=== PATIENT | female | born 1965 | race Hispanic/Latino ===

== ENCOUNTER 2017-06-04 17:05 | Inpatient (IN) | payer BC ==
[2017-06-04] MEDS ORDERED: Sodium Chloride 0.9% 500 ML IV STA ×2 (17:24→18:11)
[2017-06-04] MEDS: Sodium Chloride 0.9% 1,000 ML IV SCH (17:30)
--- NOTE | 2017-06-04 17:37 | ED PDOC ---
Arrival/HPI - General Chief Complaint: Shortness Of Breath Time Seen by Provider: 06/04/17 17:22 Historian: Patient, Spouse - History of Present Illness Narrative History of Present Illness (Text): 06/04/17 17:15 pt p/w + 4 days onset of worsening sob, now worse sob with exertion; + palpitations/? lightheadedness; + feeling very thirsty; pt states no cp; no coughing, no fever/chills, no sweats, no abd pain, + 1 episode of vomiting, + nausea, no appetite changes, no urinary/bowel changes; pt states no LOC; pt is here for further eval; pt's without other complaints pt s/p gastric sleeve 2 months ago at [facility] pt has been losing weight, inital weight was 292lb, 1 week ago, pt was measured at 221lbs PCP: DR CRAVEN Time/Duration: < week Symptom Onset: Sudden (4 days) Symptom Course: Worsening Quality: Other (NO PAIN) Severity Level: Severe Activities at Onset: Other (exertion) Context: Walking, Exertion, Home Past Medical History - Provider Review Nursing Documentation Reviewed: Yes - Travel History Have you recently traveled outside [place] w/in the past 3 mons?: No - Past History Past History: No Previous - Infectious Disease Hx of Infectious Diseases: None - Reproductive Menopause: Yes Currently : No - Psychiatric Hx Substance Use: No - Anesthesia Hx Anesthesia Reactions: No Hx Malignant Hyperthermia: No Family/Social History - Physician Review Nursing Documentation Reviewed: Yes Family/Social History: No Known Family HX Smoking Status: Never Smoked Hx Alcohol Use: No Hx Substance Use: No Hx Substance Use Treatment: No Allergies/Home Meds Allergies/Adverse Reactions: Allergies Sulfa (Sulfonamide Antibiotics) Allergy (Verified 06/04/17 17:15) ITCHING Review of Systems - Review of Systems Constitutional: Fatigue, Weight Change. absent: Night Sweats Eyes: Normal ENT: Normal Respiratory: SOB Cardiovascular: Palpitations. absent: Chest Pain Gastrointestinal: Nausea, Vomiting, Appetite Changes. absent: Abdominal Pain, Stool Changes, Constipation Genitourinary Female: Normal Musculoskeletal: Normal Skin: Normal Neurological: Normal Endocrine: Normal Hemo/Lymphatic: Normal Psychiatric: Normal Physical Exam Vital Signs Reviewed: Yes Vital Signs Temp Pulse Resp BP Pulse Ox 06/04/17 19:55 91 H 10 L 134/63 100 06/04/17 18:17 89 20 134/80 99 06/04/17 18:00 152 H 144/97 H 06/04/17 17:59 152 H 144/97 H 06/04/17 17:57 153 H 20 119/94 H 99 06/04/17 17:40 200 H 144/97 H 06/04/17 17:31 208 H 18 144/97 H 98 06/04/17 17:06 98 F 200 H 22 117/94 H 96 Temperature: Afebrile Blood Pressure: Normal Pulse: Tachycardic Respiratory Rate: Tachypneic Appearance: Positive for: Well-Appearing, Uncomfortable, Other (uncomfortable, mild distress due to resp; alert/awake, GCS = 15, oriented x 3) Pain Distress: None Mental Status: Positive for: Alert and Oriented X 3 - Systems Exam Head: Present: Atraumatic, Normocephalic Pupils: Present: PERRL, Other (no nystagmus, no photophobia, sclera anicteric) Extroacular Muscles: Present: EOMI Conjunctiva: Present: Normal Ears: Present: Normal Mouth: Present: Dry, Normal Teeth, Other (very dry oral mucosa; no drooling/ stridor, no exudate/lesions, no ulcerations/FB/masses noted, fair dentitions) Pharnyx: Present: Normal Nose (External): Present: Atraumatic Nose (Internal): Present: Normal Inspection Neck: Present: Normal Range of Motion, Trachea Midline, Other (no step off, no nuchal rigidity, no meningeal signs). No: MIDLINE TENDERNESS Respiratory/Chest: Present: Clear to Auscultation, Good Air Exchange, Other ( CTA b/l, no w/r/r, no accessory muscle use noted, mild tachypenia) Cardiovascular: Present: Normal S1, S2, Irregular Rhythm, Tachycardic. No: Murmurs Abdomen: Present: Normal Bowel Sounds, Other (well nourished/obese female, no focal tenderness, no olivas's sign, no mcburney's point tenderness, no masses/ rebound/guarding/rigidity) Back: Present: Normal Inspection. No: CVA Tenderness, Midline Tenderness Upper Extremity: Present: Normal Inspection, Normal ROM, NORMAL PULSES, Neurovascularly Intact, Other (strength 5/5 grossly intact in all limbs) Lower Extremity: Present: Normal Inspection, NORMAL PULSES, Normal ROM, Neurovascularly Intact, Capillary Refill < 2 s, Other (no pitting edema noted b/ l, no focal tenderness noted). No: Edema, CALF TENDERNESS, Neema's Sign Neurological: Present: GCS=15, CN II-XII Intact, Speech Normal, Other (slow speech, NO slurr speech noted, NIH stroke scale ~ 0, no facial asymmetries noted ) Skin: Present: Warm, Dry, Other (cap refill ~ 1-2 sec, no ulcerations, no petechiae, no gross pallor noted) Psychiatric: Present: Alert, Oriented x 3 Medical Decision Making ED Course and Treatment: 06/04/17 18:09 Impression: severe sob/weakness i have consider all the differential diagnosis regarding pt's chief medical complaints/clinical findings, including but are not limited to: rapid hr/ dehydration; no cp A/P: sob/weakness; rapid hr - labs - iv - xray - ct - acs eval - observe - supportive care 1750 cardioversion: pt received 2 bolus of adenosine at 12mg/dose, noted improvement in HR momentarily and the resumption of HR > 160BPM pt tolerated the procedure without any [place] will prescribe cardizem 06/04/17 18:00 pt responded to cardizem bolus, currently HR ~ 140s pt remained chest pain free pt is feeling some/slight improvement i spoke to Dr Engle, made aware, agrees with admission, would like Dr Tran consulted and if need be, consult intensivitist [address] Tran, cardiology communications associate, made aware, agrees with ED mgt/txt, would like to add verapamill 2.5mg IVP x 1; will evaluate patient pt is currently doing well vital signs normalized, HR < 100 pt is made aware of her medical results agrees with admission 06/04/17 1845 spoke with Intensivists, Dr Thompson, made aware of pt's ED presentation, recommend holding cardizem gtt and continue with fluid bolus (total of 2L NS) and re-eval; if pt HR > 100 requiring cardizem then pt is likely an ICU candidate, otherwise pt can be admitted to TELE 06/04/17 1905 pt is endorsed to Dr Vasquez, overnight ED attending, pt is pending CTA chest to r/o pe; pt is admitted, pt is to be treated accordingly Re-evaluation Time: 18:30 Reassessment Condition: Improved - Critical Care Critical Care Minutes: 60 minutes Critical Care Time: Excluding Proc Time Narrative Critical Care (Text): 06/04/17 18:15 critical care time: 60min, excluding procedure time, excluding time teaching residents/students/mid-level providers; including initial eval/diagnosis, diagnostic interpretation, re-eval, consultations, final disposition - Lab Interpretations Lab Results: 06/04/17 17:25 06/04/17 17:25 Lab Results 06/04/17 17:25: TSH 3rd Generation 3.00 06/04/17 17:25: Sodium 138, Potassium 5.2 H, Chloride 102, Carbon Dioxide 5 L, Anion Gap 36 H, BUN 21, Creatinine 1.5 H, Est GFR ( Amer) 44, Est GFR ( Non-Af Amer) 36, Random Glucose 296 H, Calcium 11.0 H, Phosphorus 5.4 H, Magnesium 2.5 H, Total Bilirubin 0.7, AST 21, ALT 39, Alkaline Phosphatase 109, Lactate Dehydrogenase 470, Total Creatine Kinase 33 L, Troponin I < 0.01, Total Protein 9.2 H, Albumin 5.4 H, Globulin 3.7, Albumin/Globulin Ratio 1.5 06/04/17 17:25: PT 10.9, INR 0.96, APTT 32.2 06/04/17 17:25: WBC 19.8 H, RBC 5.29, Hgb 16.3 H, Hct 46.6, MCV 88.1, MCH 30.8, MCHC 35.0, RDW 14.1, Plt Count 323, MPV 11.1 H, Gran % 77.1 H, Lymph % (Auto) 16.3 L, [place] % (Auto) 6.3 H, Eos % (Auto) 0.1 L, Baso % (Auto) 0.2, Gran # 15.29 H, Lymph # (Auto) 3.2, [place] # (Auto) 1.2 H, Eos # (Auto) 0.0, Baso # (Auto ) 0.04 I have reviewed the lab results: Yes Interpretation: Abnormal lab values (elevated WBCS/GLUC) - RAD Interpretation Narrative RAD Interpretations (Text): 03/18/18 20:22 CXR - right basiliar atelectasis CTA CHEST: PENDING Radiology Orders: 06/04/17 17:22 ANGIO CHEST PE PROTOCOL [CT] Stat CHEST ONE VIEW [RAD] Stat Door Closer Mechanic: Radiologist - EKG Interpretation EKG Interpretation (Text): 06/04/17 18:16 EKG1: Atrial fib with rapid vent response at 195 bpm, normal axis, + ectoy, non- specific st-t changes, ABNL EKG; no old ekg to compare with EKG2: SR at 90 bpm, borderline 1st degree av block, normal axis, no ectopy, qs in leads III, V1-2, no st changes, ABNL EKG 06/04/17 18:18 ekg rhythm strip: + adenosine response, no underlying atrial flutter noted, resumed rapid HR however Interpreted by ED Physician: Yes Type: 12 lead EKG Comparison: No previous EKG avail. - Medication Orders Current Medication Orders: Sodium Chloride (Sodium Chloride 0.9%) 1,000 mls @ 100 mls/hr IV .Q10H ALEJANDRINA Discontinued Medications Adenosine (Adenosine 6 Mg/2 Ml Inj) 12 mg IVP ONCE ONE Stop: 06/04/17 17:24 Last Admin: 06/04/17 17:23 Dose: 12 mg IVP Administration Document 06/04/17 17:23 SRE (Rec: 06/04/17 17:42 SRE [id number]) Charges for Administration # of IVP Administrations 1 Adenosine (Adenosine 6 Mg/2 Ml Inj) 12 mg IVP STAT STA Stop: 06/04/17 17:26 Last Admin: 06/04/17 17:25 Dose: 12 mg IVP Administration Document 06/04/17 17:25 SRE (Rec: 06/04/17 17:41 SRE [id number]) Charges for Administration # of IVP Administrations 1 Aspirin (Ecotrin) 81 mg PO STAT STA Stop: 06/04/17 17:23 Last Admin: 06/04/17 17:43 Dose: 81 mg Diltiazem HCl (Cardizem) 20 mg IVP STAT STA Stop: 06/04/17 17:33 Last Admin: 06/04/17 17:40 Dose: 20 mg IVP Administration Document 06/04/17 17:40 SRE (Rec: 06/04/17 17:45 SRE [id number]) Charges for Administration # of IVP Administrations 1 MAR Pulse and Blood Pressure Document 06/04/17 17:40 SRE (Rec: 06/04/17 17:45 SRE [id number]) Pulse Pulse Rate (60-90) 200 Blood Pressure Blood Pressure (100/60-150/90) 144/97 Diltiazem HCl (Cardizem) 10 mg IVP STAT STA Stop: 06/04/17 17:49 Last Admin: 06/04/17 18:00 Dose: 10 mg IVP Administration Document 06/04/17 18:00 SRE (Rec: 06/04/17 18:00 SRE [id number]) Charges for Administration # of IVP Administrations 1 MAR Pulse and Blood Pressure Document 06/04/17 18:00 SRE (Rec: 06/04/17 18:00 SRE [id number]) Pulse Pulse Rate (60-90) 152 Blood Pressure Blood Pressure (100/60-150/90) 144/97 Sodium Chloride (Sodium Chloride 0.9%) 500 mls @ 999 mls/hr IV .Q31M STA Stop: 06/04/17 17:54 Last Admin: 06/04/17 17:20 Dose: 999 mls/hr eMAR Start Stop Document 06/04/17 17:20 SRE (Rec: 06/04/17 17:44 SRE [id number]) Intravenous Solution Start Date 06/04/17 Start Time 17:20 End Date 06/04/17 End time 17:50 Total Infusion Time 30 diltiaZEM IVPB 100mg in NS (Cardizem 100mg In Ns) 100 mls @ 5 mls/hr IV .Q20H PRN; Protocol; 5 MG/HR PRN Reason: TITRATE PER MD ORDER Last Admin: 06/04/17 17:48 Dose: 5 mls/hr eMAR Start Stop Document 06/04/17 17:48 SRE (Rec: 06/04/17 17:48 SRE [id number]) Intravenous Solution Start Date 06/04/17 Start Time 17:48 Sodium Chloride (Sodium Chloride 0.9%) 500 mls @ 999 mls/hr IV .Q31M STA Stop: 06/04/17 18:41 Last Admin: 06/04/17 18:38 Dose: 999 mls/hr eMAR Start Stop Document 06/04/17 18:38 SRE (Rec: 06/04/17 18:39 SRE [id number]) Intravenous Solution Start Date 06/04/17 Start Time 18:15 End Date 06/04/17 End time 18:45 Total Infusion Time 30 Sodium Chloride (Sodium Chloride 0.9%) 1,000 mls @ 999 mls/hr IV .Q1H1M STA Stop: 06/04/17 19:28 Last Admin: 06/04/17 18:32 Dose: 999 mls/hr eMAR Start Stop Document 06/04/17 18:32 SRE (Rec: 06/04/17 18:32 SRE [id number]) Intravenous Solution Start Date 06/04/17 Start Time 18:32 End Date 06/04/17 End time 19:35 Total Infusion Time 63 Lorazepam (Ativan) 1 mg IVP ONCE ONE PRN Reason: Protocol Stop: 06/04/17 17:25 Last Admin: 06/04/17 17:58 Dose: 1 mg IVP Administration Document 06/04/17 17:58 SRE (Rec: 06/04/17 17:58 SRE [id number]) Charges for Administration # of IVP Administrations 1 Verapamil HCl (Verapamil Inj) 2.5 mg IVP STAT STA Stop: 06/04/17 18:05 Last Admin: 06/04/17 18:05 Dose: - Transfer of Care Patient signed out to :: kori Pending Radiology Studies:: CTA chest Disposition/Present on Arrival - Present on Arrival Any Indicators Present on Arrival: No History of DVT/PE: No History of Uncontrolled Diabetes: No Urinary Catheter: No History of Decub. Ulcer: No History Surgical Site Infection Following: Bariatric Surgery - Disposition Have Diagnosis and Disposition been Completed?: Yes Diagnosis: Atrial fibrillation with rapid ventricular response, Dehydration, Hyperglycemia , Leukocytosis Disposition: HOSPITALIZED Disposition Time: 18:06 Patient Plan: Admission, Telemetry Patient Problems: Current Active Problems Problem Status Onset Atrial fibrillation with rapid ventricular response Acute Condition: FAIR
[2017-06-04] MEDS ORDERED: diltiaZEM IVPB 100mg in NS 100 ML IV PRN (17:40)
[2017-06-04 17:42] VITALS: BMI 35.6
[2017-06-04 18:00] LABS: BASO # 0.04 K/mm3 (0.0-2.0); BASO % 0.2 % (0.0-3.0); EOS % 0.1 % (1.5-5.0); GRAN # 15.29 (1.4-6.5); GRAN % 77.1 % (50.0-68.0); HEMOGLOBIN 16.3 g/dL (12.0-16.0); LYMPH # 3.2 (1.2-3.4); LYMPH % 16.3 % (22.0-35.0); MEAN CELL VOLUME 88.1 fl (80.0-105.0); MEAN CORPUSCULAR HEMOGLOBIN 30.8 pg (25.0-35.0); MEAN PLATELET VOLUME 11.1 fl (7.0-11.0); MONO # 1.2 (0.1-0.6); MONO % 6.3 % (1.0-6.0); RBC 5.29 10^6/uL (3.5-6.1); RED CELL DISTRIBUTION WIDTH 14.1 % (11.5-14.5); WHITE BLOOD COUNT 19.8 10^3/ul (4.5-11.0)
[2017-06-04 18:15] LABS: INR 0.96 (0.93-1.08); PARTIAL THROMBOPLASTIN TIME 32.2 Seconds (25.1-36.5); PROTHROMBIN TIME 10.9 SECONDS (9.4-12.5)
[2017-06-04 18:28] LABS: ALB/GLOB RATIO 1.5 (1.1-1.8); ALBUMIN 5.4 g/dL (3.0-4.8); ALT/SGPT 39 U/L (7-56); AST/SGOT 21 U/L (14-36); BLOOD UREA NITROGEN 21 mg/dL (7-21); GFR AFRICAN-AMERICAN 44; GFR NON-AFRICAN AMERICAN 36
[2017-06-04] MEDS ORDERED: Sodium Chloride 0.9% 1,000 ML IV STA (18:28)
[2017-06-04 18:36] LABS: VENOUS BLOOD GAS BASE EXCESS -26.5 mmol/L (0.0-2.0); VENOUS BLOOD GAS PO2 32 mm/Hg (30-55)
[2017-06-04 18:37] LABS: TROPONIN I < 0.01 ng/mL
[2017-06-04 18:38] LABS: VENOUS BLOOD PH 6.92 (7.32-7.43)
[2017-06-04] MEDS ORDERED: Iohexol 350 MG/100 ML VIAL ONE (18:38)
--- NOTE | 2017-06-04 20:45 | CT ---
EXAM: CT Angiography Chest With Intravenous Contrast CLINICAL HISTORY: 51 years old, female; Signs and symptoms; Dyspnea; Prior surgery; Surgery type: Recent bariatric sleeve; Patient HX: R/O pe; Additional info: R/O pe, recent bariatric sleeve TECHNIQUE: Axial computed tomographic angiography images of the chest with intravenous contrast using pulmonary embolism protocol. All CT scans at this facility use one or more dose reduction techniques, viz.: automated exposure control; ma/kV adjustment per patient size (including targeted exams where dose is matched to indication; i.e. head); or iterative reconstruction technique. MIP reconstructed images were created and reviewed. Coronal and sagittal reformatted images were created and reviewed. CONTRAST: 96 mL of OMNIPAQUE 350 administered intravenously. COMPARISON: No relevant prior studies available. FINDINGS: Limitations: Motion artifact - mild. Suboptimal timing of bolus. Pulmonary arteries: No definite pulmonary embolism. Aorta: Mild atherosclerotic disease. No aneurysm. Lungs: Minimal atelectasis/scarring. No consolidation. Pleural space: No significant effusion. No pneumothorax. Heart: No cardiomegaly. No significant pericardial effusion. Mild coronary artery calcifications. Mediastinum: Probable small hiatal hernia. Bones/joints: Mild degenerative changes of spine. No acute fracture. Soft tissues: Unremarkable. Lymph nodes: No pathologically enlarged lymph nodes. Liver: Fatty infiltration. Stomach and bowel: Postsurgical changes of stomach. IMPRESSION: 1. No definite CT evidence of pulmonary embolism. 2. Incidental/non-acute findings are described above.
[2017-06-04 22:35] LABS: VENOUS BLOOD GAS BASE EXCESS -26.5 mmol/L (0.0-2.0); VENOUS BLOOD GAS PO2 46 mm/Hg (30-55)
--- NOTE | 2017-06-05 09:27 | RAD ---
PROCEDURE: CHEST RADIOGRAPH, 1 VIEW HISTORY: sob/palpitations COMPARISON: None available. FINDINGS: LUNGS: Clear. PLEURA: No pneumothorax or pleural fluid seen. CARDIOVASCULAR: Normal. OSSEOUS STRUCTURES: No significant abnormalities. VISUALIZED UPPER ABDOMEN: Normal. OTHER FINDINGS: None. IMPRESSION: No active disease.
[2017-06-05] MEDS ORDERED: Vancomycin 1gm in NS 250ml 1 GM/250 ML BAG IVPB STA (09:58)
[2017-06-05] MEDS ORDERED: Enoxaparin 100 mg Syringe SC SCH (10:00)
--- NOTE | 2017-06-05 11:02 | CARD ---
APPROVED REPORT EKG Measurement Heart [id number] <Conclusion> Atrial fibrillation with rapid ventricular response Possible Anterior infarct, age undetermined STTW changes c/w ischemia
--- NOTE | 2017-06-05 11:04 | CARD ---
APPROVED REPORT EKG Measurement Heart [id number] <Conclusion> Normal sinus rhythm, new Septal infarct, age unknown LAD NSSTW changes Q in 3
[2017-06-05 11:31] LABS: URINE BILIRUBIN SMALL (NEGATIVE); URINE BLOOD MODERATE (NEGATIVE); URINE GLUCOSE (UA) 500 mg/dL (NEGATIVE); URINE LEUKOCYTE ESTERASE NEGATIVE Leu/uL (NEGATIVE); URINE PROTEIN 100 mg/dL (<30 mg/dL); URINE UROBILINOGEN 0.2 E.U./dL (<1 E.U./dL)
[2017-06-05] MEDS ORDERED: diltiaZEM IVPB 100mg in NS 100 ML IV PRN (11:39)
--- NOTE | 2017-06-05 11:40 | CARD ---
APPROVED REPORT EKG Measurement Heart [id number] <Conclusion> Normal sinus rhythm Clockwise Rotation. Non Specific ST_T Changes.
[2017-06-05 11:42] LABS: URINE APPEARANCE CLEAR (CLEAR); URINE COLOR YELLOW (YELLOW)
--- NOTE | 2017-06-05 11:43 | HP ---
CHIEF COMPLAINT AND HISTORY OF PRESENT ILLNESS: This is a 51-year-old female, who is coming in to the hospital because of shortness of breath. She says over the past 4 days, she has been having more shortness of breath. She was also having palpitations and lightheadedness. She denies any chest pain. No headache. No changes in her bowel and bladder habits. She did complain of nausea and 1 episode of vomiting. The patient denies any weakness in the arms or the legs. She did have a gastric sleeve done about 2 months ago at [facility]. The patient continues to lose weight and says that she is about 221 pounds. The patient follows with Dr. Rodriguez, who is her primary care doctor. REVIEW OF SYMPTOMS: All other review of symptoms are within normal limits except that was mentioned. ALLERGIES: TO SULFA. HOME MEDICATIONS: Has been reviewed on the [facility]. PAST MEDICAL HISTORY: Diabetes type 2, dyslipidemia, hypertension. FAMILY HISTORY: Noncontributory. SOCIAL HISTORY: She does not smoke or drink. PHYSICAL EXAMINATION: VITAL SIGNS: Temperature is 97.4, pulse of 88, blood pressure is 165/65, respirations 18, O2 saturation is 100%. Height is 5 feet 6. Weight is 221 pounds. GENERAL: The patient lying in bed, uncomfortable, and in no acute distress. HEENT: Atraumatic and normocephalic. Anicteric sclerae. Moist mucosa. [place] conjunctivae. No oral lesions. NECK: No JVD, anterior and posterior adenopathy, thyromegaly, or bruits. CARDIOVASCULAR: S1 and S2 regular. No murmur, rubs, or gallop. LUNGS: Clear to auscultation bilaterally. No wheezes, rales, or rhonchi. ABDOMEN: Bowel sounds are positive. Soft, nontender and nondistended. No hepatosplenomegaly. No rebound and no guarding EXTREMITIES: No cyanosis, clubbing, or edema. NEUROLOGIC: No facial asymmetry. Tongue is midline. No uvula deviation. Power is 5/5 upper extremity and lower extremity. Sensation intact in upper extremity and lower extremity. PSYCHIATRIC: She is awake, alert and oriented x3. No anxiety or depression. She has normal affect. GENITOURINARY: No CVA tenderness. VASCULAR: 2+ pulses in the carotid pulses and pedal pulses. SKIN: No erythema or nodules SPINE: Shows normal curvature. LABORATORY DATA: White count of 19.8, hemoglobin 16.3. INR is 0.96. The patient's chemistry shows potassium is 5.2, creatinine is 1.5, TSH is 3. The patient's chest x-ray shows no infiltrates. CT angio of the chest rules out PE. EKG done shows atrial fibrillation with rapid rate of 195. ASSESSMENT: 1. Rapid atrial fibrillation, new onset. 2. Hypertension. 3. Diabetes type 2. 4. Dyslipidemia. 5. Obesity with a body mass index of 35, status post gastric sleeve. PLAN: The patient is currently comfortable. I will continue the patient on diabetes medications. The patient is back in sinus rhythm. The patient will receive multiple doses of IV fluids. The patient's initial troponins were negative. I did speak to Dr. Tran regarding the case yesterday. We will await further input from Dr. Tran. The patient clinically feels better. We will place her on insulin sliding scale. Elio Madrid MD
[2017-06-05 11:45] LABS: URINE RBC 15 - 20 /hpf (0-2); URINE WBC 0 - 2 /hpf (0-6)
[2017-06-05 11:46] LABS: URINE AMORPHOUS SEDIMENT FEW; URINE BACTERIA MOD (NEG)
[2017-06-05 11:51] LABS: URINE COARSE GRANULAR CAST TRACE /hpf (0-2)
[2017-06-05] MEDS: Cefepime 1gm in NS 100ml 1 GM/100 ML BAG IVPB SCH ×2 (12:48→22:02)
[2017-06-05] MEDS: Insulin Reg-LOW-Coverage SC SCH ×3 (12:48→21:37)
--- NOTE | 2017-06-05 14:15 | CP.PCM.CON ---
History of Present Illness - History of Present Illness History of Present Illness: 51 year old female with PMH of DM, dyslipidemia, HTN, obesity with BMI 36, S/P gastric sleeve surgery came in to [facility] complaining of shortness of breath and dry cough which have been increasing over the past 4 days. There is no sore throat, no rhinorrhea, no muscle or body aches, no fever or chills, no chest pain, no headache or dizziness, no abdominal pain, no diarrhea, no dysuria. During this admission, the patient is found to have new onset atrial fibrillation. CT chest does not show pneumonia. Patient is also found to have leukocytosis and Infectious Diseases consult is requested to further evaluate and manage. Review of Systems - Review of Systems All systems: reviewed and no additional remarkable complaints except (as per HPI ) Past Patient History - Infectious Disease Hx of Infectious Diseases: None - Past Social History Smoking Status: Former Smoker - MUSCULOSKELETAL/RHEUMATOLOGICAL Hx Falls: No - PSYCHIATRIC Hx Substance Use: No - ANESTHESIA Hx Anesthesia Reactions: No Hx Malignant Hyperthermia: No Meds Allergies/Adverse Reactions: Allergies Allergy/AdvReac Type Severity Reaction Status Date / Time Sulfa (Sulfonamide Allergy ITCHING Verified 06/04/17 17:15 Antibiotics) - Medications Medications: Current Medications Aspirin (Ecotrin) 81 mg PO DAILY ALEJANDRINA Enoxaparin Sodium (Lovenox) 100 mg SC Q12H ALEJANDRINA PRN Reason: Protocol Sodium Chloride (Sodium Chloride 0.9%) 1,000 mls @ 100 mls/hr IV .Q10H [facility] Last Admin: 06/04/17 17:30 Dose: 100 mls/hr Insulin Human Regular (Humulin R Low) 0 units SC ACHS ALEJANDRINA PRN Reason: Protocol Physical Exam - Constitutional Appears: Non-toxic, Chronically Ill - Head Exam Head Exam: NORMAL INSPECTION - ENT Exam ENT Exam: Mucous Membranes Moist - Neck Exam Neck exam: Negative for: Meningismus - Respiratory Exam Respiratory Exam: Decreased Breath Sounds - Cardiovascular Exam Cardiovascular Exam: +S1, +S2 - GI/Abdominal Exam GI & Abdominal Exam: Soft. absent: Tenderness Results - Vital Signs Recent Vital Signs: Last Vital Signs Temp 97.4 F L 06/05/17 00:47 Pulse 88 06/05/17 00:47 Resp 18 06/05/17 00:47 BP 165/65 H 06/05/17 00:47 Pulse Ox 100 06/04/17 19:55 - Labs Result Diagrams: 06/04/17 17:25 06/04/17 17:25 Labs: Laboratory Results - last 24 hr 06/04/17 06/04/17 18:30 22:15 pO2 32 46 VBG pH 6.92 L* 6.90 L* VBG pCO2 25.0 L 29.0 L VBG HCO3 5.1 L 5.7 L VBG Total CO2 5.9 L 6.6 L VBG O2 Sat (Calc) 67.0 H 84.1 H VBG Base Excess -26.5 L -26.5 L VBG Potassium 5.2 4.8 Sodium 133.0 134.0 Chloride 98.0 101.0 Glucose 299 H 233 H Lactate 2.0 1.5 FiO2 21.0 21.0 Venous Blood Potassium 5.2 4.8 Assessment & Plan - Assessment and Plan (Free Text) Plan: Assessment Systemic Inflammatory Response syndrome, consider acute stress reaction to new onset Atrial fibrillation, R/O sepsis DM dyslipidemia HTN obesity with BMI 36 S/P gastric sleeve surgery Plan gave a dose of IV Vancomycin and started cefepime pending blood, urine cx, PCT; reviewed CT chest will monitor clinically
[2017-06-05] MEDS: diltiaZEM IVPB 100mg in NS 100 ML IV SCH (16:21)
[2017-06-05 19:23] LABS: HEMOGLOBIN 14.9 g/dL (12.0-16.0); MEAN CELL VOLUME 88.5 fl (80.0-105.0); MEAN CORPUSCULAR HEMOGLOBIN 30.6 pg (25.0-35.0); MEAN CORPUSCULAR HGB CONC 34.6 g/dl (31.0-37.0); MEAN PLATELET VOLUME 11.5 fl (7.0-11.0); RBC 4.87 10^6/uL (3.5-6.1); RED CELL DISTRIBUTION WIDTH 14.2 % (11.5-14.5); WHITE BLOOD COUNT 23.1 10^3/ul (4.5-11.0)
[2017-06-05 19:41] LABS: ALB/GLOB RATIO 1.5 (1.1-1.8); ALBUMIN 5.1 g/dL (3.0-4.8); CALCIUM 10.2 mg/dL (8.4-10.5)
--- NOTE | 2017-06-05 20:11 | CP.PCM.PN ---
Subjective - Date & Time of Evaluation Date of Evaluation: 06/05/17 Time of Evaluation: 20:10 - Subjective Subjective: S: It was requested to insert a heparin lock. Patient is going to have Midline inserted tomorrow. Has no acute symptoms. Medical record was reviewed. O: Last Vital Signs 3 Temp 98.2 F 06/05/17 12:00 Pulse 94 H 06/05/17 17:54 Resp 20 06/05/17 12:00 BP 150/64 06/05/17 17:54 Pulse Ox 100 06/04/17 19:55 Lethargic. Not in acute distress. LUNGS: Normal breathing pattern. A:Poor venous access. Lethargy. P:# 24 angiocath was inserted in left volar distal forearm. Observation. Objective - Vital Signs/Intake and Output Vital Signs (last 24 hours): Temp Pulse Resp BP Pulse Ox 98.2 F 94 H 20 150/64 100 06/05/17 12:00 06/05/17 17:54 06/05/17 12:00 06/05/17 17:54 06/04/17 19:55 Intake and Output: 06/05/17 06/06/17 18:59 06:59 Intake Total 240 Balance 240 - Medications Medications: Current Medications Aspirin (Ecotrin) 81 mg PO DAILY REPLACED BY [facility] Last Admin: 06/05/17 10:10 Dose: 81 mg Enoxaparin Sodium (Lovenox) 100 mg SC Q24H ALEJANDRINA PRN Reason: Protocol Sodium Chloride (Sodium Chloride 0.9%) 1,000 mls @ 100 mls/hr IV .Q10H REPLACED BY [facility] Last Admin: 06/04/17 17:30 Dose: 100 mls/hr Cefepime HCl (Maxipime 1gm) 1 gm in 100 mls @ 100 mls/hr IVPB Q12 ALEJANDRINA PRN Reason: Protocol Last Admin: 06/05/17 12:48 Dose: 100 mls/hr diltiaZEM IVPB 100mg in NS (Cardizem 100mg In Ns) 100 mls @ 10 mls/hr IV .Q10H ALEJANDRINA PRN Reason: 10 MG/HR Last Admin: 06/05/17 16:21 Dose: 10 mls/hr Insulin Human Regular (Humulin R Low) 0 units SC ACHS ALEJANDRINA PRN Reason: Protocol Last Admin: 06/05/17 17:55 Dose: 2 units Metoprolol Tartrate (Lopressor) 12.5 mg PO BID ALEJANDRINA Last Admin: 06/05/17 17:54 Dose: 12.5 mg - Labs Labs: 06/05/17 19:10 06/05/17 19:10 PT 10.9 SECONDS (9.4-12.5) 06/04/17 17:25 INR 0.96 (0.93-1.08) 06/04/17 17:25 APTT 32.2 Seconds (25.1-36.5) 06/04/17 17:25
--- NOTE | 2017-06-05 20:33 | CT ---
EXAM: CT Head Without Intravenous Contrast EXAM DATE/TIME: 06/05/2017 6:32 PM CLINICAL HISTORY: 51 years old, female; Signs and symptoms; Alteration of consciousness; Somnolence (drowsiness); Additional info: Lethargy TECHNIQUE: Axial computed tomography images of the head/brain without intravenous contrast. All CT scans at this facility use one or more dose reduction techniques, viz.: automated exposure control; ma/kV adjustment per patient size (including targeted exams where dose is matched to indication; i.e. head); or iterative reconstruction technique. Coronal and sagittal reformatted images were created and reviewed. COMPARISON: There are no prior studies for comparison. FINDINGS: Brain: Ventricles are normal in size and configuration. There is no midline shift. There are no intra-axial or extra-axial mass lesions or areas of hemorrhage. There are no abnormal fluid collections. Palma-white differentiation is maintained. Ventricles: See above. Bones: Cranial vault is intact. Soft tissues: unremarkable Sinuses: There is no acute sinusitis. Ears and mastoids: Middle ears and mastoids are unremarkable Orbits: Orbital contents are unremarkable. IMPRESSION: No acute intracranial abnormality
--- NOTE | 2017-06-05 21:01 | CON ---
DATE: 06/05/2017 CARDIOLOGY CONSULTATION REASON FOR CONSULTATION: Atrial fibrillation with rapid ventricular rate, new onset. BRIEF CLINICAL HISTORY: This is a 51-year-old female with a past medical history significant for morbid obesity, status post gastric bypass sleeve operation done 2 months ago at [facility] and continues to losing weight. She came in yesterday with shortness of breath, was seen in Dr. Rodriguez's office and found to be in atrial fibrillation with rapid ventricular rate. The patient came to the ER, found to have a heart rate of 180. The patient was started on Cardizem, converted to normal sinus this morning, again the patient went back, reversed to AFib. Denies any chest pain, lying flat on the bed, is at the bedside. PAST MEDICAL HISTORY: Significant for morbid obesity, status post gastric sleeve operation. Also significant for diabetes, hypertension, hyperlipidemia. ALLERGIES: SULFA. PAST SURGICAL HISTORY: Significant for gastric sleeve operation. CURRENT MEDICATIONS: Patient at home was taking aspirin, paroxetine, Invokana, B12, Pravachol, metformin. REVIEW OF SYSTEMS: As per HPI. PHYSICAL EXAMINATION: GENERAL: Height of the patient is 5 feet 6 inches. Weight of the patient is 223 pounds. Body mass index 36 kg/m2. VITAL SIGNS: Temperature 97, heart rate 101, blood pressure 111/54. HEENT: PERRLA, extraocular muscles intact. NECK: Supple. No carotid bruit or thyromegaly. CHEST: Clear to auscultation. HEART: S1, S2 regular. ABDOMEN: Soft. EXTREMITIES: Clubbing and cyanosis negative. LABORATORY DATA: Blood workup as follows. WBC 19.8, hemoglobin 16.3, hematocrit 46.6, platelet count 323. Chemistry shows sodium 138, potassium 5.2, chloride 102, carbon dioxide , anion gap of 36, BUN 21, and creatinine 1.5. Troponin 0.01, negative. EKG showed AFib with rapid ventricular rate. Repeat EKG showed normal sinus. IMPRESSION: 1. New onset atrial fibrillation with rapid ventricular rate. 2. Diabetes type 2. 3. Hyperlipidemia. 4. Morbid obesity, status post gastric sleeve operation. 5. Rule out sepsis. RECOMMENDATIONS: Mcneill culture. We will start Cardizem. We will get echo to assess left ventricular function. We will give one dose of Lovenox. Because the patient is simply lying on the bed, I will get echo to assess left ventricular function. We will also get Lovenox now and then we will determine whether the patient depending on ERNESTINA score, patient needs fdc anticoagulation or not. We will follow with you. Thank you Dr. Madrid for providing us the opportunity in taking care of the patient, Nata Loco. Maynor Tran MD
[2017-06-05 21:17] LABS: URINE BILIRUBIN NEGATIVE (NEGATIVE); URINE BLOOD LARGE (NEGATIVE); URINE GLUCOSE (UA) >=1000 mg/dL (NEGATIVE); URINE LEUKOCYTE ESTERASE NEGATIVE Leu/uL (NEGATIVE); URINE PROTEIN 100 mg/dL (<30 mg/dL); URINE UROBILINOGEN 0.2 E.U./dL (<1 E.U./dL)
[2017-06-05 21:22] LABS: URINE APPEARANCE CLEAR (CLEAR); URINE COLOR YELLOW (YELLOW)
[2017-06-05 21:53] LABS: URINE BACTERIA SMALL (NEG); URINE FINE GRANULAR CAST 0 - 2 /hpf (0-2)
[2017-06-05] MEDS: Sodium Chloride 0.9% 1,000 ML IV SCH ×2 (22:03→22:35)
[2017-06-06 00:35] LABS: BARBITURATES, UR NEGATIVE (NEGATIVE); BENZODIAZEPINES, UR NEGATIVE (NEGATIVE); OPIATES, UR NEGATIVE (NEGATIVE); PHENCYCLIDINE, UR NEGATIVE (NEGATIVE)
[2017-06-06] MEDS: diltiaZEM IVPB 100mg in NS 100 ML IV SCH ×3 (00:55→10:54)
[2017-06-06] MEDS: Sodium Chloride 0.9% 1,000 ML IV SCH ×2 (06:07→15:55)
[2017-06-06 07:17] LABS: MEAN CELL VOLUME 89.2 fl (80.0-105.0); MEAN CORPUSCULAR HEMOGLOBIN 30.2 pg (25.0-35.0); MEAN CORPUSCULAR HGB CONC 33.8 g/dl (31.0-37.0); RBC 3.98 10^6/uL (3.5-6.1); RED CELL DISTRIBUTION WIDTH 14.4 % (11.5-14.5); WHITE BLOOD COUNT 17.4 10^3/ul (4.5-11.0)
[2017-06-06] MEDS: Insulin Reg-LOW-Coverage SC SCH ×2 (08:56→17:29)
[2017-06-06 09:24] LABS: ARTERIAL BLOOD GAS HEMOGLOBIN 13.9 g/dL (11.7-17.4); ARTERIAL BLOOD GAS O2 CAPACITY 19.3 mL/dl (16-24); ARTERIAL BLOOD GAS O2 CONTENT 19.2 ML/dl (15-23); ARTERIAL BLOOD GAS O2 SAT 99.6 % (95-98); ARTERIAL BLOOD GAS TCO2 3.2 mmol.L (22-28)
[2017-06-06 09:26] LABS: ARTERIAL BLOOD GAS HCO3 2.7 mmol/L (21-28); ARTERIAL BLOOD GAS PH 6.87 (7.35-7.45)
[2017-06-06 09:27] LABS: ARTERIAL BLOOD GAS PCO2 15 mm/Hg (35-45)
--- NOTE | 2017-06-06 09:49 | CARD ---
APPROVED REPORT EKG Measurement Heart [id number] <Conclusion> Atrial fibrillation with rapid ventricular response Clockwise Rotation. ST_T Changes.
[2017-06-06 10:01] LABS: ALB/GLOB RATIO 1.5 (1.1-1.8); ALBUMIN 4.7 g/dL (3.0-4.8); ALT/SGPT 41 U/L (7-56); AST/SGOT 24 U/L (14-36); BLOOD UREA NITROGEN 29 mg/dL (7-21); CALCIUM 9.8 mg/dL (8.4-10.5); GFR AFRICAN-AMERICAN 41; GFR NON-AFRICAN AMERICAN 34
[2017-06-06] MEDS ORDERED: Enoxaparin 100 mg Syringe SC SCH (10:15)
[2017-06-06] MEDS ORDERED: Sodium Chloride 0.9% 2,000 ML IV STA (10:35)
[2017-06-06] MEDS ORDERED: Sodium Bicarbonate (8.4%) 50 Meq Syringe IVP ONE ×2 (10:39→11:29)
[2017-06-06] MEDS: Insulin Regular 100 UNITS in Sodium Chloride 0.9% 99 ML IV PRN (10:40)
--- NOTE | 2017-06-06 10:47 | CP.CCUPN ---
CCU Subjective - Physician Review Events Since Last Encounter (Free Text): 06/06/17 10:44 51yo female pt presented with weakness and lethargy. Pt had a bariatric surgery in march and had lost 60lb since then. Last week she started to feel weak and lethargic. She had increase in thirst but could not tolerate PO intake as she was nauseous. She vomited once on Monday . Over the weekend she continued to feel worse , more weak and short of breath and family took her to the hospital. IN ED pt was noted to have new onset Afib with RVR. Pt was admitted to the [facility] and treated. Today, nursing staff noted the patient to be more lethargic. Upon labwork completion, pt was noted to be acidotic from DKA and ICU eval was called. Pt seen and examined at bedside. Pt is lethargic and unable to provide any HPI or ROS. Pt's is at bedside. PMH: DM, HTN, HLD Surgical Hx: , Bariatric gastric sleeve surgery Social: lives with family, does not drink ETOH, does not smoke, does not use illicit drugs CCU Objective - Vital Signs / Intake & Output Vital Signs (Last 4 hours): Vital Signs Pulse BP 06/06/17 10:00 152 H 06/06/17 08:14 152 H 150/62 06/06/17 07:32 170 H 150/62 Intake and Output (Last 8hrs): Intake & Output 06/05/17 06/06/17 06/06/17 22:59 06:59 14:59 Intake Total 240 1118 Output Total 1150 Balance 240 -32 Intake: IV 758 Left Wrist 758 Oral 240 360 Output: Urine 1150 Urine, Voided 1150 Other: # Voids Urine, Voided 2 3 # Bowel Movements 0 - Physical Exam Head: Positive for: Atraumatic, Normocephalic Conjunctiva: Positive for: Normal Mouth: Positive for: Dry, Normal Teeth Respiratory/Chest: Positive for: Clear to Auscultation, Good Air Exchange, Other (CTA b/l, no w/r/r, no accessory muscle use noted, mild tachypenia). Negative for: Respiratory Distress Cardiovascular: Positive for: Normal S1, S2, Irregular Rhythm, Tachycardic. Negative for: Murmurs Abdomen: Positive for: Normal Bowel Sounds. Negative for: Tenderness, Distention Back: Positive for: Normal Inspection. Negative for: CVA Tenderness, Midline Tenderness Upper Extremity: Positive for: Normal Inspection. Negative for: Edema Lower Extremity: Positive for: Normal Inspection. Negative for: Edema, Erythema Neurological: Positive for: Other (lethargic, does not follow command) Skin: Positive for: Warm, Dry Psychiatric: Positive for: Lethargic. Negative for: Oriented x 3 - Medications Active Medications: Active Medications Generic Name Dose Route Start Last Admin Trade Name Freq PRN Reason Stop Dose Admin Aspirin 81 mg 06/05/17 10:00 06/06/17 10:40 Ecotrin PO Not Given DAILY ALEJANDRINA Enoxaparin Sodium 100 mg 06/06/17 10:15 Lovenox SC Q24H ALEJANDRINA Protocol Sodium Chloride 1,000 mls @ 100 mls/hr 06/04/17 18:15 06/06/17 06:07 Sodium Chloride 0.9% IV 100 mls/hr .Q10H ALEJANDRINA Administration Cefepime HCl 1 gm in 100 mls @ 100 mls/hr 06/05/17 10:00 06/05/17 22:02 Maxipime 1gm IVPB 100 mls/hr Q12 ALEJANDRINA Administration Protocol diltiaZEM IVPB 100mg in NS 100 mls @ 15 mls/hr 06/06/17 07:30 06/06/17 07:35 Cardizem 100mg In Ns IV 06/06/17 11:00 15 mls/hr .Q6H40M ALEJANDRINA Administration 15 MG/HR Insulin Human Regular 100 100 mls @ 1 mls/hr 06/06/17 09:45 06/06/17 10:40 units/ Sodium Chloride IV 1 units/hr .Q24H PRN 1 mls/hr TITRATE PER MD ORDER Administration Protocol 1 UNITS/HR Sodium Bicarbonate 75 meq/ 1,000 mls @ 250 mls/hr 06/06/17 10:45 Sodium Chloride IV .Q4H ALEJANDRNIA Sodium Chloride 2,000 mls @ 999 mls/hr 06/06/17 10:35 Sodium Chloride 0.9% IV 06/06/17 12:35 .Q2H1M STA Potassium Chloride 100 mls @ 100 mls/hr 06/06/17 10:45 Potassium Chloride 10 Meq/100 Ml IVPB 06/06/17 13:44 Q2H ALEJANDRINA Insulin Human Regular 0 units 03/19/18 11:30 06/06/17 08:56 Humulin R Low SC 2 units ACHS [facility] Administration Protocol Metoprolol Tartrate 12.5 mg 06/05/17 18:00 06/06/17 10:41 Lopressor PO Not Given BID [facility] Verapamil HCl 2.5 mg 06/06/17 09:22 Verapamil Inj IVP Q6H PRN for heart rate >130 Verapamil HCl 80 mg 06/06/17 10:00 06/06/17 10:41 Calan Tab PO Not Given TID [facility] - Patient Studies Lab Studies: Lab Studies 06/06/17 06/06/17 06/06/17 Range/Units 09:30 09:20 07:21 WBC (4.5-11.0) 10^3/ul RBC (3.5-6.1) 10^6/uL Hgb (12.0-16.0) g/dL Hct (36.0-48.0) % MCV (80.0-105.0) fl MCH (25.0-35.0) pg MCHC (31.0-37.0) g/dl RDW (11.5-14.5) % Plt Count (120.0-450.0) 10^3/uL MPV (7.0-11.0) fl pCO2 15 L* (35-45) mm/Hg pO2 121.0 H (30-55) mm/Hg HCO3 2.7 L* (21-28) mmol/L ABG pH 6.87 L* (7.35-7.45) ABG Total CO2 3.2 L (22-28) mmol.L ABG O2 Saturation 99.6 H (95-98) % ABG O2 Content 19.2 (15-23) ML/dl ABG Base Excess -29.6 L (-2.0-3.0) mmol/L ABG Hemoglobin 13.9 (11.7-17.4) g/dL ABG Carboxyhemoglobin 1.4 (0.5-1.5) % POC ABG HHb (Measured) 0.4 (0-5) % ABG Methemoglobin 0.8 (0.0-3.0) % ABG O2 Capacity 19.3 (16-24) mL/dl VBG pH (7.32-7.43) VBG pCO2 (40-60) VBG HCO3 (21-28) mmol/l VBG Total CO2 (22-28) mmol.L VBG O2 Sat (Calc) (40-65) % VBG Base Excess (0.0-2.0) mmol/L VBG Potassium (3.6-5.2) mmol/L Hgb O2 Saturation 97.4 (95.0-98.0) % Sodium (132-148) mmol/L Chloride (98-107) mmol/L Glucose (65-105) mg/dl Lactate (0.7-2.1) mmol/L FiO2 28.0 % Potassium (3.6-5.0) mmol/L Carbon Dioxide (21-33) mmol/L Anion Gap (10-20) BUN (7-21) mg/dL Creatinine (0.7-1.2) mg/dl Est GFR ( Amer) Est GFR (Non-Af Amer) POC Glucose (mg/dL) 247 H (65-110) mg/dL Random Glucose (70-110) mg/dL Calcium (8.4-10.5) mg/dL Total Bilirubin (0.2-1.3) mg/dL AST (14-36) U/L ALT (7-56) U/L Alkaline Phosphatase (38-126) U/L Ammonia 43 H (9-33) umol/L Total Protein (5.8-8.3) g/dL Albumin (3.0-4.8) g/dL Globulin gm/dL Albumin/Globulin Ratio (1.1-1.8) LDL Cholesterol Direct (0-129) mg/dL Procalcitonin (0.19-0.49) NG/ML Venous Blood Potassium (3.6-5.2) mmol/L Urine Color (YELLOW) Urine Appearance (CLEAR) Urine pH (4.7-8.0) Ur Specific [place] (1.005-1.035) Urine Protein (<30 mg/dL) mg/dL Urine Glucose (UA) (NEGATIVE) mg/dL Urine Ketones (NEGATIVE) mg/dL Urine Blood (NEGATIVE) Urine Nitrate (NEGATIVE) Urine Bilirubin (NEGATIVE) Urine Urobilinogen (<1 E.U./dL) E.U./dL Ur Leukocyte Esterase (NEGATIVE) Yolanda/uL Urine RBC (0-2) /hpf Urine WBC (0-6) /hpf Ur Epithelial Cells (0-5) /hpf Amorphous Sediment Urine Bacteria (NEG) Fine Granular Casts (0-2) /hpf Coarse Granular Casts (0-2) /hpf Urine Opiates Screen (NEGATIVE) Urine Methadone Screen (NEGATIVE) Ur Barbiturates Screen (NEGATIVE) Ur Phencyclidine Scrn (NEGATIVE) Ur Amphetamines Screen (NEGATIVE) U Benzodiazepines Scrn (NEGATIVE) U Oth Cocaine Metabols (NEGATIVE) U Cannabinoids Screen (NEGATIVE) 06/06/17 06/06/17 06/06/17 Range/Units 06:45 06:45 06:02 WBC 17.4 H D (4.5-11.0) 10^3/ul RBC 3.98 (3.5-6.1) 10^6/uL Hgb 12.0 D (12.0-16.0) g/dL Hct 35.5 L (36.0-48.0) % MCV 89.2 (80.0-105.0) fl MCH 30.2 (25.0-35.0) pg MCHC 33.8 (31.0-37.0) g/dl RDW 14.4 (11.5-14.5) % Plt Count 156 (120.0-450.0) 10^3/uL MPV 11.0 (7.0-11.0) fl pCO2 (35-45) mm/Hg pO2 (30-55) mm/Hg HCO3 (21-28) mmol/L ABG pH (7.35-7.45) ABG Total CO2 (22-28) mmol.L ABG O2 Saturation (95-98) % ABG O2 Content (15-23) ML/dl ABG Base Excess (-2.0-3.0) mmol/L ABG Hemoglobin (11.7-17.4) g/dL ABG Carboxyhemoglobin (0.5-1.5) % POC ABG HHb (Measured) (0-5) % ABG Methemoglobin (0.0-3.0) % ABG O2 Capacity (16-24) mL/dl VBG pH (7.32-7.43) VBG pCO2 (40-60) VBG HCO3 (21-28) mmol/l VBG Total CO2 (22-28) mmol.L VBG O2 Sat (Calc) (40-65) % VBG Base Excess (0.0-2.0) mmol/L VBG Potassium (3.6-5.2) mmol/L Hgb O2 Saturation (95.0-98.0) % Sodium 148 (132-148) mmol/L Chloride 117 H (98-107) mmol/L Glucose (65-105) mg/dl Lactate (0.7-2.1) mmol/L FiO2 % Potassium 3.4 L (3.6-5.0) mmol/L Carbon Dioxide < 5 L (21-33) mmol/L Anion Gap 29 H (10-20) BUN 29 H (7-21) mg/dL Creatinine 1.6 H (0.7-1.2) mg/dl Est GFR ( Amer) 41 Est GFR (Non-Af Amer) 34 POC Glucose (mg/dL) 242 H (65-110) mg/dL Random Glucose 337 H* D (70-110) mg/dL Calcium 9.8 (8.4-10.5) mg/dL Total Bilirubin 0.5 (0.2-1.3) mg/dL AST 24 (14-36) U/L ALT 41 (7-56) U/L Alkaline Phosphatase 106 (38-126) U/L Ammonia (9-33) umol/L Total Protein 7.9 (5.8-8.3) g/dL Albumin 4.7 (3.0-4.8) g/dL Globulin 3.2 gm/dL Albumin/Globulin Ratio 1.5 (1.1-1.8) LDL Cholesterol Direct 66 (0-129) mg/dL Procalcitonin (0.19-0.49) NG/ML Venous Blood Potassium (3.6-5.2) mmol/L Urine Color (YELLOW) Urine Appearance (CLEAR) Urine pH (4.7-8.0) Ur Specific [place] (1.005-1.035) Urine Protein (<30 mg/dL) mg/dL Urine Glucose (UA) (NEGATIVE) mg/dL Urine Ketones (NEGATIVE) mg/dL Urine Blood (NEGATIVE) Urine Nitrate (NEGATIVE) Urine Bilirubin (NEGATIVE) Urine Urobilinogen (<1 E.U./dL) E.U./dL Ur Leukocyte Esterase (NEGATIVE) Yolanda/uL Urine RBC (0-2) /hpf Urine WBC (0-6) /hpf Ur Epithelial Cells (0-5) /hpf Amorphous Sediment Urine Bacteria (NEG) Fine Granular Casts (0-2) /hpf Coarse Granular Casts (0-2) /hpf Urine Opiates Screen (NEGATIVE) Urine Methadone Screen (NEGATIVE) Ur Barbiturates Screen (NEGATIVE) Ur Phencyclidine Scrn (NEGATIVE) Ur Amphetamines Screen (NEGATIVE) U Benzodiazepines Scrn (NEGATIVE) U Oth Cocaine Metabols (NEGATIVE) U Cannabinoids Screen (NEGATIVE) 06/05/17 06/05/17 06/05/17 Range/Units 20:55 20:55 20:43 WBC (4.5-11.0) 10^3/ul RBC (3.5-6.1) 10^6/uL Hgb (12.0-16.0) g/dL Hct (36.0-48.0) % MCV (80.0-105.0) fl MCH (25.0-35.0) pg MCHC (31.0-37.0) g/dl RDW (11.5-14.5) % Plt Count (120.0-450.0) 10^3/uL MPV (7.0-11.0) fl pCO2 (35-45) mm/Hg pO2 (30-55) mm/Hg HCO3 (21-28) mmol/L ABG pH (7.35-7.45) ABG Total CO2 (22-28) mmol.L ABG O2 Saturation (95-98) % ABG O2 Content (15-23) ML/dl ABG Base Excess (-2.0-3.0) mmol/L ABG Hemoglobin (11.7-17.4) g/dL ABG Carboxyhemoglobin (0.5-1.5) % POC ABG HHb (Measured) (0-5) % ABG Methemoglobin (0.0-3.0) % ABG O2 Capacity (16-24) mL/dl VBG pH (7.32-7.43) VBG pCO2 (40-60) VBG HCO3 (21-28) mmol/l VBG Total CO2 (22-28) mmol.L VBG O2 Sat (Calc) (40-65) % VBG Base Excess (0.0-2.0) mmol/L VBG Potassium (3.6-5.2) mmol/L Hgb O2 Saturation (95.0-98.0) % Sodium (132-148) mmol/L Chloride (98-107) mmol/L Glucose (65-105) mg/dl Lactate (0.7-2.1) mmol/L FiO2 % Potassium (3.6-5.0) mmol/L Carbon Dioxide (21-33) mmol/L Anion Gap (10-20) BUN (7-21) mg/dL Creatinine (0.7-1.2) mg/dl Est GFR ( Amer) Est GFR (Non-Af Amer) POC Glucose (mg/dL) 221 H (65-110) mg/dL Random Glucose (70-110) mg/dL Calcium (8.4-10.5) mg/dL Total Bilirubin (0.2-1.3) mg/dL AST (14-36) U/L ALT (7-56) U/L Alkaline Phosphatase (38-126) U/L Ammonia (9-33) umol/L Total Protein (5.8-8.3) g/dL Albumin (3.0-4.8) g/dL Globulin gm/dL Albumin/Globulin Ratio (1.1-1.8) LDL Cholesterol Direct (0-129) mg/dL Procalcitonin (0.19-0.49) NG/ML Venous Blood Potassium (3.6-5.2) mmol/L Urine Color Yellow (YELLOW) Urine Appearance Clear (CLEAR) Urine pH 6.0 (4.7-8.0) Ur Specific [place] 1.025 (1.005-1.035) Urine Protein 100 H (<30 mg/dL) mg/dL Urine Glucose (UA) >=1000 (NEGATIVE) mg/dL Urine Ketones >=80 (NEGATIVE) mg/dL Urine Blood Large H (NEGATIVE) Urine Nitrate Negative (NEGATIVE) Urine Bilirubin Negative (NEGATIVE) Urine Urobilinogen 0.2 (<1 E.U./dL) E.U./dL Ur Leukocyte Esterase Negative (NEGATIVE) Yolanda/uL Urine RBC 10 - 15 (0-2) /hpf Urine WBC 2 - 5 (0-6) /hpf Ur Epithelial Cells 1 - 3 (0-5) /hpf Amorphous Sediment Urine Bacteria Small (NEG) Fine Granular Casts 0 - 2 (0-2) /hpf Coarse Granular Casts (0-2) /hpf Urine Opiates Screen Negative (NEGATIVE) Urine Methadone Screen Negative (NEGATIVE) Ur Barbiturates Screen Negative (NEGATIVE) Ur Phencyclidine Scrn Negative (NEGATIVE) Ur Amphetamines Screen Negative (NEGATIVE) U Benzodiazepines Scrn Negative (NEGATIVE) U Oth Cocaine Metabols Negative (NEGATIVE) U Cannabinoids Screen Negative (NEGATIVE) 06/05/17 06/05/17 06/05/17 Range/Units 19:10 19:10 17:12 WBC 23.1 H (4.5-11.0) 10^3/ul RBC 4.87 (3.5-6.1) 10^6/uL Hgb 14.9 (12.0-16.0) g/dL Hct 43.1 (36.0-48.0) % MCV 88.5 (80.0-105.0) fl MCH 30.6 (25.0-35.0) pg MCHC 34.6 (31.0-37.0) g/dl RDW 14.2 (11.5-14.5) % Plt Count 216 (120.0-450.0) 10^3/uL MPV 11.5 H (7.0-11.0) fl pCO2 (35-45) mm/Hg pO2 (30-55) mm/Hg HCO3 (21-28) mmol/L ABG pH (7.35-7.45) ABG Total CO2 (22-28) mmol.L ABG O2 Saturation (95-98) % ABG O2 Content (15-23) ML/dl ABG Base Excess (-2.0-3.0) mmol/L ABG Hemoglobin (11.7-17.4) g/dL ABG Carboxyhemoglobin (0.5-1.5) % POC ABG HHb (Measured) (0-5) % ABG Methemoglobin (0.0-3.0) % ABG O2 Capacity (16-24) mL/dl VBG pH (7.32-7.43) VBG pCO2 (40-60) VBG HCO3 (21-28) mmol/l VBG Total CO2 (22-28) mmol.L VBG O2 Sat (Calc) (40-65) % VBG Base Excess (0.0-2.0) mmol/L VBG Potassium (3.6-5.2) mmol/L Hgb O2 Saturation (95.0-98.0) % Sodium 139 (132-148) mmol/L Chloride 109 H (98-107) mmol/L Glucose (65-105) mg/dl Lactate (0.7-2.1) mmol/L FiO2 % Potassium 4.6 (3.6-5.0) mmol/L Carbon Dioxide 5 L (21-33) mmol/L Anion Gap 30 H (10-20) BUN 22 H (7-21) mg/dL Creatinine 1.2 (0.7-1.2) mg/dl Est GFR ( Amer) 57 Est GFR (Non-Af Amer) 47 POC Glucose (mg/dL) 216 H (65-110) mg/dL Random Glucose 231 H (70-110) mg/dL Calcium 10.2 (8.4-10.5) mg/dL Total Bilirubin 0.7 (0.2-1.3) mg/dL AST 20 (14-36) U/L ALT 25 (7-56) U/L Alkaline Phosphatase 119 (38-126) U/L Ammonia (9-33) umol/L Total Protein 8.6 H (5.8-8.3) g/dL Albumin 5.1 H (3.0-4.8) g/dL Globulin 3.5 gm/dL Albumin/Globulin Ratio 1.5 (1.1-1.8) LDL Cholesterol Direct (0-129) mg/dL Procalcitonin (0.19-0.49) NG/ML Venous Blood Potassium (3.6-5.2) mmol/L Urine Color (YELLOW) Urine Appearance (CLEAR) Urine pH (4.7-8.0) Ur Specific [place] (1.005-1.035) Urine Protein (<30 mg/dL) mg/dL Urine Glucose (UA) (NEGATIVE) mg/dL Urine Ketones (NEGATIVE) mg/dL Urine Blood (NEGATIVE) Urine Nitrate (NEGATIVE) Urine Bilirubin (NEGATIVE) Urine Urobilinogen (<1 E.U./dL) E.U./dL Ur Leukocyte Esterase (NEGATIVE) Yolanda/uL Urine RBC (0-2) /hpf Urine WBC (0-6) /hpf Ur Epithelial Cells (0-5) /hpf Amorphous Sediment Urine Bacteria (NEG) Fine Granular Casts (0-2) /hpf Coarse Granular Casts (0-2) /hpf Urine Opiates Screen (NEGATIVE) Urine Methadone Screen (NEGATIVE) Ur Barbiturates Screen (NEGATIVE) Ur Phencyclidine Scrn (NEGATIVE) Ur Amphetamines Screen (NEGATIVE) U Benzodiazepines Scrn (NEGATIVE) U Oth Cocaine Metabols (NEGATIVE) U Cannabinoids Screen (NEGATIVE) 06/05/17 06/05/17 06/05/17 Range/Units 11:20 11:00 10:30 WBC (4.5-11.0) 10^3/ul RBC (3.5-6.1) 10^6/uL Hgb (12.0-16.0) g/dL Hct (36.0-48.0) % MCV (80.0-105.0) fl MCH (25.0-35.0) pg MCHC (31.0-37.0) g/dl RDW (11.5-14.5) % Plt Count (120.0-450.0) 10^3/uL MPV (7.0-11.0) fl pCO2 (35-45) mm/Hg pO2 (30-55) mm/Hg HCO3 (21-28) mmol/L ABG pH (7.35-7.45) ABG Total CO2 (22-28) mmol.L ABG O2 Saturation (95-98) % ABG O2 Content (15-23) ML/dl ABG Base Excess (-2.0-3.0) mmol/L ABG Hemoglobin (11.7-17.4) g/dL ABG Carboxyhemoglobin (0.5-1.5) % POC ABG HHb (Measured) (0-5) % ABG Methemoglobin (0.0-3.0) % ABG O2 Capacity (16-24) mL/dl VBG pH (7.32-7.43) VBG pCO2 (40-60) VBG HCO3 (21-28) mmol/l VBG Total CO2 (22-28) mmol.L VBG O2 Sat (Calc) (40-65) % VBG Base Excess (0.0-2.0) mmol/L VBG Potassium (3.6-5.2) mmol/L Hgb O2 Saturation (95.0-98.0) % Sodium (132-148) mmol/L Chloride (98-107) mmol/L Glucose (65-105) mg/dl Lactate (0.7-2.1) mmol/L FiO2 % Potassium (3.6-5.0) mmol/L Carbon Dioxide (21-33) mmol/L Anion Gap (10-20) BUN (7-21) mg/dL Creatinine (0.7-1.2) mg/dl Est GFR ( Amer) Est GFR (Non-Af Amer) POC Glucose (mg/dL) 226 H (65-110) mg/dL Random Glucose (70-110) mg/dL Calcium (8.4-10.5) mg/dL Total Bilirubin (0.2-1.3) mg/dL AST (14-36) U/L ALT (7-56) U/L Alkaline Phosphatase (38-126) U/L Ammonia (9-33) umol/L Total Protein (5.8-8.3) g/dL Albumin (3.0-4.8) g/dL Globulin gm/dL Albumin/Globulin Ratio (1.1-1.8) LDL Cholesterol Direct (0-129) mg/dL Procalcitonin 0.08 L (0.19-0.49) NG/ML Venous Blood Potassium (3.6-5.2) mmol/L Urine Color Yellow (YELLOW) Urine Appearance Clear (CLEAR) Urine pH 6.0 (4.7-8.0) Ur Specific [place] 1.025 (1.005-1.035) Urine Protein 100 H (<30 mg/dL) mg/dL Urine Glucose (UA) 500 H (NEGATIVE) mg/dL Urine Ketones >=80 (NEGATIVE) mg/dL Urine Blood Moderate H (NEGATIVE) Urine Nitrate Negative (NEGATIVE) Urine Bilirubin Small H (NEGATIVE) Urine Urobilinogen 0.2 (<1 E.U./dL) E.U./dL Ur Leukocyte Esterase Negative (NEGATIVE) Yolanda/uL Urine RBC 15 - 20 (0-2) /hpf Urine WBC 0 - 2 (0-6) /hpf Ur Epithelial Cells 4 - 5 (0-5) /hpf Amorphous Sediment Few Urine Bacteria Mod (NEG) Fine Granular Casts (0-2) /hpf Coarse Granular Casts Trace H (0-2) /hpf Urine Opiates Screen (NEGATIVE) Urine Methadone Screen (NEGATIVE) Ur Barbiturates Screen (NEGATIVE) Ur Phencyclidine Scrn (NEGATIVE) Ur Amphetamines Screen (NEGATIVE) U Benzodiazepines Scrn (NEGATIVE) U Oth Cocaine Metabols (NEGATIVE) U Cannabinoids Screen (NEGATIVE) 06/04/17 Range/Units 18:30 WBC (4.5-11.0) 10^3/ul RBC (3.5-6.1) 10^6/uL Hgb (12.0-16.0) g/dL Hct (36.0-48.0) % MCV (80.0-105.0) fl MCH (25.0-35.0) pg MCHC (31.0-37.0) g/dl RDW (11.5-14.5) % Plt Count (120.0-450.0) 10^3/uL MPV (7.0-11.0) fl pCO2 (35-45) mm/Hg pO2 32 (30-55) mm/Hg HCO3 (21-28) mmol/L ABG pH (7.35-7.45) ABG Total CO2 (22-28) mmol.L ABG O2 Saturation (95-98) % ABG O2 Content (15-23) ML/dl ABG Base Excess (-2.0-3.0) mmol/L ABG Hemoglobin (11.7-17.4) g/dL ABG Carboxyhemoglobin (0.5-1.5) % POC ABG HHb (Measured) (0-5) % ABG Methemoglobin (0.0-3.0) % ABG O2 Capacity (16-24) mL/dl VBG pH 6.92 L* (7.32-7.43) VBG pCO2 25.0 L (40-60) VBG HCO3 5.1 L (21-28) mmol/l VBG Total CO2 5.9 L (22-28) mmol.L VBG O2 Sat (Calc) 67.0 H (40-65) % VBG Base Excess -26.5 L (0.0-2.0) mmol/L VBG Potassium 5.2 (3.6-5.2) mmol/L Hgb O2 Saturation (95.0-98.0) % Sodium 133.0 (132-148) mmol/L Chloride 98.0 (98-107) mmol/L Glucose 299 H (65-105) mg/dl Lactate 2.0 (0.7-2.1) mmol/L FiO2 21.0 % Potassium (3.6-5.0) mmol/L Carbon Dioxide (21-33) mmol/L Anion Gap (10-20) BUN (7-21) mg/dL Creatinine (0.7-1.2) mg/dl Est GFR ( Amer) Est GFR (Non-Af Amer) POC Glucose (mg/dL) (65-110) mg/dL Random Glucose (70-110) mg/dL Calcium (8.4-10.5) mg/dL Total Bilirubin (0.2-1.3) mg/dL AST (14-36) U/L ALT (7-56) U/L Alkaline Phosphatase (38-126) U/L Ammonia (9-33) umol/L Total Protein (5.8-8.3) g/dL Albumin (3.0-4.8) g/dL Globulin gm/dL Albumin/Globulin Ratio (1.1-1.8) LDL Cholesterol Direct (0-129) mg/dL Procalcitonin (0.19-0.49) NG/ML Venous Blood Potassium 5.2 (3.6-5.2) mmol/L Urine Color (YELLOW) Urine Appearance (CLEAR) Urine pH (4.7-8.0) Ur Specific [place] (1.005-1.035) Urine Protein (<30 mg/dL) mg/dL Urine Glucose (UA) (NEGATIVE) mg/dL Urine Ketones (NEGATIVE) mg/dL Urine Blood (NEGATIVE) Urine Nitrate (NEGATIVE) Urine Bilirubin (NEGATIVE) Urine Urobilinogen (<1 E.U./dL) E.U./dL Ur Leukocyte Esterase (NEGATIVE) Yolanda/uL Urine RBC (0-2) /hpf Urine WBC (0-6) /hpf Ur Epithelial Cells (0-5) /hpf Amorphous Sediment Urine Bacteria (NEG) Fine Granular Casts (0-2) /hpf Coarse Granular Casts (0-2) /hpf Urine Opiates Screen (NEGATIVE) Urine Methadone Screen (NEGATIVE) Ur Barbiturates Screen (NEGATIVE) Ur Phencyclidine Scrn (NEGATIVE) Ur Amphetamines Screen (NEGATIVE) U Benzodiazepines Scrn (NEGATIVE) U Oth Cocaine Metabols (NEGATIVE) U Cannabinoids Screen (NEGATIVE) Laboratory Results - last 24 hr 06/04/17 06/05/17 06/05/17 18:30 10:30 11:00 WBC RBC Hgb Hct MCV MCH MCHC RDW Plt Count MPV pCO2 pO2 32 HCO3 ABG pH ABG Total CO2 ABG O2 Saturation ABG O2 Content ABG Base Excess ABG Hemoglobin ABG Carboxyhemoglobin POC ABG HHb (Measured) ABG Methemoglobin ABG O2 Capacity VBG pH 6.92 L* VBG pCO2 25.0 L VBG HCO3 5.1 L VBG Total CO2 5.9 L VBG O2 Sat (Calc) 67.0 H VBG Base Excess -26.5 L VBG Potassium 5.2 Hgb O2 Saturation Sodium 133.0 Chloride 98.0 Glucose 299 H Lactate 2.0 FiO2 21.0 Potassium Carbon Dioxide Anion Gap BUN Creatinine Est GFR ( Amer) Est GFR (Non-Af Amer) POC Glucose (mg/dL) Random Glucose Calcium Total Bilirubin AST ALT Alkaline Phosphatase Ammonia Total Protein Albumin Globulin Albumin/Globulin Ratio LDL Cholesterol Direct Procalcitonin 0.08 L Venous Blood Potassium 5.2 Urine Color Yellow Urine Appearance Clear Urine pH 6.0 Ur Specific [place] 1.025 Urine Protein 100 H Urine Glucose (UA) 500 H Urine Ketones >=80 Urine Blood Moderate H Urine Nitrate Negative Urine Bilirubin Small H Urine Urobilinogen 0.2 Ur Leukocyte Esterase Negative Urine RBC 15 - 20 Urine WBC 0 - 2 Ur Epithelial Cells 4 - 5 Amorphous Sediment Few Urine Bacteria Mod Fine Granular Casts Coarse Granular Casts Trace H Urine Opiates Screen Urine Methadone Screen Ur Barbiturates Screen Ur Phencyclidine Scrn Ur Amphetamines Screen U Benzodiazepines Scrn U Oth Cocaine Metabols U Cannabinoids Screen 06/05/17 06/05/17 06/05/17 11:20 17:12 19:10 WBC 23.1 H RBC 4.87 Hgb 14.9 Hct 43.1 MCV 88.5 MCH 30.6 MCHC 34.6 RDW 14.2 Plt Count 216 MPV 11.5 H pCO2 pO2 HCO3 ABG pH ABG Total CO2 ABG O2 Saturation ABG O2 Content ABG Base Excess ABG Hemoglobin ABG Carboxyhemoglobin POC ABG HHb (Measured) ABG Methemoglobin ABG O2 Capacity VBG pH VBG pCO2 VBG HCO3 VBG Total CO2 VBG O2 Sat (Calc) VBG Base Excess VBG Potassium Hgb O2 Saturation Sodium Chloride Glucose Lactate FiO2 Potassium Carbon Dioxide Anion Gap BUN Creatinine Est GFR ( Amer) Est GFR (Non-Af Amer) POC Glucose (mg/dL) 226 H 216 H Random Glucose Calcium Total Bilirubin AST ALT Alkaline Phosphatase Ammonia Total Protein Albumin Globulin Albumin/Globulin Ratio LDL Cholesterol Direct Procalcitonin Venous Blood Potassium Urine Color Urine Appearance Urine pH Ur Specific [place] Urine Protein Urine Glucose (UA) Urine Ketones Urine Blood Urine Nitrate Urine Bilirubin Urine Urobilinogen Ur Leukocyte Esterase Urine RBC Urine WBC Ur Epithelial Cells Amorphous Sediment Urine Bacteria Fine Granular Casts Coarse Granular Casts Urine Opiates Screen Urine Methadone Screen Ur Barbiturates Screen Ur Phencyclidine Scrn Ur Amphetamines Screen U Benzodiazepines Scrn U Oth Cocaine Metabols U Cannabinoids Screen 06/05/17 06/05/17 06/05/17 19:10 20:43 20:55 WBC RBC Hgb Hct MCV MCH MCHC RDW Plt Count MPV pCO2 pO2 HCO3 ABG pH ABG Total CO2 ABG O2 Saturation ABG O2 Content ABG Base Excess ABG Hemoglobin ABG Carboxyhemoglobin POC ABG HHb (Measured) ABG Methemoglobin ABG O2 Capacity VBG pH VBG pCO2 VBG HCO3 VBG Total CO2 VBG O2 Sat (Calc) VBG Base Excess VBG Potassium Hgb O2 Saturation Sodium 139 Chloride 109 H Glucose Lactate FiO2 Potassium 4.6 Carbon Dioxide 5 L Anion Gap 30 H BUN 22 H Creatinine 1.2 Est GFR ( Amer) 57 Est GFR (Non-Af Amer) 47 POC Glucose (mg/dL) 221 H Random Glucose 231 H Calcium 10.2 Total Bilirubin 0.7 AST 20 ALT 25 Alkaline Phosphatase 119 Ammonia Total Protein 8.6 H Albumin 5.1 H Globulin 3.5 Albumin/Globulin Ratio 1.5 LDL Cholesterol Direct Procalcitonin Venous Blood Potassium Urine Color Yellow Urine Appearance Clear Urine pH 6.0 Ur Specific [place] 1.025 Urine Protein 100 H Urine Glucose (UA) >=1000 Urine Ketones >=80 Urine Blood Large H Urine Nitrate Negative Urine Bilirubin Negative Urine Urobilinogen 0.2 Ur Leukocyte Esterase Negative Urine RBC 10 - 15 Urine WBC 2 - 5 Ur Epithelial Cells 1 - 3 Amorphous Sediment Urine Bacteria Small Fine Granular Casts 0 - 2 Coarse Granular Casts Urine Opiates Screen Urine Methadone Screen Ur Barbiturates Screen Ur Phencyclidine Scrn Ur Amphetamines Screen U Benzodiazepines Scrn U Oth Cocaine Metabols U Cannabinoids Screen 06/05/17 06/06/17 06/06/17 20:55 06:02 06:45 WBC RBC Hgb Hct MCV MCH MCHC RDW Plt Count MPV pCO2 pO2 HCO3 ABG pH ABG Total CO2 ABG O2 Saturation ABG O2 Content ABG Base Excess ABG Hemoglobin ABG Carboxyhemoglobin POC ABG HHb (Measured) ABG Methemoglobin ABG O2 Capacity VBG pH VBG pCO2 VBG HCO3 VBG Total CO2 VBG O2 Sat (Calc) VBG Base Excess VBG Potassium Hgb O2 Saturation Sodium 148 Chloride 117 H Glucose Lactate FiO2 Potassium 3.4 L Carbon Dioxide < 5 L Anion Gap 29 H BUN 29 H Creatinine 1.6 H Est GFR ( Amer) 41 Est GFR (Non-Af Amer) 34 POC Glucose (mg/dL) 242 H Random Glucose 337 H* D Calcium 9.8 Total Bilirubin 0.5 AST 24 ALT 41 Alkaline Phosphatase 106 Ammonia Total Protein 7.9 Albumin 4.7 Globulin 3.2 Albumin/Globulin Ratio 1.5 LDL Cholesterol Direct 66 Procalcitonin Venous Blood Potassium Urine Color Urine Appearance Urine pH Ur Specific [place] Urine Protein Urine Glucose (UA) Urine Ketones Urine Blood Urine Nitrate Urine Bilirubin Urine Urobilinogen Ur Leukocyte Esterase Urine RBC Urine WBC Ur Epithelial Cells Amorphous Sediment Urine Bacteria Fine Granular Casts Coarse Granular Casts Urine Opiates Screen Negative Urine Methadone Screen Negative Ur Barbiturates Screen Negative Ur Phencyclidine Scrn Negative Ur Amphetamines Screen Negative U Benzodiazepines Scrn Negative U Oth Cocaine Metabols Negative U Cannabinoids Screen Negative 06/06/17 06/06/17 06/06/17 06:45 07:21 09:20 WBC 17.4 H D RBC 3.98 Hgb 12.0 D Hct 35.5 L MCV 89.2 MCH 30.2 MCHC 33.8 RDW 14.4 Plt Count 156 MPV 11.0 pCO2 15 L* pO2 121.0 H HCO3 2.7 L* ABG pH 6.87 L* ABG Total CO2 3.2 L ABG O2 Saturation 99.6 H ABG O2 Content 19.2 ABG Base Excess -29.6 L ABG Hemoglobin 13.9 ABG Carboxyhemoglobin 1.4 POC ABG HHb (Measured) 0.4 ABG Methemoglobin 0.8 ABG O2 Capacity 19.3 VBG pH VBG pCO2 VBG HCO3 VBG Total CO2 VBG O2 Sat (Calc) VBG Base Excess VBG Potassium Hgb O2 Saturation 97.4 Sodium Chloride Glucose Lactate FiO2 28.0 Potassium Carbon Dioxide Anion Gap BUN Creatinine Est GFR ( Amer) Est GFR (Non-Af Amer) POC Glucose (mg/dL) 247 H Random Glucose Calcium Total Bilirubin AST ALT Alkaline Phosphatase Ammonia Total Protein Albumin Globulin Albumin/Globulin Ratio LDL Cholesterol Direct Procalcitonin Venous Blood Potassium Urine Color Urine Appearance Urine pH Ur Specific [place] Urine Protein Urine Glucose (UA) Urine Ketones Urine Blood Urine Nitrate Urine Bilirubin Urine Urobilinogen Ur Leukocyte Esterase Urine RBC Urine WBC Ur Epithelial Cells Amorphous Sediment Urine Bacteria Fine Granular Casts Coarse Granular Casts Urine Opiates Screen Urine Methadone Screen Ur Barbiturates Screen Ur Phencyclidine Scrn Ur Amphetamines Screen U Benzodiazepines Scrn U Oth Cocaine Metabols U Cannabinoids Screen 06/06/17 09:30 WBC RBC Hgb Hct MCV MCH MCHC RDW Plt Count MPV pCO2 pO2 HCO3 ABG pH ABG Total CO2 ABG O2 Saturation ABG O2 Content ABG Base Excess ABG Hemoglobin ABG Carboxyhemoglobin POC ABG HHb (Measured) ABG Methemoglobin ABG O2 Capacity VBG pH VBG pCO2 VBG HCO3 VBG Total CO2 VBG O2 Sat (Calc) VBG Base Excess VBG Potassium Hgb O2 Saturation Sodium Chloride Glucose Lactate FiO2 Potassium Carbon Dioxide Anion Gap BUN Creatinine Est GFR ( Amer) Est GFR (Non-Af Amer) POC Glucose (mg/dL) Random Glucose Calcium Total Bilirubin AST ALT Alkaline Phosphatase Ammonia 43 H Total Protein Albumin Globulin Albumin/Globulin Ratio LDL Cholesterol Direct Procalcitonin Venous Blood Potassium Urine Color Urine Appearance Urine pH Ur Specific [place] Urine Protein Urine Glucose (UA) Urine Ketones Urine Blood Urine Nitrate Urine Bilirubin Urine Urobilinogen Ur Leukocyte Esterase Urine RBC Urine WBC Ur Epithelial Cells Amorphous Sediment Urine Bacteria Fine Granular Casts Coarse Granular Casts Urine Opiates Screen Urine Methadone Screen Ur Barbiturates Screen Ur Phencyclidine Scrn Ur Amphetamines Screen U Benzodiazepines Scrn U Oth Cocaine Metabols U Cannabinoids Screen EKG/Cardiology Studies: Cardiology / EKG Studies 06/05/17 09:45 EKG [ELECTROCARDIOGRAM] Stat Comment: Reason For Exam: AFIB 06/06/17 07:00 ELECTROCARDIOGRAM Routine Comment: Reason For Exam: CAD PRE OP:: N Does Patient Have a Pacemaker?: No PERFORMING PHYSICIAN/PROVIDER:: Maynor Tran Fingerstick Blood Sugar Results: 337 Review of Systems - Review of Systems Systems not reviewed;Unavailable: Acuity of Condition Critical Care Progress Note - Ventilator Checklist Head of Bed 30 Degrees: Yes DVT Prophylaxis: Yes - Nutrition Nutrition: Nutrition Category Date Time Status Heart Healthy Diet [DIET] Diets 06/04/17 Dinner Ordered Assessment/Plan - Assessment and Plan (Free Text) Plan: DKA \ AURE \ Afib with RVR \ HTN -hemodynamic monitoring to maintain MAP>65 -f\u ECho to assess baseline LV function -continue cardizem , metoprolol as per cardiology team who are following -o2 supplementation to maintain Spo2>90 Pao2>60; currently comfortable on room air -monitor airway closely for intubation; at this time pt can protect her airway -CXR reviewed , and shows no visible opacification -f\u Bun\Cr and U\o; IVF with 1/2NS and 75meq Bicarb -continue Insulin drip as per protocol and BGM q1h -monitor CH7 for Anion gap q4hrs -monitor and replace e-lites -NPO diet (while lethargic) and aspiration precautions -f\u HbA1c -endocrine eval -consider neuro eval if mental status does not improve -monitor fever curve and pancultures; ID eval appreciated -DVT prophylaxis DW nursing staff CCM eval time 42min
[2017-06-06 10:55] LABS: LDL CHOLESTEROL 90 mg/dL (0-129)
[2017-06-06] MEDS: Cefepime 1gm in NS 100ml 1 GM/100 ML BAG IVPB SCH (10:56)
[2017-06-06 11:12] LABS: HDL CHOLESTEROL 44 mg/dL (29-60)
[2017-06-06 14:34] LABS: BLOOD UREA NITROGEN 31 mg/dL (7-21); CALCIUM 9.4 mg/dL (8.4-10.5); GFR AFRICAN-AMERICAN 41; GFR NON-AFRICAN AMERICAN 34
[2017-06-06] MEDS ORDERED: Magnesium Sulfate 2 GM in Sodium Chloride 0.9% 100 ML IVPB ONE (14:43)
--- NOTE | 2017-06-06 17:38 | US ---
HISTORY: Leg pain and swelling. Evaluate for DVT PHYSICIAN(S): Abhay Ochoa MD. TECHNIQUE: Duplex sonography and color-flow Doppler with graded compression were used to evaluate the deep venous systems of both lower extremities. FINDINGS: The visualized deep venous systems of both lower extremities are sonographically normal and compressible. Normal wave forms and augmentation are seen. There is no sonographic evidence for deep venous thrombosis in the visualized segments of both lower extremities. IMPRESSION: No sonographic evidence for deep venous thrombosis in the visualized segments of both lower extremities.
[2017-06-06 18:47] LABS: CALCIUM 9.4 mg/dL (8.4-10.5)
[2017-06-06 23:09] LABS: CALCIUM 9.8 mg/dL (8.4-10.5)
[2017-06-07] MEDS: Potassium Chloride 20 MEQ in Dextrose 5%/0.45% NS 1,000 ML IV SCH ×2 (00:04→07:42)
[2017-06-07] MEDS: Insulin Reg-LOW-Coverage SC SCH ×2 (00:25→08:36)
[2017-06-07] MEDS: Cefepime 1gm in NS 100ml 1 GM/100 ML BAG IVPB SCH (00:47)
--- NOTE | 2017-06-07 01:33 | CON ---
DATE: ENDOCRINOLOGY CONSULTATION LOCATION: ICU 128, room 7. HISTORY OF PRESENT ILLNESS: This is a 51-year-old female with known history of type 2 diabetes and hypertension, presenting here with progressive shortness of breath and new onset of rapid atrial fibrillation and has also been evaluated to be in severe diabetic ketoacidosis and dehydration and is being referred now for diabetic evaluation and management. PAST MEDICAL HISTORY: As mentioned above, history of type 2 diabetes, on a combination of Invokana given as 300 mg daily with metformin at 1000 mg b.i.d. Of significance is the fact that Invokana has been reported to be a big factor for diabetic ketoacidosis as noted. History of hypertension and dyslipidemia, history of morbid obesity and had a recent gastric sleeve resection about 2 months or so ago with a dramatic weight loss and apparently within a week or so lost about 70 pounds with a previous weight of 292 and a week later her weight dropped to 221 pounds. FAMILY HISTORY: Positive for diabetes and hypertension. SOCIAL HISTORY: The patient has supportive family. No known substance use. REVIEW OF SYSTEMS: As mentioned above, admits to generalized body weakness with dizziness and lightheadedness, worse in the last day or so prior to admission. Also admits to easy fatigability and tiredness with supervening progressive shortness of breath, initially on exertion and then at rest with precordial chest pains as noted. Her oral intake has been variable with nausea, dyspepsia and vague upper abdominal pains. Also admits to episodic vomiting episodes with marked polyuria, nocturia, polydipsia as noted. PHYSICAL EXAMINATION: GENERAL: Overweight female, in no apparent distress, but agitated when awake, but otherwise hypersomnolent and lethargic as noted. VITAL SIGNS: Blood pressure of 150/90; pulse of 100 beats per minute, irregular; temperature 98; respirations 20; height is 5 feet 6 inches, weight is 223 pounds. HEENT: Head normocephalic. Eyes anicteric with pink conjunctivae. Funduscopy not possible at this time. Ears, nose and throat otherwise normal. NECK: Supple. Thyroid gland is normal size. No carotid bruits or cervical adenopathy. CARDIOPULMONARY: Some adynamic precordium. S1, S2 are rapid and regular. LUNGS: Clear to auscultation. ABDOMEN: Obese, soft with positive bowel sounds. EXTREMITIES: No peripheral edema. Pulses are +2 bilaterally. LABORATORY DATA: Her chemistries showed a BUN of 29, sodium 148, potassium 3.4, chloride 117, CO2 is less than 5, glucose is 337 and creatinine is 1.6. Her hemoglobin A1c is 8.4%, which is elevated and indicative of suboptimal metabolic control of her diabetic condition. The glucose levels have ranged from 273-305 mg/dL. Her TSH is 3.0 as noted with a cholesterol level of 198 and LDL of 90 and triglycerides of 572. ASSESSMENT: This is a 51-year-old female with known history of type 2 diabetes, on oral hypoglycemic therapy using a combination of Invokana and metformin and presenting here with sudden onset of precordial chest pain with palpitations and supervening shortness of breath and evaluated to have new onset of rapid atrial fibrillation and actually is clinically and biochemically euthyroid at this time. Moreover, she also has acute metabolic compensation in terms of her diabetic condition with marked diabetic ketoacidosis and dehydration with prerenal azotemia and spurious hyponatremia. PLAN OF MANAGEMENT: As discussed with the patient and staff, we will continue with the intensive insulin therapy using the algorithm one for DKA protocol at the low dose hourly coverage scale as ordered. We will also continue the vigorous IV hydration with normal saline running at 250 mL/hour with incorporated sodium bicarb drip as noted. We will obtain serial chemistries and supplement accordingly as needed. We will try to advance her diet when more awake and responsive to a heart healthy consistent carb diet with moderate consistency as noted. We will obtain serial chemistries and supplement accordingly as needed. We will also continue the vigorous IV hydration as given and once the CO2 goes at least above 18, then can safely and prudently switch her over to a more physiologic basal and bolus insulin drug combination as ordered and indicated. We will obtain serial chemistries and supplement accordingly as needed. We will follow. Kaleigh Jack MD cc:
[2017-06-07 02:00] LABS: BLOOD UREA NITROGEN 30 mg/dL (7-21); CALCIUM 8.3 mg/dL (8.4-10.5); GFR AFRICAN-AMERICAN 41; GFR NON-AFRICAN AMERICAN 34
--- NOTE | 2017-06-07 03:33 | PN ---
DATE: SUBJECTIVE: The patient is a 51-year-old, seen and examined. Earlier, she was found to be lethargic by nurse practitioner, blood work was ordered and was found to be in metabolic acidosis secondary to DKA; so, the patient was transferred to ICU. I saw the patient in ICU, seems to be confused, disoriented, mumbling, but is not comprehensible. PHYSICAL EXAMINATION VITAL SIGNS: She is afebrile, pulse 93, respirations 21, blood pressure 139/47. LUNGS: Bilateral fair airflow. No rhonchi or crackle. HEART: S1 and S2 audible. ABDOMEN: Soft, nontender. No rebound. No guarding. NEUROLOGICAL: She is confused and disoriented. LABORATORY DATA: WBC is 17.4, hemoglobin 12, hematocrit 35, platelet 156. Chemistry: Sodium 152, potassium 2.6, chloride 122, CO2 5, BUN 33, creatinine 1.8, blood sugar of 216. She has bilateral leg Doppler done that shows no sonographic evidence of deep vein thrombosis. Echocardiogram is pending. CT scan of the head is unremarkable. ASSESSMENT AND PLAN: 1. Diabetic ketoacidosis. 2. Recent gastric bypass in 04/03/2017. 3. Sepsis, etiology unclear. 4. History of hypertension. 5. New onset of atrial fibrillation. 6. Hyperlipidemia. PLAN: The patient is currently in ICU. We will continue IV insulin drip. Magnesium and potassium has been supplemented. The patient is currently on Cardizem drip. Follow up this patient's electrolytes, CBC and mental status. Alphonse Nicholson MD
[2017-06-07 06:55] LABS: BASO # 0.06 K/mm3 (0.0-2.0); BASO % 0.4 % (0.0-3.0); EOS % 0.1 % (1.5-5.0); GRAN # 10.9 (1.4-6.5); GRAN % 79.2 % (50.0-68.0); LYMPH # 1.2 (1.2-3.4); LYMPH % 8.4 % (22.0-35.0); MEAN CORPUSCULAR HEMOGLOBIN 29.6 pg (25.0-35.0); MEAN CORPUSCULAR HGB CONC 34.9 g/dl (31.0-37.0); MONO # 1.6 (0.1-0.6); MONO % 11.9 % (1.0-6.0); RBC 4.05 10^6/uL (3.5-6.1); RED CELL DISTRIBUTION WIDTH 14.8 % (11.5-14.5); WHITE BLOOD COUNT 13.8 10^3/ul (4.5-11.0)
[2017-06-07 07:16] LABS: MEAN CELL VOLUME 84.9 fl (80.0-105.0)
[2017-06-07 07:33] LABS: ALB/GLOB RATIO 1.4 (1.1-1.8); ALBUMIN 3.7 g/dL (3.0-4.8)
[2017-06-07] MEDS ORDERED: Potassium Phosphate 30 MMOLE in Dextrose 5% In Water 500 ML IVPB ONE (07:52)
[2017-06-07] MEDS ORDERED: Potassium Phosphate 30 MMOLE in Dextrose 5% In Water 250 ML IVPB ONE ×2 (08:00→17:55)
--- NOTE | 2017-06-07 08:36 | PN ---
DATE: 06/06/2017 REASON FOR THE CONSULTATION: Atrial fibrillation with rapid ventricular rate, new onset; weak and lethargic, lying on the bed. SUBJECTIVE: Patient is very weak and lethargic, lying on the bed. and the family is at the bedside. OBJECTIVE: GENERAL: Not in apparent distress . Denies any chest pain, shortness of breath, or any palpitation. VITAL SIGNS: Heart rate 100, blood pressure 144/72. HEENT: PERRLA. Extraocular muscles intact. NECK: Supple. No carotid bruit or thyromegaly. CHEST: Clear to auscultation. HEART: S1, S2 regular. ABDOMEN: Soft. EXTREMITIES: Clubbing and cyanosis, negative. LABORATORY DATA: Blood workup as follows: WBC 17.4, hemoglobin 12, hematocrit 35.5, platelet count 156,000. Chemistry showed sodium today is pending. Blood culture pending. IMPRESSION: Very weak, lethargic; atrial fibrillation, new onset, rule out sepsis; status post gastric bypass sleeve operation; rule out metabolic encephalopathy; rule out pulmonary embolism, though on admission, patient had CT angio that was negative. Diabetes; hypertension; hyperlipidemia; morbid obesity, status post gastric sleeve operation. RECOMMENDATIONS: Follow up blood culture. Continue broad-spectrum antibiotic. Echo to assess LV function. We will get duplex scan of lower extremities and we will do the V/Q scan to rule out PE; though patient on admission had negative CT chest, we will not repeat CT chest because patient had borderline creatinine, though creatinine . Also, we started Lovenox DVT, PE with 1 mg/kg q. 24h.; also, continue beta-luke. We will change Cardizem to p.o. verapamil and discontinue Cardizem. Discussed with the in length. wanted to take the patient to the [facility] [place] and encouraged to contact with the primary care who did the operation and if possible, patient can be transferred to [facility] [place] if okay from Cardiology point of view. In the interim, we will treat both rule out PE, DVT as well as we will continue anticoagulation for atrial fibrillation. We will change to verapamil and we will send a stat ammonia level to rule out hepatic encephalopathy. Overall, the patient's condition is critical. Long-term prognosis is guarded. We will get ABG as well. Today's lab is not back. We will wait for the SMA-7. We will also get a lower extremity duplex. history of paroxysmal atrial fibrillation. Thank you Dr. Nicholson for providing us the opportunity in taking care of Nata . Maynor Tran MD cc: Alphonse Nicholson MD
[2017-06-07 09:18] LABS: ARTERIAL BLOOD GAS O2 SAT 99.4 % (95-98); ARTERIAL BLOOD GAS PCO2 18 mm/Hg (35-45)
[2017-06-07 09:19] LABS: ARTERIAL BLOOD GAS HCO3 6.4 mmol/L (21-28); ARTERIAL BLOOD GAS PH 7.16 (7.35-7.45)
--- NOTE | 2017-06-07 09:24 | CON ---
DATE: 06/06/[address] for Dr. Nicholson. FAMILY PHYSICIAN: Jeanna Rodriguez DO. REFERRING MD: Alphonse Nicholson MD. REASON FOR CONSULTATION: Evaluation of a patient unknown to me, who presents with a severe anion gap metabolic acidosis in the setting of DKA in the setting of a 60-70 pounds weight loss, status post gastric sleeve procedure. HISTORY OF PRESENT ILLNESS: The patient is a 51-year-old white female, currently noncommunicative, seen in ICU bed 7. The patient was transferred from the floor because of increased lethargy, shortness of breath. The patient was initially admitted to the hospital for shortness of breath and rapid atrial fibrillation. The patient on admission to the hospital was noted to have a severe anion gap metabolic acidosis. Her glucose at that time was 296. Calcium was 11.0 with a phosphorus of 5.4. Sodium was normal. The patient was transferred down to the ICU. She was in rapid atrial fibrillation, currently controlled with IV diltiazem. She remains severely acidotic. Her glucose levels have risen. The patient was felt to be in DKA. She is currently receiving IV insulin at low dose along with IV sodium bicarbonate, IV fluid hydration. The patient has a history of hypertension. History of NIDDM, history of hyperlipidemia. Again, she is status post gastric sleeve procedure done in 03/2017 with a 60-70 pounds weight loss. We are asked to evaluate the patient for her mild prerenal azotemia. Her BUN is 21 with a creatinine of 1.5-1.6. She has a severe metabolic acidosis. Her potassium level has dropped from 5.2-2.9 and she is receiving potassium supplements. A magnesium level was 2.5. PAST MEDICAL HISTORY: Significant for NIDDM; hypertension; hyperlipidemia; obesity, status post gastric sleeve procedure. No past cardiac history as best I could tell. No history of chronic kidney disease. MEDICATIONS AT HOME: Include that of aspirin, paroxetine, Invokana, vitamin B12 and thiamine, Micardis, Pravachol, Glucophage and Xanax p.r.n. ALLERGIES: THE PATIENT IS ALLERGIC TO SULFA. CURRENT MEDICATIONS IN HOSPITAL: Include that of oral Calan, Ecotrin, IV insulin, Lopressor, Lovenox, magnesium sulfate, cefepime, IV fluids with potassium chloride, IV fluid with sodium bicarbonate and p.r.n. IV verapamil. The patient had received IV diltiazem. SOCIAL HISTORY: Presently, no history of alcohol use or cigarette smoking. Past history of cigarettes according to records. FAMILY HISTORY: Unobtainable. REVIEW OF SYSTEMS: Unobtainable as the patient is noncommunicative. PHYSICAL EXAMINATION: VITAL SIGNS: Blood pressure presently is 155/84 with a pulse of 92 and a regular heart rate. Temperature 97.8. Respiratory rate is 20. HEENT: Shows her eyes to be closed. NECK: Supple. No neck vein distention. CHEST: Clear to auscultation and percussion. No rales, rhonchi or wheezing. CARDIOVASCULAR: Shows a regular rate and rhythm with a soft systolic ejection murmur, left lower sternal border. No S3. No S4. No rub. ABDOMEN: Moderately obese. Bowel sounds are normal. No rebound, guarding or masses noted. BACK: No CVAT. No spinal tenderness. EXTREMITIES: Show no lower extremity cyanosis, clubbing or edema with distal lower extremity pulses are 1 to 2+ bilaterally. NEURO: Shows her to be unresponsive to verbal communication. LABORATORY DATA AND IMAGING: Chest CT done to rule out a pulmonary embolism was negative. No other acute findings noted. Chest x-ray done on admission showed no acute pulmonary disease. Head CT scan done on 06/05/2017 showed no acute intracranial abnormality. Last EKG done today showed atrial fibrillation with rapid ventricular response. Heart rate is 153. Currently, the patient's rate is regular in sinus rhythm on monitor. Labs, CBC: White blood cell count on admission 19.8, went as high as 23.1, now 17.4. Hemoglobin down from 16.3 to 12.0 with hydration. Platelet count is normal. Coags are normal. Blood gas today showed a pH of 6.87 with a pCO2 of 15 and a pO2 of 121 and a calculated bicarbonate of 2.7. Chemistries showed a sodium of 138, presently 151 with IV saline administration. Potassium level was 5.2, it is currently 2.9. She is being supplemented. CO2 level is 5 or less. Anion gap is extremely high at 36. Lactate levels were normal. Serum ketones were not sent, but her urine ketones were positive. BUN was 21, it is currently 31. Creatinine was 1.5, it is currently 1.6. Baseline appears to be 1-1.2. Glucose highest was 337, currently 301. Calcium was 11, it is currently 9.4. Phosphorus level 5.4. Magnesium level was 2.5 and now 3.0. Liver enzymes are normal. Troponins are negative. Albumin of note is 5.4. TSH level was normal. Urines showed 10-15 red blood cells per high-power field, 2-5 white blood cells per high-power field. Positive ketones. Positive glucose. Toxicology screen was negative. ASSESSMENT: 1. Mild prerenal azotemia, likely in the setting of her present hemodynamic state. No apparent history of chronic kidney disease. Her urinalysis shows 2+ protein. 2. Severe anion gap metabolic acidosis. This is felt to be secondary to possible diabetic ketoacidosis. No evidence for high lactate levels. The patient has a BUN and creatinine close to normal range, so this is not acidosis secondary to renal failure. Agree with administration of sodium bicarbonate in order to correct her acidosis as her pH is low and this is life-threatening. 3. Hypokalemia, cautious supplementation of potassium. This should correct with aggressive IV KCl supplementation. 4. History of [id number] diabetes mellitus, currently on insulin, likely diabetic ketoacidosis, though serum ketones were not sent. 5. Hypertension. The patient should remain off of blood pressure medication at this time and has any adverse effect on renal function. I would hold her angiotensin receptor luke therapy. She may continue calcium channel luke therapy with the attempt to slow her heart rate down. 6. Atrial fibrillation. The patient has been seen by Cardiology. Workup is in progress. Agree with diltiazem as needed. The patient is currently on Calan. She appears to have converted to sinus rhythm and now has a sinus tachycardia. 7. History of hyperlipidemia. The patient had been on statin therapy in the outpatient setting. 8. Possible sepsis. Elevated white blood cell count, but no fevers. The patient is on empiric antibiotic therapy. All cultures are negative to date. 9. History of morbid obesity, status post gastric sleeve procedure in 03/2017 with a 60-70-pound weight loss. Perhaps this is aggressive weight loss in a very short period of time, perhaps predisposing her to metabolic issues. PLAN: 1. Continue to monitor the patient very carefully in the ICU. 2. Continue cardiology, ID followup. 3. Perhaps Neuro followup for altered mental status. 4. Follow all cultures and continue empiric antibiotic therapy. 5. Correct potassium, but avoid giving her any further magnesium supplements as her magnesium level was elevated. 6. Perhaps Endocrine evaluation for her diabetes and likely DKA. 7. I would have obtained a serum ketone level. 8. Avoid any nephrotoxic agents including angiotensin receptor luke therapy. Should the patient require a blood pressure medication, I would use a non-dihydropyridine calcium channel luke. 9. Follow accurate I's and O's. 10. Case discussed with ICU staff and house staff. 11. Greater than 35 minutes spent in the care of this patient. Chay Palafox MD
[2017-06-07] MEDS ORDERED: Sodium Chloride 0.9% 1,000 ML IV STA (09:33)
[2017-06-07] MEDS ORDERED: Propofol 10 mg/ml 1,000 MG/100 ML VIAL ONE (09:42)
[2017-06-07] MEDS ORDERED: Potassium Phosphate 15 MMOLE in Dextrose 5% In Water 250 ML IVPB ONE ×2 (09:42→17:53)
[2017-06-07] MEDS: Propofol 10 mg/ml 1,000 MG/100 ML VIAL IV PRN ×4 (09:45→21:11)
[2017-06-07] MEDS ORDERED: Vancomycin 1.5 GM in Sodium Chloride 0.9% 500 ML IVPB ONE (10:20)
[2017-06-07] MEDS: Morphine 2 mg/ml ISec IVP PRN ×2 (10:27→17:29)
[2017-06-07] MEDS: Enoxaparin 40 mg Syringe SC SCH (10:27)
--- NOTE | 2017-06-07 10:27 | CP.CCUPN ---
CCU Subjective - Physician Review Subjective (Free Text): 06/07/17 10:24 Procedure Note: Intubation 51yo female pt with DKA and encephalopathy. Pts mental status and ability to protect the airway have worsened overnight. Pt needs emergent intubation for airway protection. Pt was sedated with propofol. Using Mac 4 and DL I visulized the airway. Copious amount of what appears to be dry blood and secretions was noted in posterior upper airway and was suctioned. Using Glidescope I revisualized the airway. A size 8 ETT was then inserted through the pts vocal cords. ETT placement was confirmed with color capnography and auscultation. ETT was secured at 23cm lipline and pt was connected to the vent. 06/07/17 12:58 CCU Objective - Vital Signs / Intake & Output Vital Signs (Last 4 hours): Vital Signs Temp Pulse Resp BP Pulse Ox 06/07/17 10:09 112 H 06/07/17 10:04 112 H 23 169/68 H 97 06/07/17 10:00 107 H 30 H 149/54 L 98 06/07/17 09:57 112 H 32 H 154/106 H 96 06/07/17 09:54 110 H 35 H 150/65 97 06/07/17 09:51 115 H 31 H 163/59 H 98 06/07/17 09:48 116 H 33 H 162/62 H 97 06/07/17 09:40 116 H 25 H 98 06/07/17 09:20 119 H 33 H 98 06/07/17 09:00 119 H 24 165/90 H 97 06/07/17 08:40 118 H 23 98 06/07/17 08:24 99 F 06/07/17 08:20 114 H 28 H 98 06/07/17 08:01 116 H 31 H 148/57 L 98 06/07/17 08:00 117 H 27 H 96 06/07/17 07:48 117 H 06/07/17 07:40 116 H 30 H 98 06/07/17 07:30 99.6 F 06/07/17 07:20 115 H 28 H 97 06/07/17 07:00 118 H 28 H 155/64 H 95 06/07/17 06:40 117 H 31 H 98 06/07/17 06:34 35 H 96 Intake and Output (Last 8hrs): Intake & Output 06/06/17 06/07/17 06/07/17 22:59 06:59 14:59 Intake Total 4310 6 17 Output Total 1650 Balance 2660 6 17 Intake: IV 4310 6 17 Left Wrist 4000 Right Wrist 300 Oral 0 Output: Urine 1650 Urine, Voided 1650 Stool 0 - Physical Exam Head: Positive for: Atraumatic, Normocephalic Pupils: Positive for: PERRL, Other (no nystagmus, no photophobia, sclera anicteric) Extroacular Muscles: Positive for: EOMI Conjunctiva: Positive for: Normal Ears: Positive for: Normal Mouth: Positive for: Dry, Normal Teeth Pharnyx: Positive for: Normal Nose (External): Positive for: Atraumatic Nose (Internal): Positive for: Normal Inspection Neck: Positive for: Normal Range of Motion, Trachea Midline, Other (no step off , no nuchal rigidity, no meningeal signs). Negative for: MIDLINE TENDERNESS Respiratory/Chest: Positive for: Clear to Auscultation, Good Air Exchange, Other (CTA b/l, no w/r/r, no accessory muscle use noted, mild tachypenia). Negative for: Respiratory Distress Cardiovascular: Positive for: Normal S1, S2, Irregular Rhythm, Tachycardic. Negative for: Murmurs Abdomen: Positive for: Normal Bowel Sounds. Negative for: Tenderness, Distention Back: Positive for: Normal Inspection. Negative for: CVA Tenderness, Midline Tenderness Upper Extremity: Positive for: Normal Inspection. Negative for: Edema Lower Extremity: Positive for: Normal Inspection. Negative for: Edema, Erythema Neurological: Positive for: Other (lethargic, does not follow command) Skin: Positive for: Warm, Dry Psychiatric: Positive for: Lethargic. Negative for: Oriented x 3 - Medications Active Medications: Active Medications Generic Name Dose Route Start Last Admin Trade Name Freq PRN Reason Stop Dose Admin Aspirin 81 mg 06/05/17 10:00 06/07/17 10:07 Ecotrin PO Not Given DAILY [facility] Enoxaparin Sodium 40 mg 06/07/17 10:00 Lovenox SC DAILY [facility] Protocol Insulin Human Regular 100 100 mls @ 1 mls/hr 06/06/17 09:45 06/07/17 09:00 units/ Sodium Chloride IV 3 units/hr .Q24H PRN 3 mls/hr TITRATE PER MD ORDER Titration Protocol 1 UNITS/HR Potassium Chloride 20 meq/ 1,010 mls @ 150 mls/hr 06/06/17 23:30 06/07/17 07: 42 Dextrose/Sodium Chloride IV 150 mls/hr .[id number] ALEJANDRINA Administration Potassium Chloride 20 meq in 100 mls @ 50 mls/hr 06/07/17 08:00 06/07/17 08: 39 Potassium Chloride 20 Meq/100 Ml IVPB 06/07/17 11:59 50 mls/hr Q2H ALEJANDRINA Administration Potassium Phosphate 30 mmole/ 260 mls @ 42.5 mls/hr 06/07/17 08:00 06/07/17 09:35 Dextrose IVPB 06/07/17 14:07 42.5 mls/hr ONCE ONE Administration Sodium Chloride 1,000 mls @ 999 mls/hr 06/07/17 09:33 Sodium Chloride 0.9% IV 06/07/17 10:33 .Q1H1M STA Potassium Phosphate 15 mmole/ 255 mls @ 42.5 mls/hr 06/07/17 09:42 Dextrose IVPB 06/07/17 15:41 ONCE ONE Propofol 1,000 mg in 100 mls @ 3.043 mls/hr 06/07/17 10:11 Diprivan IV .Q24H PRN TITRATE PER MD ORDER Protocol 5 MCG/KG/MIN Meropenem 50 mls @ 100 mls/hr 06/07/17 10:30 Merrem Iv 1 Gm Premix IVPB 06/14/17 10:31 Q12 ALEJANDRINA Protocol Vancomycin HCl 1.5 gm/ Sodium 500 mls @ 167 mls/hr 06/07/17 10:20 Chloride IVPB 06/07/17 13:19 ONCE ONE Protocol Insulin Human Regular 0 units 06/05/17 11:30 06/07/17 08:36 Humulin R Low SC Not Given ACHS ALEJANDRINA Protocol Metoprolol Tartrate 12.5 mg 06/05/17 18:00 06/07/17 10:07 Lopressor PO Not Given BID [facility] Morphine Sulfate 2 mg 06/07/17 10:11 Morphine IVP Q3H PRN Pain, severe (8-10) Verapamil HCl 2.5 mg 06/06/17 09:22 06/06/17 11:46 Verapamil Inj IVP 2.5 mg Q6H PRN Administration for heart rate >130 Verapamil HCl 80 mg 06/06/17 10:00 06/07/17 10:07 Calan Tab PO Not Given TID AELJANDRINA - Patient Studies Lab Studies: Microbiology Studies 06/05/17 20:53 Urine Culture - Final Urine,Clean Catch No Growth (<1,000 CFU/ML) 06/05/17 15:53 Blood Culture - Preliminary Blood-Venous NO GROWTH AFTER 24 HOURS 06/05/17 15:53 Blood Culture - Preliminary Blood-Venous NO GROWTH AFTER 24 HOURS 06/05/17 10:35 Blood Culture - Preliminary Blood-Venous NO GROWTH AFTER 24 HOURS 06/05/17 10:10 Blood Culture - Preliminary Blood-Venous NO GROWTH AFTER 24 HOURS Lab Studies 06/07/17 06/07/17 06/07/17 Range/Units 09:26 09:10 08:24 WBC (4.5-11.0) 10^3/ul RBC (3.5-6.1) 10^6/uL Hgb (12.0-16.0) g/dL Hct (36.0-48.0) % MCV (80.0-105.0) fl MCH (25.0-35.0) pg MCHC (31.0-37.0) g/dl RDW (11.5-14.5) % Plt Count (120.0-450.0) 10^3/uL MPV (7.0-11.0) fl Gran % (50.0-68.0) % Lymph % (Auto) (22.0-35.0) % Oliver % (Auto) (1.0-6.0) % Eos % (Auto) (1.5-5.0) % Baso % (Auto) (0.0-3.0) % Gran # (1.4-6.5) Lymph # (Auto) (1.2-3.4) Oliver # (Auto) (0.1-0.6) Eos # (Auto) (0.0-0.7) Baso # (Auto) (0.0-2.0) K/mm3 pCO2 18 L* (35-45) mm/Hg pO2 115.0 H (80-100) mm/Hg HCO3 6.4 L* (21-28) mmol/L ABG pH 7.16 L* (7.35-7.45) ABG Total CO2 7.0 L (22-28) mmol.L ABG O2 Saturation 99.4 H (95-98) % ABG Base Excess -20.2 L (-2.0-3.0) mmol/L ABG Potassium 2.7 L (3.6-5.2) mmol/L Glucose 314 H (65-105) mg/dl Lactate 0.6 L (0.7-2.1) mmol/L FiO2 28.0 % Sodium 152.0 H (132-148) mmol/L Potassium (3.6-5.0) mmol/L Chloride 124.0 H (98-107) mmol/L Carbon Dioxide (21-33) mmol/L Anion Gap (10-20) BUN (7-21) mg/dL Creatinine (0.7-1.2) mg/dl Est GFR ( Amer) Est GFR (Non-Af Amer) POC Glucose (mg/dL) 282 H 275 H (65-110) mg/dL Random Glucose (70-110) mg/dL Hemoglobin A1c (4.2-6.5) % Lactic Acid (0.7-2.1) mmol/L Calcium (8.4-10.5) mg/dL Phosphorus (2.5-4.5) mg/dL Magnesium (1.7-2.2) mg/dL Total Bilirubin (0.2-1.3) mg/dL AST (14-36) U/L ALT (7-56) U/L Alkaline Phosphatase (38-126) U/L Total Protein (5.8-8.3) g/dL Albumin (3.0-4.8) g/dL Globulin gm/dL Albumin/Globulin Ratio (1.1-1.8) Triglycerides (35-160) mg/dL Cholesterol (130-200) mg/dL LDL Cholesterol Direct (0-129) mg/dL HDL Cholesterol (29-60) mg/dL Arterial Blood Potassium 2.7 L (3.6-5.2) mmol/L Salicylates (2.0-20.0) mg/dL 06/07/17 06/07/17 06/07/17 Range/Units 07:33 06:11 05:55 WBC (4.5-11.0) 10^3/ul RBC (3.5-6.1) 10^6/uL Hgb (12.0-16.0) g/dL Hct (36.0-48.0) % MCV (80.0-105.0) fl MCH (25.0-35.0) pg MCHC (31.0-37.0) g/dl RDW (11.5-14.5) % Plt Count (120.0-450.0) 10^3/uL MPV (7.0-11.0) fl Gran % (50.0-68.0) % Lymph % (Auto) (22.0-35.0) % Oliver % (Auto) (1.0-6.0) % Eos % (Auto) (1.5-5.0) % Baso % (Auto) (0.0-3.0) % Gran # (1.4-6.5) Lymph # (Auto) (1.2-3.4) Oliver # (Auto) (0.1-0.6) Eos # (Auto) (0.0-0.7) Baso # (Auto) (0.0-2.0) K/mm3 pCO2 (35-45) mm/Hg pO2 (80-100) mm/Hg HCO3 (21-28) mmol/L ABG pH (7.35-7.45) ABG Total CO2 (22-28) mmol.L ABG O2 Saturation (95-98) % ABG Base Excess (-2.0-3.0) mmol/L ABG Potassium (3.6-5.2) mmol/L Glucose (65-105) mg/dl Lactate (0.7-2.1) mmol/L FiO2 % Sodium 155 H (132-148) mmol/L Potassium 3.3 L (3.6-5.0) mmol/L Chloride 123 H (98-107) mmol/L Carbon Dioxide 8 L D (21-33) mmol/L Anion Gap 27 H (10-20) BUN 35 H (7-21) mg/dL Creatinine 1.9 H (0.7-1.2) mg/dl Est GFR ( Amer) 34 Est GFR (Non-Af Amer) 28 POC Glucose (mg/dL) 279 H 240 H (65-110) mg/dL Random Glucose 303 H* D (70-110) mg/dL Hemoglobin A1c (4.2-6.5) % Lactic Acid (0.7-2.1) mmol/L Calcium 10.0 (8.4-10.5) mg/dL Phosphorus 0.7 L* (2.5-4.5) mg/dL Magnesium 3.0 H (1.7-2.2) mg/dL Total Bilirubin 0.6 (0.2-1.3) mg/dL AST 26 (14-36) U/L ALT 31 (7-56) U/L Alkaline Phosphatase 105 (38-126) U/L Total Protein 6.4 (5.8-8.3) g/dL Albumin 3.7 (3.0-4.8) g/dL Globulin 2.6 gm/dL Albumin/Globulin Ratio 1.4 (1.1-1.8) Triglycerides (35-160) mg/dL Cholesterol (130-200) mg/dL LDL Cholesterol Direct (0-129) mg/dL HDL Cholesterol (29-60) mg/dL Arterial Blood Potassium (3.6-5.2) mmol/L Salicylates (2.0-20.0) mg/dL 06/07/17 06/07/17 06/07/17 Range/Units 05:55 05:55 05:03 WBC 13.8 H D (4.5-11.0) 10^3/ul RBC 4.05 (3.5-6.1) 10^6/uL Hgb 12.0 (12.0-16.0) g/dL Hct 34.4 L (36.0-48.0) % MCV 84.9 D (80.0-105.0) fl MCH 29.6 (25.0-35.0) pg MCHC 34.9 (31.0-37.0) g/dl RDW 14.8 H (11.5-14.5) % Plt Count 128 (120.0-450.0) 10^3/uL MPV 11.0 (7.0-11.0) fl Gran % 79.2 H (50.0-68.0) % Lymph % (Auto) 8.4 L (22.0-35.0) % Oliver % (Auto) 11.9 H (1.0-6.0) % Eos % (Auto) 0.1 L (1.5-5.0) % Baso % (Auto) 0.4 (0.0-3.0) % Gran # 10.90 H (1.4-6.5) Lymph # (Auto) 1.2 (1.2-3.4) Oliver # (Auto) 1.6 H (0.1-0.6) Eos # (Auto) 0.0 (0.0-0.7) Baso # (Auto) 0.06 (0.0-2.0) K/mm3 pCO2 (35-45) mm/Hg pO2 (80-100) mm/Hg HCO3 (21-28) mmol/L ABG pH (7.35-7.45) ABG Total CO2 (22-28) mmol.L ABG O2 Saturation (95-98) % ABG Base Excess (-2.0-3.0) mmol/L ABG Potassium (3.6-5.2) mmol/L Glucose (65-105) mg/dl Lactate (0.7-2.1) mmol/L FiO2 % Sodium (132-148) mmol/L Potassium (3.6-5.0) mmol/L Chloride (98-107) mmol/L Carbon Dioxide (21-33) mmol/L Anion Gap (10-20) BUN (7-21) mg/dL Creatinine (0.7-1.2) mg/dl Est GFR ( Amer) Est GFR (Non-Af Amer) POC Glucose (mg/dL) 258 H (65-110) mg/dL Random Glucose (70-110) mg/dL Hemoglobin A1c (4.2-6.5) % Lactic Acid (0.7-2.1) mmol/L Calcium (8.4-10.5) mg/dL Phosphorus (2.5-4.5) mg/dL Magnesium (1.7-2.2) mg/dL Total Bilirubin (0.2-1.3) mg/dL AST (14-36) U/L ALT (7-56) U/L Alkaline Phosphatase (38-126) U/L Total Protein (5.8-8.3) g/dL Albumin (3.0-4.8) g/dL Globulin gm/dL Albumin/Globulin Ratio (1.1-1.8) Triglycerides (35-160) mg/dL Cholesterol (130-200) mg/dL LDL Cholesterol Direct (0-129) mg/dL HDL Cholesterol (29-60) mg/dL Arterial Blood Potassium (3.6-5.2) mmol/L Salicylates < 1 L (2.0-20.0) mg/dL 06/07/17 06/07/17 06/07/17 Range/Units 04:08 03:01 02:17 WBC (4.5-11.0) 10^3/ul RBC (3.5-6.1) 10^6/uL Hgb (12.0-16.0) g/dL Hct (36.0-48.0) % MCV (80.0-105.0) fl MCH (25.0-35.0) pg MCHC (31.0-37.0) g/dl RDW (11.5-14.5) % Plt Count (120.0-450.0) 10^3/uL MPV (7.0-11.0) fl Gran % (50.0-68.0) % Lymph % (Auto) (22.0-35.0) % Oliver % (Auto) (1.0-6.0) % Eos % (Auto) (1.5-5.0) % Baso % (Auto) (0.0-3.0) % Gran # (1.4-6.5) Lymph # (Auto) (1.2-3.4) Oliver # (Auto) (0.1-0.6) Eos # (Auto) (0.0-0.7) Baso # (Auto) (0.0-2.0) K/mm3 pCO2 (35-45) mm/Hg pO2 (80-100) mm/Hg HCO3 (21-28) mmol/L ABG pH (7.35-7.45) ABG Total CO2 (22-28) mmol.L ABG O2 Saturation (95-98) % ABG Base Excess (-2.0-3.0) mmol/L ABG Potassium (3.6-5.2) mmol/L Glucose (65-105) mg/dl Lactate (0.7-2.1) mmol/L FiO2 % Sodium (132-148) mmol/L Potassium (3.6-5.0) mmol/L Chloride (98-107) mmol/L Carbon Dioxide (21-33) mmol/L Anion Gap (10-20) BUN (7-21) mg/dL Creatinine (0.7-1.2) mg/dl Est GFR ( Amer) Est GFR (Non-Af Amer) POC Glucose (mg/dL) 229 H 242 H 242 H (65-110) mg/dL Random Glucose (70-110) mg/dL Hemoglobin A1c (4.2-6.5) % Lactic Acid (0.7-2.1) mmol/L Calcium (8.4-10.5) mg/dL Phosphorus (2.5-4.5) mg/dL Magnesium (1.7-2.2) mg/dL Total Bilirubin (0.2-1.3) mg/dL AST (14-36) U/L ALT (7-56) U/L Alkaline Phosphatase (38-126) U/L Total Protein (5.8-8.3) g/dL Albumin (3.0-4.8) g/dL Globulin gm/dL Albumin/Globulin Ratio (1.1-1.8) Triglycerides (35-160) mg/dL Cholesterol (130-200) mg/dL LDL Cholesterol Direct (0-129) mg/dL HDL Cholesterol (29-60) mg/dL Arterial Blood Potassium (3.6-5.2) mmol/L Salicylates (2.0-20.0) mg/dL 06/07/17 06/07/17 06/07/17 Range/Units 01:05 01:00 00:01 WBC (4.5-11.0) 10^3/ul RBC (3.5-6.1) 10^6/uL Hgb (12.0-16.0) g/dL Hct (36.0-48.0) % MCV (80.0-105.0) fl MCH (25.0-35.0) pg MCHC (31.0-37.0) g/dl RDW (11.5-14.5) % Plt Count (120.0-450.0) 10^3/uL MPV (7.0-11.0) fl Gran % (50.0-68.0) % Lymph % (Auto) (22.0-35.0) % Oliver % (Auto) (1.0-6.0) % Eos % (Auto) (1.5-5.0) % Baso % (Auto) (0.0-3.0) % Gran # (1.4-6.5) Lymph # (Auto) (1.2-3.4) Oliver # (Auto) (0.1-0.6) Eos # (Auto) (0.0-0.7) Baso # (Auto) (0.0-2.0) K/mm3 pCO2 (35-45) mm/Hg pO2 (80-100) mm/Hg HCO3 (21-28) mmol/L ABG pH (7.35-7.45) ABG Total CO2 (22-28) mmol.L ABG O2 Saturation (95-98) % ABG Base Excess (-2.0-3.0) mmol/L ABG Potassium (3.6-5.2) mmol/L Glucose (65-105) mg/dl Lactate (0.7-2.1) mmol/L FiO2 % Sodium 152 H (132-148) mmol/L Potassium 2.7 L* (3.6-5.0) mmol/L Chloride 130 H (98-107) mmol/L Carbon Dioxide < 5 L (21-33) mmol/L Anion Gap 20 (10-20) BUN 30 H (7-21) mg/dL Creatinine 1.6 H (0.7-1.2) mg/dl Est GFR ( Amer) 41 Est GFR (Non-Af Amer) 34 POC Glucose (mg/dL) 240 H 231 H (65-110) mg/dL Random Glucose 232 H (70-110) mg/dL Hemoglobin A1c (4.2-6.5) % Lactic Acid (0.7-2.1) mmol/L Calcium 8.3 L (8.4-10.5) mg/dL Phosphorus (2.5-4.5) mg/dL Magnesium (1.7-2.2) mg/dL Total Bilirubin (0.2-1.3) mg/dL AST (14-36) U/L ALT (7-56) U/L Alkaline Phosphatase (38-126) U/L Total Protein (5.8-8.3) g/dL Albumin (3.0-4.8) g/dL Globulin gm/dL Albumin/Globulin Ratio (1.1-1.8) Triglycerides (35-160) mg/dL Cholesterol (130-200) mg/dL LDL Cholesterol Direct (0-129) mg/dL HDL Cholesterol (29-60) mg/dL Arterial Blood Potassium (3.6-5.2) mmol/L Salicylates (2.0-20.0) mg/dL 06/06/17 06/06/17 06/06/17 Range/Units 23:14 22:52 22:11 WBC (4.5-11.0) 10^3/ul RBC (3.5-6.1) 10^6/uL Hgb (12.0-16.0) g/dL Hct (36.0-48.0) % MCV (80.0-105.0) fl MCH (25.0-35.0) pg MCHC (31.0-37.0) g/dl RDW (11.5-14.5) % Plt Count (120.0-450.0) 10^3/uL MPV (7.0-11.0) fl Gran % (50.0-68.0) % Lymph % (Auto) (22.0-35.0) % Oliver % (Auto) (1.0-6.0) % Eos % (Auto) (1.5-5.0) % Baso % (Auto) (0.0-3.0) % Gran # (1.4-6.5) Lymph # (Auto) (1.2-3.4) Oliver # (Auto) (0.1-0.6) Eos # (Auto) (0.0-0.7) Baso # (Auto) (0.0-2.0) K/mm3 pCO2 (35-45) mm/Hg pO2 (80-100) mm/Hg HCO3 (21-28) mmol/L ABG pH (7.35-7.45) ABG Total CO2 (22-28) mmol.L ABG O2 Saturation (95-98) % ABG Base Excess (-2.0-3.0) mmol/L ABG Potassium (3.6-5.2) mmol/L Glucose (65-105) mg/dl Lactate (0.7-2.1) mmol/L FiO2 % Sodium 152 H (132-148) mmol/L Potassium 2.9 L* (3.6-5.0) mmol/L Chloride 123 H (98-107) mmol/L Carbon Dioxide 5 L (21-33) mmol/L Anion Gap 27 H (10-20) BUN 34 H (7-21) mg/dL Creatinine 1.9 H (0.7-1.2) mg/dl Est GFR ( Amer) 34 Est GFR (Non-Af Amer) 28 POC Glucose (mg/dL) 194 H 216 H (65-110) mg/dL Random Glucose 225 H (70-110) mg/dL Hemoglobin A1c (4.2-6.5) % Lactic Acid (0.7-2.1) mmol/L Calcium 9.8 (8.4-10.5) mg/dL Phosphorus (2.5-4.5) mg/dL Magnesium (1.7-2.2) mg/dL Total Bilirubin (0.2-1.3) mg/dL AST (14-36) U/L ALT (7-56) U/L Alkaline Phosphatase (38-126) U/L Total Protein (5.8-8.3) g/dL Albumin (3.0-4.8) g/dL Globulin gm/dL Albumin/Globulin Ratio (1.1-1.8) Triglycerides (35-160) mg/dL Cholesterol (130-200) mg/dL LDL Cholesterol Direct (0-129) mg/dL HDL Cholesterol (29-60) mg/dL Arterial Blood Potassium (3.6-5.2) mmol/L Salicylates (2.0-20.0) mg/dL 06/06/17 06/06/17 06/06/17 Range/Units 21:03 20:06 18:56 WBC (4.5-11.0) 10^3/ul RBC (3.5-6.1) 10^6/uL Hgb (12.0-16.0) g/dL Hct (36.0-48.0) % MCV (80.0-105.0) fl MCH (25.0-35.0) pg MCHC (31.0-37.0) g/dl RDW (11.5-14.5) % Plt Count (120.0-450.0) 10^3/uL MPV (7.0-11.0) fl Gran % (50.0-68.0) % Lymph % (Auto) (22.0-35.0) % Oliver % (Auto) (1.0-6.0) % Eos % (Auto) (1.5-5.0) % Baso % (Auto) (0.0-3.0) % Gran # (1.4-6.5) Lymph # (Auto) (1.2-3.4) Oliver # (Auto) (0.1-0.6) Eos # (Auto) (0.0-0.7) Baso # (Auto) (0.0-2.0) K/mm3 pCO2 (35-45) mm/Hg pO2 (80-100) mm/Hg HCO3 (21-28) mmol/L ABG pH (7.35-7.45) ABG Total CO2 (22-28) mmol.L ABG O2 Saturation (95-98) % ABG Base Excess (-2.0-3.0) mmol/L ABG Potassium (3.6-5.2) mmol/L Glucose (65-105) mg/dl Lactate (0.7-2.1) mmol/L FiO2 % Sodium (132-148) mmol/L Potassium (3.6-5.0) mmol/L Chloride (98-107) mmol/L Carbon Dioxide (21-33) mmol/L Anion Gap (10-20) BUN (7-21) mg/dL Creatinine (0.7-1.2) mg/dl Est GFR ( Amer) Est GFR (Non-Af Amer) POC Glucose (mg/dL) 236 H 272 H 208 H (65-110) mg/dL Random Glucose (70-110) mg/dL Hemoglobin A1c (4.2-6.5) % Lactic Acid (0.7-2.1) mmol/L Calcium (8.4-10.5) mg/dL Phosphorus (2.5-4.5) mg/dL Magnesium (1.7-2.2) mg/dL Total Bilirubin (0.2-1.3) mg/dL AST (14-36) U/L ALT (7-56) U/L Alkaline Phosphatase (38-126) U/L Total Protein (5.8-8.3) g/dL Albumin (3.0-4.8) g/dL Globulin gm/dL Albumin/Globulin Ratio (1.1-1.8) Triglycerides (35-160) mg/dL Cholesterol (130-200) mg/dL LDL Cholesterol Direct (0-129) mg/dL HDL Cholesterol (29-60) mg/dL Arterial Blood Potassium (3.6-5.2) mmol/L Salicylates (2.0-20.0) mg/dL 06/06/17 06/06/17 06/06/17 Range/Units 18:16 18:02 17:09 WBC (4.5-11.0) 10^3/ul RBC (3.5-6.1) 10^6/uL Hgb (12.0-16.0) g/dL Hct (36.0-48.0) % MCV (80.0-105.0) fl MCH (25.0-35.0) pg MCHC (31.0-37.0) g/dl RDW (11.5-14.5) % Plt Count (120.0-450.0) 10^3/uL MPV (7.0-11.0) fl Gran % (50.0-68.0) % Lymph % (Auto) (22.0-35.0) % Oliver % (Auto) (1.0-6.0) % Eos % (Auto) (1.5-5.0) % Baso % (Auto) (0.0-3.0) % Gran # (1.4-6.5) Lymph # (Auto) (1.2-3.4) Oliver # (Auto) (0.1-0.6) Eos # (Auto) (0.0-0.7) Baso # (Auto) (0.0-2.0) K/mm3 pCO2 (35-45) mm/Hg pO2 (80-100) mm/Hg HCO3 (21-28) mmol/L ABG pH (7.35-7.45) ABG Total CO2 (22-28) mmol.L ABG O2 Saturation (95-98) % ABG Base Excess (-2.0-3.0) mmol/L ABG Potassium (3.6-5.2) mmol/L Glucose (65-105) mg/dl Lactate (0.7-2.1) mmol/L FiO2 % Sodium 152 H (132-148) mmol/L Potassium 2.6 L* (3.6-5.0) mmol/L Chloride 122 H (98-107) mmol/L Carbon Dioxide 5 L (21-33) mmol/L Anion Gap 28 H (10-20) BUN 33 H (7-21) mg/dL Creatinine 1.8 H (0.7-1.2) mg/dl Est GFR ( Amer) 36 Est GFR (Non-Af Amer) 30 POC Glucose (mg/dL) 219 H 246 H (65-110) mg/dL Random Glucose 250 H (70-110) mg/dL Hemoglobin A1c (4.2-6.5) % Lactic Acid (0.7-2.1) mmol/L Calcium 9.4 (8.4-10.5) mg/dL Phosphorus (2.5-4.5) mg/dL Magnesium (1.7-2.2) mg/dL Total Bilirubin (0.2-1.3) mg/dL AST (14-36) U/L ALT (7-56) U/L Alkaline Phosphatase (38-126) U/L Total Protein (5.8-8.3) g/dL Albumin (3.0-4.8) g/dL Globulin gm/dL Albumin/Globulin Ratio (1.1-1.8) Triglycerides (35-160) mg/dL Cholesterol (130-200) mg/dL LDL Cholesterol Direct (0-129) mg/dL HDL Cholesterol (29-60) mg/dL Arterial Blood Potassium (3.6-5.2) mmol/L Salicylates (2.0-20.0) mg/dL 06/06/17 06/06/17 06/06/17 Range/Units 15:55 15:14 14:05 WBC (4.5-11.0) 10^3/ul RBC (3.5-6.1) 10^6/uL Hgb (12.0-16.0) g/dL Hct (36.0-48.0) % MCV (80.0-105.0) fl MCH (25.0-35.0) pg MCHC (31.0-37.0) g/dl RDW (11.5-14.5) % Plt Count (120.0-450.0) 10^3/uL MPV (7.0-11.0) fl Gran % (50.0-68.0) % Lymph % (Auto) (22.0-35.0) % Oliver % (Auto) (1.0-6.0) % Eos % (Auto) (1.5-5.0) % Baso % (Auto) (0.0-3.0) % Gran # (1.4-6.5) Lymph # (Auto) (1.2-3.4) Oliver # (Auto) (0.1-0.6) Eos # (Auto) (0.0-0.7) Baso # (Auto) (0.0-2.0) K/mm3 pCO2 (35-45) mm/Hg pO2 (80-100) mm/Hg HCO3 (21-28) mmol/L ABG pH (7.35-7.45) ABG Total CO2 (22-28) mmol.L ABG O2 Saturation (95-98) % ABG Base Excess (-2.0-3.0) mmol/L ABG Potassium (3.6-5.2) mmol/L Glucose (65-105) mg/dl Lactate (0.7-2.1) mmol/L FiO2 % Sodium 151 H (132-148) mmol/L Potassium 2.9 L* (3.6-5.0) mmol/L Chloride 120 H (98-107) mmol/L Carbon Dioxide < 5 L (21-33) mmol/L Anion Gap 29 H (10-20) BUN 31 H (7-21) mg/dL Creatinine 1.6 H (0.7-1.2) mg/dl Est GFR ( Amer) 41 Est GFR (Non-Af Amer) 34 POC Glucose (mg/dL) 277 H 306 H (65-110) mg/dL Random Glucose 301 H* (70-110) mg/dL Hemoglobin A1c (4.2-6.5) % Lactic Acid (0.7-2.1) mmol/L Calcium 9.4 (8.4-10.5) mg/dL Phosphorus (2.5-4.5) mg/dL Magnesium (1.7-2.2) mg/dL Total Bilirubin (0.2-1.3) mg/dL AST (14-36) U/L ALT (7-56) U/L Alkaline Phosphatase (38-126) U/L Total Protein (5.8-8.3) g/dL Albumin (3.0-4.8) g/dL Globulin gm/dL Albumin/Globulin Ratio (1.1-1.8) Triglycerides (35-160) mg/dL Cholesterol (130-200) mg/dL LDL Cholesterol Direct (0-129) mg/dL HDL Cholesterol (29-60) mg/dL Arterial Blood Potassium (3.6-5.2) mmol/L Salicylates (2.0-20.0) mg/dL 06/06/17 06/06/17 06/06/17 Range/Units 14:00 12:51 12:45 WBC (4.5-11.0) 10^3/ul RBC (3.5-6.1) 10^6/uL Hgb (12.0-16.0) g/dL Hct (36.0-48.0) % MCV (80.0-105.0) fl MCH (25.0-35.0) pg MCHC (31.0-37.0) g/dl RDW (11.5-14.5) % Plt Count (120.0-450.0) 10^3/uL MPV (7.0-11.0) fl Gran % (50.0-68.0) % Lymph % (Auto) (22.0-35.0) % Oliver % (Auto) (1.0-6.0) % Eos % (Auto) (1.5-5.0) % Baso % (Auto) (0.0-3.0) % Gran # (1.4-6.5) Lymph # (Auto) (1.2-3.4) Oliver # (Auto) (0.1-0.6) Eos # (Auto) (0.0-0.7) Baso # (Auto) (0.0-2.0) K/mm3 pCO2 (35-45) mm/Hg pO2 (80-100) mm/Hg HCO3 (21-28) mmol/L ABG pH (7.35-7.45) ABG Total CO2 (22-28) mmol.L ABG O2 Saturation (95-98) % ABG Base Excess (-2.0-3.0) mmol/L ABG Potassium (3.6-5.2) mmol/L Glucose (65-105) mg/dl Lactate (0.7-2.1) mmol/L FiO2 % Sodium (132-148) mmol/L Potassium (3.6-5.0) mmol/L Chloride (98-107) mmol/L Carbon Dioxide (21-33) mmol/L Anion Gap (10-20) BUN (7-21) mg/dL Creatinine (0.7-1.2) mg/dl Est GFR ( Amer) Est GFR (Non-Af Amer) POC Glucose (mg/dL) 267 H 267 H (65-110) mg/dL Random Glucose (70-110) mg/dL Hemoglobin A1c (4.2-6.5) % Lactic Acid 1.0 (0.7-2.1) mmol/L Calcium (8.4-10.5) mg/dL Phosphorus (2.5-4.5) mg/dL Magnesium (1.7-2.2) mg/dL Total Bilirubin (0.2-1.3) mg/dL AST (14-36) U/L ALT (7-56) U/L Alkaline Phosphatase (38-126) U/L Total Protein (5.8-8.3) g/dL Albumin (3.0-4.8) g/dL Globulin gm/dL Albumin/Globulin Ratio (1.1-1.8) Triglycerides (35-160) mg/dL Cholesterol (130-200) mg/dL LDL Cholesterol Direct (0-129) mg/dL HDL Cholesterol (29-60) mg/dL Arterial Blood Potassium (3.6-5.2) mmol/L Salicylates (2.0-20.0) mg/dL 0306/06/17 06/06/17 Range/Units 12:01 10:57 09:45 WBC (4.5-11.0) 10^3/ul RBC (3.5-6.1) 10^6/uL Hgb (12.0-16.0) g/dL Hct (36.0-48.0) % MCV (80.0-105.0) fl MCH (25.0-35.0) pg MCHC (31.0-37.0) g/dl RDW (11.5-14.5) % Plt Count (120.0-450.0) 10^3/uL MPV (7.0-11.0) fl Gran % (50.0-68.0) % Lymph % (Auto) (22.0-35.0) % Oliver % (Auto) (1.0-6.0) % Eos % (Auto) (1.5-5.0) % Baso % (Auto) (0.0-3.0) % Gran # (1.4-6.5) Lymph # (Auto) (1.2-3.4) Oliver # (Auto) (0.1-0.6) Eos # (Auto) (0.0-0.7) Baso # (Auto) (0.0-2.0) K/mm3 pCO2 (35-45) mm/Hg pO2 (80-100) mm/Hg HCO3 (21-28) mmol/L ABG pH (7.35-7.45) ABG Total CO2 (22-28) mmol.L ABG O2 Saturation (95-98) % ABG Base Excess (-2.0-3.0) mmol/L ABG Potassium (3.6-5.2) mmol/L Glucose (65-105) mg/dl Lactate (0.7-2.1) mmol/L FiO2 % Sodium (132-148) mmol/L Potassium (3.6-5.0) mmol/L Chloride (98-107) mmol/L Carbon Dioxide (21-33) mmol/L Anion Gap (10-20) BUN (7-21) mg/dL Creatinine (0.7-1.2) mg/dl Est GFR ( Amer) Est GFR (Non-Af Amer) POC Glucose (mg/dL) 282 H 305 H 273 H (65-110) mg/dL Random Glucose (70-110) mg/dL Hemoglobin A1c (4.2-6.5) % Lactic Acid (0.7-2.1) mmol/L Calcium (8.4-10.5) mg/dL Phosphorus (2.5-4.5) mg/dL Magnesium (1.7-2.2) mg/dL Total Bilirubin (0.2-1.3) mg/dL AST (14-36) U/L ALT (7-56) U/L Alkaline Phosphatase (38-126) U/L Total Protein (5.8-8.3) g/dL Albumin (3.0-4.8) g/dL Globulin gm/dL Albumin/Globulin Ratio (1.1-1.8) Triglycerides (35-160) mg/dL Cholesterol (130-200) mg/dL LDL Cholesterol Direct (0-129) mg/dL HDL Cholesterol (29-60) mg/dL Arterial Blood Potassium (3.6-5.2) mmol/L Salicylates (2.0-20.0) mg/dL 06/06/17 06/06/17 Range/Units 06:45 06:45 WBC (4.5-11.0) 10^3/ul RBC (3.5-6.1) 10^6/uL Hgb (12.0-16.0) g/dL Hct (36.0-48.0) % MCV (80.0-105.0) fl MCH (25.0-35.0) pg MCHC (31.0-37.0) g/dl RDW (11.5-14.5) % Plt Count (120.0-450.0) 10^3/uL MPV (7.0-11.0) fl Gran % (50.0-68.0) % Lymph % (Auto) (22.0-35.0) % Oliver % (Auto) (1.0-6.0) % Eos % (Auto) (1.5-5.0) % Baso % (Auto) (0.0-3.0) % Gran # (1.4-6.5) Lymph # (Auto) (1.2-3.4) Oliver # (Auto) (0.1-0.6) Eos # (Auto) (0.0-0.7) Baso # (Auto) (0.0-2.0) K/mm3 pCO2 (35-45) mm/Hg pO2 (80-100) mm/Hg HCO3 (21-28) mmol/L ABG pH (7.35-7.45) ABG Total CO2 (22-28) mmol.L ABG O2 Saturation (95-98) % ABG Base Excess (-2.0-3.0) mmol/L ABG Potassium (3.6-5.2) mmol/L Glucose (65-105) mg/dl Lactate (0.7-2.1) mmol/L FiO2 % Sodium (132-148) mmol/L Potassium 3.4 L (3.6-5.0) mmol/L Chloride (98-107) mmol/L Carbon Dioxide (21-33) mmol/L Anion Gap 29 H (10-20) BUN (7-21) mg/dL Creatinine (0.7-1.2) mg/dl Est GFR ( Amer) Est GFR (Non-Af Amer) POC Glucose (mg/dL) (65-110) mg/dL Random Glucose (70-110) mg/dL Hemoglobin A1c 8.4 H (4.2-6.5) % Lactic Acid (0.7-2.1) mmol/L Calcium (8.4-10.5) mg/dL Phosphorus (2.5-4.5) mg/dL Magnesium 3.0 H (1.7-2.2) mg/dL Total Bilirubin (0.2-1.3) mg/dL AST (14-36) U/L ALT (7-56) U/L Alkaline Phosphatase (38-126) U/L Total Protein (5.8-8.3) g/dL Albumin (3.0-4.8) g/dL Globulin gm/dL Albumin/Globulin Ratio (1.1-1.8) Triglycerides 572 H (35-160) mg/dL Cholesterol 198 (130-200) mg/dL LDL Cholesterol Direct 90 (0-129) mg/dL HDL Cholesterol 44 (29-60) mg/dL Arterial Blood Potassium (3.6-5.2) mmol/L Salicylates (2.0-20.0) mg/dL Laboratory Results - last 24 hr 06/06/17 06/06/17 06/06/17 06:45 06:45 09:45 WBC RBC Hgb Hct MCV MCH MCHC RDW Plt Count MPV Gran % Lymph % (Auto) Oliver % (Auto) Eos % (Auto) Baso % (Auto) Gran # Lymph # (Auto) Oliver # (Auto) Eos # (Auto) Baso # (Auto) pCO2 pO2 HCO3 ABG pH ABG Total CO2 ABG O2 Saturation ABG Base Excess ABG Potassium Glucose Lactate FiO2 Sodium Potassium 3.4 L Chloride Carbon Dioxide Anion Gap 29 H BUN Creatinine Est GFR ( Amer) Est GFR (Non-Af Amer) POC Glucose (mg/dL) 273 H Random Glucose Hemoglobin A1c 8.4 H Lactic Acid Calcium Phosphorus Magnesium 3.0 H Total Bilirubin AST ALT Alkaline Phosphatase Total Protein Albumin Globulin Albumin/Globulin Ratio Triglycerides 572 H Cholesterol 198 LDL Cholesterol Direct 90 HDL Cholesterol 44 Arterial Blood Potassium Salicylates 06/06/17 06/06/17 06/06/17 10:57 12:01 12:45 WBC RBC Hgb Hct MCV MCH MCHC RDW Plt Count MPV Gran % Lymph % (Auto) Oliver % (Auto) Eos % (Auto) Baso % (Auto) Gran # Lymph # (Auto) Oliver # (Auto) Eos # (Auto) Baso # (Auto) pCO2 pO2 HCO3 ABG pH ABG Total CO2 ABG O2 Saturation ABG Base Excess ABG Potassium Glucose Lactate FiO2 Sodium Potassium Chloride Carbon Dioxide Anion Gap BUN Creatinine Est GFR ( Amer) Est GFR (Non-Af Amer) POC Glucose (mg/dL) 305 H 282 H Random Glucose Hemoglobin A1c Lactic Acid 1.0 Calcium Phosphorus Magnesium Total Bilirubin AST ALT Alkaline Phosphatase Total Protein Albumin Globulin Albumin/Globulin Ratio Triglycerides Cholesterol LDL Cholesterol Direct HDL Cholesterol Arterial Blood Potassium Salicylates 06/06/17 06/06/17 06/06/17 12:51 14:00 14:05 WBC RBC Hgb Hct MCV MCH MCHC RDW Plt Count MPV Gran % Lymph % (Auto) Oliver % (Auto) Eos % (Auto) Baso % (Auto) Gran # Lymph # (Auto) Oliver # (Auto) Eos # (Auto) Baso # (Auto) pCO2 pO2 HCO3 ABG pH ABG Total CO2 ABG O2 Saturation ABG Base Excess ABG Potassium Glucose Lactate FiO2 Sodium 151 H Potassium 2.9 L* Chloride 120 H Carbon Dioxide < 5 L Anion Gap 29 H BUN 31 H Creatinine 1.6 H Est GFR ( Amer) 41 Est GFR (Non-Af Amer) 34 POC Glucose (mg/dL) 267 H 267 H Random Glucose 301 H* Hemoglobin A1c Lactic Acid Calcium 9.4 Phosphorus Magnesium Total Bilirubin AST ALT Alkaline Phosphatase Total Protein Albumin Globulin Albumin/Globulin Ratio Triglycerides Cholesterol LDL Cholesterol Direct HDL Cholesterol Arterial Blood Potassium Salicylates 06/06/17 06/06/17 06/06/17 15:14 15:55 17:09 WBC RBC Hgb Hct MCV MCH MCHC RDW Plt Count MPV Gran % Lymph % (Auto) Oliver % (Auto) Eos % (Auto) Baso % (Auto) Gran # Lymph # (Auto) Oliver # (Auto) Eos # (Auto) Baso # (Auto) pCO2 pO2 HCO3 ABG pH ABG Total CO2 ABG O2 Saturation ABG Base Excess ABG Potassium Glucose Lactate FiO2 Sodium Potassium Chloride Carbon Dioxide Anion Gap BUN Creatinine Est GFR ( Amer) Est GFR (Non-Af Amer) POC Glucose (mg/dL) 306 H 277 H 246 H Random Glucose Hemoglobin A1c Lactic Acid Calcium Phosphorus Magnesium Total Bilirubin AST ALT Alkaline Phosphatase Total Protein Albumin Globulin Albumin/Globulin Ratio Triglycerides Cholesterol LDL Cholesterol Direct HDL Cholesterol Arterial Blood Potassium Salicylates 06/06/17 06/06/17 06/06/17 18:02 18:16 18:56 WBC RBC Hgb Hct MCV MCH MCHC RDW Plt Count MPV Gran % Lymph % (Auto) Oliver % (Auto) Eos % (Auto) Baso % (Auto) Gran # Lymph # (Auto) Oliver # (Auto) Eos # (Auto) Baso # (Auto) pCO2 pO2 HCO3 ABG pH ABG Total CO2 ABG O2 Saturation ABG Base Excess ABG Potassium Glucose Lactate FiO2 Sodium 152 H Potassium 2.6 L* Chloride 122 H Carbon Dioxide 5 L Anion Gap 28 H BUN 33 H Creatinine 1.8 H Est GFR ( Amer) 36 Est GFR (Non-Af Amer) 30 POC Glucose (mg/dL) 219 H 208 H Random Glucose 250 H Hemoglobin A1c Lactic Acid Calcium 9.4 Phosphorus Magnesium Total Bilirubin AST ALT Alkaline Phosphatase Total Protein Albumin Globulin Albumin/Globulin Ratio Triglycerides Cholesterol LDL Cholesterol Direct HDL Cholesterol Arterial Blood Potassium Salicylates 06/06/17 06/06/17 06/06/17 20:06 21:03 22:11 WBC RBC Hgb Hct MCV MCH MCHC RDW Plt Count MPV Gran % Lymph % (Auto) Oliver % (Auto) Eos % (Auto) Baso % (Auto) Gran # Lymph # (Auto) Oliver # (Auto) Eos # (Auto) Baso # (Auto) pCO2 pO2 HCO3 ABG pH ABG Total CO2 ABG O2 Saturation ABG Base Excess ABG Potassium Glucose Lactate FiO2 Sodium Potassium Chloride Carbon Dioxide Anion Gap BUN Creatinine Est GFR ( Amer) Est GFR (Non-Af Amer) POC Glucose (mg/dL) 272 H 236 H 216 H Random Glucose Hemoglobin A1c Lactic Acid Calcium Phosphorus Magnesium Total Bilirubin AST ALT Alkaline Phosphatase Total Protein Albumin Globulin Albumin/Globulin Ratio Triglycerides Cholesterol LDL Cholesterol Direct HDL Cholesterol Arterial Blood Potassium Salicylates 06/06/17 06/06/17 06/07/17 22:52 23:14 00:01 WBC RBC Hgb Hct MCV MCH MCHC RDW Plt Count MPV Gran % Lymph % (Auto) Oliver % (Auto) Eos % (Auto) Baso % (Auto) Gran # Lymph # (Auto) Oliver # (Auto) Eos # (Auto) Baso # (Auto) pCO2 pO2 HCO3 ABG pH ABG Total CO2 ABG O2 Saturation ABG Base Excess ABG Potassium Glucose Lactate FiO2 Sodium 152 H Potassium 2.9 L* Chloride 123 H Carbon Dioxide 5 L Anion Gap 27 H BUN 34 H Creatinine 1.9 H Est GFR ( Amer) 34 Est GFR (Non-Af Amer) 28 POC Glucose (mg/dL) 194 H 231 H Random Glucose 225 H Hemoglobin A1c Lactic Acid Calcium 9.8 Phosphorus Magnesium Total Bilirubin AST ALT Alkaline Phosphatase Total Protein Albumin Globulin Albumin/Globulin Ratio Triglycerides Cholesterol LDL Cholesterol Direct HDL Cholesterol Arterial Blood Potassium Salicylates 06/07/17 06/07/17 06/07/17 01:00 01:05 02:17 WBC RBC Hgb Hct MCV MCH MCHC RDW Plt Count MPV Gran % Lymph % (Auto) Oliver % (Auto) Eos % (Auto) Baso % (Auto) Gran # Lymph # (Auto) Oliver # (Auto) Eos # (Auto) Baso # (Auto) pCO2 pO2 HCO3 ABG pH ABG Total CO2 ABG O2 Saturation ABG Base Excess ABG Potassium Glucose Lactate FiO2 Sodium 152 H Potassium 2.7 L* Chloride 130 H Carbon Dioxide < 5 L Anion Gap 20 BUN 30 H Creatinine 1.6 H Est GFR ( Amer) 41 Est GFR (Non-Af Amer) 34 POC Glucose (mg/dL) 240 H 242 H Random Glucose 232 H Hemoglobin A1c Lactic Acid Calcium 8.3 L Phosphorus Magnesium Total Bilirubin AST ALT Alkaline Phosphatase Total Protein Albumin Globulin Albumin/Globulin Ratio Triglycerides Cholesterol LDL Cholesterol Direct HDL Cholesterol Arterial Blood Potassium Salicylates 06/07/17 06/07/17 06/07/17 03:01 04:08 05:03 WBC RBC Hgb Hct MCV MCH MCHC RDW Plt Count MPV Gran % Lymph % (Auto) Oliver % (Auto) Eos % (Auto) Baso % (Auto) Gran # Lymph # (Auto) Oliver # (Auto) Eos # (Auto) Baso # (Auto) pCO2 pO2 HCO3 ABG pH ABG Total CO2 ABG O2 Saturation ABG Base Excess ABG Potassium Glucose Lactate FiO2 Sodium Potassium Chloride Carbon Dioxide Anion Gap BUN Creatinine Est GFR ( Amer) Est GFR (Non-Af Amer) POC Glucose (mg/dL) 242 H 229 H 258 H Random Glucose Hemoglobin A1c Lactic Acid Calcium Phosphorus Magnesium Total Bilirubin AST ALT Alkaline Phosphatase Total Protein Albumin Globulin Albumin/Globulin Ratio Triglycerides Cholesterol LDL Cholesterol Direct HDL Cholesterol Arterial Blood Potassium Salicylates 06/07/17 06/07/17 06/07/17 05:55 05:55 05:55 WBC 13.8 H D RBC 4.05 Hgb 12.0 Hct 34.4 L MCV 84.9 D MCH 29.6 MCHC 34.9 RDW 14.8 H Plt Count 128 MPV 11.0 Gran % 79.2 H Lymph % (Auto) 8.4 L Oliver % (Auto) 11.9 H Eos % (Auto) 0.1 L Baso % (Auto) 0.4 Gran # 10.90 H Lymph # (Auto) 1.2 Oliver # (Auto) 1.6 H Eos # (Auto) 0.0 Baso # (Auto) 0.06 pCO2 pO2 HCO3 ABG pH ABG Total CO2 ABG O2 Saturation ABG Base Excess ABG Potassium Glucose Lactate FiO2 Sodium 155 H Potassium 3.3 L Chloride 123 H Carbon Dioxide 8 L D Anion Gap 27 H BUN 35 H Creatinine 1.9 H Est GFR ( Amer) 34 Est GFR (Non-Af Amer) 28 POC Glucose (mg/dL) Random Glucose 303 H* D Hemoglobin A1c Lactic Acid Calcium 10.0 Phosphorus 0.7 L* Magnesium 3.0 H Total Bilirubin 0.6 AST 26 ALT 31 Alkaline Phosphatase 105 Total Protein 6.4 Albumin 3.7 Globulin 2.6 Albumin/Globulin Ratio 1.4 Triglycerides Cholesterol LDL Cholesterol Direct HDL Cholesterol Arterial Blood Potassium Salicylates < 1 L 06/07/17 06/07/17 06/07/17 06:11 07:33 08:24 WBC RBC Hgb Hct MCV MCH MCHC RDW Plt Count MPV Gran % Lymph % (Auto) Oliver % (Auto) Eos % (Auto) Baso % (Auto) Gran # Lymph # (Auto) Oliver # (Auto) Eos # (Auto) Baso # (Auto) pCO2 pO2 HCO3 ABG pH ABG Total CO2 ABG O2 Saturation ABG Base Excess ABG Potassium Glucose Lactate FiO2 Sodium Potassium Chloride Carbon Dioxide Anion Gap BUN Creatinine Est GFR ( Amer) Est GFR (Non-Af Amer) POC Glucose (mg/dL) 240 H 279 H 275 H Random Glucose Hemoglobin A1c Lactic Acid Calcium Phosphorus Magnesium Total Bilirubin AST ALT Alkaline Phosphatase Total Protein Albumin Globulin Albumin/Globulin Ratio Triglycerides Cholesterol LDL Cholesterol Direct HDL Cholesterol Arterial Blood Potassium Salicylates 06/07/17 06/07/17 09:10 09:26 WBC RBC Hgb Hct MCV MCH MCHC RDW Plt Count MPV Gran % Lymph % (Auto) Oliver % (Auto) Eos % (Auto) Baso % (Auto) Gran # Lymph # (Auto) Oliver # (Auto) Eos # (Auto) Baso # (Auto) pCO2 18 L* pO2 115.0 H HCO3 6.4 L* ABG pH 7.16 L* ABG Total CO2 7.0 L ABG O2 Saturation 99.4 H ABG Base Excess -20.2 L ABG Potassium 2.7 L Glucose 314 H Lactate 0.6 L FiO2 28.0 Sodium 152.0 H Potassium Chloride 124.0 H Carbon Dioxide Anion Gap BUN Creatinine Est GFR ( Amer) Est GFR (Non-Af Amer) POC Glucose (mg/dL) 282 H Random Glucose Hemoglobin A1c Lactic Acid Calcium Phosphorus Magnesium Total Bilirubin AST ALT Alkaline Phosphatase Total Protein Albumin Globulin Albumin/Globulin Ratio Triglycerides Cholesterol LDL Cholesterol Direct HDL Cholesterol Arterial Blood Potassium 2.7 L Salicylates Fingerstick Blood Sugar Results: 258 Critical Care Progress Note - Nutrition Nutrition: Nutrition Category Date Time Status Heart Healthy Diet [DIET] Diets 06/04/17 Dinner Ordered
--- NOTE | 2017-06-07 11:10 | CP.CCUPN ---
<Phillip Guillaume - Last Filed: 06/07/17 11:20> CCU Subjective - Physician Review Subjective (Free Text): Patient seen and examined at bedside. Patient with family at bedside. Patient is somnolent with minimal response to painful stimuli. No ROS at this time due to mental status. CCU Objective - Vital Signs / Intake & Output Vital Signs (Last 4 hours): Vital Signs Temp Pulse Resp BP Pulse Ox 06/07/17 10:09 112 H 06/07/17 10:04 112 H 23 169/68 H 97 06/07/17 10:00 107 H 30 H 149/54 L 98 06/07/17 09:57 112 H 32 H 154/106 H 96 06/07/17 09:54 110 H 35 H 150/65 97 06/07/17 09:51 115 H 31 H 163/59 H 98 06/07/17 09:48 116 H 33 H 162/62 H 97 06/07/17 09:40 116 H 25 H 98 06/07/17 09:20 119 H 33 H 98 06/07/17 09:00 119 H 24 165/90 H 97 06/07/17 08:40 118 H 23 98 06/07/17 08:24 99 F 06/07/17 08:20 114 H 28 H 98 06/07/17 08:01 116 H 31 H 148/57 L 98 06/07/17 08:00 117 H 27 H 96 06/07/17 07:48 117 H 06/07/17 07:40 116 H 30 H 98 06/07/17 07:30 99.6 F 06/07/17 07:20 115 H 28 H 97 Intake and Output (Last 8hrs): Intake & Output 06/06/17 06/07/17 06/07/17 22:59 06:59 14:59 Intake Total 4310 6 17 Output Total 1650 Balance 2660 6 17 Intake: IV 4310 6 17 Left Wrist 4000 Right Wrist 300 Oral 0 Output: Urine 1650 Urine, Voided 1650 Stool 0 - Physical Exam Head: Positive for: Atraumatic, Normocephalic Mouth: Positive for: Dry Nose (External): Positive for: Atraumatic Neck: Negative for: MIDLINE TENDERNESS Respiratory/Chest: Positive for: Clear to Auscultation, Good Air Exchange. Negative for: Respiratory Distress Cardiovascular: Positive for: Normal S1, S2, Tachycardic. Negative for: Murmurs Abdomen: Positive for: Normal Bowel Sounds. Negative for: Tenderness, Distention, Rebound Back: Positive for: Normal Inspection. Negative for: CVA Tenderness, Midline Tenderness Upper Extremity: Positive for: Normal Inspection. Negative for: Edema Lower Extremity: Positive for: Normal Inspection. Negative for: Edema, Erythema Neurological: Positive for: Other (lethargic) Skin: Positive for: Warm, Dry Psychiatric: Positive for: Lethargic. Negative for: Alert, Oriented x 3 - Medications Active Medications: Active Medications Generic Name Dose Route Start Last Admin Trade Name Freq PRN Reason Stop Dose Admin Aspirin 81 mg 06/05/17 10:00 06/07/17 10:07 Ecotrin PO Not Given DAILY ALEJANDRINA Enoxaparin Sodium 40 mg 06/07/17 10:00 06/07/17 10:27 Lovenox SC 40 mg DAILY ALEJANDRINA Administration Protocol Insulin Human Regular 100 100 mls @ 1 mls/hr 06/06/17 09:45 06/07/17 09:00 units/ Sodium Chloride IV 3 units/hr .Q24H PRN 3 mls/hr TITRATE PER MD ORDER Titration Protocol 1 UNITS/HR Potassium Chloride 20 meq/ 1,010 mls @ 150 mls/hr 06/06/17 23:30 06/07/17 07: 42 Dextrose/Sodium Chloride IV 150 mls/hr .[id number] ALEJANDRINA Administration Potassium Chloride 20 meq in 100 mls @ 50 mls/hr 06/07/17 08:00 06/07/17 10: 26 Potassium Chloride 20 Meq/100 Ml IVPB 06/07/17 11:59 50 mls/hr Q2H ALEJANDRINA Administration Potassium Phosphate 30 mmole/ 260 mls @ 42.5 mls/hr 06/07/17 08:00 06/07/17 09:35 Dextrose IVPB 06/07/17 14:07 42.5 mls/hr ONCE ONE Administration Potassium Phosphate 15 mmole/ 255 mls @ 42.5 mls/hr 06/07/17 09:42 Dextrose IVPB 06/07/17 15:41 ONCE ONE Propofol 1,000 mg in 100 mls @ 3.043 mls/hr 06/07/17 10:11 Diprivan IV .Q24H PRN TITRATE PER MD ORDER Protocol 5 MCG/KG/MIN Meropenem 50 mls @ 100 mls/hr 06/07/17 10:30 Merrem Iv 1 Gm Premix IVPB 06/14/17 10:31 Q12 [facility] Protocol Vancomycin HCl 1.5 gm/ Sodium 500 mls @ 167 mls/hr 06/07/17 10:20 Chloride IVPB 06/07/17 13:19 ONCE ONE Protocol Insulin Human Regular 0 units 06/05/17 11:30 06/07/17 08:36 Humulin R Low SC Not Given ACHS [facility] Protocol Metoprolol Tartrate 12.5 mg 06/05/17 18:00 06/07/17 10:07 Lopressor PO Not Given BID [facility] Morphine Sulfate 2 mg 06/07/17 10:11 06/07/17 10:27 Morphine IVP 2 mg Q3H PRN Administration Pain, severe (8-10) Verapamil HCl 2.5 mg 06/06/17 09:22 06/06/17 11:46 Verapamil Inj IVP 2.5 mg Q6H PRN Administration for heart rate >130 Verapamil HCl 80 mg 06/06/17 10:00 06/07/17 10:07 Calan Tab PO Not Given TID [facility] - Patient Studies Lab Studies: Microbiology Studies 06/05/17 10:35 Blood Culture - Preliminary Blood-Venous NO GROWTH AFTER 48 HOURS 06/05/17 10:10 Blood Culture - Preliminary Blood-Venous NO GROWTH AFTER 48 HOURS 06/05/17 20:53 Urine Culture - Final Urine,Clean Catch No Growth (<1,000 CFU/ML) 06/05/17 15:53 Blood Culture - Preliminary Blood-Venous NO GROWTH AFTER 24 HOURS 06/05/17 15:53 Blood Culture - Preliminary Blood-Venous NO GROWTH AFTER 24 HOURS Lab Studies 06/07/17 06/07/17 06/07/17 Range/Units 10:54 09:26 09:10 WBC (4.5-11.0) 10^3/ul RBC (3.5-6.1) 10^6/uL Hgb (12.0-16.0) g/dL Hct (36.0-48.0) % MCV (80.0-105.0) fl MCH (25.0-35.0) pg MCHC (31.0-37.0) g/dl RDW (11.5-14.5) % Plt Count (120.0-450.0) 10^3/uL MPV (7.0-11.0) fl Gran % (50.0-68.0) % Lymph % (Auto) (22.0-35.0) % [place] % (Auto) (1.0-6.0) % Eos % (Auto) (1.5-5.0) % Baso % (Auto) (0.0-3.0) % Gran # (1.4-6.5) Lymph # (Auto) (1.2-3.4) [place] # (Auto) (0.1-0.6) Eos # (Auto) (0.0-0.7) Baso # (Auto) (0.0-2.0) K/mm3 pCO2 18 L* (35-45) mm/Hg pO2 115.0 H (80-100) mm/Hg HCO3 6.4 L* (21-28) mmol/L ABG pH 7.16 L* (7.35-7.45) ABG Total CO2 7.0 L (22-28) mmol.L ABG O2 Saturation 99.4 H (95-98) % ABG Base Excess -20.2 L (-2.0-3.0) mmol/L ABG Potassium 2.7 L (3.6-5.2) mmol/L Glucose 314 H (65-105) mg/dl Lactate 0.6 L (0.7-2.1) mmol/L FiO2 28.0 % Sodium 152.0 H (132-148) mmol/L Potassium (3.6-5.0) mmol/L Chloride 124.0 H (98-107) mmol/L Carbon Dioxide (21-33) mmol/L Anion Gap (10-20) BUN (7-21) mg/dL Creatinine (0.7-1.2) mg/dl Est GFR ( Amer) Est GFR (Non-Af Amer) POC Glucose (mg/dL) 299 H 282 H (65-110) mg/dL Random Glucose (70-110) mg/dL Hemoglobin A1c (4.2-6.5) % Lactic Acid (0.7-2.1) mmol/L Calcium (8.4-10.5) mg/dL Phosphorus (2.5-4.5) mg/dL Magnesium (1.7-2.2) mg/dL Total Bilirubin (0.2-1.3) mg/dL AST (14-36) U/L ALT (7-56) U/L Alkaline Phosphatase (38-126) U/L Total Protein (5.8-8.3) g/dL Albumin (3.0-4.8) g/dL Globulin gm/dL Albumin/Globulin Ratio (1.1-1.8) Triglycerides (35-160) mg/dL Cholesterol (130-200) mg/dL HDL Cholesterol (29-60) mg/dL Arterial Blood Potassium 2.7 L (3.6-5.2) mmol/L Salicylates (2.0-20.0) mg/dL 06/07/17 06/07/17 06/07/17 Range/Units 08:24 07:33 06:11 WBC (4.5-11.0) 10^3/ul RBC (3.5-6.1) 10^6/uL Hgb (12.0-16.0) g/dL Hct (36.0-48.0) % MCV (80.0-105.0) fl MCH (25.0-35.0) pg MCHC (31.0-37.0) g/dl RDW (11.5-14.5) % Plt Count (120.0-450.0) 10^3/uL MPV (7.0-11.0) fl Gran % (50.0-68.0) % Lymph % (Auto) (22.0-35.0) % [place] % (Auto) (1.0-6.0) % Eos % (Auto) (1.5-5.0) % Baso % (Auto) (0.0-3.0) % Gran # (1.4-6.5) Lymph # (Auto) (1.2-3.4) [place] # (Auto) (0.1-0.6) Eos # (Auto) (0.0-0.7) Baso # (Auto) (0.0-2.0) K/mm3 pCO2 (35-45) mm/Hg pO2 (80-100) mm/Hg HCO3 (21-28) mmol/L ABG pH (7.35-7.45) ABG Total CO2 (22-28) mmol.L ABG O2 Saturation (95-98) % ABG Base Excess (-2.0-3.0) mmol/L ABG Potassium (3.6-5.2) mmol/L Glucose (65-105) mg/dl Lactate (0.7-2.1) mmol/L FiO2 % Sodium (132-148) mmol/L Potassium (3.6-5.0) mmol/L Chloride (98-107) mmol/L Carbon Dioxide (21-33) mmol/L Anion Gap (10-20) BUN (7-21) mg/dL Creatinine (0.7-1.2) mg/dl Est GFR ( Amer) Est GFR (Non-Af Amer) POC Glucose (mg/dL) 275 H 279 H 240 H (65-110) mg/dL Random Glucose (70-110) mg/dL Hemoglobin A1c (4.2-6.5) % Lactic Acid (0.7-2.1) mmol/L Calcium (8.4-10.5) mg/dL Phosphorus (2.5-4.5) mg/dL Magnesium (1.7-2.2) mg/dL Total Bilirubin (0.2-1.3) mg/dL AST (14-36) U/L ALT (7-56) U/L Alkaline Phosphatase (38-126) U/L Total Protein (5.8-8.3) g/dL Albumin (3.0-4.8) g/dL Globulin gm/dL Albumin/Globulin Ratio (1.1-1.8) Triglycerides (35-160) mg/dL Cholesterol (130-200) mg/dL HDL Cholesterol (29-60) mg/dL Arterial Blood Potassium (3.6-5.2) mmol/L Salicylates (2.0-20.0) mg/dL 06/07/17 06/07/17 06/07/17 Range/Units 05:55 05:55 05:55 WBC 13.8 H D (4.5-11.0) 10^3/ul RBC 4.05 (3.5-6.1) 10^6/uL Hgb 12.0 (12.0-16.0) g/dL Hct 34.4 L (36.0-48.0) % MCV 84.9 D (80.0-105.0) fl MCH 29.6 (25.0-35.0) pg MCHC 34.9 (31.0-37.0) g/dl RDW 14.8 H (11.5-14.5) % Plt Count 128 (120.0-450.0) 10^3/uL MPV 11.0 (7.0-11.0) fl Gran % 79.2 H (50.0-68.0) % Lymph % (Auto) 8.4 L (22.0-35.0) % [place] % (Auto) 11.9 H (1.0-6.0) % Eos % (Auto) 0.1 L (1.5-5.0) % Baso % (Auto) 0.4 (0.0-3.0) % Gran # 10.90 H (1.4-6.5) Lymph # (Auto) 1.2 (1.2-3.4) [place] # (Auto) 1.6 H (0.1-0.6) Eos # (Auto) 0.0 (0.0-0.7) Baso # (Auto) 0.06 (0.0-2.0) K/mm3 pCO2 (35-45) mm/Hg pO2 (80-100) mm/Hg HCO3 (21-28) mmol/L ABG pH (7.35-7.45) ABG Total CO2 (22-28) mmol.L ABG O2 Saturation (95-98) % ABG Base Excess (-2.0-3.0) mmol/L ABG Potassium (3.6-5.2) mmol/L Glucose (65-105) mg/dl Lactate (0.7-2.1) mmol/L FiO2 % Sodium 155 H (132-148) mmol/L Potassium 3.3 L (3.6-5.0) mmol/L Chloride 123 H (98-107) mmol/L Carbon Dioxide 8 L D (21-33) mmol/L Anion Gap 27 H (10-20) BUN 35 H (7-21) mg/dL Creatinine 1.9 H (0.7-1.2) mg/dl Est GFR ( Amer) 34 Est GFR (Non-Af Amer) 28 POC Glucose (mg/dL) (65-110) mg/dL Random Glucose 303 H* D (70-110) mg/dL Hemoglobin A1c (4.2-6.5) % Lactic Acid (0.7-2.1) mmol/L Calcium 10.0 (8.4-10.5) mg/dL Phosphorus 0.7 L* (2.5-4.5) mg/dL Magnesium 3.0 H (1.7-2.2) mg/dL Total Bilirubin 0.6 (0.2-1.3) mg/dL AST 26 (14-36) U/L ALT 31 (7-56) U/L Alkaline Phosphatase 105 (38-126) U/L Total Protein 6.4 (5.8-8.3) g/dL Albumin 3.7 (3.0-4.8) g/dL Globulin 2.6 gm/dL Albumin/Globulin Ratio 1.4 (1.1-1.8) Triglycerides (35-160) mg/dL Cholesterol (130-200) mg/dL HDL Cholesterol (29-60) mg/dL Arterial Blood Potassium (3.6-5.2) mmol/L Salicylates < 1 L (2.0-20.0) mg/dL 06/07/17 06/07/17 06/07/17 Range/Units 05:03 04:08 03:01 WBC (4.5-11.0) 10^3/ul RBC (3.5-6.1) 10^6/uL Hgb (12.0-16.0) g/dL Hct (36.0-48.0) % MCV (80.0-105.0) fl MCH (25.0-35.0) pg MCHC (31.0-37.0) g/dl RDW (11.5-14.5) % Plt Count (120.0-450.0) 10^3/uL MPV (7.0-11.0) fl Gran % (50.0-68.0) % Lymph % (Auto) (22.0-35.0) % [place] % (Auto) (1.0-6.0) % Eos % (Auto) (1.5-5.0) % Baso % (Auto) (0.0-3.0) % Gran # (1.4-6.5) Lymph # (Auto) (1.2-3.4) [place] # (Auto) (0.1-0.6) Eos # (Auto) (0.0-0.7) Baso # (Auto) (0.0-2.0) K/mm3 pCO2 (35-45) mm/Hg pO2 (80-100) mm/Hg HCO3 (21-28) mmol/L ABG pH (7.35-7.45) ABG Total CO2 (22-28) mmol.L ABG O2 Saturation (95-98) % ABG Base Excess (-2.0-3.0) mmol/L ABG Potassium (3.6-5.2) mmol/L Glucose (65-105) mg/dl Lactate (0.7-2.1) mmol/L FiO2 % Sodium (132-148) mmol/L Potassium (3.6-5.0) mmol/L Chloride (98-107) mmol/L Carbon Dioxide (21-33) mmol/L Anion Gap (10-20) BUN (7-21) mg/dL Creatinine (0.7-1.2) mg/dl Est GFR ( Amer) Est GFR (Non-Af Amer) POC Glucose (mg/dL) 258 H 229 H 242 H (65-110) mg/dL Random Glucose (70-110) mg/dL Hemoglobin A1c (4.2-6.5) % Lactic Acid (0.7-2.1) mmol/L Calcium (8.4-10.5) mg/dL Phosphorus (2.5-4.5) mg/dL Magnesium (1.7-2.2) mg/dL Total Bilirubin (0.2-1.3) mg/dL AST (14-36) U/L ALT (7-56) U/L Alkaline Phosphatase (38-126) U/L Total Protein (5.8-8.3) g/dL Albumin (3.0-4.8) g/dL Globulin gm/dL Albumin/Globulin Ratio (1.1-1.8) Triglycerides (35-160) mg/dL Cholesterol (130-200) mg/dL HDL Cholesterol (29-60) mg/dL Arterial Blood Potassium (3.6-5.2) mmol/L Salicylates (2.0-20.0) mg/dL 06/07/17 06/07/17 06/07/17 Range/Units 02:17 01:05 01:00 WBC (4.5-11.0) 10^3/ul RBC (3.5-6.1) 10^6/uL Hgb (12.0-16.0) g/dL Hct (36.0-48.0) % MCV (80.0-105.0) fl MCH (25.0-35.0) pg MCHC (31.0-37.0) g/dl RDW (11.5-14.5) % Plt Count (120.0-450.0) 10^3/uL MPV (7.0-11.0) fl Gran % (50.0-68.0) % Lymph % (Auto) (22.0-35.0) % [place] % (Auto) (1.0-6.0) % Eos % (Auto) (1.5-5.0) % Baso % (Auto) (0.0-3.0) % Gran # (1.4-6.5) Lymph # (Auto) (1.2-3.4) [place] # (Auto) (0.1-0.6) Eos # (Auto) (0.0-0.7) Baso # (Auto) (0.0-2.0) K/mm3 pCO2 (35-45) mm/Hg pO2 (80-100) mm/Hg HCO3 (21-28) mmol/L ABG pH (7.35-7.45) ABG Total CO2 (22-28) mmol.L ABG O2 Saturation (95-98) % ABG Base Excess (-2.0-3.0) mmol/L ABG Potassium (3.6-5.2) mmol/L Glucose (65-105) mg/dl Lactate (0.7-2.1) mmol/L FiO2 % Sodium 152 H (132-148) mmol/L Potassium 2.7 L* (3.6-5.0) mmol/L Chloride 130 H (98-107) mmol/L Carbon Dioxide < 5 L (21-33) mmol/L Anion Gap 20 (10-20) BUN 30 H (7-21) mg/dL Creatinine 1.6 H (0.7-1.2) mg/dl Est GFR ( Amer) 41 Est GFR (Non-Af Amer) 34 POC Glucose (mg/dL) 242 H 240 H (65-110) mg/dL Random Glucose 232 H (70-110) mg/dL Hemoglobin A1c (4.2-6.5) % Lactic Acid (0.7-2.1) mmol/L Calcium 8.3 L (8.4-10.5) mg/dL Phosphorus (2.5-4.5) mg/dL Magnesium (1.7-2.2) mg/dL Total Bilirubin (0.2-1.3) mg/dL AST (14-36) U/L ALT (7-56) U/L Alkaline Phosphatase (38-126) U/L Total Protein (5.8-8.3) g/dL Albumin (3.0-4.8) g/dL Globulin gm/dL Albumin/Globulin Ratio (1.1-1.8) Triglycerides (35-160) mg/dL Cholesterol (130-200) mg/dL HDL Cholesterol (29-60) mg/dL Arterial Blood Potassium (3.6-5.2) mmol/L Salicylates (2.0-20.0) mg/dL 06/07/17 06/06/17 06/06/17 Range/Units 00:01 23:14 22:52 WBC (4.5-11.0) 10^3/ul RBC (3.5-6.1) 10^6/uL Hgb (12.0-16.0) g/dL Hct (36.0-48.0) % MCV (80.0-105.0) fl MCH (25.0-35.0) pg MCHC (31.0-37.0) g/dl RDW (11.5-14.5) % Plt Count (120.0-450.0) 10^3/uL MPV (7.0-11.0) fl Gran % (50.0-68.0) % Lymph % (Auto) (22.0-35.0) % [place] % (Auto) (1.0-6.0) % Eos % (Auto) (1.5-5.0) % Baso % (Auto) (0.0-3.0) % Gran # (1.4-6.5) Lymph # (Auto) (1.2-3.4) [place] # (Auto) (0.1-0.6) Eos # (Auto) (0.0-0.7) Baso # (Auto) (0.0-2.0) K/mm3 pCO2 (35-45) mm/Hg pO2 (80-100) mm/Hg HCO3 (21-28) mmol/L ABG pH (7.35-7.45) ABG Total CO2 (22-28) mmol.L ABG O2 Saturation (95-98) % ABG Base Excess (-2.0-3.0) mmol/L ABG Potassium (3.6-5.2) mmol/L Glucose (65-105) mg/dl Lactate (0.7-2.1) mmol/L FiO2 % Sodium 152 H (132-148) mmol/L Potassium 2.9 L* (3.6-5.0) mmol/L Chloride 123 H (98-107) mmol/L Carbon Dioxide 5 L (21-33) mmol/L Anion Gap 27 H (10-20) BUN 34 H (7-21) mg/dL Creatinine 1.9 H (0.7-1.2) mg/dl Est GFR ( Amer) 34 Est GFR (Non-Af Amer) 28 POC Glucose (mg/dL) 231 H 194 H (65-110) mg/dL Random Glucose 225 H (70-110) mg/dL Hemoglobin A1c (4.2-6.5) % Lactic Acid (0.7-2.1) mmol/L Calcium 9.8 (8.4-10.5) mg/dL Phosphorus (2.5-4.5) mg/dL Magnesium (1.7-2.2) mg/dL Total Bilirubin (0.2-1.3) mg/dL AST (14-36) U/L ALT (7-56) U/L Alkaline Phosphatase (38-126) U/L Total Protein (5.8-8.3) g/dL Albumin (3.0-4.8) g/dL Globulin gm/dL Albumin/Globulin Ratio (1.1-1.8) Triglycerides (35-160) mg/dL Cholesterol (130-200) mg/dL HDL Cholesterol (29-60) mg/dL Arterial Blood Potassium (3.6-5.2) mmol/L Salicylates (2.0-20.0) mg/dL 06/06/17 06/06/17 06/06/17 Range/Units 22:11 21:03 20:06 WBC (4.5-11.0) 10^3/ul RBC (3.5-6.1) 10^6/uL Hgb (12.0-16.0) g/dL Hct (36.0-48.0) % MCV (80.0-105.0) fl MCH (25.0-35.0) pg MCHC (31.0-37.0) g/dl RDW (11.5-14.5) % Plt Count (120.0-450.0) 10^3/uL MPV (7.0-11.0) fl Gran % (50.0-68.0) % Lymph % (Auto) (22.0-35.0) % [place] % (Auto) (1.0-6.0) % Eos % (Auto) (1.5-5.0) % Baso % (Auto) (0.0-3.0) % Gran # (1.4-6.5) Lymph # (Auto) (1.2-3.4) [place] # (Auto) (0.1-0.6) Eos # (Auto) (0.0-0.7) Baso # (Auto) (0.0-2.0) K/mm3 pCO2 (35-45) mm/Hg pO2 (80-100) mm/Hg HCO3 (21-28) mmol/L ABG pH (7.35-7.45) ABG Total CO2 (22-28) mmol.L ABG O2 Saturation (95-98) % ABG Base Excess (-2.0-3.0) mmol/L ABG Potassium (3.6-5.2) mmol/L Glucose (65-105) mg/dl Lactate (0.7-2.1) mmol/L FiO2 % Sodium (132-148) mmol/L Potassium (3.6-5.0) mmol/L Chloride (98-107) mmol/L Carbon Dioxide (21-33) mmol/L Anion Gap (10-20) BUN (7-21) mg/dL Creatinine (0.7-1.2) mg/dl Est GFR ( Amer) Est GFR (Non-Af Amer) POC Glucose (mg/dL) 216 H 236 H 272 H (65-110) mg/dL Random Glucose (70-110) mg/dL Hemoglobin A1c (4.2-6.5) % Lactic Acid (0.7-2.1) mmol/L Calcium (8.4-10.5) mg/dL Phosphorus (2.5-4.5) mg/dL Magnesium (1.7-2.2) mg/dL Total Bilirubin (0.2-1.3) mg/dL AST (14-36) U/L ALT (7-56) U/L Alkaline Phosphatase (38-126) U/L Total Protein (5.8-8.3) g/dL Albumin (3.0-4.8) g/dL Globulin gm/dL Albumin/Globulin Ratio (1.1-1.8) Triglycerides (35-160) mg/dL Cholesterol (130-200) mg/dL HDL Cholesterol (29-60) mg/dL Arterial Blood Potassium (3.6-5.2) mmol/L Salicylates (2.0-20.0) mg/dL 06/06/17 06/06/17 06/06/17 Range/Units 18:56 18:16 18:02 WBC (4.5-11.0) 10^3/ul RBC (3.5-6.1) 10^6/uL Hgb (12.0-16.0) g/dL Hct (36.0-48.0) % MCV (80.0-105.0) fl MCH (25.0-35.0) pg MCHC (31.0-37.0) g/dl RDW (11.5-14.5) % Plt Count (120.0-450.0) 10^3/uL MPV (7.0-11.0) fl Gran % (50.0-68.0) % Lymph % (Auto) (22.0-35.0) % [place] % (Auto) (1.0-6.0) % Eos % (Auto) (1.5-5.0) % Baso % (Auto) (0.0-3.0) % Gran # (1.4-6.5) Lymph # (Auto) (1.2-3.4) [place] # (Auto) (0.1-0.6) Eos # (Auto) (0.0-0.7) Baso # (Auto) (0.0-2.0) K/mm3 pCO2 (35-45) mm/Hg pO2 (80-100) mm/Hg HCO3 (21-28) mmol/L ABG pH (7.35-7.45) ABG Total CO2 (22-28) mmol.L ABG O2 Saturation (95-98) % ABG Base Excess (-2.0-3.0) mmol/L ABG Potassium (3.6-5.2) mmol/L Glucose (65-105) mg/dl Lactate (0.7-2.1) mmol/L FiO2 % Sodium 152 H (132-148) mmol/L Potassium 2.6 L* (3.6-5.0) mmol/L Chloride 122 H (98-107) mmol/L Carbon Dioxide 5 L (21-33) mmol/L Anion Gap 28 H (10-20) BUN 33 H (7-21) mg/dL Creatinine 1.8 H (0.7-1.2) mg/dl Est GFR ( Amer) 36 Est GFR (Non-Af Amer) 30 POC Glucose (mg/dL) 208 H 219 H (65-110) mg/dL Random Glucose 250 H (70-110) mg/dL Hemoglobin A1c (4.2-6.5) % Lactic Acid (0.7-2.1) mmol/L Calcium 9.4 (8.4-10.5) mg/dL Phosphorus (2.5-4.5) mg/dL Magnesium (1.7-2.2) mg/dL Total Bilirubin (0.2-1.3) mg/dL AST (14-36) U/L ALT (7-56) U/L Alkaline Phosphatase (38-126) U/L Total Protein (5.8-8.3) g/dL Albumin (3.0-4.8) g/dL Globulin gm/dL Albumin/Globulin Ratio (1.1-1.8) Triglycerides (35-160) mg/dL Cholesterol (130-200) mg/dL HDL Cholesterol (29-60) mg/dL Arterial Blood Potassium (3.6-5.2) mmol/L Salicylates (2.0-20.0) mg/dL 06/06/17 06/06/17 06/06/17 Range/Units 17:09 15:55 15:14 WBC (4.5-11.0) 10^3/ul RBC (3.5-6.1) 10^6/uL Hgb (12.0-16.0) g/dL Hct (36.0-48.0) % MCV (80.0-105.0) fl MCH (25.0-35.0) pg MCHC (31.0-37.0) g/dl RDW (11.5-14.5) % Plt Count (120.0-450.0) 10^3/uL MPV (7.0-11.0) fl Gran % (50.0-68.0) % Lymph % (Auto) (22.0-35.0) % [place] % (Auto) (1.0-6.0) % Eos % (Auto) (1.5-5.0) % Baso % (Auto) (0.0-3.0) % Gran # (1.4-6.5) Lymph # (Auto) (1.2-3.4) [place] # (Auto) (0.1-0.6) Eos # (Auto) (0.0-0.7) Baso # (Auto) (0.0-2.0) K/mm3 pCO2 (35-45) mm/Hg pO2 (80-100) mm/Hg HCO3 (21-28) mmol/L ABG pH (7.35-7.45) ABG Total CO2 (22-28) mmol.L ABG O2 Saturation (95-98) % ABG Base Excess (-2.0-3.0) mmol/L ABG Potassium (3.6-5.2) mmol/L Glucose (65-105) mg/dl Lactate (0.7-2.1) mmol/L FiO2 % Sodium (132-148) mmol/L Potassium (3.6-5.0) mmol/L Chloride (98-107) mmol/L Carbon Dioxide (21-33) mmol/L Anion Gap (10-20) BUN (7-21) mg/dL Creatinine (0.7-1.2) mg/dl Est GFR ( Amer) Est GFR (Non-Af Amer) POC Glucose (mg/dL) 246 H 277 H 306 H (65-110) mg/dL Random Glucose (70-110) mg/dL Hemoglobin A1c (4.2-6.5) % Lactic Acid (0.7-2.1) mmol/L Calcium (8.4-10.5) mg/dL Phosphorus (2.5-4.5) mg/dL Magnesium (1.7-2.2) mg/dL Total Bilirubin (0.2-1.3) mg/dL AST (14-36) U/L ALT (7-56) U/L Alkaline Phosphatase (38-126) U/L Total Protein (5.8-8.3) g/dL Albumin (3.0-4.8) g/dL Globulin gm/dL Albumin/Globulin Ratio (1.1-1.8) Triglycerides (35-160) mg/dL Cholesterol (130-200) mg/dL HDL Cholesterol (29-60) mg/dL Arterial Blood Potassium (3.6-5.2) mmol/L Salicylates (2.0-20.0) mg/dL 06/06/17 06/06/17 06/06/17 Range/Units 14:05 14:00 12:51 WBC (4.5-11.0) 10^3/ul RBC (3.5-6.1) 10^6/uL Hgb (12.0-16.0) g/dL Hct (36.0-48.0) % MCV (80.0-105.0) fl MCH (25.0-35.0) pg MCHC (31.0-37.0) g/dl RDW (11.5-14.5) % Plt Count (120.0-450.0) 10^3/uL MPV (7.0-11.0) fl Gran % (50.0-68.0) % Lymph % (Auto) (22.0-35.0) % [place] % (Auto) (1.0-6.0) % Eos % (Auto) (1.5-5.0) % Baso % (Auto) (0.0-3.0) % Gran # (1.4-6.5) Lymph # (Auto) (1.2-3.4) [place] # (Auto) (0.1-0.6) Eos # (Auto) (0.0-0.7) Baso # (Auto) (0.0-2.0) K/mm3 pCO2 (35-45) mm/Hg pO2 (80-100) mm/Hg HCO3 (21-28) mmol/L ABG pH (7.35-7.45) ABG Total CO2 (22-28) mmol.L ABG O2 Saturation (95-98) % ABG Base Excess (-2.0-3.0) mmol/L ABG Potassium (3.6-5.2) mmol/L Glucose (65-105) mg/dl Lactate (0.7-2.1) mmol/L FiO2 % Sodium 151 H (132-148) mmol/L Potassium 2.9 L* (3.6-5.0) mmol/L Chloride 120 H (98-107) mmol/L Carbon Dioxide < 5 L (21-33) mmol/L Anion Gap 29 H (10-20) BUN 31 H (7-21) mg/dL Creatinine 1.6 H (0.7-1.2) mg/dl Est GFR ( Amer) 41 Est GFR (Non-Af Amer) 34 POC Glucose (mg/dL) 267 H 267 H (65-110) mg/dL Random Glucose 301 H* (70-110) mg/dL Hemoglobin A1c (4.2-6.5) % Lactic Acid (0.7-2.1) mmol/L Calcium 9.4 (8.4-10.5) mg/dL Phosphorus (2.5-4.5) mg/dL Magnesium (1.7-2.2) mg/dL Total Bilirubin (0.2-1.3) mg/dL AST (14-36) U/L ALT (7-56) U/L Alkaline Phosphatase (38-126) U/L Total Protein (5.8-8.3) g/dL Albumin (3.0-4.8) g/dL Globulin gm/dL Albumin/Globulin Ratio (1.1-1.8) Triglycerides (35-160) mg/dL Cholesterol (130-200) mg/dL HDL Cholesterol (29-60) mg/dL Arterial Blood Potassium (3.6-5.2) mmol/L Salicylates (2.0-20.0) mg/dL 06/06/17 06/06/17 06/06/17 Range/Units 12:45 12:01 06:45 WBC (4.5-11.0) 10^3/ul RBC (3.5-6.1) 10^6/uL Hgb (12.0-16.0) g/dL Hct (36.0-48.0) % MCV (80.0-105.0) fl MCH (25.0-35.0) pg MCHC (31.0-37.0) g/dl RDW (11.5-14.5) % Plt Count (120.0-450.0) 10^3/uL MPV (7.0-11.0) fl Gran % (50.0-68.0) % Lymph % (Auto) (22.0-35.0) % [place] % (Auto) (1.0-6.0) % Eos % (Auto) (1.5-5.0) % Baso % (Auto) (0.0-3.0) % Gran # (1.4-6.5) Lymph # (Auto) (1.2-3.4) [place] # (Auto) (0.1-0.6) Eos # (Auto) (0.0-0.7) Baso # (Auto) (0.0-2.0) K/mm3 pCO2 (35-45) mm/Hg pO2 (80-100) mm/Hg HCO3 (21-28) mmol/L ABG pH (7.35-7.45) ABG Total CO2 (22-28) mmol.L ABG O2 Saturation (95-98) % ABG Base Excess (-2.0-3.0) mmol/L ABG Potassium (3.6-5.2) mmol/L Glucose (65-105) mg/dl Lactate (0.7-2.1) mmol/L FiO2 % Sodium (132-148) mmol/L Potassium (3.6-5.0) mmol/L Chloride (98-107) mmol/L Carbon Dioxide (21-33) mmol/L Anion Gap (10-20) BUN (7-21) mg/dL Creatinine (0.7-1.2) mg/dl Est GFR ( Amer) Est GFR (Non-Af Amer) POC Glucose (mg/dL) 282 H (65-110) mg/dL Random Glucose (70-110) mg/dL Hemoglobin A1c 8.4 H (4.2-6.5) % Lactic Acid 1.0 (0.7-2.1) mmol/L Calcium (8.4-10.5) mg/dL Phosphorus (2.5-4.5) mg/dL Magnesium (1.7-2.2) mg/dL Total Bilirubin (0.2-1.3) mg/dL AST (14-36) U/L ALT (7-56) U/L Alkaline Phosphatase (38-126) U/L Total Protein (5.8-8.3) g/dL Albumin (3.0-4.8) g/dL Globulin gm/dL Albumin/Globulin Ratio (1.1-1.8) Triglycerides (35-160) mg/dL Cholesterol (130-200) mg/dL HDL Cholesterol (29-60) mg/dL Arterial Blood Potassium (3.6-5.2) mmol/L Salicylates (2.0-20.0) mg/dL 06/06/17 Range/Units 06:45 WBC (4.5-11.0) 10^3/ul RBC (3.5-6.1) 10^6/uL Hgb (12.0-16.0) g/dL Hct (36.0-48.0) % MCV (80.0-105.0) fl MCH (25.0-35.0) pg MCHC (31.0-37.0) g/dl RDW (11.5-14.5) % Plt Count (120.0-450.0) 10^3/uL MPV (7.0-11.0) fl Gran % (50.0-68.0) % Lymph % (Auto) (22.0-35.0) % [place] % (Auto) (1.0-6.0) % Eos % (Auto) (1.5-5.0) % Baso % (Auto) (0.0-3.0) % Gran # (1.4-6.5) Lymph # (Auto) (1.2-3.4) [place] # (Auto) (0.1-0.6) Eos # (Auto) (0.0-0.7) Baso # (Auto) (0.0-2.0) K/mm3 pCO2 (35-45) mm/Hg pO2 (80-100) mm/Hg HCO3 (21-28) mmol/L ABG pH (7.35-7.45) ABG Total CO2 (22-28) mmol.L ABG O2 Saturation (95-98) % ABG Base Excess (-2.0-3.0) mmol/L ABG Potassium (3.6-5.2) mmol/L Glucose (65-105) mg/dl Lactate (0.7-2.1) mmol/L FiO2 % Sodium (132-148) mmol/L Potassium (3.6-5.0) mmol/L Chloride (98-107) mmol/L Carbon Dioxide (21-33) mmol/L Anion Gap (10-20) BUN (7-21) mg/dL Creatinine (0.7-1.2) mg/dl Est GFR ( Amer) Est GFR (Non-Af Amer) POC Glucose (mg/dL) (65-110) mg/dL Random Glucose (70-110) mg/dL Hemoglobin A1c (4.2-6.5) % Lactic Acid (0.7-2.1) mmol/L Calcium (8.4-10.5) mg/dL Phosphorus (2.5-4.5) mg/dL Magnesium 3.0 H (1.7-2.2) mg/dL Total Bilirubin (0.2-1.3) mg/dL AST (14-36) U/L ALT (7-56) U/L Alkaline Phosphatase (38-126) U/L Total Protein (5.8-8.3) g/dL Albumin (3.0-4.8) g/dL Globulin gm/dL Albumin/Globulin Ratio (1.1-1.8) Triglycerides 572 H (35-160) mg/dL Cholesterol 198 (130-200) mg/dL HDL Cholesterol 44 (29-60) mg/dL Arterial Blood Potassium (3.6-5.2) mmol/L Salicylates (2.0-20.0) mg/dL Laboratory Results - last 24 hr 06/06/17 06/06/17 06/06/17 06:45 06:45 12:01 WBC RBC Hgb Hct MCV MCH MCHC RDW Plt Count MPV Gran % Lymph % (Auto) [place] % (Auto) Eos % (Auto) Baso % (Auto) Gran # Lymph # (Auto) [place] # (Auto) Eos # (Auto) Baso # (Auto) pCO2 pO2 HCO3 ABG pH ABG Total CO2 ABG O2 Saturation ABG Base Excess ABG Potassium Glucose Lactate FiO2 Sodium Potassium Chloride Carbon Dioxide Anion Gap BUN Creatinine Est GFR ( Amer) Est GFR (Non-Af Amer) POC Glucose (mg/dL) 282 H Random Glucose Hemoglobin A1c 8.4 H Lactic Acid Calcium Phosphorus Magnesium 3.0 H Total Bilirubin AST ALT Alkaline Phosphatase Total Protein Albumin Globulin Albumin/Globulin Ratio Triglycerides 572 H Cholesterol 198 HDL Cholesterol 44 Arterial Blood Potassium Salicylates 06/06/17 06/06/17 06/06/17 12:45 12:51 14:00 WBC RBC Hgb Hct MCV MCH MCHC RDW Plt Count MPV Gran % Lymph % (Auto) [place] % (Auto) Eos % (Auto) Baso % (Auto) Gran # Lymph # (Auto) [place] # (Auto) Eos # (Auto) Baso # (Auto) pCO2 pO2 HCO3 ABG pH ABG Total CO2 ABG O2 Saturation ABG Base Excess ABG Potassium Glucose Lactate FiO2 Sodium Potassium Chloride Carbon Dioxide Anion Gap BUN Creatinine Est GFR ( Amer) Est GFR (Non-Af Amer) POC Glucose (mg/dL) 267 H 267 H Random Glucose Hemoglobin A1c Lactic Acid 1.0 Calcium Phosphorus Magnesium Total Bilirubin AST ALT Alkaline Phosphatase Total Protein Albumin Globulin Albumin/Globulin Ratio Triglycerides Cholesterol HDL Cholesterol Arterial Blood Potassium Salicylates 06/06/17 06/06/17 06/06/17 14:05 15:14 15:55 WBC RBC Hgb Hct MCV MCH MCHC RDW Plt Count MPV Gran % Lymph % (Auto) [place] % (Auto) Eos % (Auto) Baso % (Auto) Gran # Lymph # (Auto) [place] # (Auto) Eos # (Auto) Baso # (Auto) pCO2 pO2 HCO3 ABG pH ABG Total CO2 ABG O2 Saturation ABG Base Excess ABG Potassium Glucose Lactate FiO2 Sodium 151 H Potassium 2.9 L* Chloride 120 H Carbon Dioxide < 5 L Anion Gap 29 H BUN 31 H Creatinine 1.6 H Est GFR ( Amer) 41 Est GFR (Non-Af Amer) 34 POC Glucose (mg/dL) 306 H 277 H Random Glucose 301 H* Hemoglobin A1c Lactic Acid Calcium 9.4 Phosphorus Magnesium Total Bilirubin AST ALT Alkaline Phosphatase Total Protein Albumin Globulin Albumin/Globulin Ratio Triglycerides Cholesterol HDL Cholesterol Arterial Blood Potassium Salicylates 06/06/17 06/06/17 06/06/17 17:09 18:02 18:16 WBC RBC Hgb Hct MCV MCH MCHC RDW Plt Count MPV Gran % Lymph % (Auto) [place] % (Auto) Eos % (Auto) Baso % (Auto) Gran # Lymph # (Auto) [place] # (Auto) Eos # (Auto) Baso # (Auto) pCO2 pO2 HCO3 ABG pH ABG Total CO2 ABG O2 Saturation ABG Base Excess ABG Potassium Glucose Lactate FiO2 Sodium 152 H Potassium 2.6 L* Chloride 122 H Carbon Dioxide 5 L Anion Gap 28 H BUN 33 H Creatinine 1.8 H Est GFR ( Amer) 36 Est GFR (Non-Af Amer) 30 POC Glucose (mg/dL) 246 H 219 H Random Glucose 250 H Hemoglobin A1c Lactic Acid Calcium 9.4 Phosphorus Magnesium Total Bilirubin AST ALT Alkaline Phosphatase Total Protein Albumin Globulin Albumin/Globulin Ratio Triglycerides Cholesterol HDL Cholesterol Arterial Blood Potassium Salicylates 06/06/17 06/06/17 06/06/17 18:56 20:06 21:03 WBC RBC Hgb Hct MCV MCH MCHC RDW Plt Count MPV Gran % Lymph % (Auto) [place] % (Auto) Eos % (Auto) Baso % (Auto) Gran # Lymph # (Auto) [place] # (Auto) Eos # (Auto) Baso # (Auto) pCO2 pO2 HCO3 ABG pH ABG Total CO2 ABG O2 Saturation ABG Base Excess ABG Potassium Glucose Lactate FiO2 Sodium Potassium Chloride Carbon Dioxide Anion Gap BUN Creatinine Est GFR ( Amer) Est GFR (Non-Af Amer) POC Glucose (mg/dL) 208 H 272 H 236 H Random Glucose Hemoglobin A1c Lactic Acid Calcium Phosphorus Magnesium Total Bilirubin AST ALT Alkaline Phosphatase Total Protein Albumin Globulin Albumin/Globulin Ratio Triglycerides Cholesterol HDL Cholesterol Arterial Blood Potassium Salicylates 06/06/17 06/06/17 06/06/17 22:11 22:52 23:14 WBC RBC Hgb Hct MCV MCH MCHC RDW Plt Count MPV Gran % Lymph % (Auto) [place] % (Auto) Eos % (Auto) Baso % (Auto) Gran # Lymph # (Auto) [place] # (Auto) Eos # (Auto) Baso # (Auto) pCO2 pO2 HCO3 ABG pH ABG Total CO2 ABG O2 Saturation ABG Base Excess ABG Potassium Glucose Lactate FiO2 Sodium 152 H Potassium 2.9 L* Chloride 123 H Carbon Dioxide 5 L Anion Gap 27 H BUN 34 H Creatinine 1.9 H Est GFR ( Amer) 34 Est GFR (Non-Af Amer) 28 POC Glucose (mg/dL) 216 H 194 H Random Glucose 225 H Hemoglobin A1c Lactic Acid Calcium 9.8 Phosphorus Magnesium Total Bilirubin AST ALT Alkaline Phosphatase Total Protein Albumin Globulin Albumin/Globulin Ratio Triglycerides Cholesterol HDL Cholesterol Arterial Blood Potassium Salicylates 06/07/17 06/07/17 06/07/17 00:01 01:00 01:05 WBC RBC Hgb Hct MCV MCH MCHC RDW Plt Count MPV Gran % Lymph % (Auto) [place] % (Auto) Eos % (Auto) Baso % (Auto) Gran # Lymph # (Auto) [place] # (Auto) Eos # (Auto) Baso # (Auto) pCO2 pO2 HCO3 ABG pH ABG Total CO2 ABG O2 Saturation ABG Base Excess ABG Potassium Glucose Lactate FiO2 Sodium 152 H Potassium 2.7 L* Chloride 130 H Carbon Dioxide < 5 L Anion Gap 20 BUN 30 H Creatinine 1.6 H Est GFR ( Amer) 41 Est GFR (Non-Af Amer) 34 POC Glucose (mg/dL) 231 H 240 H Random Glucose 232 H Hemoglobin A1c Lactic Acid Calcium 8.3 L Phosphorus Magnesium Total Bilirubin AST ALT Alkaline Phosphatase Total Protein Albumin Globulin Albumin/Globulin Ratio Triglycerides Cholesterol HDL Cholesterol Arterial Blood Potassium Salicylates 06/07/17 06/07/17 06/07/17 02:17 03:01 04:08 WBC RBC Hgb Hct MCV MCH MCHC RDW Plt Count MPV Gran % Lymph % (Auto) [place] % (Auto) Eos % (Auto) Baso % (Auto) Gran # Lymph # (Auto) [place] # (Auto) Eos # (Auto) Baso # (Auto) pCO2 pO2 HCO3 ABG pH ABG Total CO2 ABG O2 Saturation ABG Base Excess ABG Potassium Glucose Lactate FiO2 Sodium Potassium Chloride Carbon Dioxide Anion Gap BUN Creatinine Est GFR ( Amer) Est GFR (Non-Af Amer) POC Glucose (mg/dL) 242 H 242 H 229 H Random Glucose Hemoglobin A1c Lactic Acid Calcium Phosphorus Magnesium Total Bilirubin AST ALT Alkaline Phosphatase Total Protein Albumin Globulin Albumin/Globulin Ratio Triglycerides Cholesterol HDL Cholesterol Arterial Blood Potassium Salicylates 06/07/17 06/07/17 06/07/17 05:03 05:55 05:55 WBC 13.8 H D RBC 4.05 Hgb 12.0 Hct 34.4 L MCV 84.9 D MCH 29.6 MCHC 34.9 RDW 14.8 H Plt Count 128 MPV 11.0 Gran % 79.2 H Lymph % (Auto) 8.4 L [place] % (Auto) 11.9 H Eos % (Auto) 0.1 L Baso % (Auto) 0.4 Gran # 10.90 H Lymph # (Auto) 1.2 [place] # (Auto) 1.6 H Eos # (Auto) 0.0 Baso # (Auto) 0.06 pCO2 pO2 HCO3 ABG pH ABG Total CO2 ABG O2 Saturation ABG Base Excess ABG Potassium Glucose Lactate FiO2 Sodium Potassium Chloride Carbon Dioxide Anion Gap BUN Creatinine Est GFR ( Amer) Est GFR (Non-Af Amer) POC Glucose (mg/dL) 258 H Random Glucose Hemoglobin A1c Lactic Acid Calcium Phosphorus Magnesium Total Bilirubin AST ALT Alkaline Phosphatase Total Protein Albumin Globulin Albumin/Globulin Ratio Triglycerides Cholesterol HDL Cholesterol Arterial Blood Potassium Salicylates < 1 L 06/07/17 06/07/17 06/07/17 05:55 06:11 07:33 WBC RBC Hgb Hct MCV MCH MCHC RDW Plt Count MPV Gran % Lymph % (Auto) [place] % (Auto) Eos % (Auto) Baso % (Auto) Gran # Lymph # (Auto) [place] # (Auto) Eos # (Auto) Baso # (Auto) pCO2 pO2 HCO3 ABG pH ABG Total CO2 ABG O2 Saturation ABG Base Excess ABG Potassium Glucose Lactate FiO2 Sodium 155 H Potassium 3.3 L Chloride 123 H Carbon Dioxide 8 L D Anion Gap 27 H BUN 35 H Creatinine 1.9 H Est GFR ( Amer) 34 Est GFR (Non-Af Amer) 28 POC Glucose (mg/dL) 240 H 279 H Random Glucose 303 H* D Hemoglobin A1c Lactic Acid Calcium 10.0 Phosphorus 0.7 L* Magnesium 3.0 H Total Bilirubin 0.6 AST 26 ALT 31 Alkaline Phosphatase 105 Total Protein 6.4 Albumin 3.7 Globulin 2.6 Albumin/Globulin Ratio 1.4 Triglycerides Cholesterol HDL Cholesterol Arterial Blood Potassium Salicylates 06/07/17 06/07/17 06/07/17 08:24 09:10 09:26 WBC RBC Hgb Hct MCV MCH MCHC RDW Plt Count MPV Gran % Lymph % (Auto) [place] % (Auto) Eos % (Auto) Baso % (Auto) Gran # Lymph # (Auto) [place] # (Auto) Eos # (Auto) Baso # (Auto) pCO2 18 L* pO2 115.0 H HCO3 6.4 L* ABG pH 7.16 L* ABG Total CO2 7.0 L ABG O2 Saturation 99.4 H ABG Base Excess -20.2 L ABG Potassium 2.7 L Glucose 314 H Lactate 0.6 L FiO2 28.0 Sodium 152.0 H Potassium Chloride 124.0 H Carbon Dioxide Anion Gap BUN Creatinine Est GFR ( Amer) Est GFR (Non-Af Amer) POC Glucose (mg/dL) 275 H 282 H Random Glucose Hemoglobin A1c Lactic Acid Calcium Phosphorus Magnesium Total Bilirubin AST ALT Alkaline Phosphatase Total Protein Albumin Globulin Albumin/Globulin Ratio Triglycerides Cholesterol HDL Cholesterol Arterial Blood Potassium 2.7 L Salicylates 06/07/17 10:54 WBC RBC Hgb Hct MCV MCH MCHC RDW Plt Count MPV Gran % Lymph % (Auto) [place] % (Auto) Eos % (Auto) Baso % (Auto) Gran # Lymph # (Auto) [place] # (Auto) Eos # (Auto) Baso # (Auto) pCO2 pO2 HCO3 ABG pH ABG Total CO2 ABG O2 Saturation ABG Base Excess ABG Potassium Glucose Lactate FiO2 Sodium Potassium Chloride Carbon Dioxide Anion Gap BUN Creatinine Est GFR ( Amer) Est GFR (Non-Af Amer) POC Glucose (mg/dL) 299 H Random Glucose Hemoglobin A1c Lactic Acid Calcium Phosphorus Magnesium Total Bilirubin AST ALT Alkaline Phosphatase Total Protein Albumin Globulin Albumin/Globulin Ratio Triglycerides Cholesterol HDL Cholesterol Arterial Blood Potassium Salicylates Fingerstick Blood Sugar Results: 258 Critical Care Progress Note - Nutrition Nutrition: Nutrition Category Date Time Status Heart Healthy Diet [DIET] Diets 06/04/17 Dinner Ordered Assessment/Plan - Assessment and Plan (Free Text) Plan: 51 year old female with past medical history of DM, HTN, HLD presents with DKA and a-fib with rvr. Patient is now sinus rhythm, however still on insulin drip for DKA. Patient intubated to protect her airway. Patient will be started on propofol drip and monitored carefully with serial labs. Will continue patient on antibiotics and monitor carefully. Neuro: Intubated and sedated on Propofol CT head negative Cardio: Hemodynamically stable Maintain MAP >65 Continue Verapamil Pulm: Intubated Maintain O2 sat >90% CXR daily ABG daily GI: NPO NG tube Protonix Nephro: Maintain euvolemia D5 1/2NS @ 150 Replenish electrolytes as needed Metabolic acidosis with respiratory compensation Akhtar catheter Endo: Insulin drip IVF Accuchecks q1h Heme/ID: Afebrile, leukocytosis Merrem and Vanco Follow cultures Trevor Guillaume, PGY-2 <Riki Murry - Last Filed: 06/07/17 12:24> CCU Objective - Vital Signs / Intake & Output Vital Signs (Last 4 hours): Vital Signs Temp Pulse Resp BP Pulse Ox 06/07/17 12:04 100.6 F H 110 H 16 98 06/07/17 12:03 110 H 06/07/17 12:00 110 H 140/48 L 96 06/07/17 11:40 110 H 99 06/07/17 11:20 107 H 99 06/07/17 11:13 108 H 22 99 06/07/17 11:00 107 H 148/54 L 97 06/07/17 10:57 108 H 141/57 L 97 06/07/17 10:53 158/76 H 06/07/17 10:52 111 H 94 L 06/07/17 10:48 110 H 142/58 L 97 06/07/17 10:45 109 H 132/52 L 97 06/07/17 10:42 106 H 137/57 L 96 06/07/17 10:40 108 H 99 06/07/17 10:39 110 H 143/51 L 96 06/07/17 10:36 112 H 148/62 96 06/07/17 10:33 107 H 152/52 H 97 06/07/17 10:30 110 H 136/53 L 98 06/07/17 10:27 111 H 133/52 L 96 06/07/17 10:24 140/50 L 06/07/17 10:23 113 H 91 L 06/07/17 10:22 112 H 06/07/17 10:21 146/61 06/07/17 10:20 113 H 99 06/07/17 10:18 113 H 150/51 L 97 06/07/17 10:15 114 H 134/66 98 06/07/17 10:12 114 H 99/77 L 99 06/07/17 10:09 111 H 138/70 97 06/07/17 10:08 114 H 23 99 06/07/17 10:07 114 H 20 99 06/07/17 10:06 112 H 24 131/99 H 96 06/07/17 10:04 112 H 23 169/68 H 97 06/07/17 10:00 107 H 30 H 149/54 L 98 06/07/17 09:57 112 H 32 H 154/106 H 96 06/07/17 09:54 110 H 35 H 150/65 97 06/07/17 09:51 115 H 31 H 163/59 H 98 06/07/17 09:48 116 H 33 H 162/62 H 97 06/07/17 09:40 116 H 25 H 98 06/07/17 09:20 119 H 33 H 98 06/07/17 09:00 119 H 24 165/90 H 97 06/07/17 08:40 118 H 23 98 06/07/17 08:24 99 F 06/07/17 08:20 114 H 28 H 98 Intake and Output (Last 8hrs): Intake & Output 06/06/17 06/07/17 06/07/17 22:59 06:59 14:59 Intake Total 4310 6 63 Output Total 1650 Balance 2660 6 63 Intake: IV 4310 6 63 Left Wrist 4000 Right Wrist 300 Oral 0 Output: Urine 1650 Urine, Voided 1650 Stool 0 - Medications Active Medications: Active Medications Generic Name Dose Route Start Last Admin Trade Name Cricket PRN Reason Stop Dose Admin Aspirin 81 mg 06/05/17 10:00 06/07/17 10:07 Ecotrin PO Not Given DAILY ALEJANDRINA Enoxaparin Sodium 40 mg 06/07/17 10:00 06/07/17 10:27 Lovenox SC 40 mg DAILY ALEJANDRINA Administration Protocol Insulin Human Regular 100 100 mls @ 1 mls/hr 06/06/17 09:45 06/07/17 11:00 units/ Sodium Chloride IV 3 units/hr .Q24H PRN 3 mls/hr TITRATE PER MD ORDER Titration Protocol 1 UNITS/HR Potassium Chloride 20 meq/ 1,010 mls @ 150 mls/hr 06/06/17 23:30 06/07/17 07: 42 Dextrose/Sodium Chloride IV 150 mls/hr .[id number] ALEJANDRINA Administration Potassium Phosphate 30 mmole/ 260 mls @ 42.5 mls/hr 06/07/17 08:00 06/07/17 09:35 Dextrose IVPB 06/07/17 14:07 42.5 mls/hr ONCE ONE Administration Propofol 1,000 mg in 100 mls @ 3.043 mls/hr 06/07/17 10:11 06/07/17 11:11 Diprivan IV 30 mcg/kg/min .Q24H PRN 18.256 mls/hr TITRATE PER MD ORDER Titration Protocol 5 MCG/KG/MIN Meropenem 50 mls @ 100 mls/hr 06/07/17 10:30 06/07/17 11:24 Merrem Iv 1 Gm Premix IVPB 06/14/17 10:31 100 mls/hr Q12 ALEJANDRINA Administration Protocol Vancomycin HCl 1.5 gm/ Sodium 500 mls @ 167 mls/hr 06/07/17 10:20 06/07/17 11 :24 Chloride IVPB 06/07/17 13:19 167 mls/hr ONCE ONE Administration Protocol Metoprolol Tartrate 12.5 mg 06/05/17 18:00 06/07/17 10:07 Lopressor PO Not Given BID ALEJANDRINA Morphine Sulfate 2 mg 06/07/17 10:11 06/07/17 10:27 Morphine IVP 2 mg Q3H PRN Administration Pain, severe (8-10) Pantoprazole Sodium 40 mg 06/08/17 06:00 Protonix Ec Tab PO 0600 [facility] Verapamil HCl 2.5 mg 06/06/17 09:22 06/06/17 11:46 Verapamil Inj IVP 2.5 mg Q6H PRN Administration for heart rate >130 Verapamil HCl 80 mg 06/06/17 10:00 06/07/17 10:07 Calan Tab PO Not Given TID ALEJANDRINA - Patient Studies Lab Studies: Microbiology Studies 06/05/17 10:35 Blood Culture - Preliminary Blood-Venous NO GROWTH AFTER 48 HOURS 06/05/17 10:10 Blood Culture - Preliminary Blood-Venous NO GROWTH AFTER 48 HOURS 06/05/17 20:53 Urine Culture - Final Urine,Clean Catch No Growth (<1,000 CFU/ML) 06/05/17 15:53 Blood Culture - Preliminary Blood-Venous NO GROWTH AFTER 24 HOURS 06/05/17 15:53 Blood Culture - Preliminary Blood-Venous NO GROWTH AFTER 24 HOURS Lab Studies 06/07/17 06/07/17 06/07/17 Range/Units 12:00 11:53 11:15 WBC (4.5-11.0) 10^3/ul RBC (3.5-6.1) 10^6/uL Hgb (12.0-16.0) g/dL Hct (36.0-48.0) % MCV (80.0-105.0) fl MCH (25.0-35.0) pg MCHC (31.0-37.0) g/dl RDW (11.5-14.5) % Plt Count (120.0-450.0) 10^3/uL MPV (7.0-11.0) fl Gran % (50.0-68.0) % Lymph % (Auto) (22.0-35.0) % [place] % (Auto) (1.0-6.0) % Eos % (Auto) (1.5-5.0) % Baso % (Auto) (0.0-3.0) % Gran # (1.4-6.5) Lymph # (Auto) (1.2-3.4) [place] # (Auto) (0.1-0.6) Eos # (Auto) (0.0-0.7) Baso # (Auto) (0.0-2.0) K/mm3 pCO2 26 L (35-45) mm/Hg pO2 249.0 H (80-100) mm/Hg HCO3 9.5 L* (21-28) mmol/L ABG pH 7.17 L* (7.35-7.45) ABG Total CO2 10.3 L (22-28) mmol.L ABG O2 Saturation 99.9 H (95-98) % ABG O2 Content 15.6 (15-23) ML/dl ABG Base Excess -17.5 L (-2.0-3.0) mmol/L ABG Hemoglobin 11.0 L (11.7-17.4) g/dL ABG Carboxyhemoglobin 1.6 H (0.5-1.5) % POC ABG HHb (Measured) 0.1 (0-5) % ABG Methemoglobin 1.3 (0.0-3.0) % ABG O2 Capacity 15.6 L (16-24) mL/dl ABG Potassium (3.6-5.2) mmol/L Hgb O2 Saturation 97.0 (95.0-98.0) % Glucose (65-105) mg/dl Lactate (0.7-2.1) mmol/L FiO2 60.0 % Sodium (132-148) mmol/L Potassium (3.6-5.0) mmol/L Chloride (98-107) mmol/L Carbon Dioxide (21-33) mmol/L Anion Gap (10-20) BUN (7-21) mg/dL Creatinine (0.7-1.2) mg/dl Est GFR ( Amer) Est GFR (Non-Af Amer) POC Glucose (mg/dL) 256 H (65-110) mg/dL Random Glucose (70-110) mg/dL Hemoglobin A1c (4.2-6.5) % Lactic Acid (0.7-2.1) mmol/L Calcium (8.4-10.5) mg/dL Phosphorus (2.5-4.5) mg/dL Magnesium (1.7-2.2) mg/dL Total Bilirubin (0.2-1.3) mg/dL AST (14-36) U/L ALT (7-56) U/L Alkaline Phosphatase (38-126) U/L Total Protein (5.8-8.3) g/dL Albumin (3.0-4.8) g/dL Globulin gm/dL Albumin/Globulin Ratio (1.1-1.8) Arterial Blood Potassium (3.6-5.2) mmol/L Urine Color Yellow (YELLOW) Urine Appearance Clear (CLEAR) Urine pH 5.5 (4.7-8.0) Ur Specific [place] 1.015 (1.005-1.035) Urine Protein 100 H (<30 mg/dL) mg/dL Urine Glucose (UA) >=1000 (NEGATIVE) mg/dL Urine Ketones 40 H (NEGATIVE) mg/dL Urine Blood Large H (NEGATIVE) Urine Nitrate Negative (NEGATIVE) Urine Bilirubin Small H (NEGATIVE) Urine Urobilinogen 0.2 (<1 E.U./dL) E.U./dL Ur Leukocyte Esterase Negative (NEGATIVE) Yolanda/uL Urine RBC 25 - 30 (0-2) /hpf Urine WBC 1 - 3 (0-6) /hpf Ur Epithelial Cells 6 - 8 (0-5) /hpf Amorphous Sediment Small Urine Bacteria Many (NEG) Coarse Granular Casts Trace H (0-2) /hpf Urine Other Uyeast Salicylates (2.0-20.0) mg/dL 06/07/17 06/07/17 06/07/17 Range/Units 10:54 10:45 09:26 WBC (4.5-11.0) 10^3/ul RBC (3.5-6.1) 10^6/uL Hgb (12.0-16.0) g/dL Hct (36.0-48.0) % MCV (80.0-105.0) fl MCH (25.0-35.0) pg MCHC (31.0-37.0) g/dl RDW (11.5-14.5) % Plt Count (120.0-450.0) 10^3/uL MPV (7.0-11.0) fl Gran % (50.0-68.0) % Lymph % (Auto) (22.0-35.0) % [place] % (Auto) (1.0-6.0) % Eos % (Auto) (1.5-5.0) % Baso % (Auto) (0.0-3.0) % Gran # (1.4-6.5) Lymph # (Auto) (1.2-3.4) [place] # (Auto) (0.1-0.6) Eos # (Auto) (0.0-0.7) Baso # (Auto) (0.0-2.0) K/mm3 pCO2 (35-45) mm/Hg pO2 (80-100) mm/Hg HCO3 (21-28) mmol/L ABG pH (7.35-7.45) ABG Total CO2 (22-28) mmol.L ABG O2 Saturation (95-98) % ABG O2 Content (15-23) ML/dl ABG Base Excess (-2.0-3.0) mmol/L ABG Hemoglobin (11.7-17.4) g/dL ABG Carboxyhemoglobin (0.5-1.5) % POC ABG HHb (Measured) (0-5) % ABG Methemoglobin (0.0-3.0) % ABG O2 Capacity (16-24) mL/dl ABG Potassium (3.6-5.2) mmol/L Hgb O2 Saturation (95.0-98.0) % Glucose (65-105) mg/dl Lactate (0.7-2.1) mmol/L FiO2 % Sodium 156 H* (132-148) mmol/L Potassium 3.2 L (3.6-5.0) mmol/L Chloride 127 H (98-107) mmol/L Carbon Dioxide 10 L D (21-33) mmol/L Anion Gap 22 H (10-20) BUN 35 H (7-21) mg/dL Creatinine 1.9 H (0.7-1.2) mg/dl Est GFR ( Amer) 34 Est GFR (Non-Af Amer) 28 POC Glucose (mg/dL) 299 H 282 H (65-110) mg/dL Random Glucose 303 H* (70-110) mg/dL Hemoglobin A1c (4.2-6.5) % Lactic Acid (0.7-2.1) mmol/L Calcium 9.3 (8.4-10.5) mg/dL Phosphorus 0.8 L* (2.5-4.5) mg/dL Magnesium 2.9 H (1.7-2.2) mg/dL Total Bilirubin (0.2-1.3) mg/dL AST (14-36) U/L ALT (7-56) U/L Alkaline Phosphatase (38-126) U/L Total Protein (5.8-8.3) g/dL Albumin (3.0-4.8) g/dL Globulin gm/dL Albumin/Globulin Ratio (1.1-1.8) Arterial Blood Potassium (3.6-5.2) mmol/L Urine Color (YELLOW) Urine Appearance (CLEAR) Urine pH (4.7-8.0) Ur Specific [place] (1.005-1.035) Urine Protein (<30 mg/dL) mg/dL Urine Glucose (UA) (NEGATIVE) mg/dL Urine Ketones (NEGATIVE) mg/dL Urine Blood (NEGATIVE) Urine Nitrate (NEGATIVE) Urine Bilirubin (NEGATIVE) Urine Urobilinogen (<1 E.U./dL) E.U./dL Ur Leukocyte Esterase (NEGATIVE) Yolanda/uL Urine RBC (0-2) /hpf Urine WBC (0-6) /hpf Ur Epithelial Cells (0-5) /hpf Amorphous Sediment Urine Bacteria (NEG) Coarse Granular Casts (0-2) /hpf Urine Other Salicylates (2.0-20.0) mg/dL 06/07/17 06/07/17 06/07/17 Range/Units 09:10 08:24 07:33 WBC (4.5-11.0) 10^3/ul RBC (3.5-6.1) 10^6/uL Hgb (12.0-16.0) g/dL Hct (36.0-48.0) % MCV (80.0-105.0) fl MCH (25.0-35.0) pg MCHC (31.0-37.0) g/dl RDW (11.5-14.5) % Plt Count (120.0-450.0) 10^3/uL MPV (7.0-11.0) fl Gran % (50.0-68.0) % Lymph % (Auto) (22.0-35.0) % [place] % (Auto) (1.0-6.0) % Eos % (Auto) (1.5-5.0) % Baso % (Auto) (0.0-3.0) % Gran # (1.4-6.5) Lymph # (Auto) (1.2-3.4) [place] # (Auto) (0.1-0.6) Eos # (Auto) (0.0-0.7) Baso # (Auto) (0.0-2.0) K/mm3 pCO2 18 L* (35-45) mm/Hg pO2 115.0 H (80-100) mm/Hg HCO3 6.4 L* (21-28) mmol/L ABG pH 7.16 L* (7.35-7.45) ABG Total CO2 7.0 L (22-28) mmol.L ABG O2 Saturation 99.4 H (95-98) % ABG O2 Content (15-23) ML/dl ABG Base Excess -20.2 L (-2.0-3.0) mmol/L ABG Hemoglobin (11.7-17.4) g/dL ABG Carboxyhemoglobin (0.5-1.5) % POC ABG HHb (Measured) (0-5) % ABG Methemoglobin (0.0-3.0) % ABG O2 Capacity (16-24) mL/dl ABG Potassium 2.7 L (3.6-5.2) mmol/L Hgb O2 Saturation (95.0-98.0) % Glucose 314 H (65-105) mg/dl Lactate 0.6 L (0.7-2.1) mmol/L FiO2 28.0 % Sodium 152.0 H (132-148) mmol/L Potassium (3.6-5.0) mmol/L Chloride 124.0 H (98-107) mmol/L Carbon Dioxide (21-33) mmol/L Anion Gap (10-20) BUN (7-21) mg/dL Creatinine (0.7-1.2) mg/dl Est GFR ( Amer) Est GFR (Non-Af Amer) POC Glucose (mg/dL) 275 H 279 H (65-110) mg/dL Random Glucose (70-110) mg/dL Hemoglobin A1c (4.2-6.5) % Lactic Acid (0.7-2.1) mmol/L Calcium (8.4-10.5) mg/dL Phosphorus (2.5-4.5) mg/dL Magnesium (1.7-2.2) mg/dL Total Bilirubin (0.2-1.3) mg/dL AST (14-36) U/L ALT (7-56) U/L Alkaline Phosphatase (38-126) U/L Total Protein (5.8-8.3) g/dL Albumin (3.0-4.8) g/dL Globulin gm/dL Albumin/Globulin Ratio (1.1-1.8) Arterial Blood Potassium 2.7 L (3.6-5.2) mmol/L Urine Color (YELLOW) Urine Appearance (CLEAR) Urine pH (4.7-8.0) Ur Specific [place] (1.005-1.035) Urine Protein (<30 mg/dL) mg/dL Urine Glucose (UA) (NEGATIVE) mg/dL Urine Ketones (NEGATIVE) mg/dL Urine Blood (NEGATIVE) Urine Nitrate (NEGATIVE) Urine Bilirubin (NEGATIVE) Urine Urobilinogen (<1 E.U./dL) E.U./dL Ur Leukocyte Esterase (NEGATIVE) Yolanda/uL Urine RBC (0-2) /hpf Urine WBC (0-6) /hpf Ur Epithelial Cells (0-5) /hpf Amorphous Sediment Urine Bacteria (NEG) Coarse Granular Casts (0-2) /hpf Urine Other Salicylates (2.0-20.0) mg/dL 06/07/17 06/07/17 06/07/17 Range/Units 06:11 05:55 05:55 WBC (4.5-11.0) 10^3/ul RBC (3.5-6.1) 10^6/uL Hgb (12.0-16.0) g/dL Hct (36.0-48.0) % MCV (80.0-105.0) fl MCH (25.0-35.0) pg MCHC (31.0-37.0) g/dl RDW (11.5-14.5) % Plt Count (120.0-450.0) 10^3/uL MPV (7.0-11.0) fl Gran % (50.0-68.0) % Lymph % (Auto) (22.0-35.0) % [place] % (Auto) (1.0-6.0) % Eos % (Auto) (1.5-5.0) % Baso % (Auto) (0.0-3.0) % Gran # (1.4-6.5) Lymph # (Auto) (1.2-3.4) [place] # (Auto) (0.1-0.6) Eos # (Auto) (0.0-0.7) Baso # (Auto) (0.0-2.0) K/mm3 pCO2 (35-45) mm/Hg pO2 (80-100) mm/Hg HCO3 (21-28) mmol/L ABG pH (7.35-7.45) ABG Total CO2 (22-28) mmol.L ABG O2 Saturation (95-98) % ABG O2 Content (15-23) ML/dl ABG Base Excess (-2.0-3.0) mmol/L ABG Hemoglobin (11.7-17.4) g/dL ABG Carboxyhemoglobin (0.5-1.5) % POC ABG HHb (Measured) (0-5) % ABG Methemoglobin (0.0-3.0) % ABG O2 Capacity (16-24) mL/dl ABG Potassium (3.6-5.2) mmol/L Hgb O2 Saturation (95.0-98.0) % Glucose (65-105) mg/dl Lactate (0.7-2.1) mmol/L FiO2 % Sodium 155 H (132-148) mmol/L Potassium 3.3 L (3.6-5.0) mmol/L Chloride 123 H (98-107) mmol/L Carbon Dioxide 8 L D (21-33) mmol/L Anion Gap 27 H (10-20) BUN 35 H (7-21) mg/dL Creatinine 1.9 H (0.7-1.2) mg/dl Est GFR ( Amer) 34 Est GFR (Non-Af Amer) 28 POC Glucose (mg/dL) 240 H (65-110) mg/dL Random Glucose 303 H* D (70-110) mg/dL Hemoglobin A1c 8.3 H (4.2-6.5) % Lactic Acid (0.7-2.1) mmol/L Calcium 10.0 (8.4-10.5) mg/dL Phosphorus 0.7 L* (2.5-4.5) mg/dL Magnesium 3.0 H (1.7-2.2) mg/dL Total Bilirubin 0.6 (0.2-1.3) mg/dL AST 26 (14-36) U/L ALT 31 (7-56) U/L Alkaline Phosphatase 105 (38-126) U/L Total Protein 6.4 (5.8-8.3) g/dL Albumin 3.7 (3.0-4.8) g/dL Globulin 2.6 gm/dL Albumin/Globulin Ratio 1.4 (1.1-1.8) Arterial Blood Potassium (3.6-5.2) mmol/L Urine Color (YELLOW) Urine Appearance (CLEAR) Urine pH (4.7-8.0) Ur Specific [place] (1.005-1.035) Urine Protein (<30 mg/dL) mg/dL Urine Glucose (UA) (NEGATIVE) mg/dL Urine Ketones (NEGATIVE) mg/dL Urine Blood (NEGATIVE) Urine Nitrate (NEGATIVE) Urine Bilirubin (NEGATIVE) Urine Urobilinogen (<1 E.U./dL) E.U./dL Ur Leukocyte Esterase (NEGATIVE) Yolanda/uL Urine RBC (0-2) /hpf Urine WBC (0-6) /hpf Ur Epithelial Cells (0-5) /hpf Amorphous Sediment Urine Bacteria (NEG) Coarse Granular Casts (0-2) /hpf Urine Other Salicylates (2.0-20.0) mg/dL 06/07/17 06/07/17 06/07/17 Range/Units 05:55 05:55 05:03 WBC 13.8 H D (4.5-11.0) 10^3/ul RBC 4.05 (3.5-6.1) 10^6/uL Hgb 12.0 (12.0-16.0) g/dL Hct 34.4 L (36.0-48.0) % MCV 84.9 D (80.0-105.0) fl MCH 29.6 (25.0-35.0) pg MCHC 34.9 (31.0-37.0) g/dl RDW 14.8 H (11.5-14.5) % Plt Count 128 (120.0-450.0) 10^3/uL MPV 11.0 (7.0-11.0) fl Gran % 79.2 H (50.0-68.0) % Lymph % (Auto) 8.4 L (22.0-35.0) % [place] % (Auto) 11.9 H (1.0-6.0) % Eos % (Auto) 0.1 L (1.5-5.0) % Baso % (Auto) 0.4 (0.0-3.0) % Gran # 10.90 H (1.4-6.5) Lymph # (Auto) 1.2 (1.2-3.4) [place] # (Auto) 1.6 H (0.1-0.6) Eos # (Auto) 0.0 (0.0-0.7) Baso # (Auto) 0.06 (0.0-2.0) K/mm3 pCO2 (35-45) mm/Hg pO2 (80-100) mm/Hg HCO3 (21-28) mmol/L ABG pH (7.35-7.45) ABG Total CO2 (22-28) mmol.L ABG O2 Saturation (95-98) % ABG O2 Content (15-23) ML/dl ABG Base Excess (-2.0-3.0) mmol/L ABG Hemoglobin (11.7-17.4) g/dL ABG Carboxyhemoglobin (0.5-1.5) % POC ABG HHb (Measured) (0-5) % ABG Methemoglobin (0.0-3.0) % ABG O2 Capacity (16-24) mL/dl ABG Potassium (3.6-5.2) mmol/L Hgb O2 Saturation (95.0-98.0) % Glucose (65-105) mg/dl Lactate (0.7-2.1) mmol/L FiO2 % Sodium (132-148) mmol/L Potassium (3.6-5.0) mmol/L Chloride (98-107) mmol/L Carbon Dioxide (21-33) mmol/L Anion Gap (10-20) BUN (7-21) mg/dL Creatinine (0.7-1.2) mg/dl Est GFR ( Amer) Est GFR (Non-Af Amer) POC Glucose (mg/dL) 258 H (65-110) mg/dL Random Glucose (70-110) mg/dL Hemoglobin A1c (4.2-6.5) % Lactic Acid (0.7-2.1) mmol/L Calcium (8.4-10.5) mg/dL Phosphorus (2.5-4.5) mg/dL Magnesium (1.7-2.2) mg/dL Total Bilirubin (0.2-1.3) mg/dL AST (14-36) U/L ALT (7-56) U/L Alkaline Phosphatase (38-126) U/L Total Protein (5.8-8.3) g/dL Albumin (3.0-4.8) g/dL Globulin gm/dL Albumin/Globulin Ratio (1.1-1.8) Arterial Blood Potassium (3.6-5.2) mmol/L Urine Color (YELLOW) Urine Appearance (CLEAR) Urine pH (4.7-8.0) Ur Specific [place] (1.005-1.035) Urine Protein (<30 mg/dL) mg/dL Urine Glucose (UA) (NEGATIVE) mg/dL Urine Ketones (NEGATIVE) mg/dL Urine Blood (NEGATIVE) Urine Nitrate (NEGATIVE) Urine Bilirubin (NEGATIVE) Urine Urobilinogen (<1 E.U./dL) E.U./dL Ur Leukocyte Esterase (NEGATIVE) Yolanda/uL Urine RBC (0-2) /hpf Urine WBC (0-6) /hpf Ur Epithelial Cells (0-5) /hpf Amorphous Sediment Urine Bacteria (NEG) Coarse Granular Casts (0-2) /hpf Urine Other Salicylates < 1 L (2.0-20.0) mg/dL 06/07/17 06/07/17 06/07/17 Range/Units 04:08 03:01 02:17 WBC (4.5-11.0) 10^3/ul RBC (3.5-6.1) 10^6/uL Hgb (12.0-16.0) g/dL Hct (36.0-48.0) % MCV (80.0-105.0) fl MCH (25.0-35.0) pg MCHC (31.0-37.0) g/dl RDW (11.5-14.5) % Plt Count (120.0-450.0) 10^3/uL MPV (7.0-11.0) fl Gran % (50.0-68.0) % Lymph % (Auto) (22.0-35.0) % [place] % (Auto) (1.0-6.0) % Eos % (Auto) (1.5-5.0) % Baso % (Auto) (0.0-3.0) % Gran # (1.4-6.5) Lymph # (Auto) (1.2-3.4) [place] # (Auto) (0.1-0.6) Eos # (Auto) (0.0-0.7) Baso # (Auto) (0.0-2.0) K/mm3 pCO2 (35-45) mm/Hg pO2 (80-100) mm/Hg HCO3 (21-28) mmol/L ABG pH (7.35-7.45) ABG Total CO2 (22-28) mmol.L ABG O2 Saturation (95-98) % ABG O2 Content (15-23) ML/dl ABG Base Excess (-2.0-3.0) mmol/L ABG Hemoglobin (11.7-17.4) g/dL ABG Carboxyhemoglobin (0.5-1.5) % POC ABG HHb (Measured) (0-5) % ABG Methemoglobin (0.0-3.0) % ABG O2 Capacity (16-24) mL/dl ABG Potassium (3.6-5.2) mmol/L Hgb O2 Saturation (95.0-98.0) % Glucose (65-105) mg/dl Lactate (0.7-2.1) mmol/L FiO2 % Sodium (132-148) mmol/L Potassium (3.6-5.0) mmol/L Chloride (98-107) mmol/L Carbon Dioxide (21-33) mmol/L Anion Gap (10-20) BUN (7-21) mg/dL Creatinine (0.7-1.2) mg/dl Est GFR ( Amer) Est GFR (Non-Af Amer) POC Glucose (mg/dL) 229 H 242 H 242 H (65-110) mg/dL Random Glucose (70-110) mg/dL Hemoglobin A1c (4.2-6.5) % Lactic Acid (0.7-2.1) mmol/L Calcium (8.4-10.5) mg/dL Phosphorus (2.5-4.5) mg/dL Magnesium (1.7-2.2) mg/dL Total Bilirubin (0.2-1.3) mg/dL AST (14-36) U/L ALT (7-56) U/L Alkaline Phosphatase (38-126) U/L Total Protein (5.8-8.3) g/dL Albumin (3.0-4.8) g/dL Globulin gm/dL Albumin/Globulin Ratio (1.1-1.8) Arterial Blood Potassium (3.6-5.2) mmol/L Urine Color (YELLOW) Urine Appearance (CLEAR) Urine pH (4.7-8.0) Ur Specific [place] (1.005-1.035) Urine Protein (<30 mg/dL) mg/dL Urine Glucose (UA) (NEGATIVE) mg/dL Urine Ketones (NEGATIVE) mg/dL Urine Blood (NEGATIVE) Urine Nitrate (NEGATIVE) Urine Bilirubin (NEGATIVE) Urine Urobilinogen (<1 E.U./dL) E.U./dL Ur Leukocyte Esterase (NEGATIVE) Yolanda/uL Urine RBC (0-2) /hpf Urine WBC (0-6) /hpf Ur Epithelial Cells (0-5) /hpf Amorphous Sediment Urine Bacteria (NEG) Coarse Granular Casts (0-2) /hpf Urine Other Salicylates (2.0-20.0) mg/dL 06/07/17 06/07/17 06/07/17 Range/Units 01:05 01:00 00:01 WBC (4.5-11.0) 10^3/ul RBC (3.5-6.1) 10^6/uL Hgb (12.0-16.0) g/dL Hct (36.0-48.0) % MCV (80.0-105.0) fl MCH (25.0-35.0) pg MCHC (31.0-37.0) g/dl RDW (11.5-14.5) % Plt Count (120.0-450.0) 10^3/uL MPV (7.0-11.0) fl Gran % (50.0-68.0) % Lymph % (Auto) (22.0-35.0) % [place] % (Auto) (1.0-6.0) % Eos % (Auto) (1.5-5.0) % Baso % (Auto) (0.0-3.0) % Gran # (1.4-6.5) Lymph # (Auto) (1.2-3.4) [place] # (Auto) (0.1-0.6) Eos # (Auto) (0.0-0.7) Baso # (Auto) (0.0-2.0) K/mm3 pCO2 (35-45) mm/Hg pO2 (80-100) mm/Hg HCO3 (21-28) mmol/L ABG pH (7.35-7.45) ABG Total CO2 (22-28) mmol.L ABG O2 Saturation (95-98) % ABG O2 Content (15-23) ML/dl ABG Base Excess (-2.0-3.0) mmol/L ABG Hemoglobin (11.7-17.4) g/dL ABG Carboxyhemoglobin (0.5-1.5) % POC ABG HHb (Measured) (0-5) % ABG Methemoglobin (0.0-3.0) % ABG O2 Capacity (16-24) mL/dl ABG Potassium (3.6-5.2) mmol/L Hgb O2 Saturation (95.0-98.0) % Glucose (65-105) mg/dl Lactate (0.7-2.1) mmol/L FiO2 % Sodium 152 H (132-148) mmol/L Potassium 2.7 L* (3.6-5.0) mmol/L Chloride 130 H (98-107) mmol/L Carbon Dioxide < 5 L (21-33) mmol/L Anion Gap 20 (10-20) BUN 30 H (7-21) mg/dL Creatinine 1.6 H (0.7-1.2) mg/dl Est GFR ( Amer) 41 Est GFR (Non-Af Amer) 34 POC Glucose (mg/dL) 240 H 231 H (65-110) mg/dL Random Glucose 232 H (70-110) mg/dL Hemoglobin A1c (4.2-6.5) % Lactic Acid (0.7-2.1) mmol/L Calcium 8.3 L (8.4-10.5) mg/dL Phosphorus (2.5-4.5) mg/dL Magnesium (1.7-2.2) mg/dL Total Bilirubin (0.2-1.3) mg/dL AST (14-36) U/L ALT (7-56) U/L Alkaline Phosphatase (38-126) U/L Total Protein (5.8-8.3) g/dL Albumin (3.0-4.8) g/dL Globulin gm/dL Albumin/Globulin Ratio (1.1-1.8) Arterial Blood Potassium (3.6-5.2) mmol/L Urine Color (YELLOW) Urine Appearance (CLEAR) Urine pH (4.7-8.0) Ur Specific [place] (1.005-1.035) Urine Protein (<30 mg/dL) mg/dL Urine Glucose (UA) (NEGATIVE) mg/dL Urine Ketones (NEGATIVE) mg/dL Urine Blood (NEGATIVE) Urine Nitrate (NEGATIVE) Urine Bilirubin (NEGATIVE) Urine Urobilinogen (<1 E.U./dL) E.U./dL Ur Leukocyte Esterase (NEGATIVE) Yolanda/uL Urine RBC (0-2) /hpf Urine WBC (0-6) /hpf Ur Epithelial Cells (0-5) /hpf Amorphous Sediment Urine Bacteria (NEG) Coarse Granular Casts (0-2) /hpf Urine Other Salicylates (2.0-20.0) mg/dL 06/06/17 06/06/17 06/06/17 Range/Units 23:14 22:52 22:11 WBC (4.5-11.0) 10^3/ul RBC (3.5-6.1) 10^6/uL Hgb (12.0-16.0) g/dL Hct (36.0-48.0) % MCV (80.0-105.0) fl MCH (25.0-35.0) pg MCHC (31.0-37.0) g/dl RDW (11.5-14.5) % Plt Count (120.0-450.0) 10^3/uL MPV (7.0-11.0) fl Gran % (50.0-68.0) % Lymph % (Auto) (22.0-35.0) % [place] % (Auto) (1.0-6.0) % Eos % (Auto) (1.5-5.0) % Baso % (Auto) (0.0-3.0) % Gran # (1.4-6.5) Lymph # (Auto) (1.2-3.4) [place] # (Auto) (0.1-0.6) Eos # (Auto) (0.0-0.7) Baso # (Auto) (0.0-2.0) K/mm3 pCO2 (35-45) mm/Hg pO2 (80-100) mm/Hg HCO3 (21-28) mmol/L ABG pH (7.35-7.45) ABG Total CO2 (22-28) mmol.L ABG O2 Saturation (95-98) % ABG O2 Content (15-23) ML/dl ABG Base Excess (-2.0-3.0) mmol/L ABG Hemoglobin (11.7-17.4) g/dL ABG Carboxyhemoglobin (0.5-1.5) % POC ABG HHb (Measured) (0-5) % ABG Methemoglobin (0.0-3.0) % ABG O2 Capacity (16-24) mL/dl ABG Potassium (3.6-5.2) mmol/L Hgb O2 Saturation (95.0-98.0) % Glucose (65-105) mg/dl Lactate (0.7-2.1) mmol/L FiO2 % Sodium 152 H (132-148) mmol/L Potassium 2.9 L* (3.6-5.0) mmol/L Chloride 123 H (98-107) mmol/L Carbon Dioxide 5 L (21-33) mmol/L Anion Gap 27 H (10-20) BUN 34 H (7-21) mg/dL Creatinine 1.9 H (0.7-1.2) mg/dl Est GFR ( Amer) 34 Est GFR (Non-Af Amer) 28 POC Glucose (mg/dL) 194 H 216 H (65-110) mg/dL Random Glucose 225 H (70-110) mg/dL Hemoglobin A1c (4.2-6.5) % Lactic Acid (0.7-2.1) mmol/L Calcium 9.8 (8.4-10.5) mg/dL Phosphorus (2.5-4.5) mg/dL Magnesium (1.7-2.2) mg/dL Total Bilirubin (0.2-1.3) mg/dL AST (14-36) U/L ALT (7-56) U/L Alkaline Phosphatase (38-126) U/L Total Protein (5.8-8.3) g/dL Albumin (3.0-4.8) g/dL Globulin gm/dL Albumin/Globulin Ratio (1.1-1.8) Arterial Blood Potassium (3.6-5.2) mmol/L Urine Color (YELLOW) Urine Appearance (CLEAR) Urine pH (4.7-8.0) Ur Specific [place] (1.005-1.035) Urine Protein (<30 mg/dL) mg/dL Urine Glucose (UA) (NEGATIVE) mg/dL Urine Ketones (NEGATIVE) mg/dL Urine Blood (NEGATIVE) Urine Nitrate (NEGATIVE) Urine Bilirubin (NEGATIVE) Urine Urobilinogen (<1 E.U./dL) E.U./dL Ur Leukocyte Esterase (NEGATIVE) Yolanda/uL Urine RBC (0-2) /hpf Urine WBC (0-6) /hpf Ur Epithelial Cells (0-5) /hpf Amorphous Sediment Urine Bacteria (NEG) Coarse Granular Casts (0-2) /hpf Urine Other Salicylates (2.0-20.0) mg/dL 06/06/17 06/06/17 06/06/17 Range/Units 21:03 20:06 18:56 WBC (4.5-11.0) 10^3/ul RBC (3.5-6.1) 10^6/uL Hgb (12.0-16.0) g/dL Hct (36.0-48.0) % MCV (80.0-105.0) fl MCH (25.0-35.0) pg MCHC (31.0-37.0) g/dl RDW (11.5-14.5) % Plt Count (120.0-450.0) 10^3/uL MPV (7.0-11.0) fl Gran % (50.0-68.0) % Lymph % (Auto) (22.0-35.0) % [place] % (Auto) (1.0-6.0) % Eos % (Auto) (1.5-5.0) % Baso % (Auto) (0.0-3.0) % Gran # (1.4-6.5) Lymph # (Auto) (1.2-3.4) [place] # (Auto) (0.1-0.6) Eos # (Auto) (0.0-0.7) Baso # (Auto) (0.0-2.0) K/mm3 pCO2 (35-45) mm/Hg pO2 (80-100) mm/Hg HCO3 (21-28) mmol/L ABG pH (7.35-7.45) ABG Total CO2 (22-28) mmol.L ABG O2 Saturation (95-98) % ABG O2 Content (15-23) ML/dl ABG Base Excess (-2.0-3.0) mmol/L ABG Hemoglobin (11.7-17.4) g/dL ABG Carboxyhemoglobin (0.5-1.5) % POC ABG HHb (Measured) (0-5) % ABG Methemoglobin (0.0-3.0) % ABG O2 Capacity (16-24) mL/dl ABG Potassium (3.6-5.2) mmol/L Hgb O2 Saturation (95.0-98.0) % Glucose (65-105) mg/dl Lactate (0.7-2.1) mmol/L FiO2 % Sodium (132-148) mmol/L Potassium (3.6-5.0) mmol/L Chloride (98-107) mmol/L Carbon Dioxide (21-33) mmol/L Anion Gap (10-20) BUN (7-21) mg/dL Creatinine (0.7-1.2) mg/dl Est GFR ( Amer) Est GFR (Non-Af Amer) POC Glucose (mg/dL) 236 H 272 H 208 H (65-110) mg/dL Random Glucose (70-110) mg/dL Hemoglobin A1c (4.2-6.5) % Lactic Acid (0.7-2.1) mmol/L Calcium (8.4-10.5) mg/dL Phosphorus (2.5-4.5) mg/dL Magnesium (1.7-2.2) mg/dL Total Bilirubin (0.2-1.3) mg/dL AST (14-36) U/L ALT (7-56) U/L Alkaline Phosphatase (38-126) U/L Total Protein (5.8-8.3) g/dL Albumin (3.0-4.8) g/dL Globulin gm/dL Albumin/Globulin Ratio (1.1-1.8) Arterial Blood Potassium (3.6-5.2) mmol/L Urine Color (YELLOW) Urine Appearance (CLEAR) Urine pH (4.7-8.0) Ur Specific [place] (1.005-1.035) Urine Protein (<30 mg/dL) mg/dL Urine Glucose (UA) (NEGATIVE) mg/dL Urine Ketones (NEGATIVE) mg/dL Urine Blood (NEGATIVE) Urine Nitrate (NEGATIVE) Urine Bilirubin (NEGATIVE) Urine Urobilinogen (<1 E.U./dL) E.U./dL Ur Leukocyte Esterase (NEGATIVE) Yolanda/uL Urine RBC (0-2) /hpf Urine WBC (0-6) /hpf Ur Epithelial Cells (0-5) /hpf Amorphous Sediment Urine Bacteria (NEG) Coarse Granular Casts (0-2) /hpf Urine Other Salicylates (2.0-20.0) mg/dL 06/06/17 06/06/17 06/06/17 Range/Units 18:16 18:02 17:09 WBC (4.5-11.0) 10^3/ul RBC (3.5-6.1) 10^6/uL Hgb (12.0-16.0) g/dL Hct (36.0-48.0) % MCV (80.0-105.0) fl MCH (25.0-35.0) pg MCHC (31.0-37.0) g/dl RDW (11.5-14.5) % Plt Count (120.0-450.0) 10^3/uL MPV (7.0-11.0) fl Gran % (50.0-68.0) % Lymph % (Auto) (22.0-35.0) % [place] % (Auto) (1.0-6.0) % Eos % (Auto) (1.5-5.0) % Baso % (Auto) (0.0-3.0) % Gran # (1.4-6.5) Lymph # (Auto) (1.2-3.4) [place] # (Auto) (0.1-0.6) Eos # (Auto) (0.0-0.7) Baso # (Auto) (0.0-2.0) K/mm3 pCO2 (35-45) mm/Hg pO2 (80-100) mm/Hg HCO3 (21-28) mmol/L ABG pH (7.35-7.45) ABG Total CO2 (22-28) mmol.L ABG O2 Saturation (95-98) % ABG O2 Content (15-23) ML/dl ABG Base Excess (-2.0-3.0) mmol/L ABG Hemoglobin (11.7-17.4) g/dL ABG Carboxyhemoglobin (0.5-1.5) % POC ABG HHb (Measured) (0-5) % ABG Methemoglobin (0.0-3.0) % ABG O2 Capacity (16-24) mL/dl ABG Potassium (3.6-5.2) mmol/L Hgb O2 Saturation (95.0-98.0) % Glucose (65-105) mg/dl Lactate (0.7-2.1) mmol/L FiO2 % Sodium 152 H (132-148) mmol/L Potassium 2.6 L* (3.6-5.0) mmol/L Chloride 122 H (98-107) mmol/L Carbon Dioxide 5 L (21-33) mmol/L Anion Gap 28 H (10-20) BUN 33 H (7-21) mg/dL Creatinine 1.8 H (0.7-1.2) mg/dl Est GFR ( Amer) 36 Est GFR (Non-Af Amer) 30 POC Glucose (mg/dL) 219 H 246 H (65-110) mg/dL Random Glucose 250 H (70-110) mg/dL Hemoglobin A1c (4.2-6.5) % Lactic Acid (0.7-2.1) mmol/L Calcium 9.4 (8.4-10.5) mg/dL Phosphorus (2.5-4.5) mg/dL Magnesium (1.7-2.2) mg/dL Total Bilirubin (0.2-1.3) mg/dL AST (14-36) U/L ALT (7-56) U/L Alkaline Phosphatase (38-126) U/L Total Protein (5.8-8.3) g/dL Albumin (3.0-4.8) g/dL Globulin gm/dL Albumin/Globulin Ratio (1.1-1.8) Arterial Blood Potassium (3.6-5.2) mmol/L Urine Color (YELLOW) Urine Appearance (CLEAR) Urine pH (4.7-8.0) Ur Specific [place] (1.005-1.035) Urine Protein (<30 mg/dL) mg/dL Urine Glucose (UA) (NEGATIVE) mg/dL Urine Ketones (NEGATIVE) mg/dL Urine Blood (NEGATIVE) Urine Nitrate (NEGATIVE) Urine Bilirubin (NEGATIVE) Urine Urobilinogen (<1 E.U./dL) E.U./dL Ur Leukocyte Esterase (NEGATIVE) Yolanda/uL Urine RBC (0-2) /hpf Urine WBC (0-6) /hpf Ur Epithelial Cells (0-5) /hpf Amorphous Sediment Urine Bacteria (NEG) Coarse Granular Casts (0-2) /hpf Urine Other Salicylates (2.0-20.0) mg/dL 06/06/17 06/06/17 06/06/17 Range/Units 15:55 15:14 14:05 WBC (4.5-11.0) 10^3/ul RBC (3.5-6.1) 10^6/uL Hgb (12.0-16.0) g/dL Hct (36.0-48.0) % MCV (80.0-105.0) fl MCH (25.0-35.0) pg MCHC (31.0-37.0) g/dl RDW (11.5-14.5) % Plt Count (120.0-450.0) 10^3/uL MPV (7.0-11.0) fl Gran % (50.0-68.0) % Lymph % (Auto) (22.0-35.0) % [place] % (Auto) (1.0-6.0) % Eos % (Auto) (1.5-5.0) % Baso % (Auto) (0.0-3.0) % Gran # (1.4-6.5) Lymph # (Auto) (1.2-3.4) [place] # (Auto) (0.1-0.6) Eos # (Auto) (0.0-0.7) Baso # (Auto) (0.0-2.0) K/mm3 pCO2 (35-45) mm/Hg pO2 (80-100) mm/Hg HCO3 (21-28) mmol/L ABG pH (7.35-7.45) ABG Total CO2 (22-28) mmol.L ABG O2 Saturation (95-98) % ABG O2 Content (15-23) ML/dl ABG Base Excess (-2.0-3.0) mmol/L ABG Hemoglobin (11.7-17.4) g/dL ABG Carboxyhemoglobin (0.5-1.5) % POC ABG HHb (Measured) (0-5) % ABG Methemoglobin (0.0-3.0) % ABG O2 Capacity (16-24) mL/dl ABG Potassium (3.6-5.2) mmol/L Hgb O2 Saturation (95.0-98.0) % Glucose (65-105) mg/dl Lactate (0.7-2.1) mmol/L FiO2 % Sodium 151 H (132-148) mmol/L Potassium 2.9 L* (3.6-5.0) mmol/L Chloride 120 H (98-107) mmol/L Carbon Dioxide < 5 L (21-33) mmol/L Anion Gap 29 H (10-20) BUN 31 H (7-21) mg/dL Creatinine 1.6 H (0.7-1.2) mg/dl Est GFR ( Amer) 41 Est GFR (Non-Af Amer) 34 POC Glucose (mg/dL) 277 H 306 H (65-110) mg/dL Random Glucose 301 H* (70-110) mg/dL Hemoglobin A1c (4.2-6.5) % Lactic Acid (0.7-2.1) mmol/L Calcium 9.4 (8.4-10.5) mg/dL Phosphorus (2.5-4.5) mg/dL Magnesium (1.7-2.2) mg/dL Total Bilirubin (0.2-1.3) mg/dL AST (14-36) U/L ALT (7-56) U/L Alkaline Phosphatase (38-126) U/L Total Protein (5.8-8.3) g/dL Albumin (3.0-4.8) g/dL Globulin gm/dL Albumin/Globulin Ratio (1.1-1.8) Arterial Blood Potassium (3.6-5.2) mmol/L Urine Color (YELLOW) Urine Appearance (CLEAR) Urine pH (4.7-8.0) Ur Specific [place] (1.005-1.035) Urine Protein (<30 mg/dL) mg/dL Urine Glucose (UA) (NEGATIVE) mg/dL Urine Ketones (NEGATIVE) mg/dL Urine Blood (NEGATIVE) Urine Nitrate (NEGATIVE) Urine Bilirubin (NEGATIVE) Urine Urobilinogen (<1 E.U./dL) E.U./dL Ur Leukocyte Esterase (NEGATIVE) Yolanda/uL Urine RBC (0-2) /hpf Urine WBC (0-6) /hpf Ur Epithelial Cells (0-5) /hpf Amorphous Sediment Urine Bacteria (NEG) Coarse Granular Casts (0-2) /hpf Urine Other Salicylates (2.0-20.0) mg/dL 06/06/17 06/06/17 06/06/17 Range/Units 14:00 12:51 12:45 WBC (4.5-11.0) 10^3/ul RBC (3.5-6.1) 10^6/uL Hgb (12.0-16.0) g/dL Hct (36.0-48.0) % MCV (80.0-105.0) fl MCH (25.0-35.0) pg MCHC (31.0-37.0) g/dl RDW (11.5-14.5) % Plt Count (120.0-450.0) 10^3/uL MPV (7.0-11.0) fl Gran % (50.0-68.0) % Lymph % (Auto) (22.0-35.0) % [place] % (Auto) (1.0-6.0) % Eos % (Auto) (1.5-5.0) % Baso % (Auto) (0.0-3.0) % Gran # (1.4-6.5) Lymph # (Auto) (1.2-3.4) [place] # (Auto) (0.1-0.6) Eos # (Auto) (0.0-0.7) Baso # (Auto) (0.0-2.0) K/mm3 pCO2 (35-45) mm/Hg pO2 (80-100) mm/Hg HCO3 (21-28) mmol/L ABG pH (7.35-7.45) ABG Total CO2 (22-28) mmol.L ABG O2 Saturation (95-98) % ABG O2 Content (15-23) ML/dl ABG Base Excess (-2.0-3.0) mmol/L ABG Hemoglobin (11.7-17.4) g/dL ABG Carboxyhemoglobin (0.5-1.5) % POC ABG HHb (Measured) (0-5) % ABG Methemoglobin (0.0-3.0) % ABG O2 Capacity (16-24) mL/dl ABG Potassium (3.6-5.2) mmol/L Hgb O2 Saturation (95.0-98.0) % Glucose (65-105) mg/dl Lactate (0.7-2.1) mmol/L FiO2 % Sodium (132-148) mmol/L Potassium (3.6-5.0) mmol/L Chloride (98-107) mmol/L Carbon Dioxide (21-33) mmol/L Anion Gap (10-20) BUN (7-21) mg/dL Creatinine (0.7-1.2) mg/dl Est GFR ( Amer) Est GFR (Non-Af Amer) POC Glucose (mg/dL) 267 H 267 H (65-110) mg/dL Random Glucose (70-110) mg/dL Hemoglobin A1c (4.2-6.5) % Lactic Acid 1.0 (0.7-2.1) mmol/L Calcium (8.4-10.5) mg/dL Phosphorus (2.5-4.5) mg/dL Magnesium (1.7-2.2) mg/dL Total Bilirubin (0.2-1.3) mg/dL AST (14-36) U/L ALT (7-56) U/L Alkaline Phosphatase (38-126) U/L Total Protein (5.8-8.3) g/dL Albumin (3.0-4.8) g/dL Globulin gm/dL Albumin/Globulin Ratio (1.1-1.8) Arterial Blood Potassium (3.6-5.2) mmol/L Urine Color (YELLOW) Urine Appearance (CLEAR) Urine pH (4.7-8.0) Ur Specific [place] (1.005-1.035) Urine Protein (<30 mg/dL) mg/dL Urine Glucose (UA) (NEGATIVE) mg/dL Urine Ketones (NEGATIVE) mg/dL Urine Blood (NEGATIVE) Urine Nitrate (NEGATIVE) Urine Bilirubin (NEGATIVE) Urine Urobilinogen (<1 E.U./dL) E.U./dL Ur Leukocyte Esterase (NEGATIVE) Yolanda/uL Urine RBC (0-2) /hpf Urine WBC (0-6) /hpf Ur Epithelial Cells (0-5) /hpf Amorphous Sediment Urine Bacteria (NEG) Coarse Granular Casts (0-2) /hpf Urine Other Salicylates (2.0-20.0) mg/dL 06/06/17 Range/Units 12:01 WBC (4.5-11.0) 10^3/ul RBC (3.5-6.1) 10^6/uL Hgb (12.0-16.0) g/dL Hct (36.0-48.0) % MCV (80.0-105.0) fl MCH (25.0-35.0) pg MCHC (31.0-37.0) g/dl RDW (11.5-14.5) % Plt Count (120.0-450.0) 10^3/uL MPV (7.0-11.0) fl Gran % (50.0-68.0) % Lymph % (Auto) (22.0-35.0) % [place] % (Auto) (1.0-6.0) % Eos % (Auto) (1.5-5.0) % Baso % (Auto) (0.0-3.0) % Gran # (1.4-6.5) Lymph # (Auto) (1.2-3.4) [place] # (Auto) (0.1-0.6) Eos # (Auto) (0.0-0.7) Baso # (Auto) (0.0-2.0) K/mm3 pCO2 (35-45) mm/Hg pO2 (80-100) mm/Hg HCO3 (21-28) mmol/L ABG pH (7.35-7.45) ABG Total CO2 (22-28) mmol.L ABG O2 Saturation (95-98) % ABG O2 Content (15-23) ML/dl ABG Base Excess (-2.0-3.0) mmol/L ABG Hemoglobin (11.7-17.4) g/dL ABG Carboxyhemoglobin (0.5-1.5) % POC ABG HHb (Measured) (0-5) % ABG Methemoglobin (0.0-3.0) % ABG O2 Capacity (16-24) mL/dl ABG Potassium (3.6-5.2) mmol/L Hgb O2 Saturation (95.0-98.0) % Glucose (65-105) mg/dl Lactate (0.7-2.1) mmol/L FiO2 % Sodium (132-148) mmol/L Potassium (3.6-5.0) mmol/L Chloride (98-107) mmol/L Carbon Dioxide (21-33) mmol/L Anion Gap (10-20) BUN (7-21) mg/dL Creatinine (0.7-1.2) mg/dl Est GFR ( Amer) Est GFR (Non-Af Amer) POC Glucose (mg/dL) 282 H (65-110) mg/dL Random Glucose (70-110) mg/dL Hemoglobin A1c (4.2-6.5) % Lactic Acid (0.7-2.1) mmol/L Calcium (8.4-10.5) mg/dL Phosphorus (2.5-4.5) mg/dL Magnesium (1.7-2.2) mg/dL Total Bilirubin (0.2-1.3) mg/dL AST (14-36) U/L ALT (7-56) U/L Alkaline Phosphatase (38-126) U/L Total Protein (5.8-8.3) g/dL Albumin (3.0-4.8) g/dL Globulin gm/dL Albumin/Globulin Ratio (1.1-1.8) Arterial Blood Potassium (3.6-5.2) mmol/L Urine Color (YELLOW) Urine Appearance (CLEAR) Urine pH (4.7-8.0) Ur Specific [place] (1.005-1.035) Urine Protein (<30 mg/dL) mg/dL Urine Glucose (UA) (NEGATIVE) mg/dL Urine Ketones (NEGATIVE) mg/dL Urine Blood (NEGATIVE) Urine Nitrate (NEGATIVE) Urine Bilirubin (NEGATIVE) Urine Urobilinogen (<1 E.U./dL) E.U./dL Ur Leukocyte Esterase (NEGATIVE) Yolanda/uL Urine RBC (0-2) /hpf Urine WBC (0-6) /hpf Ur Epithelial Cells (0-5) /hpf Amorphous Sediment Urine Bacteria (NEG) Coarse Granular Casts (0-2) /hpf Urine Other Salicylates (2.0-20.0) mg/dL Laboratory Results - last 24 hr 06/06/17 06/06/17 06/06/17 12:01 12:45 12:51 WBC RBC Hgb Hct MCV MCH MCHC RDW Plt Count MPV Gran % Lymph % (Auto) [place] % (Auto) Eos % (Auto) Baso % (Auto) Gran # Lymph # (Auto) [place] # (Auto) Eos # (Auto) Baso # (Auto) pCO2 pO2 HCO3 ABG pH ABG Total CO2 ABG O2 Saturation ABG O2 Content ABG Base Excess ABG Hemoglobin ABG Carboxyhemoglobin POC ABG HHb (Measured) ABG Methemoglobin ABG O2 Capacity ABG Potassium Hgb O2 Saturation Glucose Lactate FiO2 Sodium Potassium Chloride Carbon Dioxide Anion Gap BUN Creatinine Est GFR ( Amer) Est GFR (Non-Af Amer) POC Glucose (mg/dL) 282 H 267 H Random Glucose Hemoglobin A1c Lactic Acid 1.0 Calcium Phosphorus Magnesium Total Bilirubin AST ALT Alkaline Phosphatase Total Protein Albumin Globulin Albumin/Globulin Ratio Arterial Blood Potassium Urine Color Urine Appearance Urine pH Ur Specific [place] Urine Protein Urine Glucose (UA) Urine Ketones Urine Blood Urine Nitrate Urine Bilirubin Urine Urobilinogen Ur Leukocyte Esterase Urine RBC Urine WBC Ur Epithelial Cells Amorphous Sediment Urine Bacteria Coarse Granular Casts Urine Other Salicylates 06/06/17 06/06/17 06/06/17 14:00 14:05 15:14 WBC RBC Hgb Hct MCV MCH MCHC RDW Plt Count MPV Gran % Lymph % (Auto) [place] % (Auto) Eos % (Auto) Baso % (Auto) Gran # Lymph # (Auto) [place] # (Auto) Eos # (Auto) Baso # (Auto) pCO2 pO2 HCO3 ABG pH ABG Total CO2 ABG O2 Saturation ABG O2 Content ABG Base Excess ABG Hemoglobin ABG Carboxyhemoglobin POC ABG HHb (Measured) ABG Methemoglobin ABG O2 Capacity ABG Potassium Hgb O2 Saturation Glucose Lactate FiO2 Sodium 151 H Potassium 2.9 L* Chloride 120 H Carbon Dioxide < 5 L Anion Gap 29 H BUN 31 H Creatinine 1.6 H Est GFR ( Amer) 41 Est GFR (Non-Af Amer) 34 POC Glucose (mg/dL) 267 H 306 H Random Glucose 301 H* Hemoglobin A1c Lactic Acid Calcium 9.4 Phosphorus Magnesium Total Bilirubin AST ALT Alkaline Phosphatase Total Protein Albumin Globulin Albumin/Globulin Ratio Arterial Blood Potassium Urine Color Urine Appearance Urine pH Ur Specific [place] Urine Protein Urine Glucose (UA) Urine Ketones Urine Blood Urine Nitrate Urine Bilirubin Urine Urobilinogen Ur Leukocyte Esterase Urine RBC Urine WBC Ur Epithelial Cells Amorphous Sediment Urine Bacteria Coarse Granular Casts Urine Other Salicylates 06/06/17 06/06/17 06/06/17 15:55 17:09 18:02 WBC RBC Hgb Hct MCV MCH MCHC RDW Plt Count MPV Gran % Lymph % (Auto) [place] % (Auto) Eos % (Auto) Baso % (Auto) Gran # Lymph # (Auto) [place] # (Auto) Eos # (Auto) Baso # (Auto) pCO2 pO2 HCO3 ABG pH ABG Total CO2 ABG O2 Saturation ABG O2 Content ABG Base Excess ABG Hemoglobin ABG Carboxyhemoglobin POC ABG HHb (Measured) ABG Methemoglobin ABG O2 Capacity ABG Potassium Hgb O2 Saturation Glucose Lactate FiO2 Sodium Potassium Chloride Carbon Dioxide Anion Gap BUN Creatinine Est GFR ( Amer) Est GFR (Non-Af Amer) POC Glucose (mg/dL) 277 H 246 H 219 H Random Glucose Hemoglobin A1c Lactic Acid Calcium Phosphorus Magnesium Total Bilirubin AST ALT Alkaline Phosphatase Total Protein Albumin Globulin Albumin/Globulin Ratio Arterial Blood Potassium Urine Color Urine Appearance Urine pH Ur Specific [place] Urine Protein Urine Glucose (UA) Urine Ketones Urine Blood Urine Nitrate Urine Bilirubin Urine Urobilinogen Ur Leukocyte Esterase Urine RBC Urine WBC Ur Epithelial Cells Amorphous Sediment Urine Bacteria Coarse Granular Casts Urine Other Salicylates 06/06/17 06/06/17 06/06/17 18:16 18:56 20:06 WBC RBC Hgb Hct MCV MCH MCHC RDW Plt Count MPV Gran % Lymph % (Auto) [place] % (Auto) Eos % (Auto) Baso % (Auto) Gran # Lymph # (Auto) [place] # (Auto) Eos # (Auto) Baso # (Auto) pCO2 pO2 HCO3 ABG pH ABG Total CO2 ABG O2 Saturation ABG O2 Content ABG Base Excess ABG Hemoglobin ABG Carboxyhemoglobin POC ABG HHb (Measured) ABG Methemoglobin ABG O2 Capacity ABG Potassium Hgb O2 Saturation Glucose Lactate FiO2 Sodium 152 H Potassium 2.6 L* Chloride 122 H Carbon Dioxide 5 L Anion Gap 28 H BUN 33 H Creatinine 1.8 H Est GFR ( Amer) 36 Est GFR (Non-Af Amer) 30 POC Glucose (mg/dL) 208 H 272 H Random Glucose 250 H Hemoglobin A1c Lactic Acid Calcium 9.4 Phosphorus Magnesium Total Bilirubin AST ALT Alkaline Phosphatase Total Protein Albumin Globulin Albumin/Globulin Ratio Arterial Blood Potassium Urine Color Urine Appearance Urine pH Ur Specific [place] Urine Protein Urine Glucose (UA) Urine Ketones Urine Blood Urine Nitrate Urine Bilirubin Urine Urobilinogen Ur Leukocyte Esterase Urine RBC Urine WBC Ur Epithelial Cells Amorphous Sediment Urine Bacteria Coarse Granular Casts Urine Other Salicylates 06/06/17 06/06/17 06/06/17 21:03 22:11 22:52 WBC RBC Hgb Hct MCV MCH MCHC RDW Plt Count MPV Gran % Lymph % (Auto) [place] % (Auto) Eos % (Auto) Baso % (Auto) Gran # Lymph # (Auto) [place] # (Auto) Eos # (Auto) Baso # (Auto) pCO2 pO2 HCO3 ABG pH ABG Total CO2 ABG O2 Saturation ABG O2 Content ABG Base Excess ABG Hemoglobin ABG Carboxyhemoglobin POC ABG HHb (Measured) ABG Methemoglobin ABG O2 Capacity ABG Potassium Hgb O2 Saturation Glucose Lactate FiO2 Sodium 152 H Potassium 2.9 L* Chloride 123 H Carbon Dioxide 5 L Anion Gap 27 H BUN 34 H Creatinine 1.9 H Est GFR ( Amer) 34 Est GFR (Non-Af Amer) 28 POC Glucose (mg/dL) 236 H 216 H Random Glucose 225 H Hemoglobin A1c Lactic Acid Calcium 9.8 Phosphorus Magnesium Total Bilirubin AST ALT Alkaline Phosphatase Total Protein Albumin Globulin Albumin/Globulin Ratio Arterial Blood Potassium Urine Color Urine Appearance Urine pH Ur Specific [place] Urine Protein Urine Glucose (UA) Urine Ketones Urine Blood Urine Nitrate Urine Bilirubin Urine Urobilinogen Ur Leukocyte Esterase Urine RBC Urine WBC Ur Epithelial Cells Amorphous Sediment Urine Bacteria Coarse Granular Casts Urine Other Salicylates 06/06/17 06/07/17 06/07/17 23:14 00:01 01:00 WBC RBC Hgb Hct MCV MCH MCHC RDW Plt Count MPV Gran % Lymph % (Auto) [place] % (Auto) Eos % (Auto) Baso % (Auto) Gran # Lymph # (Auto) [place] # (Auto) Eos # (Auto) Baso # (Auto) pCO2 pO2 HCO3 ABG pH ABG Total CO2 ABG O2 Saturation ABG O2 Content ABG Base Excess ABG Hemoglobin ABG Carboxyhemoglobin POC ABG HHb (Measured) ABG Methemoglobin ABG O2 Capacity ABG Potassium Hgb O2 Saturation Glucose Lactate FiO2 Sodium Potassium Chloride Carbon Dioxide Anion Gap BUN Creatinine Est GFR ( Amer) Est GFR (Non-Af Amer) POC Glucose (mg/dL) 194 H 231 H 240 H Random Glucose Hemoglobin A1c Lactic Acid Calcium Phosphorus Magnesium Total Bilirubin AST ALT Alkaline Phosphatase Total Protein Albumin Globulin Albumin/Globulin Ratio Arterial Blood Potassium Urine Color Urine Appearance Urine pH Ur Specific [place] Urine Protein Urine Glucose (UA) Urine Ketones Urine Blood Urine Nitrate Urine Bilirubin Urine Urobilinogen Ur Leukocyte Esterase Urine RBC Urine WBC Ur Epithelial Cells Amorphous Sediment Urine Bacteria Coarse Granular Casts Urine Other Salicylates 06/07/17 06/07/17 06/07/17 01:05 02:17 03:01 WBC RBC Hgb Hct MCV MCH MCHC RDW Plt Count MPV Gran % Lymph % (Auto) [place] % (Auto) Eos % (Auto) Baso % (Auto) Gran # Lymph # (Auto) [place] # (Auto) Eos # (Auto) Baso # (Auto) pCO2 pO2 HCO3 ABG pH ABG Total CO2 ABG O2 Saturation ABG O2 Content ABG Base Excess ABG Hemoglobin ABG Carboxyhemoglobin POC ABG HHb (Measured) ABG Methemoglobin ABG O2 Capacity ABG Potassium Hgb O2 Saturation Glucose Lactate FiO2 Sodium 152 H Potassium 2.7 L* Chloride 130 H Carbon Dioxide < 5 L Anion Gap 20 BUN 30 H Creatinine 1.6 H Est GFR ( Amer) 41 Est GFR (Non-Af Amer) 34 POC Glucose (mg/dL) 242 H 242 H Random Glucose 232 H Hemoglobin A1c Lactic Acid Calcium 8.3 L Phosphorus Magnesium Total Bilirubin AST ALT Alkaline Phosphatase Total Protein Albumin Globulin Albumin/Globulin Ratio Arterial Blood Potassium Urine Color Urine Appearance Urine pH Ur Specific [place] Urine Protein Urine Glucose (UA) Urine Ketones Urine Blood Urine Nitrate Urine Bilirubin Urine Urobilinogen Ur Leukocyte Esterase Urine RBC Urine WBC Ur Epithelial Cells Amorphous Sediment Urine Bacteria Coarse Granular Casts Urine Other Salicylates 06/07/17 06/07/17 06/07/17 04:08 05:03 05:55 WBC RBC Hgb Hct MCV MCH MCHC RDW Plt Count MPV Gran % Lymph % (Auto) [place] % (Auto) Eos % (Auto) Baso % (Auto) Gran # Lymph # (Auto) [place] # (Auto) Eos # (Auto) Baso # (Auto) pCO2 pO2 HCO3 ABG pH ABG Total CO2 ABG O2 Saturation ABG O2 Content ABG Base Excess ABG Hemoglobin ABG Carboxyhemoglobin POC ABG HHb (Measured) ABG Methemoglobin ABG O2 Capacity ABG Potassium Hgb O2 Saturation Glucose Lactate FiO2 Sodium Potassium Chloride Carbon Dioxide Anion Gap BUN Creatinine Est GFR ( Amer) Est GFR (Non-Af Amer) POC Glucose (mg/dL) 229 H 258 H Random Glucose Hemoglobin A1c Lactic Acid Calcium Phosphorus Magnesium Total Bilirubin AST ALT Alkaline Phosphatase Total Protein Albumin Globulin Albumin/Globulin Ratio Arterial Blood Potassium Urine Color Urine Appearance Urine pH Ur Specific [place] Urine Protein Urine Glucose (UA) Urine Ketones Urine Blood Urine Nitrate Urine Bilirubin Urine Urobilinogen Ur Leukocyte Esterase Urine RBC Urine WBC Ur Epithelial Cells Amorphous Sediment Urine Bacteria Coarse Granular Casts Urine Other Salicylates < 1 L 06/07/17 06/07/17 06/07/17 05:55 05:55 05:55 WBC 13.8 H D RBC 4.05 Hgb 12.0 Hct 34.4 L MCV 84.9 D MCH 29.6 MCHC 34.9 RDW 14.8 H Plt Count 128 MPV 11.0 Gran % 79.2 H Lymph % (Auto) 8.4 L [place] % (Auto) 11.9 H Eos % (Auto) 0.1 L Baso % (Auto) 0.4 Gran # 10.90 H Lymph # (Auto) 1.2 [place] # (Auto) 1.6 H Eos # (Auto) 0.0 Baso # (Auto) 0.06 pCO2 pO2 HCO3 ABG pH ABG Total CO2 ABG O2 Saturation ABG O2 Content ABG Base Excess ABG Hemoglobin ABG Carboxyhemoglobin POC ABG HHb (Measured) ABG Methemoglobin ABG O2 Capacity ABG Potassium Hgb O2 Saturation Glucose Lactate FiO2 Sodium 155 H Potassium 3.3 L Chloride 123 H Carbon Dioxide 8 L D Anion Gap 27 H BUN 35 H Creatinine 1.9 H Est GFR ( Amer) 34 Est GFR (Non-Af Amer) 28 POC Glucose (mg/dL) Random Glucose 303 H* D Hemoglobin A1c 8.3 H Lactic Acid Calcium 10.0 Phosphorus 0.7 L* Magnesium 3.0 H Total Bilirubin 0.6 AST 26 ALT 31 Alkaline Phosphatase 105 Total Protein 6.4 Albumin 3.7 Globulin 2.6 Albumin/Globulin Ratio 1.4 Arterial Blood Potassium Urine Color Urine Appearance Urine pH Ur Specific [place] Urine Protein Urine Glucose (UA) Urine Ketones Urine Blood Urine Nitrate Urine Bilirubin Urine Urobilinogen Ur Leukocyte Esterase Urine RBC Urine WBC Ur Epithelial Cells Amorphous Sediment Urine Bacteria Coarse Granular Casts Urine Other Salicylates 06/07/17 06/07/17 06/07/17 06:11 07:33 08:24 WBC RBC Hgb Hct MCV MCH MCHC RDW Plt Count MPV Gran % Lymph % (Auto) [place] % (Auto) Eos % (Auto) Baso % (Auto) Gran # Lymph # (Auto) [place] # (Auto) Eos # (Auto) Baso # (Auto) pCO2 pO2 HCO3 ABG pH ABG Total CO2 ABG O2 Saturation ABG O2 Content ABG Base Excess ABG Hemoglobin ABG Carboxyhemoglobin POC ABG HHb (Measured) ABG Methemoglobin ABG O2 Capacity ABG Potassium Hgb O2 Saturation Glucose Lactate FiO2 Sodium Potassium Chloride Carbon Dioxide Anion Gap BUN Creatinine Est GFR ( Amer) Est GFR (Non-Af Amer) POC Glucose (mg/dL) 240 H 279 H 275 H Random Glucose Hemoglobin A1c Lactic Acid Calcium Phosphorus Magnesium Total Bilirubin AST ALT Alkaline Phosphatase Total Protein Albumin Globulin Albumin/Globulin Ratio Arterial Blood Potassium Urine Color Urine Appearance Urine pH Ur Specific [place] Urine Protein Urine Glucose (UA) Urine Ketones Urine Blood Urine Nitrate Urine Bilirubin Urine Urobilinogen Ur Leukocyte Esterase Urine RBC Urine WBC Ur Epithelial Cells Amorphous Sediment Urine Bacteria Coarse Granular Casts Urine Other Salicylates 06/07/17 06/07/17 06/07/17 09:10 09:26 10:45 WBC RBC Hgb Hct MCV MCH MCHC RDW Plt Count MPV Gran % Lymph % (Auto) [place] % (Auto) Eos % (Auto) Baso % (Auto) Gran # Lymph # (Auto) [place] # (Auto) Eos # (Auto) Baso # (Auto) pCO2 18 L* pO2 115.0 H HCO3 6.4 L* ABG pH 7.16 L* ABG Total CO2 7.0 L ABG O2 Saturation 99.4 H ABG O2 Content ABG Base Excess -20.2 L ABG Hemoglobin ABG Carboxyhemoglobin POC ABG HHb (Measured) ABG Methemoglobin ABG O2 Capacity ABG Potassium 2.7 L Hgb O2 Saturation Glucose 314 H Lactate 0.6 L FiO2 28.0 Sodium 152.0 H 156 H* Potassium 3.2 L Chloride 124.0 H 127 H Carbon Dioxide 10 L D Anion Gap 22 H BUN 35 H Creatinine 1.9 H Est GFR ( Amer) 34 Est GFR (Non-Af Amer) 28 POC Glucose (mg/dL) 282 H Random Glucose 303 H* Hemoglobin A1c Lactic Acid Calcium 9.3 Phosphorus 0.8 L* Magnesium 2.9 H Total Bilirubin AST ALT Alkaline Phosphatase Total Protein Albumin Globulin Albumin/Globulin Ratio Arterial Blood Potassium 2.7 L Urine Color Urine Appearance Urine pH Ur Specific [place] Urine Protein Urine Glucose (UA) Urine Ketones Urine Blood Urine Nitrate Urine Bilirubin Urine Urobilinogen Ur Leukocyte Esterase Urine RBC Urine WBC Ur Epithelial Cells Amorphous Sediment Urine Bacteria Coarse Granular Casts Urine Other Salicylates 06/07/17 06/07/17 06/07/17 10:54 11:15 11:53 WBC RBC Hgb Hct MCV MCH MCHC RDW Plt Count MPV Gran % Lymph % (Auto) [place] % (Auto) Eos % (Auto) Baso % (Auto) Gran # Lymph # (Auto) [place] # (Auto) Eos # (Auto) Baso # (Auto) pCO2 pO2 HCO3 ABG pH ABG Total CO2 ABG O2 Saturation ABG O2 Content ABG Base Excess ABG Hemoglobin ABG Carboxyhemoglobin POC ABG HHb (Measured) ABG Methemoglobin ABG O2 Capacity ABG Potassium Hgb O2 Saturation Glucose Lactate FiO2 Sodium Potassium Chloride Carbon Dioxide Anion Gap BUN Creatinine Est GFR ( Amer) Est GFR (Non-Af Amer) POC Glucose (mg/dL) 299 H 256 H Random Glucose Hemoglobin A1c Lactic Acid Calcium Phosphorus Magnesium Total Bilirubin AST ALT Alkaline Phosphatase Total Protein Albumin Globulin Albumin/Globulin Ratio Arterial Blood Potassium Urine Color Yellow Urine Appearance Clear Urine pH 5.5 Ur Specific [place] 1.015 Urine Protein 100 H Urine Glucose (UA) >=1000 Urine Ketones 40 H Urine Blood Large H Urine Nitrate Negative Urine Bilirubin Small H Urine Urobilinogen 0.2 Ur Leukocyte Esterase Negative Urine RBC 25 - 30 Urine WBC 1 - 3 Ur Epithelial Cells 6 - 8 Amorphous Sediment Small Urine Bacteria Many Coarse Granular Casts Trace H Urine Other Uyeast Salicylates 06/07/17 12:00 WBC RBC Hgb Hct MCV MCH MCHC RDW Plt Count MPV Gran % Lymph % (Auto) [place] % (Auto) Eos % (Auto) Baso % (Auto) Gran # Lymph # (Auto) [place] # (Auto) Eos # (Auto) Baso # (Auto) pCO2 26 L pO2 249.0 H HCO3 9.5 L* ABG pH 7.17 L* ABG Total CO2 10.3 L ABG O2 Saturation 99.9 H ABG O2 Content 15.6 ABG Base Excess -17.5 L ABG Hemoglobin 11.0 L ABG Carboxyhemoglobin 1.6 H POC ABG HHb (Measured) 0.1 ABG Methemoglobin 1.3 ABG O2 Capacity 15.6 L ABG Potassium Hgb O2 Saturation 97.0 Glucose Lactate FiO2 60.0 Sodium Potassium Chloride Carbon Dioxide Anion Gap BUN Creatinine Est GFR ( Amer) Est GFR (Non-Af Amer) POC Glucose (mg/dL) Random Glucose Hemoglobin A1c Lactic Acid Calcium Phosphorus Magnesium Total Bilirubin AST ALT Alkaline Phosphatase Total Protein Albumin Globulin Albumin/Globulin Ratio Arterial Blood Potassium Urine Color Urine Appearance Urine pH Ur Specific [place] Urine Protein Urine Glucose (UA) Urine Ketones Urine Blood Urine Nitrate Urine Bilirubin Urine Urobilinogen Ur Leukocyte Esterase Urine RBC Urine WBC Ur Epithelial Cells Amorphous Sediment Urine Bacteria Coarse Granular Casts Urine Other Salicylates Critical Care Progress Note - Nutrition Nutrition: Nutrition Category Date Time Status Heart Healthy Diet [DIET] Diets 06/04/17 Dinner Ordered Attending/Attestation - Attestation I have personally seen and examined this patient.: Yes I have fully participated in the care of the patient.: Yes I have reviewed all pertinent clinical information: Yes Notes (Text): 06/07/17 12:20 The patient was seen and examined at the bedside. Patient care was discussed with resident and ICU team in MDR rounds. Medical records, lab studies, and imaging were reviewed and management issues were discussed and formulated. Last 24H events reviewed. Agree with above treatment plans as outlined in 's note with addition of the following: Respiratory Failure \ DKA \ AURE \ Afib with RVR \ HTN \ ro sepsis \ Hypokalemia \ Encephalopathy -hemodynamic monitoring to maintain MAP>65 -f\u ECho to assess baseline LV function; cardiology team f\u -pt needed emergent intubation for airway protection this morning -continue mechanical ventilation and o2 supplementation to maintain Spo2>90 Pao2 >60 -f\u CXR and ABG post intubation -f\u Bun\Cr and U\o; continue IVF with D5W 1/2NS -continue to replace e-lites -continue Insulin drip as per protocol and BGM q1h -monitor CH7 for Anion gap q4hrs -NPO diet and aspiration precautions -f\u HbA1c -endocrine eval -neuro eval as mental status is not improving and pt is more lethargic this morning -monitor fever curve and pancultures; ID eval appreciated -DVT prophylaxis CCM time excluding procedures 36min
[2017-06-07] MEDS: Meropenem IV 1 gm in NS 50 ML IVPB SCH ×2 (11:24→21:12)
[2017-06-07 11:29] LABS: PH,URINE 5.5 (4.7-8.0); URINE APPEARANCE CLEAR (CLEAR); URINE BILIRUBIN SMALL (NEGATIVE); URINE BLOOD LARGE (NEGATIVE); URINE COLOR YELLOW (YELLOW); URINE GLUCOSE (UA) >=1000 mg/dL (NEGATIVE); URINE LEUKOCYTE ESTERASE NEGATIVE Leu/uL (NEGATIVE); URINE PROTEIN 100 mg/dL (<30 mg/dL); URINE UROBILINOGEN 0.2 E.U./dL (<1 E.U./dL)
[2017-06-07 11:35] LABS: URINE BACTERIA MANY (NEG); URINE RBC 25 - 30 /hpf (0-2)
[2017-06-07 11:35] LABS: CALCIUM 9.3 mg/dL (8.4-10.5)
[2017-06-07 11:36] LABS: URINE COARSE GRANULAR CAST TRACE /hpf (0-2)
[2017-06-07 11:37] LABS: URINE AMORPHOUS SEDIMENT SMALL
[2017-06-07 12:03] LABS: ARTERIAL BLOOD GAS O2 CAPACITY 15.6 mL/dl (16-24); ARTERIAL BLOOD GAS O2 CONTENT 15.6 ML/dl (15-23); ARTERIAL BLOOD GAS O2 SAT 99.9 % (95-98); ARTERIAL BLOOD GAS PCO2 26 mm/Hg (35-45); ARTERIAL BLOOD GAS TCO2 10.3 mmol.L (22-28)
[2017-06-07 12:04] LABS: ARTERIAL BLOOD GAS HCO3 9.5 mmol/L (21-28); ARTERIAL BLOOD GAS PH 7.17 (7.35-7.45)
--- NOTE | 2017-06-07 12:31 | RAD ---
HISTORY: Intubation COMPARISON: 06/04/2017 FINDINGS: LUNGS: Clear. PLEURA: No significant pleural effusion identified, no pneumothorax apparent. CARDIOVASCULAR: No radiographic findings to suggest acute or significant cardiovascular disease. OSSEOUS STRUCTURES: No significant abnormalities. VISUALIZED UPPER ABDOMEN: Normal. OTHER FINDINGS: Satisfactory position ventilatory, vascular and nasogastric apparatus. This includes PICC line inserted via right-sided approach. Nasogastric tube coiled in the stomach. Endotracheal tube tip at the level of the clavicles. IMPRESSION: No active disease. Satisfactory position of recently placed support apparatus
--- NOTE | 2017-06-07 14:03 | CT ---
PROCEDURE: CT HEAD WITHOUT CONTRAST. HISTORY: AMS COMPARISON: 06/05/2017 TECHNIQUE: Axial computed tomography images were obtained through the head/brain without intravenous contrast. Radiation dose: Total exam DLP = 969 mGy-cm. This CT exam was performed using one or more of the following dose reduction techniques: Automated exposure control, adjustment of the mA and/or kV according to patient size, and/or use of iterative reconstruction technique. FINDINGS: HEMORRHAGE: No intracranial hemorrhage. BRAIN: No mass effect or edema. No atrophy or chronic microvascular ischemic changes. VENTRICLES: Unremarkable. No hydrocephalus. CALVARIUM: Unremarkable. PARANASAL SINUSES: Unremarkable as visualized. No significant inflammatory changes. MASTOID AIR CELLS: Unremarkable as visualized. No inflammatory changes. OTHER FINDINGS: None. IMPRESSION: No acute intracranial findings
--- NOTE | 2017-06-07 14:48 | CT ---
PROCEDURE: CT Abdomen and Pelvis without intravenous contrast HISTORY: R/o Intra abdominal abscess ,s/p gastric sleeve COMPARISON: CT 06/04/2017 TECHNIQUE: Without contrast. Contrast Dose: Radiation dose: Total exam DLP = Total exam DLP = 1124 mGy-cm. This CT exam was performed using one or more of the following dose reduction techniques: Automated exposure control, adjustment of the mA and/or kV according to patient size, and/or use of iterative reconstruction technique. FINDINGS: LOWER THORAX: A suture line is seen in the stomach. A nasogastric tube is present. There is no surrounding fluid collection. LIVER: Unremarkable. No gross lesion or ductal dilatation. GALLBLADDER AND BILE DUCTS: There is some dense contrast in the gallbladder. The patient had a contrast-enhanced exam on 06/04 PANCREAS: Unremarkable. No gross lesion or ductal dilatation. SPLEEN: Unremarkable. ADRENALS: Unremarkable. No mass. KIDNEYS AND URETERS: There is some perinephric stranding and fluid bilaterally which was not present on the previous study. There is no evidence of hydronephrosis. The findings could be secondary to pyelonephritis. Clinical correlation is suggested VASCULATURE: Unremarkable. No aortic aneurysm. BOWEL: Unremarkable. No obstruction. No gross mural thickening. APPENDIX: Unremarkable. Normal appendix. PERITONEUM: Unremarkable. No free fluid. No free air. LYMPH NODES: Unremarkable. No enlarged lymph nodes. BLADDER: Unremarkable. REPRODUCTIVE: Unremarkable. BONES: No acute fracture. OTHER FINDINGS: None. IMPRESSION: There is some perinephric stranding and fluid bilaterally which was not present on the previous study. There is no evidence of hydronephrosis. The findings could be secondary to pyelonephritis. Clinical correlation is suggested
[2017-06-07] MEDS: POTASSIUM PHOSPHATE IV SCH ×2 (14:59→22:35)
[2017-06-07] MEDS: SODIUM BICARBONATE IV SCH ×2 (14:59→22:35)
[2017-06-07] MEDS: DEXTROSE IV SCH ×2 (14:59→22:35)
[2017-06-07] MEDS: [UNRECOGNIZED DRUG - OTHER] IV SCH ×2 (14:59→22:35)
--- NOTE | 2017-06-07 15:32 | CP.PCM.PN ---
Subjective - Date & Time of Evaluation Date of Evaluation: 06/07/17 Time of Evaluation: 09:50 - Subjective Subjective: Patient upgraded to ICU yesterday after she was found to be confused. Now patient more restless, acidotic, in DKA and is now intubated, no fevers. Objective - Vital Signs/Intake and Output Vital Signs (last 24 hours): Temp Pulse Resp BP Pulse Ox 99 F 117 H 30 H 155/64 H 98 06/07/17 08:24 06/07/17 07:48 06/07/17 07:40 06/07/17 07:00 06/07/17 07:40 Intake and Output: 06/07/17 06/07/17 06:59 18:59 Intake Total 6 14 Balance 6 14 - Medications Medications: Current Medications Aspirin (Ecotrin) 81 mg PO DAILY [facility] Last Admin: 06/06/17 10:40 Dose: Not Given Enoxaparin Sodium (Lovenox) 100 mg SC Q24H [facility] PRN Reason: Protocol Last Admin: 06/06/17 11:34 Dose: 100 mg Insulin Human Regular 100 (units/ Sodium Chloride) 100 mls @ 1 mls/hr IV .Q24H PRN; Protocol; 1 UNITS/HR PRN Reason: TITRATE PER MD ORDER Last Titration: 06/07/17 08:08 Dose: 3 units/hr, 3 mls/hr Potassium Chloride 20 meq/ (Dextrose/Sodium Chloride) 1,010 mls @ 150 mls/hr IV .Q6H44M [facility] Last Admin: 06/07/17 07:42 Dose: 150 mls/hr Potassium Chloride (Potassium Chloride 20 Meq/100 Ml) 20 meq in 100 mls @ 50 mls/hr IVPB Q2H [facility] Stop: 06/07/17 11:59 Last Admin: 06/07/17 08:39 Dose: 50 mls/hr Potassium Phosphate 30 mmole/ (Dextrose) 260 mls @ 42.5 mls/hr IVPB ONCE ONE Stop: 06/07/17 14:07 Insulin Human Regular (Humulin R Low) 0 units SC ACHS [facility] PRN Reason: Protocol Last Admin: 06/07/17 08:36 Dose: Not Given Metoprolol Tartrate (Lopressor) 12.5 mg PO BID [facility] Last Admin: 06/06/17 18:10 Dose: Not Given Verapamil HCl (Verapamil Inj) 2.5 mg IVP Q6H PRN PRN Reason: for heart rate >130 Last Admin: 06/06/17 11:46 Dose: 2.5 mg Verapamil HCl (Calan Tab) 80 mg PO TID ALEJANDRINA Last Admin: 06/06/17 18:08 Dose: Not Given - Labs Labs: 06/07/17 05:55 06/07/17 05:55 PT 10.9 SECONDS (9.4-12.5) 06/04/17 17:25 INR 0.96 (0.93-1.08) 06/04/17 17:25 APTT 32.2 Seconds (25.1-36.5) 06/04/17 17:25 - Constitutional Appears: Chronically Ill - Head Exam Head Exam: NORMAL INSPECTION - ENT Exam Additional comments: ET tube in place - Respiratory Exam Respiratory Exam: Decreased Breath Sounds - Cardiovascular Exam Cardiovascular Exam: +S1, +S2 - GI/Abdominal Exam GI & Abdominal Exam: Soft. absent: Tenderness Assessment and Plan - Assessment and Plan (Free Text) Plan: Assessment Systemic Inflammatory Response syndrome, consider acute stress reaction to new onset Atrial fibrillation, now with DKA and VDRF with acute encephalopathy consider metabolic in etiology R/O sepsis DM dyslipidemia HTN obesity with BMI 36 S/P gastric sleeve surgery Plan will give another dose of IV Vancomycin and change cefepime to Merrem and will repeat blood, urine cx, PCT; reviewed CT chest and will also repeat CXR follow up Neurology evaluation - patient may need brain MRI will continue to monitor clinically
--- NOTE | 2017-06-07 16:03 | PN ---
DATE: SUBJECTIVE: The patient is currently seen intubated in ICU bed 7. She is en route to have followup CAT scans chest, abdomen and head. The patient was intubated this morning because of increased lethargy, shortness of breath and worsening acidosis. Of note, her acidosis is a metabolic acidosis. The patient remains on empiric antibiotic therapy. All screening tests for the etiology of the metabolic acidosis have been negative to date. MEDICATIONS: Medication list reviewed. The patient is currently on verapamil, Diprivan, Ecotrin, insulin, Lopressor, Lovenox, meropenem, p.r.n. morphine, IV fluids with potassium chloride, this will be switched over to D5W with 1.5 amps of sodium bicarbonate with K-Phos if compatible. Potassium phosphorus millimole riders. Protonix and p.r.n. verapamil. OBJECTIVE: INTAKE/OUTPUT: Intake is 4336, output is 1650. The patient is ahead 2686 mL. VITAL SIGNS: Blood pressure is 140/80, temperature 100.6, pulse is 110. Oxygen saturation is 98% with a respiratory rate of 16. The patient is sedated and intubated. HEENT: Shows her to be normocephalic, atraumatic. Eyes are closed. NECK: No neck vein distention. CHEST: Clear to auscultation and percussion. No rales, rhonchi or wheezing. CARDIOVASCULAR: Shows a regular rate and rhythm with a soft systolic murmur, left lower sternal border. No S3. No S4. No rub. ABDOMEN: Mildly obese. Bowel sounds are normal. No rebound, guarding or masses noted. EXTREMITIES: Show no lower extremity cyanosis, clubbing or edema. Her legs and arms are becoming puffy. NEURO: Shows her to be unresponsive as she is intubated and sedated. LABORATORY DATA AND IMAGING: Labs today, CBC, white blood cell count 13.8, down from a high of 23.1. Hemoglobin down from 16.3 to 12.0. Platelet count is 128,000 with 79% polys. Blood gas this morning showed a pH of 7.16 with a pCO2 of 18, bicarbonate of 6.4 and a pO2 of 115. Chemistries today: Sodium is 156, the patient had been receiving isotonic IV fluids; potassium is 3.2 with a phosphorus of 0.8 and the patient has received a K-Phos rider. Chloride is 127. CO2 is 10. BUN is 35 with a creatinine of 1.9. Glucose is 303. Magnesium level was elevated at 2.9. Urines from today showed red blood cells, few white blood cells, bacteria and yeast. Toxicology screen: Salicylates were nondetectable. Microbiology: Urine cultures are negative. Blood cultures are negative at 24 and 48 hours. Urine ketones remain positive at 40, improved from greater than 80 on admission. The patient still has 2+ protein in her urine. ASSESSMENT: 1. Mild prerenal azotemia/acute renal failure in a patient with no apparent history of chronic kidney disease. Of note, the patient does have mild proteinuria in her urine. 2. Severe anion gap metabolic acidosis. After careful questioning yesterday and today, it does not appear that the patient is taking ingestion of any substance that could course an anion gap metabolic acidosis. Her lactate levels are not elevated. This situation and presentation are not consistent with uremic acidosis. It was felt that the patient did present with diabetic ketoacidosis. The patient had been seen by Endocrinology to confirm this. The patient had been treated in the usual fashion for her diabetic ketoacidosis. Nevertheless, her pH remains low. Her CO2 level remains low. The patient will need to continue receiving IV fluid with sodium bicarbonate. 3. Hypokalemia and hypophosphatemia. We will try and add K-Phos to her IV fluids. The patient will receive K-Phos riders. We will try and avoid chloride. 4. History of [id number] diabetes mellitus, currently on insulin, status post diabetic ketoacidosis. 5. History of hypertension. The patient will remain off of all blood pressure medications. Obviously, she will not receive her angiotensin receptor luke at this point in time. 6. History of atrial fibrillation. The patient is converted to normal sinus rhythm. She continues to have a sinus tachycardia. 7. Past history of hyperlipidemia. 8. Possible sepsis, but no identifiable source. The patient remains on empiric antibiotic therapy. All cultures are negative to date. 9. History of morbid obesity with rapid weight loss 60-70 pounds since 03/2017. She is status post a gastric sleeve procedure. PLAN: 1. Discussed with nursing staff and residents in the ICU. It is still not entirely clear to me as to what the cause of her metabolic acidosis is as despite treatment for her DKA, she still continues to be severely acidotic. 2. I would switch her IV fluids away from half-normal saline to D5W with sodium bicarbonate 75 mEq and if compatible, we can add K-Phos to the IV fluids. 3. Continued followup with ID, Neurology, Endocrinology and Cardiology. 4. Avoid all nephrotoxic agents. 5. Try and bring her I's and O's into closer equal range, otherwise the patient will become severely hypervolemic and edematous. 6. Follow accurate I's and O's. Case discussed in great detail with all those involved. Greater than 35 minutes spent in the care of this critically ill patient. Case discussed with her and father and relatives. Chay Palafox MD
--- NOTE | 2017-06-07 16:19 | PN ---
DATE: REASON FOR CONSULTATION: Followup atrial fibrillation with rapid rate, new onset, weakness, lethargy, rule out sepsis, status post recently gastric bypass surgery. SUBJECTIVE: Patient is obtunded, unable to respond to verbal stimuli but respond to the painful stimuli, not on sedation, . OBJECTIVE: GENERAL: Lying flat in the bed, not responding to verbal stimuli but responds to painful stimuli. VITAL SIGNS: As follows, temperature afebrile, heart rate 115, blood pressure 155/64, rectal temperature is 99 and axillary 99.6 this morning. HEENT: PERRLA. Extraocular muscles intact. NECK: Supple. No carotid bruits or thyromegaly. CHEST: Clear to auscultation. HEART: S1 and S2 regular. ABDOMEN: Soft. EXTREMITIES: Clubbing and cyanosis negative. LABORATORY DATA: WBC 13.8, hemoglobin 12, hematocrit 34.4, platelet count 128. Chemistry shows sodium 155, potassium 3.3, chloride 123, carbon dioxide of 8, anion gap of 27, BUN 35, creatinine 1.9. IMPRESSION: Sepsis, altered mental status, hypernatremia, acute kidney injury, status post gastric bypass on 04/03/2017. Sepsis etiology is not clear, history of hypertension, new onset atrial fibrillation, diabetic ketoacidosis, hyperlipidemia, obesity. CT head negative for acute bleed. On admission, CT angio was negative for pulmonary embolism. Yesterday, sent for deep venous thrombosis, rule out deep venous thrombosis, duplex scan is negative for deep venous thrombosis. Yesterday also requested CT scan of abdomen and pelvis to rule out any intraabdominal process but it was not done as of yet because the patient was not stable to go. RECOMMENDATION: Continue IV fluid. Continue p.o. Cardizem. If the patient will change to Cardizem. Continue p.o. verapamil, if not we will change to IV Cardizem. Overall, the patient's condition is critical. Long-term prognosis is guarded. Start broad spectrum antibiotics.. However, continue beta-luke. Continue renal adjusted dose for DVT prophylaxis. So far no evidence of acute IL. We will follow the echo when it is done. We will decrease the Lovenox to 40 mg daily and we will discontinue 100 and source of sepsis is not cleared as of yet. We will monitor closely. Overall, the patient's condition is critical. Long-term prognosis is guarded. Supplement potassium and phosphorous. Thank you, Dr. Nicholson, for providing us the opportunity in taking care of patient, Nata Loco. Maynor Tran MD
[2017-06-07 17:46] LABS: CALCIUM 8.8 mg/dL (8.4-10.5)
--- NOTE | 2017-06-07 18:12 | PN ---
DATE: SUBJECTIVE: The patient is 51 years old, seen and examined, seems to be still confused, disoriented, lethargic, does not respond to local commands. PHYSICAL EXAMINATION: VITAL SIGNS: She has temperature of 100.6, pulse 110, respirations 16, blood pressure 140/48. LUNGS: Bilateral fair airflow. No rhonchi or crackle. HEART: S1 and S2 audible. ABDOMEN: Soft, obese, nontender. NEUROLOGIC: She is aware of her increased somnolence. The patient was intubated for airway protection post-intubation. LABORATORY DATA AND IMAGING: X-ray shows no active disease. WBC 13.8, hemoglobin 12, hematocrit 34, platelets 128. Chemistry: Sodium 156, potassium 3.2, chloride 127, CO2 10, BUN 35, creatinine 1.9, blood sugar is 303. Phosphorus 0.8, magnesium 2.9. Urine tox is negative. ASSESSMENT: 1. Encephalopathy. 2. Diabetic ketoacidosis. 3. History of gastric bypass. PLAN: According to who was at the bedside since she lost weight, she has been taken off of her medication and lately she has not been on any diabetic medication; hyponatremia; hypokalemia. At this point, the patient is on IV fluid. She is on verapamil. She is on aspirin 81 daily, metoprolol, DVT prophylaxis. She has been started on potassium phosphate. Her electrolyte will be monitored. Neuro will be consulted. Follow up electrolytes in a.m. Alphonse Nicholson MD
--- NOTE | 2017-06-07 21:08 | PN ---
DATE: ENDOCRINOLOGY FOLLOWUP NOTE LOCATION: ICU 128, room 7. SUBJECTIVE: This is a 51-year-old female with recent uncontrolled type 2 diabetes, presenting here with severe diabetic ketoacidosis and dehydration with persistent azotemia despite the bicarb drip infusion, and was then intubated today as noted thereof. Her glycemic levels are fluctuating and are ranging from 247-273 mg/dL. OBJECTIVE: The latest chemistry showed a BUN of 34, sodium 152, potassium 2.9, chloride 123, CO2 less than 5, glucose 225, and creatinine 1.9. Her glucose levels overnight ranged from 194-260 mg/dL. ASSESSMENT AND PLAN: So at this time we will concur with the present medical management with vigorous IV hydration of D5 and half normal saline with KCl 20 running at 150 mL/hour. We will continue the intensive insulin therapy with an insulin drip infusion as given. We will obtain serial chemistries and supplement accordingly needed. We will also continue the present cardiac management with recent rapid atrial fibrillation of recent diagnosis and evaluation. Many of the physical stressors at this time, especially the cardiac tachyarrhythmias and also the previous gastric sleeve surgical resection, can all cause acute physical stressors which could contribute to the metabolic decompensation at this time. Moreover, the patient has been also taking Invokana medication, which could also contribute to diabetic ketoacidosis, and all of these aforementioned could have contributed to the severe metabolic acidemia as noted thereof. We will obtain serial chemistries and supplement accordingly as needed. We will follow with you. Kaleigh Jack MD
[2017-06-07] MEDS: Insulin Regular 100 UNITS in Sodium Chloride 0.9% 99 ML IV PRN (22:35)
--- NOTE | 2017-06-07 22:44 | CARD ---
APPROVED REPORT EXAM: Two-dimensional and M-mode echocardiogram with Doppler and color Doppler. INDICATION LVFX/RECENT A-FIB 2D DIMENSIONS Left Atrium (2D)3.9 (1.6-4.0cm)IVSd1.1 (0.7-1.1cm) LVDd4.7 (3.9-5.9cm)PWd1.2 (0.7-1.1cm) LVDs2.8 (2.5-4.0cm)FS (%) 41.6 % LVEF (%)72.6 (>50%) M-Mode DIMENSIONS Aortic Root3.10 (2.2-3.7cm)Aortic Cusp Exc.1.90 (1.5-2.0cm) Aortic Valve AoV Peak Gbywqsmq687.0cm/Eleazar Peak GR.14mmHg Mitral Valve MV E Henwwdhf35.8cm/sMV A Zqdgivch664.0cm/sE/A ratio0.8 TDI E/Lateral E'0.0E/Medial E'0.0 Pulmonary Valve PV Peak Kpqtehip973.0cm/sPV Peak Grad.12mmHg Tricuspid Valve TR Peak Flofaysc052mu/sRAP SLDMFQPL94bpPaUV Peak Gr.38mmHg [id number] LEFT VENTRICLE The left ventricle is normal size. There is borderline concentric left ventricular hypertrophy. The left ventricular function is normal.EF-65-70% There is normal LV segmental wall motion. Transmitral Doppler flow pattern is Grade III-reversible restrictive diastolic dysfunction. No left ventricle thrombus noted on this study. There is no ventricular septal defect visualized. There is no left ventricular aneurysm. There is no mass noted in the left ventricle. RIGHT VENTRICLE The right ventricle is normal size. There is normal right ventricular wall thickness. The right ventricular systolic function is normal. ATRIA The left atrium is borderline dilated. The right atrium size is normal. The interatrial septum is intact with no evidence for an atrial septal defect. AORTIC VALVE The aortic valve is thickened but opens well. No aortic regurgitation is present. There is no aortic valvular stenosis. There is no aortic valvular vegetation. MITRAL VALVE The mitral valve is thickened but opens well. Mitral regurgitation is trace. There is no mitral valve stenosis. There is no evidence of mitral valve prolapse. TRICUSPID VALVE The tricuspid valve leaflets are thickened , but open well. There is trace tricuspid regurgitation.RVSP-48 mmof hg. There is no tricuspid valve stenosis. There is no tricuspid valve prolapse or vegetation. PULMONIC VALVE The pulmonic valve is not well visualized, but probably normal GREAT VESSELS The aortic root is normal in size. The ascending aorta is normal in size. The pulmonary artery is normal. The IVC is normal in size and collapses >50% with inspiration. PERICARDIAL EFFUSION There is no pleural effusion. There is no pericardial effusion. <Conclusion> Normal chamber Size. Ef-65-70% Trace MR/TR RVSP-48 mm of Hg. No vegetation or thrombus noted.
[2017-06-08] MEDS: Propofol 10 mg/ml 1,000 MG/100 ML VIAL IV PRN ×3 (01:13→08:15)
[2017-06-08 01:35] LABS: CALCIUM 8.8 mg/dL (8.4-10.5)
[2017-06-08] MEDS: [UNRECOGNIZED DRUG - OTHER] IV SCH (05:11)
[2017-06-08] MEDS: POTASSIUM PHOSPHATE IV SCH ×3 (05:11→20:00)
[2017-06-08] MEDS: SODIUM BICARBONATE IV SCH (05:11)
[2017-06-08] MEDS: DEXTROSE IV SCH ×3 (05:11→20:00)
--- NOTE | 2017-06-08 05:55 | CON ---
DATE: 06/07/2017 NEUROLOGY CONSULTATION CHIEF COMPLAINT: Altered mental status. HISTORY OF PRESENT ILLNESS: History was obtained from the medical records due to patient's altered mental status. This is a 51-year-old obese woman status post gastric sleeve procedure and had a 60 to 70-pound weight loss, hypertension, dyslipidemia, noninsulin-dependent diabetes mellitus who presented with altered mental status. She had severe anion gap metabolic acidosis in the setting of diabetic ketoacidosis as well as has hypernatremia. CAT scan of the head showed no acute intracranial abnormality. Currently she is intubated for airway protection, not on any sedative meds, is very lethargic, withdraws to localized noxious stimulus, spontaneously moves all extremities. Today's blood sugar is 303. She has an A1c of 8.3. Endocrine on board for hyperglycemia. PAST MEDICAL HISTORY: Mwn-rhxvcaq-kshjhggqk diabetes mellitus, hypertension, dyslipidemia, obesity, status post gastric sleeve with 60 to 70-pound weight loss. SOCIAL HISTORY: No illicit drug use, smoking, or EtOH abuse. FAMILY HISTORY: Noncontributory. REVIEW OF SYSTEMS: Unobtainable due to the patient is non-communicative. MEDICATIONS: Reviewed by nurse reconciliation sheet. PHYSICAL EXAMINATION: VITAL SIGNS: Temperature 100.6, pulse rate of 110, blood pressure 140/48, by a mechanical ventilation. GENERAL: Patient is intubated, in no acute distress. HEENT: Head is atraumatic, normocephalic. PERRLA. Extraocular muscles intact. NECK: Supple. No JVD, no adenopathy noted. LUNGS: Decreased breath sounds bilaterally. HEART: S1, S2, normal rate and rhythm. No murmurs, rubs or gallops. ABDOMEN: Soft, nontender, nondistended. Bowel sounds are present. EXTREMITIES: No clubbing, no cyanosis. Peripheral pulses are 2+ felt bilaterally. NEUROLOGIC: Patient is very lethargic, intubated, but not on any sedation. Cranial nerves II to XII intact. Motor: Normal tone. Spontaneous movement of extremities are seen. Sensory: Light touch is intact and withdraws to localized noxious stimulus. DTRs are 1+ throughout and absent at the knees and ankles. Coordination and gait deferred for now. LABORATORY DATA: Sodium 156, potassium 3.2, chloride 127, carbon dioxide 10, BUN of 35, creatinine 1.9, random glucose of 303. ASSESSMENT AND PLAN: This is a 51-year-old woman with history of obesity, status post gastric sleeve with 60 to 70-pound weight loss, history of hypertension, dyslipidemia, ekv-yoobwya-tfvjjywzq diabetes mellitus, came in with altered mental status in the setting of severe anion gap metabolic acidosis, in the setting of diabetic ketoacidosis. In addition, has hypernatremia and CT head showed no acute intracranial abnormality, still has metabolic derangements, was called for altered mental status. Her altered mental status is likely secondary to toxic metabolic encephalopathy, underlying diabetic ketoacidosis and metabolic derangement with underlying possible sepsis. RECOMMENDATIONS: At this time, we will recommend: 1. Could consider an MRI of the brain when the patient is stable to review any acute intracranial abnormalities since the CAT scan of the head was negative. 2. Monitor electrolytes and correct accordingly. 3. Follow with Endocrinology and keep the blood sugars between 140 to 180. 4. Adequate hydration. 5. Thiamine 100 mg IV q. daily for neuronal activation. 6. Continue with GI and DVT prophylaxis. Thank you for this consult. Luis Hoyos MD
[2017-06-08] MEDS ORDERED: Pantoprazole 40 mg EC Tab PO SCH (06:00)
[2017-06-08 06:02] LABS: ARTERIAL BLOOD GAS HCO3 18.8 mmol/L (21-28); ARTERIAL BLOOD GAS HEMOGLOBIN 10.7 g/dL (11.7-17.4); ARTERIAL BLOOD GAS O2 CAPACITY 14.8 mL/dl (16-24); ARTERIAL BLOOD GAS O2 CONTENT 14.7 ML/dl (15-23); ARTERIAL BLOOD GAS PCO2 31 mm/Hg (35-45); ARTERIAL BLOOD GAS PH 7.39 (7.35-7.45); ARTERIAL BLOOD GAS TCO2 19.8 mmol.L (22-28)
[2017-06-08 06:55] LABS: BASO # 0.02 K/mm3 (0.0-2.0); BASO % 0.2 % (0.0-3.0); GRAN # 5.8 (1.4-6.5); HEMOGLOBIN 10.5 g/dL (12.0-16.0); LYMPH # 1.9 (1.2-3.4); LYMPH % 21.7 % (22.0-35.0); MEAN CORPUSCULAR HEMOGLOBIN 29.7 pg (25.0-35.0); MEAN CORPUSCULAR HGB CONC 35.8 g/dl (31.0-37.0); MEAN PLATELET VOLUME 10.5 fl (7.0-11.0); MONO # 0.9 (0.1-0.6); MONO % 10.1 % (1.0-6.0); RBC 3.53 10^6/uL (3.5-6.1); RED CELL DISTRIBUTION WIDTH 15.2 % (11.5-14.5); WHITE BLOOD COUNT 8.5 10^3/ul (4.5-11.0)
[2017-06-08 07:15] LABS: ALB/GLOB RATIO 1.3 (1.1-1.8); ALBUMIN 3.2 g/dL (3.0-4.8); CALCIUM 9.1 mg/dL (8.4-10.5)
--- NOTE | 2017-06-08 08:32 | RAD ---
HISTORY: Intubated COMPARISON: 06/07/2017 FINDINGS: LUNGS: No active pulmonary disease. PLEURA: No significant pleural effusion identified, no pneumothorax apparent. CARDIOVASCULAR: Normal. OSSEOUS STRUCTURES: No significant abnormalities. VISUALIZED UPPER ABDOMEN: Normal. OTHER FINDINGS: Central lines and tubes are in satisfactory position and unchanged IMPRESSION: No active disease.
[2017-06-08] MEDS ORDERED: [UNRECOGNIZED DRUG - OTHER] IV SCH (09:45)
[2017-06-08] MEDS ORDERED: POTASSIUM PHOSPHATE IV SCH (09:45)
[2017-06-08] MEDS ORDERED: DEXTROSE IV SCH (09:45)
[2017-06-08] MEDS ORDERED: Vancomycin 1.5 GM in Sodium Chloride 0.9% 500 ML IVPB ONE (09:46)
--- NOTE | 2017-06-08 09:53 | CP.CCUPN ---
<Phillip Guillaume - Last Filed: 06/08/17 11:05> CCU Subjective - Physician Review Subjective (Free Text): Patient seen and examined at bedside. Patient with family at bedside. Patient intubated and sedated. No ROS at this time due to acuity of condition. CCU Objective - Vital Signs / Intake & Output Vital Signs (Last 4 hours): Vital Signs Temp Pulse BP Pulse Ox 06/08/17 06:37 100 F H 06/08/17 06:20 88 99 06/08/17 06:00 105 H 128/62 100 Intake and Output (Last 8hrs): Intake & Output 06/07/17 06/08/17 06/08/17 22:59 06:59 14:59 Intake Total 2601 2942 110 Output Total 1700 2300 Balance 901 642 110 Intake: IV 2601 2942 110 IVF 1800 1800 IVPB 300 650 Insulin drip 30 36 Propofol 256 256 Oral 0 Output: Urine 1700 2300 Urethral (Akhtar) 1100 2300 Urine, Voided 600 Stool 0 - Physical Exam Head: Positive for: Atraumatic, Normocephalic Mouth: Positive for: Dry Neck: Negative for: MIDLINE TENDERNESS Respiratory/Chest: Positive for: Clear to Auscultation, Good Air Exchange. Negative for: Respiratory Distress, Wheezes (Intubated), Rhonchi Cardiovascular: Positive for: Regular Rate and Rhythm, Normal S1, S2. Negative for: Murmurs Abdomen: Positive for: Normal Bowel Sounds. Negative for: Tenderness, Distention Back: Positive for: Normal Inspection. Negative for: CVA Tenderness, Midline Tenderness Upper Extremity: Positive for: Normal Inspection. Negative for: Edema Lower Extremity: Positive for: Normal Inspection. Negative for: Edema, Erythema Neurological: Positive for: Other (Sedated) Skin: Positive for: Warm, Dry Psychiatric: Positive for: Other (Sedated). Negative for: Oriented x 3 - Medications Active Medications: Active Medications Generic Name Dose Route Start Last Admin Trade Name Freq PRN Reason Stop Dose Admin Aspirin 81 mg 06/05/17 10:00 06/07/17 10:07 Ecotrin PO Not Given DAILY [facility] Enoxaparin Sodium 40 mg 06/07/17 10:00 06/07/17 10:27 Lovenox SC 40 mg DAILY [facility] Administration Protocol Insulin Human Regular 100 100 mls @ 1 mls/hr 06/06/17 09:45 06/08/17 07:00 units/ Sodium Chloride IV 2 units/hr .Q24H PRN 2 mls/hr TITRATE PER MD ORDER Titration Protocol 1 UNITS/HR Propofol 1,000 mg in 100 mls @ 3.043 mls/hr 06/07/17 10:11 06/08/17 08:00 Diprivan IV Infused .Q24H PRN Titration TITRATE PER MD ORDER Protocol 5 MCG/KG/MIN Meropenem 50 mls @ 100 mls/hr 06/07/17 10:30 06/07/17 21:12 Merrem Iv 1 Gm Premix IVPB 06/14/17 10:31 100 mls/hr Q12 ALEJANDRINA Administration Protocol Acetaminophen 1,000 mg in 100 mls @ 400 mls/hr 06/07/17 15:36 06/08/17 05:11 Ofirmev IVPB 06/09/17 15:37 400 mls/hr Q6H PRN Administration Fever > 100.4 Potassium Phosphate 20 mmole/ 1,006.6667 mls @ 150 mls/hr 06/08/17 09:45 Dextrose/Sodium Chloride IV .Q6H43M [facility] Metoprolol Tartrate 12.5 mg 06/05/17 18:00 06/07/17 18:03 Lopressor PO Not Given BID [facility] Morphine Sulfate 2 mg 06/07/17 10:11 06/07/17 17:29 Morphine IVP 2 mg Q3H PRN Administration Pain, severe (8-10) Pantoprazole Sodium 40 mg 06/08/17 10:00 Protonix Inj IVP DAILY [facility] Thiamine HCl 100 mg 06/08/17 10:00 Vitamin B1 Inj IV DAILY [facility] Verapamil HCl 2.5 mg 06/06/17 09:22 06/06/17 11:46 Verapamil Inj IVP 2.5 mg Q6H PRN Administration for heart rate >130 Verapamil HCl 80 mg 06/06/17 10:00 06/07/17 18:03 Calan Tab PO Not Given TID [facility] - Patient Studies Lab Studies: Microbiology Studies 06/05/17 15:53 Blood Culture - Preliminary Blood-Venous NO GROWTH AFTER 48 HOURS 06/05/17 15:53 Blood Culture - Preliminary Blood-Venous NO GROWTH AFTER 48 HOURS 06/05/17 10:35 Blood Culture - Preliminary Blood-Venous NO GROWTH AFTER 48 HOURS 06/05/17 10:10 Blood Culture - Preliminary Blood-Venous NO GROWTH AFTER 48 HOURS 06/05/17 20:53 Urine Culture - Final Urine,Clean Catch No Growth (<1,000 CFU/ML) Lab Studies 06/08/17 06/08/17 06/08/17 Range/Units 06:25 06:25 06:18 WBC 8.5 D (4.5-11.0) 10^3/ul RBC 3.53 (3.5-6.1) 10^6/uL Hgb 10.5 L (12.0-16.0) g/dL Hct 29.3 L (36.0-48.0) % MCV 83.0 (80.0-105.0) fl MCH 29.7 (25.0-35.0) pg MCHC 35.8 (31.0-37.0) g/dl RDW 15.2 H (11.5-14.5) % Plt Count 100 L (120.0-450.0) 10^3/uL MPV 10.5 (7.0-11.0) fl Gran % 68.0 (50.0-68.0) % Lymph % (Auto) 21.7 L (22.0-35.0) % [place] % (Auto) 10.1 H (1.0-6.0) % Eos % (Auto) 0.0 L (1.5-5.0) % Baso % (Auto) 0.2 (0.0-3.0) % Gran # 5.80 (1.4-6.5) Lymph # (Auto) 1.9 (1.2-3.4) [place] # (Auto) 0.9 H (0.1-0.6) Eos # (Auto) 0.0 (0.0-0.7) Baso # (Auto) 0.02 (0.0-2.0) K/mm3 pCO2 (35-45) mm/Hg pO2 (80-100) mm/Hg HCO3 (21-28) mmol/L ABG pH (7.35-7.45) ABG Total CO2 (22-28) mmol.L ABG O2 Saturation (95-98) % ABG O2 Content (15-23) ML/dl ABG Base Excess (-2.0-3.0) mmol/L ABG Hemoglobin (11.7-17.4) g/dL ABG Carboxyhemoglobin (0.5-1.5) % POC ABG HHb (Measured) (0-5) % ABG Methemoglobin (0.0-3.0) % ABG O2 Capacity (16-24) mL/dl Hgb O2 Saturation (95.0-98.0) % FiO2 % Sodium 154 H (132-148) mmol/L Potassium 3.2 L (3.6-5.0) mmol/L Chloride 122 H (98-107) mmol/L Carbon Dioxide 20 L (21-33) mmol/L Anion Gap 15 (10-20) BUN 34 H (7-21) mg/dL Creatinine 1.7 H (0.7-1.2) mg/dl Est GFR ( Amer) 38 Est GFR (Non-Af Amer) 32 POC Glucose (mg/dL) 223 H (65-110) mg/dL Random Glucose 234 H (70-110) mg/dL Hemoglobin A1c (4.2-6.5) % Serum Osmolality (272-300) mosm/kg Calcium 9.1 (8.4-10.5) mg/dL Phosphorus 3.1 (2.5-4.5) mg/dL Magnesium 2.3 H (1.7-2.2) mg/dL Total Bilirubin 0.7 (0.2-1.3) mg/dL AST 24 (14-36) U/L ALT 27 (7-56) U/L Alkaline Phosphatase 81 (38-126) U/L Total Protein 5.8 (5.8-8.3) g/dL Albumin 3.2 (3.0-4.8) g/dL Globulin 2.6 gm/dL Albumin/Globulin Ratio 1.3 (1.1-1.8) Procalcitonin (0.19-0.49) NG/ML TSH 3rd Generation (0.46-4.68) mIU/mL Urine Color (YELLOW) Urine Appearance (CLEAR) Urine pH (4.7-8.0) Ur Specific [place] (1.005-1.035) Urine Protein (<30 mg/dL) mg/dL Urine Glucose (UA) (NEGATIVE) mg/dL Urine Ketones (NEGATIVE) mg/dL Urine Blood (NEGATIVE) Urine Nitrate (NEGATIVE) Urine Bilirubin (NEGATIVE) Urine Urobilinogen (<1 E.U./dL) E.U./dL Ur Leukocyte Esterase (NEGATIVE) Yolanda/uL Urine RBC (0-2) /hpf Urine WBC (0-6) /hpf Ur Epithelial Cells (0-5) /hpf Amorphous Sediment Urine Bacteria (NEG) Coarse Granular Casts (0-2) /hpf Urine Other 06/08/17 06/08/17 06/08/17 Range/Units 05:50 05:34 04:23 WBC (4.5-11.0) 10^3/ul RBC (3.5-6.1) 10^6/uL Hgb (12.0-16.0) g/dL Hct (36.0-48.0) % MCV (80.0-105.0) fl MCH (25.0-35.0) pg MCHC (31.0-37.0) g/dl RDW (11.5-14.5) % Plt Count (120.0-450.0) 10^3/uL MPV (7.0-11.0) fl Gran % (50.0-68.0) % Lymph % (Auto) (22.0-35.0) % [place] % (Auto) (1.0-6.0) % Eos % (Auto) (1.5-5.0) % Baso % (Auto) (0.0-3.0) % Gran # (1.4-6.5) Lymph # (Auto) (1.2-3.4) [place] # (Auto) (0.1-0.6) Eos # (Auto) (0.0-0.7) Baso # (Auto) (0.0-2.0) K/mm3 pCO2 31 L (35-45) mm/Hg pO2 143.0 H (80-100) mm/Hg HCO3 18.8 L (21-28) mmol/L ABG pH 7.39 (7.35-7.45) ABG Total CO2 19.8 L (22-28) mmol.L ABG O2 Saturation 99.0 H (95-98) % ABG O2 Content 14.7 L (15-23) ML/dl ABG Base Excess -5.3 L (-2.0-3.0) mmol/L ABG Hemoglobin 10.7 L (11.7-17.4) g/dL ABG Carboxyhemoglobin 1.3 (0.5-1.5) % POC ABG HHb (Measured) 1.0 (0-5) % ABG Methemoglobin 1.7 (0.0-3.0) % ABG O2 Capacity 14.8 L (16-24) mL/dl Hgb O2 Saturation 96.0 (95.0-98.0) % FiO2 40.0 % Sodium (132-148) mmol/L Potassium (3.6-5.0) mmol/L Chloride (98-107) mmol/L Carbon Dioxide (21-33) mmol/L Anion Gap (10-20) BUN (7-21) mg/dL Creatinine (0.7-1.2) mg/dl Est GFR ( Amer) Est GFR (Non-Af Amer) POC Glucose (mg/dL) 220 H 312 H (65-110) mg/dL Random Glucose (70-110) mg/dL Hemoglobin A1c (4.2-6.5) % Serum Osmolality (272-300) mosm/kg Calcium (8.4-10.5) mg/dL Phosphorus (2.5-4.5) mg/dL Magnesium (1.7-2.2) mg/dL Total Bilirubin (0.2-1.3) mg/dL AST (14-36) U/L ALT (7-56) U/L Alkaline Phosphatase (38-126) U/L Total Protein (5.8-8.3) g/dL Albumin (3.0-4.8) g/dL Globulin gm/dL Albumin/Globulin Ratio (1.1-1.8) Procalcitonin (0.19-0.49) NG/ML TSH 3rd Generation (0.46-4.68) mIU/mL Urine Color (YELLOW) Urine Appearance (CLEAR) Urine pH (4.7-8.0) Ur Specific [place] (1.005-1.035) Urine Protein (<30 mg/dL) mg/dL Urine Glucose (UA) (NEGATIVE) mg/dL Urine Ketones (NEGATIVE) mg/dL Urine Blood (NEGATIVE) Urine Nitrate (NEGATIVE) Urine Bilirubin (NEGATIVE) Urine Urobilinogen (<1 E.U./dL) E.U./dL Ur Leukocyte Esterase (NEGATIVE) Yolanda/uL Urine RBC (0-2) /hpf Urine WBC (0-6) /hpf Ur Epithelial Cells (0-5) /hpf Amorphous Sediment Urine Bacteria (NEG) Coarse Granular Casts (0-2) /hpf Urine Other 06/08/17 06/08/17 06/08/17 Range/Units 03:40 02:03 01:02 WBC (4.5-11.0) 10^3/ul RBC (3.5-6.1) 10^6/uL Hgb (12.0-16.0) g/dL Hct (36.0-48.0) % MCV (80.0-105.0) fl MCH (25.0-35.0) pg MCHC (31.0-37.0) g/dl RDW (11.5-14.5) % Plt Count (120.0-450.0) 10^3/uL MPV (7.0-11.0) fl Gran % (50.0-68.0) % Lymph % (Auto) (22.0-35.0) % [place] % (Auto) (1.0-6.0) % Eos % (Auto) (1.5-5.0) % Baso % (Auto) (0.0-3.0) % Gran # (1.4-6.5) Lymph # (Auto) (1.2-3.4) [place] # (Auto) (0.1-0.6) Eos # (Auto) (0.0-0.7) Baso # (Auto) (0.0-2.0) K/mm3 pCO2 (35-45) mm/Hg pO2 (80-100) mm/Hg HCO3 (21-28) mmol/L ABG pH (7.35-7.45) ABG Total CO2 (22-28) mmol.L ABG O2 Saturation (95-98) % ABG O2 Content (15-23) ML/dl ABG Base Excess (-2.0-3.0) mmol/L ABG Hemoglobin (11.7-17.4) g/dL ABG Carboxyhemoglobin (0.5-1.5) % POC ABG HHb (Measured) (0-5) % ABG Methemoglobin (0.0-3.0) % ABG O2 Capacity (16-24) mL/dl Hgb O2 Saturation (95.0-98.0) % FiO2 % Sodium (132-148) mmol/L Potassium (3.6-5.0) mmol/L Chloride (98-107) mmol/L Carbon Dioxide (21-33) mmol/L Anion Gap (10-20) BUN (7-21) mg/dL Creatinine (0.7-1.2) mg/dl Est GFR ( Amer) Est GFR (Non-Af Amer) POC Glucose (mg/dL) 287 H 318 H 312 H (65-110) mg/dL Random Glucose (70-110) mg/dL Hemoglobin A1c (4.2-6.5) % Serum Osmolality (272-300) mosm/kg Calcium (8.4-10.5) mg/dL Phosphorus (2.5-4.5) mg/dL Magnesium (1.7-2.2) mg/dL Total Bilirubin (0.2-1.3) mg/dL AST (14-36) U/L ALT (7-56) U/L Alkaline Phosphatase (38-126) U/L Total Protein (5.8-8.3) g/dL Albumin (3.0-4.8) g/dL Globulin gm/dL Albumin/Globulin Ratio (1.1-1.8) Procalcitonin (0.19-0.49) NG/ML TSH 3rd Generation (0.46-4.68) mIU/mL Urine Color (YELLOW) Urine Appearance (CLEAR) Urine pH (4.7-8.0) Ur Specific [place] (1.005-1.035) Urine Protein (<30 mg/dL) mg/dL Urine Glucose (UA) (NEGATIVE) mg/dL Urine Ketones (NEGATIVE) mg/dL Urine Blood (NEGATIVE) Urine Nitrate (NEGATIVE) Urine Bilirubin (NEGATIVE) Urine Urobilinogen (<1 E.U./dL) E.U./dL Ur Leukocyte Esterase (NEGATIVE) Yolanda/uL Urine RBC (0-2) /hpf Urine WBC (0-6) /hpf Ur Epithelial Cells (0-5) /hpf Amorphous Sediment Urine Bacteria (NEG) Coarse Granular Casts (0-2) /hpf Urine Other 06/08/17 06/08/17 06/07/17 Range/Units 01:00 00:15 23:02 WBC (4.5-11.0) 10^3/ul RBC (3.5-6.1) 10^6/uL Hgb (12.0-16.0) g/dL Hct (36.0-48.0) % MCV (80.0-105.0) fl MCH (25.0-35.0) pg MCHC (31.0-37.0) g/dl RDW (11.5-14.5) % Plt Count (120.0-450.0) 10^3/uL MPV (7.0-11.0) fl Gran % (50.0-68.0) % Lymph % (Auto) (22.0-35.0) % [place] % (Auto) (1.0-6.0) % Eos % (Auto) (1.5-5.0) % Baso % (Auto) (0.0-3.0) % Gran # (1.4-6.5) Lymph # (Auto) (1.2-3.4) [place] # (Auto) (0.1-0.6) Eos # (Auto) (0.0-0.7) Baso # (Auto) (0.0-2.0) K/mm3 pCO2 (35-45) mm/Hg pO2 (80-100) mm/Hg HCO3 (21-28) mmol/L ABG pH (7.35-7.45) ABG Total CO2 (22-28) mmol.L ABG O2 Saturation (95-98) % ABG O2 Content (15-23) ML/dl ABG Base Excess (-2.0-3.0) mmol/L ABG Hemoglobin (11.7-17.4) g/dL ABG Carboxyhemoglobin (0.5-1.5) % POC ABG HHb (Measured) (0-5) % ABG Methemoglobin (0.0-3.0) % ABG O2 Capacity (16-24) mL/dl Hgb O2 Saturation (95.0-98.0) % FiO2 % Sodium 153 H (132-148) mmol/L Potassium 3.3 L (3.6-5.0) mmol/L Chloride 123 H (98-107) mmol/L Carbon Dioxide 17 L (21-33) mmol/L Anion Gap 16 (10-20) BUN 37 H (7-21) mg/dL Creatinine 1.8 H (0.7-1.2) mg/dl Est GFR ( Amer) 36 Est GFR (Non-Af Amer) 30 POC Glucose (mg/dL) 321 H 221 H (65-110) mg/dL Random Glucose 309 H* (70-110) mg/dL Hemoglobin A1c (4.2-6.5) % Serum Osmolality (272-300) mosm/kg Calcium 8.8 (8.4-10.5) mg/dL Phosphorus 2.8 (2.5-4.5) mg/dL Magnesium 2.4 H (1.7-2.2) mg/dL Total Bilirubin (0.2-1.3) mg/dL AST (14-36) U/L ALT (7-56) U/L Alkaline Phosphatase (38-126) U/L Total Protein (5.8-8.3) g/dL Albumin (3.0-4.8) g/dL Globulin gm/dL Albumin/Globulin Ratio (1.1-1.8) Procalcitonin (0.19-0.49) NG/ML TSH 3rd Generation (0.46-4.68) mIU/mL Urine Color (YELLOW) Urine Appearance (CLEAR) Urine pH (4.7-8.0) Ur Specific [place] (1.005-1.035) Urine Protein (<30 mg/dL) mg/dL Urine Glucose (UA) (NEGATIVE) mg/dL Urine Ketones (NEGATIVE) mg/dL Urine Blood (NEGATIVE) Urine Nitrate (NEGATIVE) Urine Bilirubin (NEGATIVE) Urine Urobilinogen (<1 E.U./dL) E.U./dL Ur Leukocyte Esterase (NEGATIVE) Yolanda/uL Urine RBC (0-2) /hpf Urine WBC (0-6) /hpf Ur Epithelial Cells (0-5) /hpf Amorphous Sediment Urine Bacteria (NEG) Coarse Granular Casts (0-2) /hpf Urine Other 03/21/18 03/21/18 03/21/18 Range/Units 22:08 20:54 19:19 WBC (4.5-11.0) 10^3/ul RBC (3.5-6.1) 10^6/uL Hgb (12.0-16.0) g/dL Hct (36.0-48.0) % MCV (80.0-105.0) fl MCH (25.0-35.0) pg MCHC (31.0-37.0) g/dl RDW (11.5-14.5) % Plt Count (120.0-450.0) 10^3/uL MPV (7.0-11.0) fl Gran % (50.0-68.0) % Lymph % (Auto) (22.0-35.0) % [place] % (Auto) (1.0-6.0) % Eos % (Auto) (1.5-5.0) % Baso % (Auto) (0.0-3.0) % Gran # (1.4-6.5) Lymph # (Auto) (1.2-3.4) [place] # (Auto) (0.1-0.6) Eos # (Auto) (0.0-0.7) Baso # (Auto) (0.0-2.0) K/mm3 pCO2 (35-45) mm/Hg pO2 (80-100) mm/Hg HCO3 (21-28) mmol/L ABG pH (7.35-7.45) ABG Total CO2 (22-28) mmol.L ABG O2 Saturation (95-98) % ABG O2 Content (15-23) ML/dl ABG Base Excess (-2.0-3.0) mmol/L ABG Hemoglobin (11.7-17.4) g/dL ABG Carboxyhemoglobin (0.5-1.5) % POC ABG HHb (Measured) (0-5) % ABG Methemoglobin (0.0-3.0) % ABG O2 Capacity (16-24) mL/dl Hgb O2 Saturation (95.0-98.0) % FiO2 % Sodium (132-148) mmol/L Potassium (3.6-5.0) mmol/L Chloride (98-107) mmol/L Carbon Dioxide (21-33) mmol/L Anion Gap (10-20) BUN (7-21) mg/dL Creatinine (0.7-1.2) mg/dl Est GFR ( Amer) Est GFR (Non-Af Amer) POC Glucose (mg/dL) 262 H 281 H 289 H (65-110) mg/dL Random Glucose (70-110) mg/dL Hemoglobin A1c (4.2-6.5) % Serum Osmolality (272-300) mosm/kg Calcium (8.4-10.5) mg/dL Phosphorus (2.5-4.5) mg/dL Magnesium (1.7-2.2) mg/dL Total Bilirubin (0.2-1.3) mg/dL AST (14-36) U/L ALT (7-56) U/L Alkaline Phosphatase (38-126) U/L Total Protein (5.8-8.3) g/dL Albumin (3.0-4.8) g/dL Globulin gm/dL Albumin/Globulin Ratio (1.1-1.8) Procalcitonin (0.19-0.49) NG/ML TSH 3rd Generation (0.46-4.68) mIU/mL Urine Color (YELLOW) Urine Appearance (CLEAR) Urine pH (4.7-8.0) Ur Specific [place] (1.005-1.035) Urine Protein (<30 mg/dL) mg/dL Urine Glucose (UA) (NEGATIVE) mg/dL Urine Ketones (NEGATIVE) mg/dL Urine Blood (NEGATIVE) Urine Nitrate (NEGATIVE) Urine Bilirubin (NEGATIVE) Urine Urobilinogen (<1 E.U./dL) E.U./dL Ur Leukocyte Esterase (NEGATIVE) Yolanda/uL Urine RBC (0-2) /hpf Urine WBC (0-6) /hpf Ur Epithelial Cells (0-5) /hpf Amorphous Sediment Urine Bacteria (NEG) Coarse Granular Casts (0-2) /hpf Urine Other 06/07/17 06/07/17 06/07/17 Range/Units 18:14 17:42 17:20 WBC (4.5-11.0) 10^3/ul RBC (3.5-6.1) 10^6/uL Hgb (12.0-16.0) g/dL Hct (36.0-48.0) % MCV (80.0-105.0) fl MCH (25.0-35.0) pg MCHC (31.0-37.0) g/dl RDW (11.5-14.5) % Plt Count (120.0-450.0) 10^3/uL MPV (7.0-11.0) fl Gran % (50.0-68.0) % Lymph % (Auto) (22.0-35.0) % [place] % (Auto) (1.0-6.0) % Eos % (Auto) (1.5-5.0) % Baso % (Auto) (0.0-3.0) % Gran # (1.4-6.5) Lymph # (Auto) (1.2-3.4) [place] # (Auto) (0.1-0.6) Eos # (Auto) (0.0-0.7) Baso # (Auto) (0.0-2.0) K/mm3 pCO2 (35-45) mm/Hg pO2 (80-100) mm/Hg HCO3 (21-28) mmol/L ABG pH (7.35-7.45) ABG Total CO2 (22-28) mmol.L ABG O2 Saturation (95-98) % ABG O2 Content (15-23) ML/dl ABG Base Excess (-2.0-3.0) mmol/L ABG Hemoglobin (11.7-17.4) g/dL ABG Carboxyhemoglobin (0.5-1.5) % POC ABG HHb (Measured) (0-5) % ABG Methemoglobin (0.0-3.0) % ABG O2 Capacity (16-24) mL/dl Hgb O2 Saturation (95.0-98.0) % FiO2 % Sodium 155 H (132-148) mmol/L Potassium 3.5 L (3.6-5.0) mmol/L Chloride 127 H (98-107) mmol/L Carbon Dioxide 13 L (21-33) mmol/L Anion Gap 18 (10-20) BUN 36 H (7-21) mg/dL Creatinine 1.9 H (0.7-1.2) mg/dl Est GFR ( Amer) 34 Est GFR (Non-Af Amer) 28 POC Glucose (mg/dL) 279 H 265 H (65-110) mg/dL Random Glucose 277 H (70-110) mg/dL Hemoglobin A1c (4.2-6.5) % Serum Osmolality (272-300) mosm/kg Calcium 8.8 (8.4-10.5) mg/dL Phosphorus 1.3 L* (2.5-4.5) mg/dL Magnesium 2.7 H (1.7-2.2) mg/dL Total Bilirubin (0.2-1.3) mg/dL AST (14-36) U/L ALT (7-56) U/L Alkaline Phosphatase (38-126) U/L Total Protein (5.8-8.3) g/dL Albumin (3.0-4.8) g/dL Globulin gm/dL Albumin/Globulin Ratio (1.1-1.8) Procalcitonin (0.19-0.49) NG/ML TSH 3rd Generation (0.46-4.68) mIU/mL Urine Color (YELLOW) Urine Appearance (CLEAR) Urine pH (4.7-8.0) Ur Specific [place] (1.005-1.035) Urine Protein (<30 mg/dL) mg/dL Urine Glucose (UA) (NEGATIVE) mg/dL Urine Ketones (NEGATIVE) mg/dL Urine Blood (NEGATIVE) Urine Nitrate (NEGATIVE) Urine Bilirubin (NEGATIVE) Urine Urobilinogen (<1 E.U./dL) E.U./dL Ur Leukocyte Esterase (NEGATIVE) Yolanda/uL Urine RBC (0-2) /hpf Urine WBC (0-6) /hpf Ur Epithelial Cells (0-5) /hpf Amorphous Sediment Urine Bacteria (NEG) Coarse Granular Casts (0-2) /hpf Urine Other 06/07/17 06/07/17 06/07/17 Range/Units 16:23 16:11 16:11 WBC (4.5-11.0) 10^3/ul RBC (3.5-6.1) 10^6/uL Hgb (12.0-16.0) g/dL Hct (36.0-48.0) % MCV (80.0-105.0) fl MCH (25.0-35.0) pg MCHC (31.0-37.0) g/dl RDW (11.5-14.5) % Plt Count (120.0-450.0) 10^3/uL MPV (7.0-11.0) fl Gran % (50.0-68.0) % Lymph % (Auto) (22.0-35.0) % [place] % (Auto) (1.0-6.0) % Eos % (Auto) (1.5-5.0) % Baso % (Auto) (0.0-3.0) % Gran # (1.4-6.5) Lymph # (Auto) (1.2-3.4) [place] # (Auto) (0.1-0.6) Eos # (Auto) (0.0-0.7) Baso # (Auto) (0.0-2.0) K/mm3 pCO2 (35-45) mm/Hg pO2 (80-100) mm/Hg HCO3 (21-28) mmol/L ABG pH (7.35-7.45) ABG Total CO2 (22-28) mmol.L ABG O2 Saturation (95-98) % ABG O2 Content (15-23) ML/dl ABG Base Excess (-2.0-3.0) mmol/L ABG Hemoglobin (11.7-17.4) g/dL ABG Carboxyhemoglobin (0.5-1.5) % POC ABG HHb (Measured) (0-5) % ABG Methemoglobin (0.0-3.0) % ABG O2 Capacity (16-24) mL/dl Hgb O2 Saturation (95.0-98.0) % FiO2 % Sodium 145 (132-148) mmol/L Potassium 6.3 H* D (3.6-5.0) mmol/L Chloride 113 H (98-107) mmol/L Carbon Dioxide 18 L (21-33) mmol/L Anion Gap 19 (10-20) BUN 33 H (7-21) mg/dL Creatinine 1.6 H (0.7-1.2) mg/dl Est GFR ( Amer) 41 Est GFR (Non-Af Amer) 34 POC Glucose (mg/dL) 262 H (65-110) mg/dL Random Glucose 661 H* D (70-110) mg/dL Hemoglobin A1c (4.2-6.5) % Serum Osmolality (272-300) mosm/kg Calcium 8.0 L (8.4-10.5) mg/dL Phosphorus 8.4 H (2.5-4.5) mg/dL Magnesium 2.2 (1.7-2.2) mg/dL Total Bilirubin (0.2-1.3) mg/dL AST (14-36) U/L ALT (7-56) U/L Alkaline Phosphatase (38-126) U/L Total Protein (5.8-8.3) g/dL Albumin (3.0-4.8) g/dL Globulin gm/dL Albumin/Globulin Ratio (1.1-1.8) Procalcitonin (0.19-0.49) NG/ML TSH 3rd Generation 0.11 L (0.46-4.68) mIU/mL Urine Color (YELLOW) Urine Appearance (CLEAR) Urine pH (4.7-8.0) Ur Specific [place] (1.005-1.035) Urine Protein (<30 mg/dL) mg/dL Urine Glucose (UA) (NEGATIVE) mg/dL Urine Ketones (NEGATIVE) mg/dL Urine Blood (NEGATIVE) Urine Nitrate (NEGATIVE) Urine Bilirubin (NEGATIVE) Urine Urobilinogen (<1 E.U./dL) E.U./dL Ur Leukocyte Esterase (NEGATIVE) Yolanda/uL Urine RBC (0-2) /hpf Urine WBC (0-6) /hpf Ur Epithelial Cells (0-5) /hpf Amorphous Sediment Urine Bacteria (NEG) Coarse Granular Casts (0-2) /hpf Urine Other 06/07/17 06/07/17 06/07/17 Range/Units 15:01 14:14 13:24 WBC (4.5-11.0) 10^3/ul RBC (3.5-6.1) 10^6/uL Hgb (12.0-16.0) g/dL Hct (36.0-48.0) % MCV (80.0-105.0) fl MCH (25.0-35.0) pg MCHC (31.0-37.0) g/dl RDW (11.5-14.5) % Plt Count (120.0-450.0) 10^3/uL MPV (7.0-11.0) fl Gran % (50.0-68.0) % Lymph % (Auto) (22.0-35.0) % [place] % (Auto) (1.0-6.0) % Eos % (Auto) (1.5-5.0) % Baso % (Auto) (0.0-3.0) % Gran # (1.4-6.5) Lymph # (Auto) (1.2-3.4) [place] # (Auto) (0.1-0.6) Eos # (Auto) (0.0-0.7) Baso # (Auto) (0.0-2.0) K/mm3 pCO2 (35-45) mm/Hg pO2 (80-100) mm/Hg HCO3 (21-28) mmol/L ABG pH (7.35-7.45) ABG Total CO2 (22-28) mmol.L ABG O2 Saturation (95-98) % ABG O2 Content (15-23) ML/dl ABG Base Excess (-2.0-3.0) mmol/L ABG Hemoglobin (11.7-17.4) g/dL ABG Carboxyhemoglobin (0.5-1.5) % POC ABG HHb (Measured) (0-5) % ABG Methemoglobin (0.0-3.0) % ABG O2 Capacity (16-24) mL/dl Hgb O2 Saturation (95.0-98.0) % FiO2 % Sodium (132-148) mmol/L Potassium (3.6-5.0) mmol/L Chloride (98-107) mmol/L Carbon Dioxide (21-33) mmol/L Anion Gap (10-20) BUN (7-21) mg/dL Creatinine (0.7-1.2) mg/dl Est GFR ( Amer) Est GFR (Non-Af Amer) POC Glucose (mg/dL) 290 H 289 H 257 H (65-110) mg/dL Random Glucose (70-110) mg/dL Hemoglobin A1c (4.2-6.5) % Serum Osmolality (272-300) mosm/kg Calcium (8.4-10.5) mg/dL Phosphorus (2.5-4.5) mg/dL Magnesium (1.7-2.2) mg/dL Total Bilirubin (0.2-1.3) mg/dL AST (14-36) U/L ALT (7-56) U/L Alkaline Phosphatase (38-126) U/L Total Protein (5.8-8.3) g/dL Albumin (3.0-4.8) g/dL Globulin gm/dL Albumin/Globulin Ratio (1.1-1.8) Procalcitonin (0.19-0.49) NG/ML TSH 3rd Generation (0.46-4.68) mIU/mL Urine Color (YELLOW) Urine Appearance (CLEAR) Urine pH (4.7-8.0) Ur Specific [place] (1.005-1.035) Urine Protein (<30 mg/dL) mg/dL Urine Glucose (UA) (NEGATIVE) mg/dL Urine Ketones (NEGATIVE) mg/dL Urine Blood (NEGATIVE) Urine Nitrate (NEGATIVE) Urine Bilirubin (NEGATIVE) Urine Urobilinogen (<1 E.U./dL) E.U./dL Ur Leukocyte Esterase (NEGATIVE) Yolanda/uL Urine RBC (0-2) /hpf Urine WBC (0-6) /hpf Ur Epithelial Cells (0-5) /hpf Amorphous Sediment Urine Bacteria (NEG) Coarse Granular Casts (0-2) /hpf Urine Other 06/07/17 06/07/17 06/07/17 Range/Units 12:30 12:00 11:53 WBC (4.5-11.0) 10^3/ul RBC (3.5-6.1) 10^6/uL Hgb (12.0-16.0) g/dL Hct (36.0-48.0) % MCV (80.0-105.0) fl MCH (25.0-35.0) pg MCHC (31.0-37.0) g/dl RDW (11.5-14.5) % Plt Count (120.0-450.0) 10^3/uL MPV (7.0-11.0) fl Gran % (50.0-68.0) % Lymph % (Auto) (22.0-35.0) % [place] % (Auto) (1.0-6.0) % Eos % (Auto) (1.5-5.0) % Baso % (Auto) (0.0-3.0) % Gran # (1.4-6.5) Lymph # (Auto) (1.2-3.4) [place] # (Auto) (0.1-0.6) Eos # (Auto) (0.0-0.7) Baso # (Auto) (0.0-2.0) K/mm3 pCO2 26 L (35-45) mm/Hg pO2 249.0 H (80-100) mm/Hg HCO3 9.5 L* (21-28) mmol/L ABG pH 7.17 L* (7.35-7.45) ABG Total CO2 10.3 L (22-28) mmol.L ABG O2 Saturation 99.9 H (95-98) % ABG O2 Content 15.6 (15-23) ML/dl ABG Base Excess -17.5 L (-2.0-3.0) mmol/L ABG Hemoglobin 11.0 L (11.7-17.4) g/dL ABG Carboxyhemoglobin 1.6 H (0.5-1.5) % POC ABG HHb (Measured) 0.1 (0-5) % ABG Methemoglobin 1.3 (0.0-3.0) % ABG O2 Capacity 15.6 L (16-24) mL/dl Hgb O2 Saturation 97.0 (95.0-98.0) % FiO2 60.0 % Sodium (132-148) mmol/L Potassium (3.6-5.0) mmol/L Chloride (98-107) mmol/L Carbon Dioxide (21-33) mmol/L Anion Gap (10-20) BUN (7-21) mg/dL Creatinine (0.7-1.2) mg/dl Est GFR ( Amer) Est GFR (Non-Af Amer) POC Glucose (mg/dL) 272 H 256 H (65-110) mg/dL Random Glucose (70-110) mg/dL Hemoglobin A1c (4.2-6.5) % Serum Osmolality (272-300) mosm/kg Calcium (8.4-10.5) mg/dL Phosphorus (2.5-4.5) mg/dL Magnesium (1.7-2.2) mg/dL Total Bilirubin (0.2-1.3) mg/dL AST (14-36) U/L ALT (7-56) U/L Alkaline Phosphatase (38-126) U/L Total Protein (5.8-8.3) g/dL Albumin (3.0-4.8) g/dL Globulin gm/dL Albumin/Globulin Ratio (1.1-1.8) Procalcitonin (0.19-0.49) NG/ML TSH 3rd Generation (0.46-4.68) mIU/mL Urine Color (YELLOW) Urine Appearance (CLEAR) Urine pH (4.7-8.0) Ur Specific [place] (1.005-1.035) Urine Protein (<30 mg/dL) mg/dL Urine Glucose (UA) (NEGATIVE) mg/dL Urine Ketones (NEGATIVE) mg/dL Urine Blood (NEGATIVE) Urine Nitrate (NEGATIVE) Urine Bilirubin (NEGATIVE) Urine Urobilinogen (<1 E.U./dL) E.U./dL Ur Leukocyte Esterase (NEGATIVE) Yolanda/uL Urine RBC (0-2) /hpf Urine WBC (0-6) /hpf Ur Epithelial Cells (0-5) /hpf Amorphous Sediment Urine Bacteria (NEG) Coarse Granular Casts (0-2) /hpf Urine Other 06/07/17 06/07/17 06/07/17 Range/Units 11:15 10:54 10:45 WBC (4.5-11.0) 10^3/ul RBC (3.5-6.1) 10^6/uL Hgb (12.0-16.0) g/dL Hct (36.0-48.0) % MCV (80.0-105.0) fl MCH (25.0-35.0) pg MCHC (31.0-37.0) g/dl RDW (11.5-14.5) % Plt Count (120.0-450.0) 10^3/uL MPV (7.0-11.0) fl Gran % (50.0-68.0) % Lymph % (Auto) (22.0-35.0) % [place] % (Auto) (1.0-6.0) % Eos % (Auto) (1.5-5.0) % Baso % (Auto) (0.0-3.0) % Gran # (1.4-6.5) Lymph # (Auto) (1.2-3.4) [place] # (Auto) (0.1-0.6) Eos # (Auto) (0.0-0.7) Baso # (Auto) (0.0-2.0) K/mm3 pCO2 (35-45) mm/Hg pO2 (80-100) mm/Hg HCO3 (21-28) mmol/L ABG pH (7.35-7.45) ABG Total CO2 (22-28) mmol.L ABG O2 Saturation (95-98) % ABG O2 Content (15-23) ML/dl ABG Base Excess (-2.0-3.0) mmol/L ABG Hemoglobin (11.7-17.4) g/dL ABG Carboxyhemoglobin (0.5-1.5) % POC ABG HHb (Measured) (0-5) % ABG Methemoglobin (0.0-3.0) % ABG O2 Capacity (16-24) mL/dl Hgb O2 Saturation (95.0-98.0) % FiO2 % Sodium 156 H* (132-148) mmol/L Potassium 3.2 L (3.6-5.0) mmol/L Chloride 127 H (98-107) mmol/L Carbon Dioxide 10 L D (21-33) mmol/L Anion Gap 22 H (10-20) BUN 35 H (7-21) mg/dL Creatinine 1.9 H (0.7-1.2) mg/dl Est GFR ( Amer) 34 Est GFR (Non-Af Amer) 28 POC Glucose (mg/dL) 299 H (65-110) mg/dL Random Glucose 303 H* (70-110) mg/dL Hemoglobin A1c (4.2-6.5) % Serum Osmolality (272-300) mosm/kg Calcium 9.3 (8.4-10.5) mg/dL Phosphorus 0.8 L* (2.5-4.5) mg/dL Magnesium 2.9 H (1.7-2.2) mg/dL Total Bilirubin (0.2-1.3) mg/dL AST (14-36) U/L ALT (7-56) U/L Alkaline Phosphatase (38-126) U/L Total Protein (5.8-8.3) g/dL Albumin (3.0-4.8) g/dL Globulin gm/dL Albumin/Globulin Ratio (1.1-1.8) Procalcitonin (0.19-0.49) NG/ML TSH 3rd Generation (0.46-4.68) mIU/mL Urine Color Yellow (YELLOW) Urine Appearance Clear (CLEAR) Urine pH 5.5 (4.7-8.0) Ur Specific [place] 1.015 (1.005-1.035) Urine Protein 100 H (<30 mg/dL) mg/dL Urine Glucose (UA) >=1000 (NEGATIVE) mg/dL Urine Ketones 40 H (NEGATIVE) mg/dL Urine Blood Large H (NEGATIVE) Urine Nitrate Negative (NEGATIVE) Urine Bilirubin Small H (NEGATIVE) Urine Urobilinogen 0.2 (<1 E.U./dL) E.U./dL Ur Leukocyte Esterase Negative (NEGATIVE) Yolanda/uL Urine RBC 25 - 30 (0-2) /hpf Urine WBC 1 - 3 (0-6) /hpf Ur Epithelial Cells 6 - 8 (0-5) /hpf Amorphous Sediment Small Urine Bacteria Many (NEG) Coarse Granular Casts Trace H (0-2) /hpf Urine Other Uyeast 06/07/17 06/07/17 06/07/17 Range/Units 10:45 10:45 05:55 WBC (4.5-11.0) 10^3/ul RBC (3.5-6.1) 10^6/uL Hgb (12.0-16.0) g/dL Hct (36.0-48.0) % MCV (80.0-105.0) fl MCH (25.0-35.0) pg MCHC (31.0-37.0) g/dl RDW (11.5-14.5) % Plt Count (120.0-450.0) 10^3/uL MPV (7.0-11.0) fl Gran % (50.0-68.0) % Lymph % (Auto) (22.0-35.0) % [place] % (Auto) (1.0-6.0) % Eos % (Auto) (1.5-5.0) % Baso % (Auto) (0.0-3.0) % Gran # (1.4-6.5) Lymph # (Auto) (1.2-3.4) [place] # (Auto) (0.1-0.6) Eos # (Auto) (0.0-0.7) Baso # (Auto) (0.0-2.0) K/mm3 pCO2 (35-45) mm/Hg pO2 (80-100) mm/Hg HCO3 (21-28) mmol/L ABG pH (7.35-7.45) ABG Total CO2 (22-28) mmol.L ABG O2 Saturation (95-98) % ABG O2 Content (15-23) ML/dl ABG Base Excess (-2.0-3.0) mmol/L ABG Hemoglobin (11.7-17.4) g/dL ABG Carboxyhemoglobin (0.5-1.5) % POC ABG HHb (Measured) (0-5) % ABG Methemoglobin (0.0-3.0) % ABG O2 Capacity (16-24) mL/dl Hgb O2 Saturation (95.0-98.0) % FiO2 % Sodium (132-148) mmol/L Potassium (3.6-5.0) mmol/L Chloride (98-107) mmol/L Carbon Dioxide (21-33) mmol/L Anion Gap (10-20) BUN (7-21) mg/dL Creatinine (0.7-1.2) mg/dl Est GFR ( Amer) Est GFR (Non-Af Amer) POC Glucose (mg/dL) (65-110) mg/dL Random Glucose (70-110) mg/dL Hemoglobin A1c 8.3 H (4.2-6.5) % Serum Osmolality 379 H (272-300) mosm/kg Calcium (8.4-10.5) mg/dL Phosphorus (2.5-4.5) mg/dL Magnesium (1.7-2.2) mg/dL Total Bilirubin (0.2-1.3) mg/dL AST (14-36) U/L ALT (7-56) U/L Alkaline Phosphatase (38-126) U/L Total Protein (5.8-8.3) g/dL Albumin (3.0-4.8) g/dL Globulin gm/dL Albumin/Globulin Ratio (1.1-1.8) Procalcitonin 0.37 (0.19-0.49) NG/ML TSH 3rd Generation (0.46-4.68) mIU/mL Urine Color (YELLOW) Urine Appearance (CLEAR) Urine pH (4.7-8.0) Ur Specific [place] (1.005-1.035) Urine Protein (<30 mg/dL) mg/dL Urine Glucose (UA) (NEGATIVE) mg/dL Urine Ketones (NEGATIVE) mg/dL Urine Blood (NEGATIVE) Urine Nitrate (NEGATIVE) Urine Bilirubin (NEGATIVE) Urine Urobilinogen (<1 E.U./dL) E.U./dL Ur Leukocyte Esterase (NEGATIVE) Yolanda/uL Urine RBC (0-2) /hpf Urine WBC (0-6) /hpf Ur Epithelial Cells (0-5) /hpf Amorphous Sediment Urine Bacteria (NEG) Coarse Granular Casts (0-2) /hpf Urine Other Laboratory Results - last 24 hr 06/07/17 06/07/17 06/07/17 05:55 10:45 10:45 WBC RBC Hgb Hct MCV MCH MCHC RDW Plt Count MPV Gran % Lymph % (Auto) [place] % (Auto) Eos % (Auto) Baso % (Auto) Gran # Lymph # (Auto) [place] # (Auto) Eos # (Auto) Baso # (Auto) pCO2 pO2 HCO3 ABG pH ABG Total CO2 ABG O2 Saturation ABG O2 Content ABG Base Excess ABG Hemoglobin ABG Carboxyhemoglobin POC ABG HHb (Measured) ABG Methemoglobin ABG O2 Capacity Hgb O2 Saturation FiO2 Sodium Potassium Chloride Carbon Dioxide Anion Gap BUN Creatinine Est GFR ( Amer) Est GFR (Non-Af Amer) POC Glucose (mg/dL) Random Glucose Hemoglobin A1c 8.3 H Serum Osmolality 379 H Calcium Phosphorus Magnesium Total Bilirubin AST ALT Alkaline Phosphatase Total Protein Albumin Globulin Albumin/Globulin Ratio Procalcitonin 0.37 TSH 3rd Generation Urine Color Urine Appearance Urine pH Ur Specific [place] Urine Protein Urine Glucose (UA) Urine Ketones Urine Blood Urine Nitrate Urine Bilirubin Urine Urobilinogen Ur Leukocyte Esterase Urine RBC Urine WBC Ur Epithelial Cells Amorphous Sediment Urine Bacteria Coarse Granular Casts Urine Other 06/07/17 06/07/17 06/07/17 10:45 10:54 11:15 WBC RBC Hgb Hct MCV MCH MCHC RDW Plt Count MPV Gran % Lymph % (Auto) [place] % (Auto) Eos % (Auto) Baso % (Auto) Gran # Lymph # (Auto) [place] # (Auto) Eos # (Auto) Baso # (Auto) pCO2 pO2 HCO3 ABG pH ABG Total CO2 ABG O2 Saturation ABG O2 Content ABG Base Excess ABG Hemoglobin ABG Carboxyhemoglobin POC ABG HHb (Measured) ABG Methemoglobin ABG O2 Capacity Hgb O2 Saturation FiO2 Sodium 156 H* Potassium 3.2 L Chloride 127 H Carbon Dioxide 10 L D Anion Gap 22 H BUN 35 H Creatinine 1.9 H Est GFR ( Amer) 34 Est GFR (Non-Af Amer) 28 POC Glucose (mg/dL) 299 H Random Glucose 303 H* Hemoglobin A1c Serum Osmolality Calcium 9.3 Phosphorus 0.8 L* Magnesium 2.9 H Total Bilirubin AST ALT Alkaline Phosphatase Total Protein Albumin Globulin Albumin/Globulin Ratio Procalcitonin TSH 3rd Generation Urine Color Yellow Urine Appearance Clear Urine pH 5.5 Ur Specific [place] 1.015 Urine Protein 100 H Urine Glucose (UA) >=1000 Urine Ketones 40 H Urine Blood Large H Urine Nitrate Negative Urine Bilirubin Small H Urine Urobilinogen 0.2 Ur Leukocyte Esterase Negative Urine RBC 25 - 30 Urine WBC 1 - 3 Ur Epithelial Cells 6 - 8 Amorphous Sediment Small Urine Bacteria Many Coarse Granular Casts Trace H Urine Other Uyeast 06/07/17 06/07/17 06/07/17 11:53 12:00 12:30 WBC RBC Hgb Hct MCV MCH MCHC RDW Plt Count MPV Gran % Lymph % (Auto) [place] % (Auto) Eos % (Auto) Baso % (Auto) Gran # Lymph # (Auto) [place] # (Auto) Eos # (Auto) Baso # (Auto) pCO2 26 L pO2 249.0 H HCO3 9.5 L* ABG pH 7.17 L* ABG Total CO2 10.3 L ABG O2 Saturation 99.9 H ABG O2 Content 15.6 ABG Base Excess -17.5 L ABG Hemoglobin 11.0 L ABG Carboxyhemoglobin 1.6 H POC ABG HHb (Measured) 0.1 ABG Methemoglobin 1.3 ABG O2 Capacity 15.6 L Hgb O2 Saturation 97.0 FiO2 60.0 Sodium Potassium Chloride Carbon Dioxide Anion Gap BUN Creatinine Est GFR ( Amer) Est GFR (Non-Af Amer) POC Glucose (mg/dL) 256 H 272 H Random Glucose Hemoglobin A1c Serum Osmolality Calcium Phosphorus Magnesium Total Bilirubin AST ALT Alkaline Phosphatase Total Protein Albumin Globulin Albumin/Globulin Ratio Procalcitonin TSH 3rd Generation Urine Color Urine Appearance Urine pH Ur Specific [place] Urine Protein Urine Glucose (UA) Urine Ketones Urine Blood Urine Nitrate Urine Bilirubin Urine Urobilinogen Ur Leukocyte Esterase Urine RBC Urine WBC Ur Epithelial Cells Amorphous Sediment Urine Bacteria Coarse Granular Casts Urine Other 06/07/17 06/07/17 06/07/17 13:24 14:14 15:01 WBC RBC Hgb Hct MCV MCH MCHC RDW Plt Count MPV Gran % Lymph % (Auto) [place] % (Auto) Eos % (Auto) Baso % (Auto) Gran # Lymph # (Auto) [place] # (Auto) Eos # (Auto) Baso # (Auto) pCO2 pO2 HCO3 ABG pH ABG Total CO2 ABG O2 Saturation ABG O2 Content ABG Base Excess ABG Hemoglobin ABG Carboxyhemoglobin POC ABG HHb (Measured) ABG Methemoglobin ABG O2 Capacity Hgb O2 Saturation FiO2 Sodium Potassium Chloride Carbon Dioxide Anion Gap BUN Creatinine Est GFR ( Amer) Est GFR (Non-Af Amer) POC Glucose (mg/dL) 257 H 289 H 290 H Random Glucose Hemoglobin A1c Serum Osmolality Calcium Phosphorus Magnesium Total Bilirubin AST ALT Alkaline Phosphatase Total Protein Albumin Globulin Albumin/Globulin Ratio Procalcitonin TSH 3rd Generation Urine Color Urine Appearance Urine pH Ur Specific [place] Urine Protein Urine Glucose (UA) Urine Ketones Urine Blood Urine Nitrate Urine Bilirubin Urine Urobilinogen Ur Leukocyte Esterase Urine RBC Urine WBC Ur Epithelial Cells Amorphous Sediment Urine Bacteria Coarse Granular Casts Urine Other 06/07/17 06/07/17 06/07/17 16:11 16:11 16:23 WBC RBC Hgb Hct MCV MCH MCHC RDW Plt Count MPV Gran % Lymph % (Auto) [place] % (Auto) Eos % (Auto) Baso % (Auto) Gran # Lymph # (Auto) [place] # (Auto) Eos # (Auto) Baso # (Auto) pCO2 pO2 HCO3 ABG pH ABG Total CO2 ABG O2 Saturation ABG O2 Content ABG Base Excess ABG Hemoglobin ABG Carboxyhemoglobin POC ABG HHb (Measured) ABG Methemoglobin ABG O2 Capacity Hgb O2 Saturation FiO2 Sodium 145 Potassium 6.3 H* D Chloride 113 H Carbon Dioxide 18 L Anion Gap 19 BUN 33 H Creatinine 1.6 H Est GFR ( Amer) 41 Est GFR (Non-Af Amer) 34 POC Glucose (mg/dL) 262 H Random Glucose 661 H* D Hemoglobin A1c Serum Osmolality Calcium 8.0 L Phosphorus 8.4 H Magnesium 2.2 Total Bilirubin AST ALT Alkaline Phosphatase Total Protein Albumin Globulin Albumin/Globulin Ratio Procalcitonin TSH 3rd Generation 0.11 L Urine Color Urine Appearance Urine pH Ur Specific [place] Urine Protein Urine Glucose (UA) Urine Ketones Urine Blood Urine Nitrate Urine Bilirubin Urine Urobilinogen Ur Leukocyte Esterase Urine RBC Urine WBC Ur Epithelial Cells Amorphous Sediment Urine Bacteria Coarse Granular Casts Urine Other 06/07/17 06/07/17 06/07/17 17:20 17:42 18:14 WBC RBC Hgb Hct MCV MCH MCHC RDW Plt Count MPV Gran % Lymph % (Auto) [place] % (Auto) Eos % (Auto) Baso % (Auto) Gran # Lymph # (Auto) [place] # (Auto) Eos # (Auto) Baso # (Auto) pCO2 pO2 HCO3 ABG pH ABG Total CO2 ABG O2 Saturation ABG O2 Content ABG Base Excess ABG Hemoglobin ABG Carboxyhemoglobin POC ABG HHb (Measured) ABG Methemoglobin ABG O2 Capacity Hgb O2 Saturation FiO2 Sodium 155 H Potassium 3.5 L Chloride 127 H Carbon Dioxide 13 L Anion Gap 18 BUN 36 H Creatinine 1.9 H Est GFR ( Amer) 34 Est GFR (Non-Af Amer) 28 POC Glucose (mg/dL) 265 H 279 H Random Glucose 277 H Hemoglobin A1c Serum Osmolality Calcium 8.8 Phosphorus 1.3 L* Magnesium 2.7 H Total Bilirubin AST ALT Alkaline Phosphatase Total Protein Albumin Globulin Albumin/Globulin Ratio Procalcitonin TSH 3rd Generation Urine Color Urine Appearance Urine pH Ur Specific [place] Urine Protein Urine Glucose (UA) Urine Ketones Urine Blood Urine Nitrate Urine Bilirubin Urine Urobilinogen Ur Leukocyte Esterase Urine RBC Urine WBC Ur Epithelial Cells Amorphous Sediment Urine Bacteria Coarse Granular Casts Urine Other 06/07/17 06/07/17 06/07/17 19:19 20:54 22:08 WBC RBC Hgb Hct MCV MCH MCHC RDW Plt Count MPV Gran % Lymph % (Auto) [place] % (Auto) Eos % (Auto) Baso % (Auto) Gran # Lymph # (Auto) [place] # (Auto) Eos # (Auto) Baso # (Auto) pCO2 pO2 HCO3 ABG pH ABG Total CO2 ABG O2 Saturation ABG O2 Content ABG Base Excess ABG Hemoglobin ABG Carboxyhemoglobin POC ABG HHb (Measured) ABG Methemoglobin ABG O2 Capacity Hgb O2 Saturation FiO2 Sodium Potassium Chloride Carbon Dioxide Anion Gap BUN Creatinine Est GFR ( Amer) Est GFR (Non-Af Amer) POC Glucose (mg/dL) 289 H 281 H 262 H Random Glucose Hemoglobin A1c Serum Osmolality Calcium Phosphorus Magnesium Total Bilirubin AST ALT Alkaline Phosphatase Total Protein Albumin Globulin Albumin/Globulin Ratio Procalcitonin TSH 3rd Generation Urine Color Urine Appearance Urine pH Ur Specific [place] Urine Protein Urine Glucose (UA) Urine Ketones Urine Blood Urine Nitrate Urine Bilirubin Urine Urobilinogen Ur Leukocyte Esterase Urine RBC Urine WBC Ur Epithelial Cells Amorphous Sediment Urine Bacteria Coarse Granular Casts Urine Other 06/07/17 06/08/17 06/08/17 23:02 00:15 01:00 WBC RBC Hgb Hct MCV MCH MCHC RDW Plt Count MPV Gran % Lymph % (Auto) [place] % (Auto) Eos % (Auto) Baso % (Auto) Gran # Lymph # (Auto) [place] # (Auto) Eos # (Auto) Baso # (Auto) pCO2 pO2 HCO3 ABG pH ABG Total CO2 ABG O2 Saturation ABG O2 Content ABG Base Excess ABG Hemoglobin ABG Carboxyhemoglobin POC ABG HHb (Measured) ABG Methemoglobin ABG O2 Capacity Hgb O2 Saturation FiO2 Sodium 153 H Potassium 3.3 L Chloride 123 H Carbon Dioxide 17 L Anion Gap 16 BUN 37 H Creatinine 1.8 H Est GFR ( Amer) 36 Est GFR (Non-Af Amer) 30 POC Glucose (mg/dL) 221 H 321 H Random Glucose 309 H* Hemoglobin A1c Serum Osmolality Calcium 8.8 Phosphorus 2.8 Magnesium 2.4 H Total Bilirubin AST ALT Alkaline Phosphatase Total Protein Albumin Globulin Albumin/Globulin Ratio Procalcitonin TSH 3rd Generation Urine Color Urine Appearance Urine pH Ur Specific [place] Urine Protein Urine Glucose (UA) Urine Ketones Urine Blood Urine Nitrate Urine Bilirubin Urine Urobilinogen Ur Leukocyte Esterase Urine RBC Urine WBC Ur Epithelial Cells Amorphous Sediment Urine Bacteria Coarse Granular Casts Urine Other 06/08/17 06/08/17 06/08/17 01:02 02:03 03:40 WBC RBC Hgb Hct MCV MCH MCHC RDW Plt Count MPV Gran % Lymph % (Auto) [place] % (Auto) Eos % (Auto) Baso % (Auto) Gran # Lymph # (Auto) [place] # (Auto) Eos # (Auto) Baso # (Auto) pCO2 pO2 HCO3 ABG pH ABG Total CO2 ABG O2 Saturation ABG O2 Content ABG Base Excess ABG Hemoglobin ABG Carboxyhemoglobin POC ABG HHb (Measured) ABG Methemoglobin ABG O2 Capacity Hgb O2 Saturation FiO2 Sodium Potassium Chloride Carbon Dioxide Anion Gap BUN Creatinine Est GFR ( Amer) Est GFR (Non-Af Amer) POC Glucose (mg/dL) 312 H 318 H 287 H Random Glucose Hemoglobin A1c Serum Osmolality Calcium Phosphorus Magnesium Total Bilirubin AST ALT Alkaline Phosphatase Total Protein Albumin Globulin Albumin/Globulin Ratio Procalcitonin TSH 3rd Generation Urine Color Urine Appearance Urine pH Ur Specific [place] Urine Protein Urine Glucose (UA) Urine Ketones Urine Blood Urine Nitrate Urine Bilirubin Urine Urobilinogen Ur Leukocyte Esterase Urine RBC Urine WBC Ur Epithelial Cells Amorphous Sediment Urine Bacteria Coarse Granular Casts Urine Other 06/08/17 06/08/17 06/08/17 04:23 05:34 05:50 WBC RBC Hgb Hct MCV MCH MCHC RDW Plt Count MPV Gran % Lymph % (Auto) [place] % (Auto) Eos % (Auto) Baso % (Auto) Gran # Lymph # (Auto) [place] # (Auto) Eos # (Auto) Baso # (Auto) pCO2 31 L pO2 143.0 H HCO3 18.8 L ABG pH 7.39 ABG Total CO2 19.8 L ABG O2 Saturation 99.0 H ABG O2 Content 14.7 L ABG Base Excess -5.3 L ABG Hemoglobin 10.7 L ABG Carboxyhemoglobin 1.3 POC ABG HHb (Measured) 1.0 ABG Methemoglobin 1.7 ABG O2 Capacity 14.8 L Hgb O2 Saturation 96.0 FiO2 40.0 Sodium Potassium Chloride Carbon Dioxide Anion Gap BUN Creatinine Est GFR ( Amer) Est GFR (Non-Af Amer) POC Glucose (mg/dL) 312 H 220 H Random Glucose Hemoglobin A1c Serum Osmolality Calcium Phosphorus Magnesium Total Bilirubin AST ALT Alkaline Phosphatase Total Protein Albumin Globulin Albumin/Globulin Ratio Procalcitonin TSH 3rd Generation Urine Color Urine Appearance Urine pH Ur Specific [place] Urine Protein Urine Glucose (UA) Urine Ketones Urine Blood Urine Nitrate Urine Bilirubin Urine Urobilinogen Ur Leukocyte Esterase Urine RBC Urine WBC Ur Epithelial Cells Amorphous Sediment Urine Bacteria Coarse Granular Casts Urine Other 06/08/17 06/08/17 06/08/17 06:18 06:25 06:25 WBC 8.5 D RBC 3.53 Hgb 10.5 L Hct 29.3 L MCV 83.0 MCH 29.7 MCHC 35.8 RDW 15.2 H Plt Count 100 L MPV 10.5 Gran % 68.0 Lymph % (Auto) 21.7 L [place] % (Auto) 10.1 H Eos % (Auto) 0.0 L Baso % (Auto) 0.2 Gran # 5.80 Lymph # (Auto) 1.9 [place] # (Auto) 0.9 H Eos # (Auto) 0.0 Baso # (Auto) 0.02 pCO2 pO2 HCO3 ABG pH ABG Total CO2 ABG O2 Saturation ABG O2 Content ABG Base Excess ABG Hemoglobin ABG Carboxyhemoglobin POC ABG HHb (Measured) ABG Methemoglobin ABG O2 Capacity Hgb O2 Saturation FiO2 Sodium 154 H Potassium 3.2 L Chloride 122 H Carbon Dioxide 20 L Anion Gap 15 BUN 34 H Creatinine 1.7 H Est GFR ( Amer) 38 Est GFR (Non-Af Amer) 32 POC Glucose (mg/dL) 223 H Random Glucose 234 H Hemoglobin A1c Serum Osmolality Calcium 9.1 Phosphorus 3.1 Magnesium 2.3 H Total Bilirubin 0.7 AST 24 ALT 27 Alkaline Phosphatase 81 Total Protein 5.8 Albumin 3.2 Globulin 2.6 Albumin/Globulin Ratio 1.3 Procalcitonin TSH 3rd Generation Urine Color Urine Appearance Urine pH Ur Specific [place] Urine Protein Urine Glucose (UA) Urine Ketones Urine Blood Urine Nitrate Urine Bilirubin Urine Urobilinogen Ur Leukocyte Esterase Urine RBC Urine WBC Ur Epithelial Cells Amorphous Sediment Urine Bacteria Coarse Granular Casts Urine Other Fingerstick Blood Sugar Results: 258 Critical Care Progress Note - Nutrition Nutrition: Nutrition Category Date Time Status Heart Healthy Diet [DIET] Diets 06/04/17 Dinner Ordered Assessment/Plan - Assessment and Plan (Free Text) Plan: 51 year old female with past medical history of DM, HTN, HLD presents with DKA and a-fib with rvr. A-fib resolved. Patient with negative head CT and perinephric stranding on CT. Patient will attempt to be weaned off of propofol and be placed on pressure support trial. Will change fluids to D5 1/2NS with Kphos as per nephro recs. Continue to monitor patient closely. Neuro: Intubated and sedated on Propofol Will add Precedex Will attempt to wean Thiamine added CT head negative Cardio: Hemodynamically stable Maintain MAP >65 Continue Verapamil Pulm: Intubated Maintain O2 sat >90% CXR daily ABG daily GI: NPO NG tube Protonix Nephro: Maintain euvolemia D5 1/2NS with Kphos @ 150 Replenish electrolytes as needed Akhtar catheter Endo: Insulin drip IVF TSH low, Free T3, T4 Accuchecks q1h Heme/ID: Afebrile, leukocytosis Merrem and Vanco Cultures negative at this time Trevor Guillaume, PGY-2 <Riki Murry - Last Filed: 06/08/17 12:00> CCU Objective - Vital Signs / Intake & Output Vital Signs (Last 4 hours): Vital Signs Pulse BP 06/08/17 10:46 111 H 135/58 L 06/08/17 10:45 111 H 135/58 L Intake and Output (Last 8hrs): Intake & Output 06/07/17 06/08/17 06/08/17 22:59 06:59 14:59 Intake Total 2601 2942 170 Output Total 1700 2300 Balance 901 642 170 Intake: IV 2601 2942 170 IVF 1800 1800 IVPB 300 650 Insulin drip 30 36 Propofol 256 256 Oral 0 Output: Urine 1700 2300 Urethral (Akhtar) 1100 2300 Urine, Voided 600 Stool 0 - Medications Active Medications: Active Medications Generic Name Dose Route Start Last Admin Trade Name Freq PRN Reason Stop Dose Admin Aspirin 81 mg 06/05/17 10:00 06/08/17 10:50 Ecotrin PO 81 mg DAILY ALEJANDRINA Administration Enoxaparin Sodium 40 mg 06/07/17 10:00 06/08/17 10:05 Lovenox SC 40 mg DAILY ALEJANDRINA Administration Protocol Insulin Human Regular 100 100 mls @ 1 mls/hr 06/06/17 09:45 06/08/17 09:48 units/ Sodium Chloride IV 2 units/hr .Q24H PRN 2 mls/hr TITRATE PER MD ORDER Titration Protocol 1 UNITS/HR Propofol 1,000 mg in 100 mls @ 3.043 mls/hr 06/07/17 10:11 06/08/17 08:25 Diprivan IV 40 mcg/kg/min .Q24H PRN 24.342 mls/hr TITRATE PER MD ORDER Titration Protocol 5 MCG/KG/MIN Meropenem 50 mls @ 100 mls/hr 06/07/17 10:30 06/08/17 10:05 Merrem Iv 1 Gm Premix IVPB 06/14/17 10:31 100 mls/hr Q12 ALEJANDRINA Administration Protocol Acetaminophen 1,000 mg in 100 mls @ 400 mls/hr 06/07/17 15:36 06/08/17 05:11 Ofirmev IVPB 06/09/17 15:37 400 mls/hr Q6H PRN Administration Fever > 100.4 Vancomycin HCl 1.5 gm/ Sodium 500 mls @ 167 mls/hr 06/08/17 09:46 06/08/17 10 :55 Chloride IVPB 06/08/17 12:45 167 mls/hr ONCE ONE Administration Protocol Dexmedetomidine HCl 400 mcg in 100 mls @ 5.071 mls/hr 06/08/17 10:17 10:43 Precedex 400mcg/100ml IV 0.2 mcg/kg/hr .[id number] PRN 5.071 mls/hr Agitation Administration Protocol 0.2 MCG/KG/HR Potassium Phosphate 20 mmole/ 1,006.6667 mls @ 100 mls/hr 06/08/17 10:38 11:48 Dextrose/Sodium Chloride IV 100 mls/hr .Q10H4M ALEJANDRINA Administration Metoprolol Tartrate 12.5 mg 06/05/17 18:00 06/08/17 10:45 Lopressor PO 12.5 mg BID ALEJANDRINA Administration Morphine Sulfate 2 mg 06/07/17 10:11 06/07/17 17:29 Morphine IVP 2 mg Q3H PRN Administration Pain, severe (8-10) Pantoprazole Sodium 40 mg 06/08/17 10:00 06/08/17 10:06 Protonix Inj IVP 40 mg DAILY ALEJANDRINA Administration Thiamine HCl 100 mg 06/08/17 10:00 06/08/17 10:54 Vitamin B1 Inj IV 100 mg DAILY ALEJANDRINA Administration Verapamil HCl 2.5 mg 06/06/17 09:22 06/06/17 11:46 Verapamil Inj IVP 2.5 mg Q6H PRN Administration for heart rate >130 Verapamil HCl 80 mg 06/06/17 10:00 06/08/17 10:46 Calan Tab PO 80 mg TID ALEJANDRINA Administration - Patient Studies Lab Studies: Microbiology Studies 06/05/17 10:35 Blood Culture - Preliminary Blood-Venous NO GROWTH AFTER 3 DAYS 06/05/17 10:10 Blood Culture - Preliminary Blood-Venous NO GROWTH AFTER 3 DAYS 06/07/17 11:15 Urine Culture - Final Urine,Akhtar No Growth (<1,000 CFU/ML) 06/05/17 15:53 Blood Culture - Preliminary Blood-Venous NO GROWTH AFTER 48 HOURS 06/05/17 15:53 Blood Culture - Preliminary Blood-Venous NO GROWTH AFTER 48 HOURS 06/05/17 20:53 Urine Culture - Final Urine,Clean Catch No Growth (<1,000 CFU/ML) Lab Studies 06/08/17 06/08/17 06/08/17 Range/Units 08:00 06:25 06:25 WBC 8.5 D (4.5-11.0) 10^3/ul RBC 3.53 (3.5-6.1) 10^6/uL Hgb 10.5 L (12.0-16.0) g/dL Hct 29.3 L (36.0-48.0) % MCV 83.0 (80.0-105.0) fl MCH 29.7 (25.0-35.0) pg MCHC 35.8 (31.0-37.0) g/dl RDW 15.2 H (11.5-14.5) % Plt Count 100 L (120.0-450.0) 10^3/uL MPV 10.5 (7.0-11.0) fl Gran % 68.0 (50.0-68.0) % Lymph % (Auto) 21.7 L (22.0-35.0) % [place] % (Auto) 10.1 H (1.0-6.0) % Eos % (Auto) 0.0 L (1.5-5.0) % Baso % (Auto) 0.2 (0.0-3.0) % Gran # 5.80 (1.4-6.5) Lymph # (Auto) 1.9 (1.2-3.4) [place] # (Auto) 0.9 H (0.1-0.6) Eos # (Auto) 0.0 (0.0-0.7) Baso # (Auto) 0.02 (0.0-2.0) K/mm3 pCO2 (35-45) mm/Hg pO2 (80-100) mm/Hg HCO3 (21-28) mmol/L ABG pH (7.35-7.45) ABG Total CO2 (22-28) mmol.L ABG O2 Saturation (95-98) % ABG O2 Content (15-23) ML/dl ABG Base Excess (-2.0-3.0) mmol/L ABG Hemoglobin (11.7-17.4) g/dL ABG Carboxyhemoglobin (0.5-1.5) % POC ABG HHb (Measured) (0-5) % ABG Methemoglobin (0.0-3.0) % ABG O2 Capacity (16-24) mL/dl Hgb O2 Saturation (95.0-98.0) % FiO2 % Sodium 154 H (132-148) mmol/L Potassium 3.2 L (3.6-5.0) mmol/L Chloride 122 H (98-107) mmol/L Carbon Dioxide 20 L (21-33) mmol/L Anion Gap 15 (10-20) BUN 34 H (7-21) mg/dL Creatinine 1.7 H (0.7-1.2) mg/dl Est GFR ( Amer) 38 Est GFR (Non-Af Amer) 32 POC Glucose (mg/dL) (65-110) mg/dL Random Glucose 234 H (70-110) mg/dL Serum Osmolality (272-300) mosm/kg Calcium 9.1 (8.4-10.5) mg/dL Phosphorus 3.1 (2.5-4.5) mg/dL Magnesium 2.3 H (1.7-2.2) mg/dL Total Bilirubin 0.7 (0.2-1.3) mg/dL AST 24 (14-36) U/L ALT 27 (7-56) U/L Alkaline Phosphatase 81 (38-126) U/L Total Protein 5.8 (5.8-8.3) g/dL Albumin 3.2 (3.0-4.8) g/dL Globulin 2.6 gm/dL Albumin/Globulin Ratio 1.3 (1.1-1.8) Procalcitonin (0.19-0.49) NG/ML Free T3 pg/mL 2.73 L (2.77-5.27) pg/mL TSH 3rd Generation (0.46-4.68) mIU/mL 06/08/17 06/08/17 06/08/17 Range/Units 06:18 05:50 05:34 WBC (4.5-11.0) 10^3/ul RBC (3.5-6.1) 10^6/uL Hgb (12.0-16.0) g/dL Hct (36.0-48.0) % MCV (80.0-105.0) fl MCH (25.0-35.0) pg MCHC (31.0-37.0) g/dl RDW (11.5-14.5) % Plt Count (120.0-450.0) 10^3/uL MPV (7.0-11.0) fl Gran % (50.0-68.0) % Lymph % (Auto) (22.0-35.0) % [place] % (Auto) (1.0-6.0) % Eos % (Auto) (1.5-5.0) % Baso % (Auto) (0.0-3.0) % Gran # (1.4-6.5) Lymph # (Auto) (1.2-3.4) [place] # (Auto) (0.1-0.6) Eos # (Auto) (0.0-0.7) Baso # (Auto) (0.0-2.0) K/mm3 pCO2 31 L (35-45) mm/Hg pO2 143.0 H (80-100) mm/Hg HCO3 18.8 L (21-28) mmol/L ABG pH 7.39 (7.35-7.45) ABG Total CO2 19.8 L (22-28) mmol.L ABG O2 Saturation 99.0 H (95-98) % ABG O2 Content 14.7 L (15-23) ML/dl ABG Base Excess -5.3 L (-2.0-3.0) mmol/L ABG Hemoglobin 10.7 L (11.7-17.4) g/dL ABG Carboxyhemoglobin 1.3 (0.5-1.5) % POC ABG HHb (Measured) 1.0 (0-5) % ABG Methemoglobin 1.7 (0.0-3.0) % ABG O2 Capacity 14.8 L (16-24) mL/dl Hgb O2 Saturation 96.0 (95.0-98.0) % FiO2 40.0 % Sodium (132-148) mmol/L Potassium (3.6-5.0) mmol/L Chloride (98-107) mmol/L Carbon Dioxide (21-33) mmol/L Anion Gap (10-20) BUN (7-21) mg/dL Creatinine (0.7-1.2) mg/dl Est GFR ( Amer) Est GFR (Non-Af Amer) POC Glucose (mg/dL) 223 H 220 H (65-110) mg/dL Random Glucose (70-110) mg/dL Serum Osmolality (272-300) mosm/kg Calcium (8.4-10.5) mg/dL Phosphorus (2.5-4.5) mg/dL Magnesium (1.7-2.2) mg/dL Total Bilirubin (0.2-1.3) mg/dL AST (14-36) U/L ALT (7-56) U/L Alkaline Phosphatase (38-126) U/L Total Protein (5.8-8.3) g/dL Albumin (3.0-4.8) g/dL Globulin gm/dL Albumin/Globulin Ratio (1.1-1.8) Procalcitonin (0.19-0.49) NG/ML Free T3 pg/mL (2.77-5.27) pg/mL TSH 3rd Generation (0.46-4.68) mIU/mL 06/08/17 06/08/17 06/08/17 Range/Units 04:23 03:40 02:03 WBC (4.5-11.0) 10^3/ul RBC (3.5-6.1) 10^6/uL Hgb (12.0-16.0) g/dL Hct (36.0-48.0) % MCV (80.0-105.0) fl MCH (25.0-35.0) pg MCHC (31.0-37.0) g/dl RDW (11.5-14.5) % Plt Count (120.0-450.0) 10^3/uL MPV (7.0-11.0) fl Gran % (50.0-68.0) % Lymph % (Auto) (22.0-35.0) % [place] % (Auto) (1.0-6.0) % Eos % (Auto) (1.5-5.0) % Baso % (Auto) (0.0-3.0) % Gran # (1.4-6.5) Lymph # (Auto) (1.2-3.4) [place] # (Auto) (0.1-0.6) Eos # (Auto) (0.0-0.7) Baso # (Auto) (0.0-2.0) K/mm3 pCO2 (35-45) mm/Hg pO2 (80-100) mm/Hg HCO3 (21-28) mmol/L ABG pH (7.35-7.45) ABG Total CO2 (22-28) mmol.L ABG O2 Saturation (95-98) % ABG O2 Content (15-23) ML/dl ABG Base Excess (-2.0-3.0) mmol/L ABG Hemoglobin (11.7-17.4) g/dL ABG Carboxyhemoglobin (0.5-1.5) % POC ABG HHb (Measured) (0-5) % ABG Methemoglobin (0.0-3.0) % ABG O2 Capacity (16-24) mL/dl Hgb O2 Saturation (95.0-98.0) % FiO2 % Sodium (132-148) mmol/L Potassium (3.6-5.0) mmol/L Chloride (98-107) mmol/L Carbon Dioxide (21-33) mmol/L Anion Gap (10-20) BUN (7-21) mg/dL Creatinine (0.7-1.2) mg/dl Est GFR ( Amer) Est GFR (Non-Af Amer) POC Glucose (mg/dL) 312 H 287 H 318 H (65-110) mg/dL Random Glucose (70-110) mg/dL Serum Osmolality (272-300) mosm/kg Calcium (8.4-10.5) mg/dL Phosphorus (2.5-4.5) mg/dL Magnesium (1.7-2.2) mg/dL Total Bilirubin (0.2-1.3) mg/dL AST (14-36) U/L ALT (7-56) U/L Alkaline Phosphatase (38-126) U/L Total Protein (5.8-8.3) g/dL Albumin (3.0-4.8) g/dL Globulin gm/dL Albumin/Globulin Ratio (1.1-1.8) Procalcitonin (0.19-0.49) NG/ML Free T3 pg/mL (2.77-5.27) pg/mL TSH 3rd Generation (0.46-4.68) mIU/mL 06/08/17 06/08/17 06/08/17 Range/Units 01:02 01:00 00:15 WBC (4.5-11.0) 10^3/ul RBC (3.5-6.1) 10^6/uL Hgb (12.0-16.0) g/dL Hct (36.0-48.0) % MCV (80.0-105.0) fl MCH (25.0-35.0) pg MCHC (31.0-37.0) g/dl RDW (11.5-14.5) % Plt Count (120.0-450.0) 10^3/uL MPV (7.0-11.0) fl Gran % (50.0-68.0) % Lymph % (Auto) (22.0-35.0) % [place] % (Auto) (1.0-6.0) % Eos % (Auto) (1.5-5.0) % Baso % (Auto) (0.0-3.0) % Gran # (1.4-6.5) Lymph # (Auto) (1.2-3.4) [place] # (Auto) (0.1-0.6) Eos # (Auto) (0.0-0.7) Baso # (Auto) (0.0-2.0) K/mm3 pCO2 (35-45) mm/Hg pO2 (80-100) mm/Hg HCO3 (21-28) mmol/L ABG pH (7.35-7.45) ABG Total CO2 (22-28) mmol.L ABG O2 Saturation (95-98) % ABG O2 Content (15-23) ML/dl ABG Base Excess (-2.0-3.0) mmol/L ABG Hemoglobin (11.7-17.4) g/dL ABG Carboxyhemoglobin (0.5-1.5) % POC ABG HHb (Measured) (0-5) % ABG Methemoglobin (0.0-3.0) % ABG O2 Capacity (16-24) mL/dl Hgb O2 Saturation (95.0-98.0) % FiO2 % Sodium 153 H (132-148) mmol/L Potassium 3.3 L (3.6-5.0) mmol/L Chloride 123 H (98-107) mmol/L Carbon Dioxide 17 L (21-33) mmol/L Anion Gap 16 (10-20) BUN 37 H (7-21) mg/dL Creatinine 1.8 H (0.7-1.2) mg/dl Est GFR ( Amer) 36 Est GFR (Non-Af Amer) 30 POC Glucose (mg/dL) 312 H 321 H (65-110) mg/dL Random Glucose 309 H* (70-110) mg/dL Serum Osmolality (272-300) mosm/kg Calcium 8.8 (8.4-10.5) mg/dL Phosphorus 2.8 (2.5-4.5) mg/dL Magnesium 2.4 H (1.7-2.2) mg/dL Total Bilirubin (0.2-1.3) mg/dL AST (14-36) U/L ALT (7-56) U/L Alkaline Phosphatase (38-126) U/L Total Protein (5.8-8.3) g/dL Albumin (3.0-4.8) g/dL Globulin gm/dL Albumin/Globulin Ratio (1.1-1.8) Procalcitonin (0.19-0.49) NG/ML Free T3 pg/mL (2.77-5.27) pg/mL TSH 3rd Generation (0.46-4.68) mIU/mL 06/07/17 06/07/17 06/07/17 Range/Units 23:02 22:08 20:54 WBC (4.5-11.0) 10^3/ul RBC (3.5-6.1) 10^6/uL Hgb (12.0-16.0) g/dL Hct (36.0-48.0) % MCV (80.0-105.0) fl MCH (25.0-35.0) pg MCHC (31.0-37.0) g/dl RDW (11.5-14.5) % Plt Count (120.0-450.0) 10^3/uL MPV (7.0-11.0) fl Gran % (50.0-68.0) % Lymph % (Auto) (22.0-35.0) % [place] % (Auto) (1.0-6.0) % Eos % (Auto) (1.5-5.0) % Baso % (Auto) (0.0-3.0) % Gran # (1.4-6.5) Lymph # (Auto) (1.2-3.4) [place] # (Auto) (0.1-0.6) Eos # (Auto) (0.0-0.7) Baso # (Auto) (0.0-2.0) K/mm3 pCO2 (35-45) mm/Hg pO2 (80-100) mm/Hg HCO3 (21-28) mmol/L ABG pH (7.35-7.45) ABG Total CO2 (22-28) mmol.L ABG O2 Saturation (95-98) % ABG O2 Content (15-23) ML/dl ABG Base Excess (-2.0-3.0) mmol/L ABG Hemoglobin (11.7-17.4) g/dL ABG Carboxyhemoglobin (0.5-1.5) % POC ABG HHb (Measured) (0-5) % ABG Methemoglobin (0.0-3.0) % ABG O2 Capacity (16-24) mL/dl Hgb O2 Saturation (95.0-98.0) % FiO2 % Sodium (132-148) mmol/L Potassium (3.6-5.0) mmol/L Chloride (98-107) mmol/L Carbon Dioxide (21-33) mmol/L Anion Gap (10-20) BUN (7-21) mg/dL Creatinine (0.7-1.2) mg/dl Est GFR ( Amer) Est GFR (Non-Af Amer) POC Glucose (mg/dL) 221 H 262 H 281 H (65-110) mg/dL Random Glucose (70-110) mg/dL Serum Osmolality (272-300) mosm/kg Calcium (8.4-10.5) mg/dL Phosphorus (2.5-4.5) mg/dL Magnesium (1.7-2.2) mg/dL Total Bilirubin (0.2-1.3) mg/dL AST (14-36) U/L ALT (7-56) U/L Alkaline Phosphatase (38-126) U/L Total Protein (5.8-8.3) g/dL Albumin (3.0-4.8) g/dL Globulin gm/dL Albumin/Globulin Ratio (1.1-1.8) Procalcitonin (0.19-0.49) NG/ML Free T3 pg/mL (2.77-5.27) pg/mL TSH 3rd Generation (0.46-4.68) mIU/mL 06/07/17 06/07/17 06/07/17 Range/Units 19:19 18:14 17:42 WBC (4.5-11.0) 10^3/ul RBC (3.5-6.1) 10^6/uL Hgb (12.0-16.0) g/dL Hct (36.0-48.0) % MCV (80.0-105.0) fl MCH (25.0-35.0) pg MCHC (31.0-37.0) g/dl RDW (11.5-14.5) % Plt Count (120.0-450.0) 10^3/uL MPV (7.0-11.0) fl Gran % (50.0-68.0) % Lymph % (Auto) (22.0-35.0) % [place] % (Auto) (1.0-6.0) % Eos % (Auto) (1.5-5.0) % Baso % (Auto) (0.0-3.0) % Gran # (1.4-6.5) Lymph # (Auto) (1.2-3.4) [place] # (Auto) (0.1-0.6) Eos # (Auto) (0.0-0.7) Baso # (Auto) (0.0-2.0) K/mm3 pCO2 (35-45) mm/Hg pO2 (80-100) mm/Hg HCO3 (21-28) mmol/L ABG pH (7.35-7.45) ABG Total CO2 (22-28) mmol.L ABG O2 Saturation (95-98) % ABG O2 Content (15-23) ML/dl ABG Base Excess (-2.0-3.0) mmol/L ABG Hemoglobin (11.7-17.4) g/dL ABG Carboxyhemoglobin (0.5-1.5) % POC ABG HHb (Measured) (0-5) % ABG Methemoglobin (0.0-3.0) % ABG O2 Capacity (16-24) mL/dl Hgb O2 Saturation (95.0-98.0) % FiO2 % Sodium (132-148) mmol/L Potassium (3.6-5.0) mmol/L Chloride (98-107) mmol/L Carbon Dioxide (21-33) mmol/L Anion Gap (10-20) BUN (7-21) mg/dL Creatinine (0.7-1.2) mg/dl Est GFR ( Amer) Est GFR (Non-Af Amer) POC Glucose (mg/dL) 289 H 279 H 265 H (65-110) mg/dL Random Glucose (70-110) mg/dL Serum Osmolality (272-300) mosm/kg Calcium (8.4-10.5) mg/dL Phosphorus (2.5-4.5) mg/dL Magnesium (1.7-2.2) mg/dL Total Bilirubin (0.2-1.3) mg/dL AST (14-36) U/L ALT (7-56) U/L Alkaline Phosphatase (38-126) U/L Total Protein (5.8-8.3) g/dL Albumin (3.0-4.8) g/dL Globulin gm/dL Albumin/Globulin Ratio (1.1-1.8) Procalcitonin (0.19-0.49) NG/ML Free T3 pg/mL (2.77-5.27) pg/mL TSH 3rd Generation (0.46-4.68) mIU/mL 06/07/17 06/07/17 06/07/17 Range/Units 17:20 16:23 16:11 WBC (4.5-11.0) 10^3/ul RBC (3.5-6.1) 10^6/uL Hgb (12.0-16.0) g/dL Hct (36.0-48.0) % MCV (80.0-105.0) fl MCH (25.0-35.0) pg MCHC (31.0-37.0) g/dl RDW (11.5-14.5) % Plt Count (120.0-450.0) 10^3/uL MPV (7.0-11.0) fl Gran % (50.0-68.0) % Lymph % (Auto) (22.0-35.0) % [place] % (Auto) (1.0-6.0) % Eos % (Auto) (1.5-5.0) % Baso % (Auto) (0.0-3.0) % Gran # (1.4-6.5) Lymph # (Auto) (1.2-3.4) [place] # (Auto) (0.1-0.6) Eos # (Auto) (0.0-0.7) Baso # (Auto) (0.0-2.0) K/mm3 pCO2 (35-45) mm/Hg pO2 (80-100) mm/Hg HCO3 (21-28) mmol/L ABG pH (7.35-7.45) ABG Total CO2 (22-28) mmol.L ABG O2 Saturation (95-98) % ABG O2 Content (15-23) ML/dl ABG Base Excess (-2.0-3.0) mmol/L ABG Hemoglobin (11.7-17.4) g/dL ABG Carboxyhemoglobin (0.5-1.5) % POC ABG HHb (Measured) (0-5) % ABG Methemoglobin (0.0-3.0) % ABG O2 Capacity (16-24) mL/dl Hgb O2 Saturation (95.0-98.0) % FiO2 % Sodium 155 H (132-148) mmol/L Potassium 3.5 L (3.6-5.0) mmol/L Chloride 127 H (98-107) mmol/L Carbon Dioxide 13 L (21-33) mmol/L Anion Gap 18 (10-20) BUN 36 H (7-21) mg/dL Creatinine 1.9 H (0.7-1.2) mg/dl Est GFR ( Amer) 34 Est GFR (Non-Af Amer) 28 POC Glucose (mg/dL) 262 H (65-110) mg/dL Random Glucose 277 H (70-110) mg/dL Serum Osmolality (272-300) mosm/kg Calcium 8.8 (8.4-10.5) mg/dL Phosphorus 1.3 L* (2.5-4.5) mg/dL Magnesium 2.7 H (1.7-2.2) mg/dL Total Bilirubin (0.2-1.3) mg/dL AST (14-36) U/L ALT (7-56) U/L Alkaline Phosphatase (38-126) U/L Total Protein (5.8-8.3) g/dL Albumin (3.0-4.8) g/dL Globulin gm/dL Albumin/Globulin Ratio (1.1-1.8) Procalcitonin (0.19-0.49) NG/ML Free T3 pg/mL (2.77-5.27) pg/mL TSH 3rd Generation 0.11 L (0.46-4.68) mIU/mL 06/07/17 06/07/17 06/07/17 Range/Units 16:11 15:01 14:14 WBC (4.5-11.0) 10^3/ul RBC (3.5-6.1) 10^6/uL Hgb (12.0-16.0) g/dL Hct (36.0-48.0) % MCV (80.0-105.0) fl MCH (25.0-35.0) pg MCHC (31.0-37.0) g/dl RDW (11.5-14.5) % Plt Count (120.0-450.0) 10^3/uL MPV (7.0-11.0) fl Gran % (50.0-68.0) % Lymph % (Auto) (22.0-35.0) % [place] % (Auto) (1.0-6.0) % Eos % (Auto) (1.5-5.0) % Baso % (Auto) (0.0-3.0) % Gran # (1.4-6.5) Lymph # (Auto) (1.2-3.4) [place] # (Auto) (0.1-0.6) Eos # (Auto) (0.0-0.7) Baso # (Auto) (0.0-2.0) K/mm3 pCO2 (35-45) mm/Hg pO2 (80-100) mm/Hg HCO3 (21-28) mmol/L ABG pH (7.35-7.45) ABG Total CO2 (22-28) mmol.L ABG O2 Saturation (95-98) % ABG O2 Content (15-23) ML/dl ABG Base Excess (-2.0-3.0) mmol/L ABG Hemoglobin (11.7-17.4) g/dL ABG Carboxyhemoglobin (0.5-1.5) % POC ABG HHb (Measured) (0-5) % ABG Methemoglobin (0.0-3.0) % ABG O2 Capacity (16-24) mL/dl Hgb O2 Saturation (95.0-98.0) % FiO2 % Sodium 145 (132-148) mmol/L Potassium 6.3 H* D (3.6-5.0) mmol/L Chloride 113 H (98-107) mmol/L Carbon Dioxide 18 L (21-33) mmol/L Anion Gap 19 (10-20) BUN 33 H (7-21) mg/dL Creatinine 1.6 H (0.7-1.2) mg/dl Est GFR ( Amer) 41 Est GFR (Non-Af Amer) 34 POC Glucose (mg/dL) 290 H 289 H (65-110) mg/dL Random Glucose 661 H* D (70-110) mg/dL Serum Osmolality (272-300) mosm/kg Calcium 8.0 L (8.4-10.5) mg/dL Phosphorus 8.4 H (2.5-4.5) mg/dL Magnesium 2.2 (1.7-2.2) mg/dL Total Bilirubin (0.2-1.3) mg/dL AST (14-36) U/L ALT (7-56) U/L Alkaline Phosphatase (38-126) U/L Total Protein (5.8-8.3) g/dL Albumin (3.0-4.8) g/dL Globulin gm/dL Albumin/Globulin Ratio (1.1-1.8) Procalcitonin (0.19-0.49) NG/ML Free T3 pg/mL (2.77-5.27) pg/mL TSH 3rd Generation (0.46-4.68) mIU/mL 06/07/17 06/07/17 06/07/17 Range/Units 13:24 12:30 12:00 WBC (4.5-11.0) 10^3/ul RBC (3.5-6.1) 10^6/uL Hgb (12.0-16.0) g/dL Hct (36.0-48.0) % MCV (80.0-105.0) fl MCH (25.0-35.0) pg MCHC (31.0-37.0) g/dl RDW (11.5-14.5) % Plt Count (120.0-450.0) 10^3/uL MPV (7.0-11.0) fl Gran % (50.0-68.0) % Lymph % (Auto) (22.0-35.0) % [place] % (Auto) (1.0-6.0) % Eos % (Auto) (1.5-5.0) % Baso % (Auto) (0.0-3.0) % Gran # (1.4-6.5) Lymph # (Auto) (1.2-3.4) [place] # (Auto) (0.1-0.6) Eos # (Auto) (0.0-0.7) Baso # (Auto) (0.0-2.0) K/mm3 pCO2 26 L (35-45) mm/Hg pO2 249.0 H (80-100) mm/Hg HCO3 9.5 L* (21-28) mmol/L ABG pH 7.17 L* (7.35-7.45) ABG Total CO2 10.3 L (22-28) mmol.L ABG O2 Saturation 99.9 H (95-98) % ABG O2 Content 15.6 (15-23) ML/dl ABG Base Excess -17.5 L (-2.0-3.0) mmol/L ABG Hemoglobin 11.0 L (11.7-17.4) g/dL ABG Carboxyhemoglobin 1.6 H (0.5-1.5) % POC ABG HHb (Measured) 0.1 (0-5) % ABG Methemoglobin 1.3 (0.0-3.0) % ABG O2 Capacity 15.6 L (16-24) mL/dl Hgb O2 Saturation 97.0 (95.0-98.0) % FiO2 60.0 % Sodium (132-148) mmol/L Potassium (3.6-5.0) mmol/L Chloride (98-107) mmol/L Carbon Dioxide (21-33) mmol/L Anion Gap (10-20) BUN (7-21) mg/dL Creatinine (0.7-1.2) mg/dl Est GFR ( Amer) Est GFR (Non-Af Amer) POC Glucose (mg/dL) 257 H 272 H (65-110) mg/dL Random Glucose (70-110) mg/dL Serum Osmolality (272-300) mosm/kg Calcium (8.4-10.5) mg/dL Phosphorus (2.5-4.5) mg/dL Magnesium (1.7-2.2) mg/dL Total Bilirubin (0.2-1.3) mg/dL AST (14-36) U/L ALT (7-56) U/L Alkaline Phosphatase (38-126) U/L Total Protein (5.8-8.3) g/dL Albumin (3.0-4.8) g/dL Globulin gm/dL Albumin/Globulin Ratio (1.1-1.8) Procalcitonin (0.19-0.49) NG/ML Free T3 pg/mL (2.77-5.27) pg/mL TSH 3rd Generation (0.46-4.68) mIU/mL 06/07/17 06/07/17 06/07/17 Range/Units 11:53 10:45 10:45 WBC (4.5-11.0) 10^3/ul RBC (3.5-6.1) 10^6/uL Hgb (12.0-16.0) g/dL Hct (36.0-48.0) % MCV (80.0-105.0) fl MCH (25.0-35.0) pg MCHC (31.0-37.0) g/dl RDW (11.5-14.5) % Plt Count (120.0-450.0) 10^3/uL MPV (7.0-11.0) fl Gran % (50.0-68.0) % Lymph % (Auto) (22.0-35.0) % [place] % (Auto) (1.0-6.0) % Eos % (Auto) (1.5-5.0) % Baso % (Auto) (0.0-3.0) % Gran # (1.4-6.5) Lymph # (Auto) (1.2-3.4) [place] # (Auto) (0.1-0.6) Eos # (Auto) (0.0-0.7) Baso # (Auto) (0.0-2.0) K/mm3 pCO2 (35-45) mm/Hg pO2 (80-100) mm/Hg HCO3 (21-28) mmol/L ABG pH (7.35-7.45) ABG Total CO2 (22-28) mmol.L ABG O2 Saturation (95-98) % ABG O2 Content (15-23) ML/dl ABG Base Excess (-2.0-3.0) mmol/L ABG Hemoglobin (11.7-17.4) g/dL ABG Carboxyhemoglobin (0.5-1.5) % POC ABG HHb (Measured) (0-5) % ABG Methemoglobin (0.0-3.0) % ABG O2 Capacity (16-24) mL/dl Hgb O2 Saturation (95.0-98.0) % FiO2 % Sodium (132-148) mmol/L Potassium (3.6-5.0) mmol/L Chloride (98-107) mmol/L Carbon Dioxide (21-33) mmol/L Anion Gap (10-20) BUN (7-21) mg/dL Creatinine (0.7-1.2) mg/dl Est GFR ( Amer) Est GFR (Non-Af Amer) POC Glucose (mg/dL) 256 H (65-110) mg/dL Random Glucose (70-110) mg/dL Serum Osmolality 379 H (272-300) mosm/kg Calcium (8.4-10.5) mg/dL Phosphorus (2.5-4.5) mg/dL Magnesium (1.7-2.2) mg/dL Total Bilirubin (0.2-1.3) mg/dL AST (14-36) U/L ALT (7-56) U/L Alkaline Phosphatase (38-126) U/L Total Protein (5.8-8.3) g/dL Albumin (3.0-4.8) g/dL Globulin gm/dL Albumin/Globulin Ratio (1.1-1.8) Procalcitonin 0.37 (0.19-0.49) NG/ML Free T3 pg/mL (2.77-5.27) pg/mL TSH 3rd Generation (0.46-4.68) mIU/mL Laboratory Results - last 24 hr 06/07/17 06/07/17 06/07/17 10:45 10:45 11:53 WBC RBC Hgb Hct MCV MCH MCHC RDW Plt Count MPV Gran % Lymph % (Auto) [place] % (Auto) Eos % (Auto) Baso % (Auto) Gran # Lymph # (Auto) [place] # (Auto) Eos # (Auto) Baso # (Auto) pCO2 pO2 HCO3 ABG pH ABG Total CO2 ABG O2 Saturation ABG O2 Content ABG Base Excess ABG Hemoglobin ABG Carboxyhemoglobin POC ABG HHb (Measured) ABG Methemoglobin ABG O2 Capacity Hgb O2 Saturation FiO2 Sodium Potassium Chloride Carbon Dioxide Anion Gap BUN Creatinine Est GFR ( Amer) Est GFR (Non-Af Amer) POC Glucose (mg/dL) 256 H Random Glucose Serum Osmolality 379 H Calcium Phosphorus Magnesium Total Bilirubin AST ALT Alkaline Phosphatase Total Protein Albumin Globulin Albumin/Globulin Ratio Procalcitonin 0.37 Free T3 pg/mL TSH 3rd Generation 06/07/17 06/07/17 06/07/17 12:00 12:30 13:24 WBC RBC Hgb Hct MCV MCH MCHC RDW Plt Count MPV Gran % Lymph % (Auto) [place] % (Auto) Eos % (Auto) Baso % (Auto) Gran # Lymph # (Auto) [place] # (Auto) Eos # (Auto) Baso # (Auto) pCO2 26 L pO2 249.0 H HCO3 9.5 L* ABG pH 7.17 L* ABG Total CO2 10.3 L ABG O2 Saturation 99.9 H ABG O2 Content 15.6 ABG Base Excess -17.5 L ABG Hemoglobin 11.0 L ABG Carboxyhemoglobin 1.6 H POC ABG HHb (Measured) 0.1 ABG Methemoglobin 1.3 ABG O2 Capacity 15.6 L Hgb O2 Saturation 97.0 FiO2 60.0 Sodium Potassium Chloride Carbon Dioxide Anion Gap BUN Creatinine Est GFR ( Amer) Est GFR (Non-Af Amer) POC Glucose (mg/dL) 272 H 257 H Random Glucose Serum Osmolality Calcium Phosphorus Magnesium Total Bilirubin AST ALT Alkaline Phosphatase Total Protein Albumin Globulin Albumin/Globulin Ratio Procalcitonin Free T3 pg/mL TSH 3rd Generation 06/07/17 06/07/17 06/07/17 14:14 15:01 16:11 WBC RBC Hgb Hct MCV MCH MCHC RDW Plt Count MPV Gran % Lymph % (Auto) [place] % (Auto) Eos % (Auto) Baso % (Auto) Gran # Lymph # (Auto) [place] # (Auto) Eos # (Auto) Baso # (Auto) pCO2 pO2 HCO3 ABG pH ABG Total CO2 ABG O2 Saturation ABG O2 Content ABG Base Excess ABG Hemoglobin ABG Carboxyhemoglobin POC ABG HHb (Measured) ABG Methemoglobin ABG O2 Capacity Hgb O2 Saturation FiO2 Sodium 145 Potassium 6.3 H* D Chloride 113 H Carbon Dioxide 18 L Anion Gap 19 BUN 33 H Creatinine 1.6 H Est GFR ( Amer) 41 Est GFR (Non-Af Amer) 34 POC Glucose (mg/dL) 289 H 290 H Random Glucose 661 H* D Serum Osmolality Calcium 8.0 L Phosphorus 8.4 H Magnesium 2.2 Total Bilirubin AST ALT Alkaline Phosphatase Total Protein Albumin Globulin Albumin/Globulin Ratio Procalcitonin Free T3 pg/mL TSH 3rd Generation 06/07/17 06/07/17 06/07/17 16:11 16:23 17:20 WBC RBC Hgb Hct MCV MCH MCHC RDW Plt Count MPV Gran % Lymph % (Auto) [place] % (Auto) Eos % (Auto) Baso % (Auto) Gran # Lymph # (Auto) [place] # (Auto) Eos # (Auto) Baso # (Auto) pCO2 pO2 HCO3 ABG pH ABG Total CO2 ABG O2 Saturation ABG O2 Content ABG Base Excess ABG Hemoglobin ABG Carboxyhemoglobin POC ABG HHb (Measured) ABG Methemoglobin ABG O2 Capacity Hgb O2 Saturation FiO2 Sodium 155 H Potassium 3.5 L Chloride 127 H Carbon Dioxide 13 L Anion Gap 18 BUN 36 H Creatinine 1.9 H Est GFR ( Amer) 34 Est GFR (Non-Af Amer) 28 POC Glucose (mg/dL) 262 H Random Glucose 277 H Serum Osmolality Calcium 8.8 Phosphorus 1.3 L* Magnesium 2.7 H Total Bilirubin AST ALT Alkaline Phosphatase Total Protein Albumin Globulin Albumin/Globulin Ratio Procalcitonin Free T3 pg/mL TSH 3rd Generation 0.11 L 06/07/17 06/07/17 06/07/17 17:42 18:14 19:19 WBC RBC Hgb Hct MCV MCH MCHC RDW Plt Count MPV Gran % Lymph % (Auto) [place] % (Auto) Eos % (Auto) Baso % (Auto) Gran # Lymph # (Auto) [place] # (Auto) Eos # (Auto) Baso # (Auto) pCO2 pO2 HCO3 ABG pH ABG Total CO2 ABG O2 Saturation ABG O2 Content ABG Base Excess ABG Hemoglobin ABG Carboxyhemoglobin POC ABG HHb (Measured) ABG Methemoglobin ABG O2 Capacity Hgb O2 Saturation FiO2 Sodium Potassium Chloride Carbon Dioxide Anion Gap BUN Creatinine Est GFR ( Amer) Est GFR (Non-Af Amer) POC Glucose (mg/dL) 265 H 279 H 289 H Random Glucose Serum Osmolality Calcium Phosphorus Magnesium Total Bilirubin AST ALT Alkaline Phosphatase Total Protein Albumin Globulin Albumin/Globulin Ratio Procalcitonin Free T3 pg/mL TSH 3rd Generation 03/21/18 03/21/18 03/21/18 20:54 22:08 23:02 WBC RBC Hgb Hct MCV MCH MCHC RDW Plt Count MPV Gran % Lymph % (Auto) [place] % (Auto) Eos % (Auto) Baso % (Auto) Gran # Lymph # (Auto) [place] # (Auto) Eos # (Auto) Baso # (Auto) pCO2 pO2 HCO3 ABG pH ABG Total CO2 ABG O2 Saturation ABG O2 Content ABG Base Excess ABG Hemoglobin ABG Carboxyhemoglobin POC ABG HHb (Measured) ABG Methemoglobin ABG O2 Capacity Hgb O2 Saturation FiO2 Sodium Potassium Chloride Carbon Dioxide Anion Gap BUN Creatinine Est GFR ( Amer) Est GFR (Non-Af Amer) POC Glucose (mg/dL) 281 H 262 H 221 H Random Glucose Serum Osmolality Calcium Phosphorus Magnesium Total Bilirubin AST ALT Alkaline Phosphatase Total Protein Albumin Globulin Albumin/Globulin Ratio Procalcitonin Free T3 pg/mL TSH 3rd Generation 06/08/17 06/08/17 06/08/17 00:15 01:00 01:02 WBC RBC Hgb Hct MCV MCH MCHC RDW Plt Count MPV Gran % Lymph % (Auto) [place] % (Auto) Eos % (Auto) Baso % (Auto) Gran # Lymph # (Auto) [place] # (Auto) Eos # (Auto) Baso # (Auto) pCO2 pO2 HCO3 ABG pH ABG Total CO2 ABG O2 Saturation ABG O2 Content ABG Base Excess ABG Hemoglobin ABG Carboxyhemoglobin POC ABG HHb (Measured) ABG Methemoglobin ABG O2 Capacity Hgb O2 Saturation FiO2 Sodium 153 H Potassium 3.3 L Chloride 123 H Carbon Dioxide 17 L Anion Gap 16 BUN 37 H Creatinine 1.8 H Est GFR ( Amer) 36 Est GFR (Non-Af Amer) 30 POC Glucose (mg/dL) 321 H 312 H Random Glucose 309 H* Serum Osmolality Calcium 8.8 Phosphorus 2.8 Magnesium 2.4 H Total Bilirubin AST ALT Alkaline Phosphatase Total Protein Albumin Globulin Albumin/Globulin Ratio Procalcitonin Free T3 pg/mL TSH 3rd Generation 06/08/17 06/08/17 06/08/17 02:03 03:40 04:23 WBC RBC Hgb Hct MCV MCH MCHC RDW Plt Count MPV Gran % Lymph % (Auto) [place] % (Auto) Eos % (Auto) Baso % (Auto) Gran # Lymph # (Auto) [place] # (Auto) Eos # (Auto) Baso # (Auto) pCO2 pO2 HCO3 ABG pH ABG Total CO2 ABG O2 Saturation ABG O2 Content ABG Base Excess ABG Hemoglobin ABG Carboxyhemoglobin POC ABG HHb (Measured) ABG Methemoglobin ABG O2 Capacity Hgb O2 Saturation FiO2 Sodium Potassium Chloride Carbon Dioxide Anion Gap BUN Creatinine Est GFR ( Amer) Est GFR (Non-Af Amer) POC Glucose (mg/dL) 318 H 287 H 312 H Random Glucose Serum Osmolality Calcium Phosphorus Magnesium Total Bilirubin AST ALT Alkaline Phosphatase Total Protein Albumin Globulin Albumin/Globulin Ratio Procalcitonin Free T3 pg/mL TSH 3rd Generation 06/08/17 06/08/17 06/08/17 05:34 05:50 06:18 WBC RBC Hgb Hct MCV MCH MCHC RDW Plt Count MPV Gran % Lymph % (Auto) [place] % (Auto) Eos % (Auto) Baso % (Auto) Gran # Lymph # (Auto) [place] # (Auto) Eos # (Auto) Baso # (Auto) pCO2 31 L pO2 143.0 H HCO3 18.8 L ABG pH 7.39 ABG Total CO2 19.8 L ABG O2 Saturation 99.0 H ABG O2 Content 14.7 L ABG Base Excess -5.3 L ABG Hemoglobin 10.7 L ABG Carboxyhemoglobin 1.3 POC ABG HHb (Measured) 1.0 ABG Methemoglobin 1.7 ABG O2 Capacity 14.8 L Hgb O2 Saturation 96.0 FiO2 40.0 Sodium Potassium Chloride Carbon Dioxide Anion Gap BUN Creatinine Est GFR ( Amer) Est GFR (Non-Af Amer) POC Glucose (mg/dL) 220 H 223 H Random Glucose Serum Osmolality Calcium Phosphorus Magnesium Total Bilirubin AST ALT Alkaline Phosphatase Total Protein Albumin Globulin Albumin/Globulin Ratio Procalcitonin Free T3 pg/mL TSH 3rd Generation 06/08/17 06/08/17 06/08/17 06:25 06:25 08:00 WBC 8.5 D RBC 3.53 Hgb 10.5 L Hct 29.3 L MCV 83.0 MCH 29.7 MCHC 35.8 RDW 15.2 H Plt Count 100 L MPV 10.5 Gran % 68.0 Lymph % (Auto) 21.7 L [place] % (Auto) 10.1 H Eos % (Auto) 0.0 L Baso % (Auto) 0.2 Gran # 5.80 Lymph # (Auto) 1.9 [place] # (Auto) 0.9 H Eos # (Auto) 0.0 Baso # (Auto) 0.02 pCO2 pO2 HCO3 ABG pH ABG Total CO2 ABG O2 Saturation ABG O2 Content ABG Base Excess ABG Hemoglobin ABG Carboxyhemoglobin POC ABG HHb (Measured) ABG Methemoglobin ABG O2 Capacity Hgb O2 Saturation FiO2 Sodium 154 H Potassium 3.2 L Chloride 122 H Carbon Dioxide 20 L Anion Gap 15 BUN 34 H Creatinine 1.7 H Est GFR ( Amer) 38 Est GFR (Non-Af Amer) 32 POC Glucose (mg/dL) Random Glucose 234 H Serum Osmolality Calcium 9.1 Phosphorus 3.1 Magnesium 2.3 H Total Bilirubin 0.7 AST 24 ALT 27 Alkaline Phosphatase 81 Total Protein 5.8 Albumin 3.2 Globulin 2.6 Albumin/Globulin Ratio 1.3 Procalcitonin Free T3 pg/mL 2.73 L TSH 3rd Generation Critical Care Progress Note - Nutrition Nutrition: Nutrition Category Date Time Status Heart Healthy Diet [DIET] Diets 06/04/17 Dinner Ordered Attending/Attestation - Attestation I have personally seen and examined this patient.: Yes I have fully participated in the care of the patient.: Yes I have reviewed all pertinent clinical information: Yes Notes (Text): 06/08/17 11:55 The patient was seen and examined at the bedside. Patient care was discussed with resident and ICU team in MDR rounds. Medical records, lab studies, and imaging were reviewed and management issues were discussed and formulated. Last 24H events reviewed. Agree with above treatment plans as outlined in 's note with addition of the following: Acute Respiratory Failure \ DKA with Coma \ AURE \ Afib with RVR \ HTN \ ro sepsis \ Hypokalemia \ Encephalopathy \ ro Pylonephritis -hemodynamic monitoring to maintain MAP>65 -continue metoprolol and verapamil as per cardiology team -continue mechanical ventilation and o2 supplementation to maintain Spo2>90 Pao2 >60 -CXR and ABG reviewed in AM -PS trial this morning with PS 8 and Peep 5; will monitor closely if patient mental status improved to protect airway and be safely extubated -f\u Bun\Cr and U\o; continue IVF as per renal team; replace e-lites -continue Insulin drip ; endocrine team f\u -monitor CH7 f; Anion gap closed this morning -NPO diet and aspiration precautions -neuro eval appreciated ;continue thiamine and consider MRI if does not improve -monitor fever curve and pancultures; ID eval appreciated; continue broad spectrum ABx -urology eval for perinephric stranding seen on CT A\P -DVT \ PUD prophylaxis CCM time 37min
[2017-06-08] MEDS ORDERED: Thiamine 100 mg/ml Inj IM SCH (10:00)
[2017-06-08] MEDS: Enoxaparin 40 mg Syringe SC SCH (10:05)
[2017-06-08] MEDS: Meropenem IV 1 gm in NS 50 ML IVPB SCH ×2 (10:05→22:15)
--- NOTE | 2017-06-08 10:32 | CP.PCM.PN ---
Subjective - Date & Time of Evaluation Date of Evaluation: 06/08/17 Time of Evaluation: 09:40 - Subjective Subjective: Patient developed fevers overnight, still on the ventilator. Patient with increased secretions from the ET tube. Objective - Vital Signs/Intake and Output Vital Signs (last 24 hours): Temp Pulse Resp BP Pulse Ox 100 F H 88 16 128/62 99 06/08/17 06:37 06/08/17 06:20 06/07/17 12:04 06/08/17 06:00 06/08/17 06:20 Intake and Output: 06/08/17 06/08/17 06:59 18:59 Intake Total 3064 110 Output Total 2300 Balance 764 110 - Medications Medications: Current Medications Aspirin (Ecotrin) 81 mg PO DAILY [facility] Last Admin: 06/07/17 10:07 Dose: Not Given Enoxaparin Sodium (Lovenox) 40 mg SC DAILY [facility] PRN Reason: Protocol Last Admin: 06/07/17 10:27 Dose: 40 mg Insulin Human Regular 100 (units/ Sodium Chloride) 100 mls @ 1 mls/hr IV .Q24H PRN; Protocol; 1 UNITS/HR PRN Reason: TITRATE PER MD ORDER Last Titration: 06/08/17 07:00 Dose: 2 units/hr, 2 mls/hr Propofol (Diprivan) 1,000 mg in 100 mls @ 3.043 mls/hr IV .Q24H PRN; Protocol; 5 MCG/KG/MIN PRN Reason: TITRATE PER MD ORDER Last Titration: 06/08/17 08:00 Dose: Infused Meropenem (Merrem Iv 1 Gm Premix) 50 mls @ 100 mls/hr IVPB Q12 [facility] PRN Reason: Protocol Stop: 06/14/17 10:31 Last Admin: 06/07/17 21:12 Dose: 100 mls/hr Acetaminophen (Ofirmev) 1,000 mg in 100 mls @ 400 mls/hr IVPB Q6H PRN PRN Reason: Fever > 100.4 Stop: 06/09/17 15:37 Last Admin: 06/08/17 05:11 Dose: 400 mls/hr Potassium Phosphate 20 mmole/ (Dextrose/Sodium Chloride) 1,006.6667 mls @ 150 mls/hr IV .Q6H43M [facility] Metoprolol Tartrate (Lopressor) 12.5 mg PO BID [facility] Last Admin: 06/07/17 18:03 Dose: Not Given Morphine Sulfate (Morphine) 2 mg IVP Q3H PRN PRN Reason: Pain, severe (8-10) Last Admin: 06/07/17 17:29 Dose: 2 mg Pantoprazole Sodium (Protonix Inj) 40 mg IVP DAILY [facility] Thiamine HCl (Vitamin B1 Inj) 100 mg IV DAILY [facility] Verapamil HCl (Verapamil Inj) 2.5 mg IVP Q6H PRN PRN Reason: for heart rate >130 Last Admin: 06/06/17 11:46 Dose: 2.5 mg Verapamil HCl (Calan Tab) 80 mg PO TID [facility] Last Admin: 06/07/17 18:03 Dose: Not Given - Labs Labs: 06/08/17 06:25 06/08/17 06:25 PT 10.9 SECONDS (9.4-12.5) 06/04/17 17:25 INR 0.96 (0.93-1.08) 06/04/17 17:25 APTT 32.2 Seconds (25.1-36.5) 06/04/17 17:25 - Constitutional Appears: Other (intubated and sedated) - Head Exam Head Exam: NORMAL INSPECTION - ENT Exam Additional comments: ET tube in place - Respiratory Exam Respiratory Exam: Decreased Breath Sounds - Cardiovascular Exam Cardiovascular Exam: +S1, +S2 - GI/Abdominal Exam GI & Abdominal Exam: Soft. absent: Tenderness - Extremities Exam Additional comments: right arm PICC in place Assessment and Plan - Assessment and Plan (Free Text) Plan: Assessment Systemic Inflammatory Response syndrome, consider acute stress reaction to new onset Atrial fibrillation, now with DKA and VDRF with acute encephalopathy consider metabolic in etiology R/O sepsis from HCAP DM dyslipidemia HTN obesity with BMI 36 S/P gastric sleeve surgery Plan will give another dose of IV Vancomycin and continue Merrem day 2 and follow up repeat blood, urine cx; PCT is 0.37; reviewed CT chest and repeat CXR, but with increased respiratory secretions, should still consider HCAP as per Neurology, patient should get brain MRI will continue to monitor clinically
[2017-06-08] MEDS: Dexmedetomidine 400mcg/100mL 400 MCG/100 ML BOTTLE IV PRN ×3 (10:43→22:17)
[2017-06-08] MEDS: Thiamine 100 mg/ml Inj IV SCH (10:54)
--- NOTE | 2017-06-08 10:59 | PN ---
DATE: SUBJECTIVE: The patient is currently seen in ICU bed 7. She remains intubated. She remains on Diprivan. Her metabolic acidosis has significantly improved. The patient remains on hypotonic fluids with sodium bicarbonate. The patient is being further evaluated by Neurology. MEDICATIONS Medication list reviewed. The patient is currently on Calan, Diprivan, Ecotrin, insulin, Lopressor, Lovenox, meropenem, p.r.n. morphine, p.r.n. Tylenol, K-Phos riders, Protonix, p.r.n. IV verapamil and thiamine. OBJECTIVE INTAKE/OUTPUT: Intake is 6692, output is 4000. VITAL SIGNS: Blood pressure is 128/62; temperature is 100, T-max is 102.7; respiratory rate is 16; pulse is 88 and regular. FiO2 is 40% with oxygen saturation of 99%. HEENT: Normocephalic, atraumatic. Eyes are closed. The patient is intubated. NECK: No neck vein distention. CHEST: Clear to auscultation and percussion with no rales, rhonchi or wheezing. CARDIOVASCULAR: Shows a regular rate and rhythm with a soft systolic murmur at left lower sternal border. No S3. No S4. No rub. Echocardiogram showed trace MR and TR. ABDOMEN: Obese. Bowel sounds normal. No rebound, guarding or masses. EXTREMITIES: No lower extremity cyanosis, clubbing or edema. NEUROLOGICAL: Shows her to be unresponsive. She is intubated and sedated. LABORATORY DATA AND IMAGING DATA: Abdominal and pelvic CT scan done shows perinephric stranding, possibly consistent with pyelonephritis. The urine cultures are negative. No hydronephrosis. Chest x-ray today showed no active pulmonary disease. Head CT scan done showed no acute findings. MRI of the head is pending as per Neurology's recommendation. Labs: CBC: White blood cell count down to 8.5, hemoglobin 10.5 with a platelet count of 100,000. Platelet count has been dropping. Blood gas today 7.39 with a pO2 of 143 and a pCO2 of 31. Chemistries today show a sodium which remains elevated at 154, potassium 3.2. The patient is receiving supplements. Chloride 122, CO2 is down to 20. BUN 34 with a creatinine of 1.7. These values have remained stable. Glucose 234. Calcium 9.1, phosphorus 3.1, magnesium slightly elevated at 0.3. Microbiology: Blood cultures are negative at 48 hours. Urine cultures are negative. ASSESSMENT: 1. Mild prerenal azotemia/acute renal failure in a patient with no past history of chronic kidney disease. The patient does have mild protein in her urine. CT scan of the kidneys showed perinephric stranding, but no evidence clinically for pyelonephritis; nevertheless, the patient remains on antibiotic therapy. 2. Severe anion gap metabolic acidosis. Only identifiable cause might have been DKA on admission. No evidence for any ingestions of potentially toxic substances. This is not uremic anion gap metabolic acidosis and lactate levels were normal. The patient remains on IV insulin and is being followed by Endocrinology. Her CO2 level has significantly improved and from my standpoint, we could maintain the patient on D5W alone with potassium chloride/potassium phosphorus. Her sodium level still remains elevated. 3. Hypokalemia, hypophosphatemia. The patient will receive supplements to correct these abnormalities. K-Phos riders have been given and will be given again today. 4. History of non-insulin dependent diabetes mellitus, currently on insulin for diabetic ketoacidosis. 5. History of hypertension. The patient remains off blood pressure medication. Blood pressure is controlled. She will not receive her angiotensin receptor luke in light of her mild acute renal failure. 6. History of atrial fibrillation. The patient converted quickly to normal sinus rhythm. She remains in sinus rhythm with sinus tachycardia. 7. Past history of hyperlipidemia. 8. Possible sepsis, white blood cell count is now normal. All cultures are negative. Clinically, does not appear that the patient has pyelonephritis. 9. History of morbid obesity with a rapid weight loss of 60-70 pounds since March 2017. She is status post a gastric sleeve procedure. Once again discussed with the patient's family in detail and discussed with ICU house staff in detail. From my standpoint, sodium bicarbonate may be discontinued from IV fluid hydration. I will continue hypotonic fluids to help normalize sodium level. In light of the fact that she is getting D5W, the patient will continue to have her sugars monitored closely and she will be treated with IV insulin accordingly. Possible MRI of the head today. It is not clear whether this is all metabolic encephalopathy or there is any other etiology for her mental status change. Once again, try and wean the patient off Diprivan and see whether or not, she could tolerate BiPAP with a hope of extubation. Try and balance Is and Os. Follow labs on a regular basis with monitoring of her electrolytes and adjustment of supplements accordingly. Case discussed with her family and residents in detail. Greater than 35 minutes spent in the care of this critically ill patient. Chay Palafox MD
[2017-06-08] MEDS: [UNRECOGNIZED DRUG - OTHER] IV SCH ×2 (11:48→20:00)
[2017-06-08] MEDS ORDERED: Insulin Detemir 100 units/ml Vial (Levemir) SC STA (11:56)
[2017-06-08] MEDS: Insulin Lispro 1 UNITS/0.01 ML SC SCH ×3 (13:56→20:58)
[2017-06-08 14:30] LABS: CALCIUM 8.1 mg/dL (8.4-10.5)
--- NOTE | 2017-06-08 15:30 | CP.PCM.PN ---
Subjective - Date & Time of Evaluation Date of Evaluation: 06/08/17 Time of Evaluation: 15:10 - Subjective Subjective: DATE: 06/08/2017 NEUROLOGY FOLLOW UP. CHIEF COMPLAINT: F/U for Altered mental status. Subjective: She continues to be encephalopathic. Hypernatremia and hypergylcemic accelerations occurring. PAST MEDICAL HISTORY: Dqa-gludbag-hfutxagaf diabetes mellitus, hypertension, dyslipidemia, obesity, status post gastric sleeve with 60 to 70-pound weight loss. SOCIAL HISTORY: No illicit drug use, smoking, or EtOH abuse. FAMILY HISTORY: Noncontributory. REVIEW OF SYSTEMS: Unobtainable due to the patient is non-communicative. MEDICATIONS: Reviewed by nurse reconciliation sheet. PHYSICAL EXAMINATION: VITAL SIGNS: Reviewed. GENERAL: Patient is intubated, in no acute distress. HEENT: Head is atraumatic, normocephalic. PERRLA. Extraocular muscles intact. NECK: Supple. No JVD, no adenopathy noted. LUNGS: Decreased breath sounds bilaterally. HEART: S1, S2, normal rate and rhythm. No murmurs, rubs or gallops. ABDOMEN: Soft, nontender, nondistended. Bowel sounds are present. EXTREMITIES: No clubbing, no cyanosis. Peripheral pulses are 2+ felt bilaterally. NEUROLOGIC: Patient is very lethargic, intubated, but not on any sedation. Cranial nerves II to XII intact. Motor: Normal tone. Spontaneous movement of extremities are seen. Sensory: Light touch is intact and withdraws to localized noxious stimulus. DTRs are 1+ throughout and absent at the knees and ankles. Coordination and gait deferred for now. LABORATORY DATA: Hypernatremia/Hyperglycemia/Hypokalemia. ASSESSMENT AND PLAN: This is a 51-year-old woman with history of obesity, status post gastric sleeve with 60 to 70-pound weight loss, history of hypertension, dyslipidemia, ocq-bpzlncd-tdutizezc diabetes mellitus, came in with altered mental status in the setting of severe anion gap metabolic acidosis, in the setting of diabetic ketoacidosis. In addition, has hypernatremia and CT head showed no acute intracranial abnormality, still has metabolic derangements, was called for altered mental status. Her altered mental status is likely secondary to toxic metabolic encephalopathy , underlying diabetic ketoacidosis and metabolic derangement with underlying possible sepsis. RECOMMENDATIONS: At this time, we will recommend: 1. MRI of the brain when the patient is stable to review any acute intracranial abnormalities since the CAT scan of the head was negative. 2. Monitor electrolytes and correct accordingly. 3. Follow with Endocrinology and keep the blood sugars between 140 to 180. 4. Adequate hydration. 5. Thiamine 100 mg IV q. daily for neuronal activation. 6. Continue with GI and DVT prophylaxis. 7. Reduce sedations. Thank you Luis Hoyos MD Objective - Vital Signs/Intake and Output Vital Signs (last 24 hours): Temp Pulse Resp BP Pulse Ox 100 F H 111 H 16 135/58 L 99 06/08/17 06:37 06/08/17 10:46 06/07/17 12:04 06/08/17 10:46 06/08/17 06:20 Intake and Output: 06/08/17 06/08/17 06:59 18:59 Intake Total 3064 290 Output Total 2300 Balance 764 290 - Medications Medications: Current Medications Aspirin (Ecotrin) 81 mg PO DAILY [facility] Last Admin: 06/08/17 10:50 Dose: 81 mg Enoxaparin Sodium (Lovenox) 40 mg SC DAILY [facility] PRN Reason: Protocol Last Admin: 06/08/17 10:05 Dose: 40 mg Propofol (Diprivan) 1,000 mg in 100 mls @ 3.043 mls/hr IV .Q24H PRN; Protocol; 5 MCG/KG/MIN PRN Reason: TITRATE PER MD ORDER Last Titration: 06/08/17 08:25 Dose: 40 mcg/kg/min, 24.342 mls/hr Meropenem (Merrem Iv 1 Gm Premix) 50 mls @ 100 mls/hr IVPB Q12 [facility] PRN Reason: Protocol Stop: 06/14/17 10:31 Last Admin: 06/08/17 10:05 Dose: 100 mls/hr Acetaminophen (Ofirmev) 1,000 mg in 100 mls @ 400 mls/hr IVPB Q6H PRN PRN Reason: Fever > 100.4 Stop: 06/09/17 15:37 Last Admin: 06/08/17 05:11 Dose: 400 mls/hr Dexmedetomidine HCl (Precedex 400mcg/100ml) 400 mcg in 100 mls @ 5.071 mls/hr IV .[id number] PRN; Protocol; 0.2 MCG/KG/HR PRN Reason: Agitation Last Titration: 06/08/17 14:31 Dose: 1 mcg/kg/hr, 25.356 mls/hr Potassium Phosphate 20 mmole/ (Dextrose/Sodium Chloride) 1,006.6667 mls @ 100 mls/hr IV .Q10H4M [facility] Last Admin: 06/08/17 11:48 Dose: 100 mls/hr Insulin Detemir (Levemir) 20 unit SC Q12H [facility] Insulin Human Lispro (Humalog) 0 units SC Q4H [facility] Last Admin: 06/08/17 13:56 Dose: 5 units Metoprolol Tartrate (Lopressor) 12.5 mg PO BID [facility] Last Admin: 06/08/17 10:45 Dose: 12.5 mg Morphine Sulfate (Morphine) 2 mg IVP Q3H PRN PRN Reason: Pain, severe (8-10) Last Admin: 06/07/17 17:29 Dose: 2 mg Pantoprazole Sodium (Protonix Inj) 40 mg IVP DAILY [facility] Last Admin: 06/08/17 10:06 Dose: 40 mg Thiamine HCl (Vitamin B1 Inj) 100 mg IV DAILY [facility] Last Admin: 06/08/17 10:54 Dose: 100 mg Verapamil HCl (Verapamil Inj) 2.5 mg IVP Q6H PRN PRN Reason: for heart rate >130 Last Admin: 06/06/17 11:46 Dose: 2.5 mg Verapamil HCl (Calan Tab) 80 mg PO TID [facility] Last Admin: 06/08/17 10:46 Dose: 80 mg - Labs Labs: 06/08/17 06:25 06/08/17 14:10 PT 10.9 SECONDS (9.4-12.5) 06/04/17 17:25 INR 0.96 (0.93-1.08) 06/04/17 17:25 APTT 32.2 Seconds (25.1-36.5) 06/04/17 17:25
--- NOTE | 2017-06-08 18:57 | PN ---
DATE: ENDOCRINOLOGY FOLLOWUP NOTE LOCATION: In ICU 128, room 5. SUBJECTIVE: This is a 51-year-old female with uncontrolled type 2 insulin-requiring diabetes, presenting here with severe diabetic ketoacidosis and dehydration and persistent hypernatremia and hypokalemia and is now being followed closely for metabolic management. She has received vigorous IV hydration to include a sodium bicarb drip infusion as given. Moreover, an intensive insulin therapy with an insulin pump was also undertaken at this time. Her latest chemistry shows a BUN of 31, sodium 154, potassium 3.0, chloride 123, and creatinine of 1.5 with a glucose of 317. ASSESSMENT: This is a 51-year-old female with uncontrolled and decompensated type 2 insulin-requiring diabetes with supervening acute respiratory failure and persistent azotemia as noted thereof and is being followed closely for metabolic management. She is improving slowly, both clinically and metabolically, as noted. Also, because of the improvement of her carbon dioxide to 20 today, then we can safely switch her over to every 4 hourly fingerstick glucose testing with Humalog coverage scale as ordered. We will also give her a stat dose of Levemir given as 20 units subcu now and 20 units every 12 hours at 8 a.m. and 8 p.m. daily as given. We will continue the vigorous IV hydration as ordered to optimize her lost fluid and electrolyte losses from the increased osmotic diuresis thereof. We will obtain serial chemistries and supplement accordingly as needed. We will follow this. Kaleigh Jack MD
--- NOTE | 2017-06-08 19:30 | PN ---
DATE: 06/08/2017 REASON FOR CONSULTATION AND FOLLOWUP: Atrial fibrillation, rapid rate; new onset lethargy; weakness; sepsis; intubation; status post gastric bypass surgery. SUBJECTIVE: Events noted since last time patient became lethargic, intubated, septic, spiking fever, on cooling blanket. PHYSICAL EXAMINATION: GENERAL: Patient is intubated, sedated, on cooling blanket. VITAL SIGNS: Temperature afebrile, T-max 102, now is 100, heart rate 107, blood pressure 122/62. HEENT: PERRLA. EOMs intact. NECK: Supple. No carotid bruit or thyromegaly. CHEST: Clear to auscultation. HEART: S1, S2, regular. ABDOMEN: Soft. EXTREMITIES: Clubbing and cyanosis negative. LABORATORY DATA: Blood workup as follows: WBC 8.5, hemoglobin , hematocrit 29.3, platelet count 100. Chemistry shows sodium 154, potassium 3.2, chloride 120, carbon dioxide 20, anion gap of 15, BUN , creatinine 1.7. IMPRESSION: Sepsis; intubated; atrial fibrillation, new onset converted to normal sinus; acute kidney jipain-tv-jhwbohj renal insufficiency; morbid obesity, status post gastric sleeve operation. Ultimately, patient had CT abdomen and pelvis done yesterday that showed perinephric strand, possible pyelonephritis. Patient had echocardiography done yesterday that showed normal chamber size, ejection fraction 65% to 70%, trace mitral regurgitation, trace tricuspid regurgitation, right ventricular systolic pressure 48, altered mental status most likely secondary to metabolic encephalopathy, hypernatremia, hypokalemia, paroxysmal atrial fibrillation,diabetic ketoacidosis, history of gastric bypass surgery. RECOMMENDATIONS: Start NG feed water, continue verapamil through p.o. to control the heart rate, broad-spectrum antibiotic, discussed with navy diver, CT angio was negative for PE. We will decrease enoxaparin for DVT prophylaxis. Continue verapamil and free water through the NG tube 400 mL. We will supplement potassium. Overall, patient's critical long-term prognosis is guarded. We will follow with you. Thank you, Dr. Nicholson for providing us the opportunity in taking care of patient, Nata Loco. Maynor Tran MD
[2017-06-08] MEDS: Insulin Detemir 100 units/ml Vial (Levemir) SC SCH (20:54)
[2017-06-09 00:02] LABS: CALCIUM 8.2 mg/dL (8.4-10.5)
[2017-06-09] MEDS: Insulin Lispro 1 UNITS/0.01 ML SC SCH ×6 (00:30→20:43)
[2017-06-09] MEDS: Dexmedetomidine 400mcg/100mL 400 MCG/100 ML BOTTLE IV PRN ×6 (01:48→22:13)
[2017-06-09 06:28] LABS: ARTERIAL BLOOD GAS HCO3 22.2 mmol/L (21-28); ARTERIAL BLOOD GAS HEMOGLOBIN 12.1 g/dL (11.7-17.4); ARTERIAL BLOOD GAS O2 CONTENT 16.9 ML/dl (15-23); ARTERIAL BLOOD GAS O2 SAT 99.3 % (95-98); ARTERIAL BLOOD GAS PCO2 32 mm/Hg (35-45); ARTERIAL BLOOD GAS PH 7.45 (7.35-7.45); ARTERIAL BLOOD GAS TCO2 23.2 mmol.L (22-28)
[2017-06-09] MEDS ORDERED: Insulin Detemir 100 units/ml Vial (Levemir) SC ONE (06:53)
[2017-06-09 07:01] LABS: BASO # 0.01 K/mm3 (0.0-2.0); BASO % 0.2 % (0.0-3.0); EOS % 0.6 % (1.5-5.0); GRAN # 3.89 (1.4-6.5); GRAN % 59.7 % (50.0-68.0); HEMOGLOBIN 9.9 g/dL (12.0-16.0); LYMPH % 31.2 % (22.0-35.0); MEAN CELL VOLUME 82.7 fl (80.0-105.0); MEAN CORPUSCULAR HGB CONC 36.3 g/dl (31.0-37.0); MEAN PLATELET VOLUME 10.6 fl (7.0-11.0); MONO # 0.5 (0.1-0.6); MONO % 8.3 % (1.0-6.0); RBC 3.3 10^6/uL (3.5-6.1); WHITE BLOOD COUNT 6.5 10^3/ul (4.5-11.0)
[2017-06-09 08:13] LABS: ALB/GLOB RATIO 1.1 (1.1-1.8); ALBUMIN 2.9 g/dL (3.0-4.8); CALCIUM 8.9 mg/dL (8.4-10.5)
--- NOTE | 2017-06-09 08:28 | PN ---
DATE: 06/08/2017 SUBJECTIVE: Patient is 51 years old. Seen and examined. Remains confused, disoriented, agitated, on vent, off sedation, moving around. According to nurse, she had to give sedation to keep her IV and ET in place. OBJECTIVE: VITAL SIGNS: She is afebrile. Pulse 86, respirations ____, blood pressure 136/70, last night she spiked fever of 102.4. LUNGS: Bilateral fair airflow. HEART: S1, S2 audible. ABDOMEN: Soft, obese, nontender. No rebound, no guarding. NEUROLOGIC: Patient is on vent and partly sedated. So far all blood cultures, urine cultures are negative. LABORATORY DATA: WBC is 8.5, hemoglobin 10.5, hematocrit 29.3, platelets of 100. Chemistry: Sodium 154, potassium 3.0, chloride 123, CO2 of 16, BUN 31, creatinine 1.5, blood sugar of 317. ASSESSMENT: 1. Metabolic acidosis. Patient is nonfocal. 2. Metabolic encephalopathy. 3. Respiratory failure, on vent. 4. Hypertension. 5. Hyperlipidemia. 6. Insulin-dependent diabetes. 7. Status post gastric bypass surgery. 8. Electrolyte imbalance. PLAN: Potassium is being supplemented. Patient got potassium phosphate. She is on IV fluid. She is on aspirin [address] Kaleigh Jack is monitoring patient's blood sugar very closely. She is on Protonix, vancomycin. Other consultants' input noted and appreciated. We will follow up patient in the a.m. Alphonse Nicholson MD
--- NOTE | 2017-06-09 09:17 | RAD ---
HISTORY: Intubated COMPARISON: June 08, 2017. FINDINGS: LUNGS: No active pulmonary disease. PLEURA: No significant pleural effusion identified, no pneumothorax apparent. CARDIOVASCULAR: No radiographic findings to suggest acute or significant cardiovascular disease. OSSEOUS STRUCTURES: No significant abnormalities. VISUALIZED UPPER ABDOMEN: Normal. OTHER FINDINGS: Stable, satisfactory position ventilatory, vascular and nasogastric apparatus. IMPRESSION: No significant interval change compared to the prior examination(s).
[2017-06-09] MEDS: DEXTROSE IV SCH (09:19)
[2017-06-09] MEDS: POTASSIUM PHOSPHATE IV SCH (09:19)
[2017-06-09] MEDS: [UNRECOGNIZED DRUG - OTHER] IV SCH (09:19)
[2017-06-09] MEDS: Enoxaparin 40 mg Syringe SC SCH (09:19)
[2017-06-09] MEDS: Meropenem IV 1 gm in NS 50 ML IVPB SCH ×2 (09:19→21:04)
[2017-06-09] MEDS: Thiamine 100 mg/ml Inj IV SCH (09:22)
[2017-06-09] MEDS: Insulin Detemir 100 units/ml Vial (Levemir) SC SCH ×2 (09:25→23:01)
[2017-06-09] MEDS ORDERED: Potassium Chloride 40 mEq/30 ml LIQ UD PO ONE (09:49)
--- NOTE | 2017-06-09 10:10 | CP.PCM.PN ---
Subjective - Date & Time of Evaluation Date of Evaluation: 06/09/17 Time of Evaluation: 09:30 - Subjective Subjective: Still intubated, slowly waking up but still lethargic, still with fevers. Objective - Vital Signs/Intake and Output Vital Signs (last 24 hours): Temp Pulse Resp BP Pulse Ox 100 F H 68 16 167/65 H 98 06/08/17 06:37 06/09/17 05:20 06/07/17 12:04 06/09/17 05:05 06/09/17 05:20 Intake and Output: 06/09/17 06/09/17 06:59 18:59 Intake Total 3190 Output Total 1700 Balance 1490 - Medications Medications: Current Medications Aspirin (Ecotrin) 81 mg PO DAILY [facility] Last Admin: 06/08/17 10:50 Dose: 81 mg Enoxaparin Sodium (Lovenox) 40 mg SC DAILY [facility] PRN Reason: Protocol Last Admin: 06/08/17 10:05 Dose: 40 mg Propofol (Diprivan) 1,000 mg in 100 mls @ 3.043 mls/hr IV .Q24H PRN; Protocol; 5 MCG/KG/MIN PRN Reason: TITRATE PER MD ORDER Last Titration: 06/08/17 19:00 Dose: Infused Meropenem (Merrem Iv 1 Gm Premix) 50 mls @ 100 mls/hr IVPB Q12 [facility] PRN Reason: Protocol Stop: 06/14/17 10:31 Last Admin: 06/08/17 22:15 Dose: 100 mls/hr Acetaminophen (Ofirmev) 1,000 mg in 100 mls @ 400 mls/hr IVPB Q6H PRN PRN Reason: Fever > 100.4 Stop: 06/09/17 15:37 Last Admin: 06/08/17 05:11 Dose: 400 mls/hr Dexmedetomidine HCl (Precedex 400mcg/100ml) 400 mcg in 100 mls @ 5.071 mls/hr IV .[id number] PRN; Protocol; 0.2 MCG/KG/HR PRN Reason: Agitation Last Admin: 06/09/17 05:18 Dose: 1 mcg/kg/hr, 25.356 mls/hr Potassium Phosphate 20 mmole/ (Dextrose/Sodium Chloride) 1,006.6667 mls @ 100 mls/hr IV .Q10H4M [facility] Last Admin: 06/08/17 20:00 Dose: 100 mls/hr Acyclovir 600 mg/ Sodium (Chloride) 100 mls @ 100 mls/hr IV Q8 [facility] PRN Reason: Protocol Insulin Detemir (Levemir) 20 unit SC Q12H [facility] Last Admin: 06/08/17 20:54 Dose: 20 unit Insulin Human Lispro (Humalog) 0 units SC Q4H [facility] Last Admin: 06/09/17 04:45 Dose: Not Given Metoprolol Tartrate (Lopressor) 12.5 mg PO BID [facility] Last Admin: 06/08/17 17:31 Dose: 12.5 mg Morphine Sulfate (Morphine) 2 mg IVP Q3H PRN PRN Reason: Pain, severe (8-10) Last Admin: 06/07/17 17:29 Dose: 2 mg Pantoprazole Sodium (Protonix Inj) 40 mg IVP DAILY [facility] Last Admin: 06/08/17 10:06 Dose: 40 mg Thiamine HCl (Vitamin B1 Inj) 100 mg IV DAILY [facility] Last Admin: 06/08/17 10:54 Dose: 100 mg Verapamil HCl (Verapamil Inj) 2.5 mg IVP Q6H PRN PRN Reason: for heart rate >130 Last Admin: 06/06/17 11:46 Dose: 2.5 mg Verapamil HCl (Calan Tab) 80 mg PO TID [facility] Last Admin: 06/08/17 17:31 Dose: 80 mg - Labs Labs: 06/09/17 06:48 06/09/17 06:48 PT 10.9 SECONDS (9.4-12.5) 06/04/17 17:25 INR 0.96 (0.93-1.08) 06/04/17 17:25 APTT 32.2 Seconds (25.1-36.5) 06/04/17 17:25 - Constitutional Appears: Chronically Ill, Other (intubated, lethargic) - Head Exam Head Exam: NORMAL INSPECTION - ENT Exam Additional comments: ET tube in place - Respiratory Exam Respiratory Exam: Decreased Breath Sounds - Cardiovascular Exam Cardiovascular Exam: +S1, +S2 - GI/Abdominal Exam GI & Abdominal Exam: Soft. absent: Tenderness - Extremities Exam Additional comments: right arm PICC line in place, site clean and intact Assessment and Plan - Assessment and Plan (Free Text) Plan: Assessment Systemic Inflammatory Response syndrome, consider acute stress reaction to new onset Atrial fibrillation, now with DKA and VDRF with acute encephalopathy consider metabolic in etiology R/O sepsis from HCAP R/O EMR TRA[employer]ER infection DM dyslipidemia HTN obesity with BMI 36 S/P gastric sleeve surgery Plan on intermittent IV Vancomycin (and will check Vanco level today) and continue Merrem day 3; cultures have been negative but we are awaiting sputum cx; PCT is 0.37; reviewed CT chest and repeat CXR - with increased respiratory secretions, should still consider HCAP also on IV acyclovir would suggest brain MRI will continue to monitor clinically discussed with ICU team
[2017-06-09] MEDS: Sodium Chloride 0.45% 1,000 ML IV SCH ×2 (10:13→22:15)
[2017-06-09] MEDS ORDERED: Vitamins A & D Oint UD Foilpak TOP PRN (10:16)
--- NOTE | 2017-06-09 10:32 | CP.CCUPN ---
<Raheem Wooten - Last Filed: 06/09/17 10:27> CCU Subjective - Physician Review Subjective (Free Text): Patient seen and evaluated bedside. Patient lethargic, unable to open eyes to being called, or comprehend questions or commands. Still intubated. unable to obtain full ROS. 06/09/17 10:27 CCU Objective - Vital Signs / Intake & Output Vital Signs (Last 4 hours): Vital Signs Pulse BP 06/09/17 09:18 59 L 166/95 H 06/09/17 09:17 59 L 166/75 H Intake and Output (Last 8hrs): Intake & Output 06/08/17 06/09/17 06/09/17 22:59 06:59 14:59 Intake Total 1070 3150 100 Output Total 650 1700 Balance 420 1450 100 Weight 250 lb 250 lb Intake: IV 120 2200 100 IVPB 2000 Tube Feeding 150 150 Other 800 800 Output: Urine 650 1700 Urethral (Akhtar) 650 1700 Stool 0 - Physical Exam Head: Positive for: Atraumatic, Normocephalic Pupils: Positive for: PERRL, Other (no nystagmus, no photophobia, sclera anicteric) Extroacular Muscles: Positive for: EOMI Conjunctiva: Positive for: Normal Ears: Positive for: Normal Mouth: Positive for: Dry Pharnyx: Positive for: Normal Nose (External): Positive for: Atraumatic Nose (Internal): Positive for: Normal Inspection Neck: Negative for: MIDLINE TENDERNESS Respiratory/Chest: Positive for: Clear to Auscultation, Good Air Exchange. Negative for: Respiratory Distress, Wheezes (Intubated), Rhonchi Cardiovascular: Positive for: Regular Rate and Rhythm, Normal S1, S2. Negative for: Murmurs Abdomen: Positive for: Normal Bowel Sounds. Negative for: Tenderness, Distention Back: Positive for: Normal Inspection. Negative for: CVA Tenderness, Midline Tenderness Upper Extremity: Positive for: Normal Inspection. Negative for: Edema Lower Extremity: Positive for: Normal Inspection. Negative for: Edema, Erythema Neurological: Positive for: Other (Sedated) Skin: Positive for: Warm Psychiatric: Positive for: Other (Sedated). Negative for: Alert, Oriented x 3 - Medications Active Medications: Active Medications Generic Name Dose Route Start Last Admin Trade Name Freq PRN Reason Stop Dose Admin Aspirin 81 mg 06/05/17 10:00 06/09/17 09:18 Ecotrin PO 81 mg DAILY ALEJANDRINA Administration Enoxaparin Sodium 40 mg 06/07/17 10:00 06/09/17 09:19 Lovenox SC 40 mg DAILY ALEJANDRINA Administration Protocol Propofol 1,000 mg in 100 mls @ 3.043 mls/hr 06/07/17 10:11 06/08/17 19:00 Diprivan IV Infused .Q24H PRN Titration TITRATE PER MD ORDER Protocol 5 MCG/KG/MIN Meropenem 50 mls @ 100 mls/hr 06/07/17 10:30 06/09/17 09:19 Merrem Iv 1 Gm Premix IVPB 06/14/17 10:31 100 mls/hr Q12 ALEJANDRINA Administration Protocol Acetaminophen 1,000 mg in 100 mls @ 400 mls/hr 06/07/17 15:36 06/08/17 05:11 Ofirmev IVPB 06/09/17 15:37 400 mls/hr Q6H PRN Administration Fever > 100.4 Dexmedetomidine HCl 400 mcg in 100 mls @ 5.071 mls/hr 06/08/17 10:17 09:21 Precedex 400mcg/100ml IV 1 mcg/kg/hr .[id number] PRN 25.356 mls/hr Agitation Administration Protocol 0.2 MCG/KG/HR Potassium Phosphate 20 mmole/ 1,006.6667 mls @ 100 mls/hr 06/08/17 10:38 09:19 Dextrose/Sodium Chloride IV 100 mls/hr .Q10H4M ALEJANDRINA Administration Acyclovir 800 mg/ Sodium 100 mls @ 100 mls/hr 06/09/17 14:00 Chloride IV Q12 ALEJANDRINA Protocol Sodium Chloride 1,000 mls @ 100 mls/hr 06/09/17 10:00 06/09/17 10:13 Sodium Chloride 0.45% IV 100 mls/hr .Q10H ALEJANDRINA Administration Insulin Detemir 20 unit 06/08/17 20:00 06/09/17 09:25 Levemir SC 20 unit Q12H ALEJANDRINA Administration Insulin Human Lispro 0 units 06/08/17 12:00 06/09/17 09:18 Humalog SC Not Given Q4H [facility] Metoprolol Tartrate 25 mg 06/09/17 10:00 06/09/17 09:18 Lopressor PO Not Given BID ALEJANDRINA Morphine Sulfate 2 mg 06/07/17 10:11 06/07/17 17:29 Morphine IVP 2 mg Q3H PRN Administration Pain, severe (8-10) Pantoprazole Sodium 40 mg 06/08/17 10:00 06/09/17 09:22 Protonix Inj IVP 40 mg DAILY ALEJANDRINA Administration Thiamine HCl 100 mg 06/08/17 10:00 06/09/17 09:22 Vitamin B1 Inj IV 100 mg DAILY ALEJANDRINA Administration Verapamil HCl 2.5 mg 06/06/17 09:22 06/06/17 11:46 Verapamil Inj IVP 2.5 mg Q6H PRN Administration for heart rate >130 Verapamil HCl 80 mg 06/06/17 10:00 06/09/17 09:17 Calan Tab PO Not Given TID ALEJANDRINA Vitamin A 1 ea 06/09/17 10:16 Vitamin A & D Oint Ud Foilpak TOP DAILY PRN Dry skin - Patient Studies Lab Studies: Microbiology Studies 06/07/17 16:11 Blood Culture - Preliminary Blood-Venous NO GROWTH AFTER 24 HOURS 06/07/17 16:11 Blood Culture - Preliminary Blood-Venous NO GROWTH AFTER 24 HOURS 06/05/17 15:53 Blood Culture - Preliminary Blood-Venous NO GROWTH AFTER 3 DAYS 06/05/17 15:53 Blood Culture - Preliminary Blood-Venous NO GROWTH AFTER 3 DAYS 06/05/17 10:35 Blood Culture - Preliminary Blood-Venous NO GROWTH AFTER 3 DAYS 06/05/17 10:10 Blood Culture - Preliminary Blood-Venous NO GROWTH AFTER 3 DAYS 06/07/17 11:15 Urine Culture - Final Urine,Akhtar No Growth (<1,000 CFU/ML) Lab Studies 06/09/17 06/09/17 06/09/17 Range/Units 07:57 06:48 06:48 WBC 6.5 D (4.5-11.0) 10^3/ul RBC 3.30 L (3.5-6.1) 10^6/uL Hgb 9.9 L (12.0-16.0) g/dL Hct 27.3 L (36.0-48.0) % MCV 82.7 (80.0-105.0) fl MCH 30.0 (25.0-35.0) pg MCHC 36.3 (31.0-37.0) g/dl RDW 15.0 H (11.5-14.5) % Plt Count 87 L (120.0-450.0) 10^3/uL MPV 10.6 (7.0-11.0) fl Gran % 59.7 (50.0-68.0) % Lymph % (Auto) 31.2 (22.0-35.0) % Lake % (Auto) 8.3 H (1.0-6.0) % Eos % (Auto) 0.6 L (1.5-5.0) % Baso % (Auto) 0.2 (0.0-3.0) % Gran # 3.89 (1.4-6.5) Lymph # (Auto) 2.0 (1.2-3.4) Lake # (Auto) 0.5 (0.1-0.6) Eos # (Auto) 0.0 (0.0-0.7) Baso # (Auto) 0.01 (0.0-2.0) K/mm3 pCO2 (35-45) mm/Hg pO2 (80-100) mm/Hg HCO3 (21-28) mmol/L ABG pH (7.35-7.45) ABG Total CO2 (22-28) mmol.L ABG O2 Saturation (95-98) % ABG O2 Content (15-23) ML/dl ABG Base Excess (-2.0-3.0) mmol/L ABG Hemoglobin (11.7-17.4) g/dL ABG Carboxyhemoglobin (0.5-1.5) % POC ABG HHb (Measured) (0-5) % ABG Methemoglobin (0.0-3.0) % ABG O2 Capacity (16-24) mL/dl Hgb O2 Saturation (95.0-98.0) % FiO2 % Sodium 158 H* (132-148) mmol/L Potassium 3.1 L (3.6-5.0) mmol/L Chloride 124 H (98-107) mmol/L Carbon Dioxide 23 (21-33) mmol/L Anion Gap 14 (10-20) BUN 30 H (7-21) mg/dL Creatinine 1.3 H (0.7-1.2) mg/dl Est GFR ( Amer) 52 Est GFR (Non-Af Amer) 43 POC Glucose (mg/dL) 211 H (65-110) mg/dL Random Glucose 224 H (70-110) mg/dL Calcium 8.9 (8.4-10.5) mg/dL Phosphorus 3.7 (2.5-4.5) mg/dL Magnesium 2.1 (1.7-2.2) mg/dL Total Bilirubin 0.5 (0.2-1.3) mg/dL AST 22 (14-36) U/L ALT 29 (7-56) U/L Alkaline Phosphatase 75 (38-126) U/L Total Protein 5.4 L (5.8-8.3) g/dL Albumin 2.9 L (3.0-4.8) g/dL Globulin 2.6 gm/dL Albumin/Globulin Ratio 1.1 (1.1-1.8) Procalcitonin (0.19-0.49) NG/ML Free T4 (0.78-2.19) ng/dL Free T3 pg/mL (2.77-5.27) pg/mL 06/09/17 06/09/17 06/08/17 Range/Units 06:25 04:43 23:46 WBC (4.5-11.0) 10^3/ul RBC (3.5-6.1) 10^6/uL Hgb (12.0-16.0) g/dL Hct (36.0-48.0) % MCV (80.0-105.0) fl MCH (25.0-35.0) pg MCHC (31.0-37.0) g/dl RDW (11.5-14.5) % Plt Count (120.0-450.0) 10^3/uL MPV (7.0-11.0) fl Gran % (50.0-68.0) % Lymph % (Auto) (22.0-35.0) % Lake % (Auto) (1.0-6.0) % Eos % (Auto) (1.5-5.0) % Baso % (Auto) (0.0-3.0) % Gran # (1.4-6.5) Lymph # (Auto) (1.2-3.4) Lake # (Auto) (0.1-0.6) Eos # (Auto) (0.0-0.7) Baso # (Auto) (0.0-2.0) K/mm3 pCO2 32 L (35-45) mm/Hg pO2 163.0 H (80-100) mm/Hg HCO3 22.2 (21-28) mmol/L ABG pH 7.45 (7.35-7.45) ABG Total CO2 23.2 (22-28) mmol.L ABG O2 Saturation 99.3 H (95-98) % ABG O2 Content 16.9 (15-23) ML/dl ABG Base Excess -1.1 (-2.0-3.0) mmol/L ABG Hemoglobin 12.1 (11.7-17.4) g/dL ABG Carboxyhemoglobin 1.4 (0.5-1.5) % POC ABG HHb (Measured) 0.7 (0-5) % ABG Methemoglobin 0.7 (0.0-3.0) % ABG O2 Capacity 17.0 (16-24) mL/dl Hgb O2 Saturation 97.2 (95.0-98.0) % FiO2 40.0 % Sodium (132-148) mmol/L Potassium (3.6-5.0) mmol/L Chloride (98-107) mmol/L Carbon Dioxide (21-33) mmol/L Anion Gap (10-20) BUN (7-21) mg/dL Creatinine (0.7-1.2) mg/dl Est GFR ( Amer) Est GFR (Non-Af Amer) POC Glucose (mg/dL) 207 H 254 H (65-110) mg/dL Random Glucose (70-110) mg/dL Calcium (8.4-10.5) mg/dL Phosphorus (2.5-4.5) mg/dL Magnesium (1.7-2.2) mg/dL Total Bilirubin (0.2-1.3) mg/dL AST (14-36) U/L ALT (7-56) U/L Alkaline Phosphatase (38-126) U/L Total Protein (5.8-8.3) g/dL Albumin (3.0-4.8) g/dL Globulin gm/dL Albumin/Globulin Ratio (1.1-1.8) Procalcitonin (0.19-0.49) NG/ML Free T4 (0.78-2.19) ng/dL Free T3 pg/mL (2.77-5.27) pg/mL 06/08/17 06/08/17 06/08/17 Range/Units 23:30 21:48 20:47 WBC (4.5-11.0) 10^3/ul RBC (3.5-6.1) 10^6/uL Hgb (12.0-16.0) g/dL Hct (36.0-48.0) % MCV (80.0-105.0) fl MCH (25.0-35.0) pg MCHC (31.0-37.0) g/dl RDW (11.5-14.5) % Plt Count (120.0-450.0) 10^3/uL MPV (7.0-11.0) fl Gran % (50.0-68.0) % Lymph % (Auto) (22.0-35.0) % Lake % (Auto) (1.0-6.0) % Eos % (Auto) (1.5-5.0) % Baso % (Auto) (0.0-3.0) % Gran # (1.4-6.5) Lymph # (Auto) (1.2-3.4) Lake # (Auto) (0.1-0.6) Eos # (Auto) (0.0-0.7) Baso # (Auto) (0.0-2.0) K/mm3 pCO2 (35-45) mm/Hg pO2 (80-100) mm/Hg HCO3 (21-28) mmol/L ABG pH (7.35-7.45) ABG Total CO2 (22-28) mmol.L ABG O2 Saturation (95-98) % ABG O2 Content (15-23) ML/dl ABG Base Excess (-2.0-3.0) mmol/L ABG Hemoglobin (11.7-17.4) g/dL ABG Carboxyhemoglobin (0.5-1.5) % POC ABG HHb (Measured) (0-5) % ABG Methemoglobin (0.0-3.0) % ABG O2 Capacity (16-24) mL/dl Hgb O2 Saturation (95.0-98.0) % FiO2 % Sodium 156 H* (132-148) mmol/L Potassium 3.1 L (3.6-5.0) mmol/L Chloride 125 H (98-107) mmol/L Carbon Dioxide 21 (21-33) mmol/L Anion Gap 14 (10-20) BUN 30 H (7-21) mg/dL Creatinine 1.4 H (0.7-1.2) mg/dl Est GFR ( Amer) 48 Est GFR (Non-Af Amer) 39 POC Glucose (mg/dL) 237 H 257 H (65-110) mg/dL Random Glucose 240 H (70-110) mg/dL Calcium 8.2 L (8.4-10.5) mg/dL Phosphorus (2.5-4.5) mg/dL Magnesium (1.7-2.2) mg/dL Total Bilirubin (0.2-1.3) mg/dL AST (14-36) U/L ALT (7-56) U/L Alkaline Phosphatase (38-126) U/L Total Protein (5.8-8.3) g/dL Albumin (3.0-4.8) g/dL Globulin gm/dL Albumin/Globulin Ratio (1.1-1.8) Procalcitonin (0.19-0.49) NG/ML Free T4 (0.78-2.19) ng/dL Free T3 pg/mL (2.77-5.27) pg/mL 06/08/17 06/08/17 06/08/17 Range/Units 15:35 14:10 12:11 WBC (4.5-11.0) 10^3/ul RBC (3.5-6.1) 10^6/uL Hgb (12.0-16.0) g/dL Hct (36.0-48.0) % MCV (80.0-105.0) fl MCH (25.0-35.0) pg MCHC (31.0-37.0) g/dl RDW (11.5-14.5) % Plt Count (120.0-450.0) 10^3/uL MPV (7.0-11.0) fl Gran % (50.0-68.0) % Lymph % (Auto) (22.0-35.0) % Lake % (Auto) (1.0-6.0) % Eos % (Auto) (1.5-5.0) % Baso % (Auto) (0.0-3.0) % Gran # (1.4-6.5) Lymph # (Auto) (1.2-3.4) Lake # (Auto) (0.1-0.6) Eos # (Auto) (0.0-0.7) Baso # (Auto) (0.0-2.0) K/mm3 pCO2 (35-45) mm/Hg pO2 (80-100) mm/Hg HCO3 (21-28) mmol/L ABG pH (7.35-7.45) ABG Total CO2 (22-28) mmol.L ABG O2 Saturation (95-98) % ABG O2 Content (15-23) ML/dl ABG Base Excess (-2.0-3.0) mmol/L ABG Hemoglobin (11.7-17.4) g/dL ABG Carboxyhemoglobin (0.5-1.5) % POC ABG HHb (Measured) (0-5) % ABG Methemoglobin (0.0-3.0) % ABG O2 Capacity (16-24) mL/dl Hgb O2 Saturation (95.0-98.0) % FiO2 % Sodium 154 H (132-148) mmol/L Potassium 3.0 L (3.6-5.0) mmol/L Chloride 123 H (98-107) mmol/L Carbon Dioxide 16 L (21-33) mmol/L Anion Gap 18 (10-20) BUN 31 H (7-21) mg/dL Creatinine 1.5 H (0.7-1.2) mg/dl Est GFR ( Amer) 44 Est GFR (Non-Af Amer) 36 POC Glucose (mg/dL) 296 H 261 H (65-110) mg/dL Random Glucose 317 H* D (70-110) mg/dL Calcium 8.1 L (8.4-10.5) mg/dL Phosphorus 3.4 (2.5-4.5) mg/dL Magnesium 2.1 (1.7-2.2) mg/dL Total Bilirubin (0.2-1.3) mg/dL AST (14-36) U/L ALT (7-56) U/L Alkaline Phosphatase (38-126) U/L Total Protein (5.8-8.3) g/dL Albumin (3.0-4.8) g/dL Globulin gm/dL Albumin/Globulin Ratio (1.1-1.8) Procalcitonin (0.19-0.49) NG/ML Free T4 (0.78-2.19) ng/dL Free T3 pg/mL (2.77-5.27) pg/mL 06/08/17 06/08/17 06/08/17 Range/Units 11:02 11:00 10:00 WBC (4.5-11.0) 10^3/ul RBC (3.5-6.1) 10^6/uL Hgb (12.0-16.0) g/dL Hct (36.0-48.0) % MCV (80.0-105.0) fl MCH (25.0-35.0) pg MCHC (31.0-37.0) g/dl RDW (11.5-14.5) % Plt Count (120.0-450.0) 10^3/uL MPV (7.0-11.0) fl Gran % (50.0-68.0) % Lymph % (Auto) (22.0-35.0) % Lake % (Auto) (1.0-6.0) % Eos % (Auto) (1.5-5.0) % Baso % (Auto) (0.0-3.0) % Gran # (1.4-6.5) Lymph # (Auto) (1.2-3.4) Lake # (Auto) (0.1-0.6) Eos # (Auto) (0.0-0.7) Baso # (Auto) (0.0-2.0) K/mm3 pCO2 (35-45) mm/Hg pO2 (80-100) mm/Hg HCO3 (21-28) mmol/L ABG pH (7.35-7.45) ABG Total CO2 (22-28) mmol.L ABG O2 Saturation (95-98) % ABG O2 Content (15-23) ML/dl ABG Base Excess (-2.0-3.0) mmol/L ABG Hemoglobin (11.7-17.4) g/dL ABG Carboxyhemoglobin (0.5-1.5) % POC ABG HHb (Measured) (0-5) % ABG Methemoglobin (0.0-3.0) % ABG O2 Capacity (16-24) mL/dl Hgb O2 Saturation (95.0-98.0) % FiO2 % Sodium (132-148) mmol/L Potassium (3.6-5.0) mmol/L Chloride (98-107) mmol/L Carbon Dioxide (21-33) mmol/L Anion Gap (10-20) BUN (7-21) mg/dL Creatinine (0.7-1.2) mg/dl Est GFR ( Amer) Est GFR (Non-Af Amer) POC Glucose (mg/dL) 249 H (65-110) mg/dL Random Glucose (70-110) mg/dL Calcium (8.4-10.5) mg/dL Phosphorus (2.5-4.5) mg/dL Magnesium (1.7-2.2) mg/dL Total Bilirubin (0.2-1.3) mg/dL AST (14-36) U/L ALT (7-56) U/L Alkaline Phosphatase (38-126) U/L Total Protein (5.8-8.3) g/dL Albumin (3.0-4.8) g/dL Globulin gm/dL Albumin/Globulin Ratio (1.1-1.8) Procalcitonin 0.37 (0.19-0.49) NG/ML Free T4 1.35 (0.78-2.19) ng/dL Free T3 pg/mL (2.77-5.27) pg/mL 06/08/17 06/08/17 06/08/17 Range/Units 09:42 08:00 07:47 WBC (4.5-11.0) 10^3/ul RBC (3.5-6.1) 10^6/uL Hgb (12.0-16.0) g/dL Hct (36.0-48.0) % MCV (80.0-105.0) fl MCH (25.0-35.0) pg MCHC (31.0-37.0) g/dl RDW (11.5-14.5) % Plt Count (120.0-450.0) 10^3/uL MPV (7.0-11.0) fl Gran % (50.0-68.0) % Lymph % (Auto) (22.0-35.0) % Lake % (Auto) (1.0-6.0) % Eos % (Auto) (1.5-5.0) % Baso % (Auto) (0.0-3.0) % Gran # (1.4-6.5) Lymph # (Auto) (1.2-3.4) Lake # (Auto) (0.1-0.6) Eos # (Auto) (0.0-0.7) Baso # (Auto) (0.0-2.0) K/mm3 pCO2 (35-45) mm/Hg pO2 (80-100) mm/Hg HCO3 (21-28) mmol/L ABG pH (7.35-7.45) ABG Total CO2 (22-28) mmol.L ABG O2 Saturation (95-98) % ABG O2 Content (15-23) ML/dl ABG Base Excess (-2.0-3.0) mmol/L ABG Hemoglobin (11.7-17.4) g/dL ABG Carboxyhemoglobin (0.5-1.5) % POC ABG HHb (Measured) (0-5) % ABG Methemoglobin (0.0-3.0) % ABG O2 Capacity (16-24) mL/dl Hgb O2 Saturation (95.0-98.0) % FiO2 % Sodium (132-148) mmol/L Potassium (3.6-5.0) mmol/L Chloride (98-107) mmol/L Carbon Dioxide (21-33) mmol/L Anion Gap (10-20) BUN (7-21) mg/dL Creatinine (0.7-1.2) mg/dl Est GFR ( Amer) Est GFR (Non-Af Amer) POC Glucose (mg/dL) 251 H 238 H (65-110) mg/dL Random Glucose (70-110) mg/dL Calcium (8.4-10.5) mg/dL Phosphorus (2.5-4.5) mg/dL Magnesium (1.7-2.2) mg/dL Total Bilirubin (0.2-1.3) mg/dL AST (14-36) U/L ALT (7-56) U/L Alkaline Phosphatase (38-126) U/L Total Protein (5.8-8.3) g/dL Albumin (3.0-4.8) g/dL Globulin gm/dL Albumin/Globulin Ratio (1.1-1.8) Procalcitonin (0.19-0.49) NG/ML Free T4 (0.78-2.19) ng/dL Free T3 pg/mL 2.73 L (2.77-5.27) pg/mL Laboratory Results - last 24 hr 06/08/17 06/08/17 06/08/17 07:47 08:00 09:42 WBC RBC Hgb Hct MCV MCH MCHC RDW Plt Count MPV Gran % Lymph % (Auto) Lake % (Auto) Eos % (Auto) Baso % (Auto) Gran # Lymph # (Auto) Lake # (Auto) Eos # (Auto) Baso # (Auto) pCO2 pO2 HCO3 ABG pH ABG Total CO2 ABG O2 Saturation ABG O2 Content ABG Base Excess ABG Hemoglobin ABG Carboxyhemoglobin POC ABG HHb (Measured) ABG Methemoglobin ABG O2 Capacity Hgb O2 Saturation FiO2 Sodium Potassium Chloride Carbon Dioxide Anion Gap BUN Creatinine Est GFR ( Amer) Est GFR (Non-Af Amer) POC Glucose (mg/dL) 238 H 251 H Random Glucose Calcium Phosphorus Magnesium Total Bilirubin AST ALT Alkaline Phosphatase Total Protein Albumin Globulin Albumin/Globulin Ratio Procalcitonin Free T4 Free T3 pg/mL 2.73 L 06/08/17 06/08/17 06/08/17 10:00 11:00 11:02 WBC RBC Hgb Hct MCV MCH MCHC RDW Plt Count MPV Gran % Lymph % (Auto) Lake % (Auto) Eos % (Auto) Baso % (Auto) Gran # Lymph # (Auto) Lake # (Auto) Eos # (Auto) Baso # (Auto) pCO2 pO2 HCO3 ABG pH ABG Total CO2 ABG O2 Saturation ABG O2 Content ABG Base Excess ABG Hemoglobin ABG Carboxyhemoglobin POC ABG HHb (Measured) ABG Methemoglobin ABG O2 Capacity Hgb O2 Saturation FiO2 Sodium Potassium Chloride Carbon Dioxide Anion Gap BUN Creatinine Est GFR ( Amer) Est GFR (Non-Af Amer) POC Glucose (mg/dL) 249 H Random Glucose Calcium Phosphorus Magnesium Total Bilirubin AST ALT Alkaline Phosphatase Total Protein Albumin Globulin Albumin/Globulin Ratio Procalcitonin 0.37 Free T4 1.35 Free T3 pg/mL 06/08/17 06/08/17 06/08/17 12:11 14:10 15:35 WBC RBC Hgb Hct MCV MCH MCHC RDW Plt Count MPV Gran % Lymph % (Auto) Lake % (Auto) Eos % (Auto) Baso % (Auto) Gran # Lymph # (Auto) Lake # (Auto) Eos # (Auto) Baso # (Auto) pCO2 pO2 HCO3 ABG pH ABG Total CO2 ABG O2 Saturation ABG O2 Content ABG Base Excess ABG Hemoglobin ABG Carboxyhemoglobin POC ABG HHb (Measured) ABG Methemoglobin ABG O2 Capacity Hgb O2 Saturation FiO2 Sodium 154 H Potassium 3.0 L Chloride 123 H Carbon Dioxide 16 L Anion Gap 18 BUN 31 H Creatinine 1.5 H Est GFR ( Amer) 44 Est GFR (Non-Af Amer) 36 POC Glucose (mg/dL) 261 H 296 H Random Glucose 317 H* D Calcium 8.1 L Phosphorus 3.4 Magnesium 2.1 Total Bilirubin AST ALT Alkaline Phosphatase Total Protein Albumin Globulin Albumin/Globulin Ratio Procalcitonin Free T4 Free T3 pg/mL 06/08/17 06/08/17 06/08/17 20:47 21:48 23:30 WBC RBC Hgb Hct MCV MCH MCHC RDW Plt Count MPV Gran % Lymph % (Auto) Lake % (Auto) Eos % (Auto) Baso % (Auto) Gran # Lymph # (Auto) Lake # (Auto) Eos # (Auto) Baso # (Auto) pCO2 pO2 HCO3 ABG pH ABG Total CO2 ABG O2 Saturation ABG O2 Content ABG Base Excess ABG Hemoglobin ABG Carboxyhemoglobin POC ABG HHb (Measured) ABG Methemoglobin ABG O2 Capacity Hgb O2 Saturation FiO2 Sodium 156 H* Potassium 3.1 L Chloride 125 H Carbon Dioxide 21 Anion Gap 14 BUN 30 H Creatinine 1.4 H Est GFR ( Amer) 48 Est GFR (Non-Af Amer) 39 POC Glucose (mg/dL) 257 H 237 H Random Glucose 240 H Calcium 8.2 L Phosphorus Magnesium Total Bilirubin AST ALT Alkaline Phosphatase Total Protein Albumin Globulin Albumin/Globulin Ratio Procalcitonin Free T4 Free T3 pg/mL 06/08/17 06/09/17 06/09/17 23:46 04:43 06:25 WBC RBC Hgb Hct MCV MCH MCHC RDW Plt Count MPV Gran % Lymph % (Auto) Lake % (Auto) Eos % (Auto) Baso % (Auto) Gran # Lymph # (Auto) Lake # (Auto) Eos # (Auto) Baso # (Auto) pCO2 32 L pO2 163.0 H HCO3 22.2 ABG pH 7.45 ABG Total CO2 23.2 ABG O2 Saturation 99.3 H ABG O2 Content 16.9 ABG Base Excess -1.1 ABG Hemoglobin 12.1 ABG Carboxyhemoglobin 1.4 POC ABG HHb (Measured) 0.7 ABG Methemoglobin 0.7 ABG O2 Capacity 17.0 Hgb O2 Saturation 97.2 FiO2 40.0 Sodium Potassium Chloride Carbon Dioxide Anion Gap BUN Creatinine Est GFR ( Amer) Est GFR (Non-Af Amer) POC Glucose (mg/dL) 254 H 207 H Random Glucose Calcium Phosphorus Magnesium Total Bilirubin AST ALT Alkaline Phosphatase Total Protein Albumin Globulin Albumin/Globulin Ratio Procalcitonin Free T4 Free T3 pg/mL 06/09/17 06/09/17 06/09/17 06:48 06:48 07:57 WBC 6.5 D RBC 3.30 L Hgb 9.9 L Hct 27.3 L MCV 82.7 MCH 30.0 MCHC 36.3 RDW 15.0 H Plt Count 87 L MPV 10.6 Gran % 59.7 Lymph % (Auto) 31.2 Lake % (Auto) 8.3 H Eos % (Auto) 0.6 L Baso % (Auto) 0.2 Gran # 3.89 Lymph # (Auto) 2.0 Lake # (Auto) 0.5 Eos # (Auto) 0.0 Baso # (Auto) 0.01 pCO2 pO2 HCO3 ABG pH ABG Total CO2 ABG O2 Saturation ABG O2 Content ABG Base Excess ABG Hemoglobin ABG Carboxyhemoglobin POC ABG HHb (Measured) ABG Methemoglobin ABG O2 Capacity Hgb O2 Saturation FiO2 Sodium 158 H* Potassium 3.1 L Chloride 124 H Carbon Dioxide 23 Anion Gap 14 BUN 30 H Creatinine 1.3 H Est GFR ( Amer) 52 Est GFR (Non-Af Amer) 43 POC Glucose (mg/dL) 211 H Random Glucose 224 H Calcium 8.9 Phosphorus 3.7 Magnesium 2.1 Total Bilirubin 0.5 AST 22 ALT 29 Alkaline Phosphatase 75 Total Protein 5.4 L Albumin 2.9 L Globulin 2.6 Albumin/Globulin Ratio 1.1 Procalcitonin Free T4 Free T3 pg/mL EKG/Cardiology Studies: Cardiology / EKG Studies 06/09/17 08:59 EKG [ELECTROCARDIOGRAM] Stat Comment: Reason For Exam: a fib Fingerstick Blood Sugar Results: 211 Review of Systems - Review of Systems Systems not reviewed;Unavailable: Intubated Review of Systems: unable to obtain Critical Care Progress Note - Nutrition Nutrition: Nutrition Category Date Time Status Heart Healthy Diet [DIET] Diets 06/04/17 Dinner Ordered Assessment/Plan - Assessment and Plan (Free Text) Assessment: 51 year old female with past medical history of DM, HTN, HLD presents with DKA and a-fib with rvr. A-fib resolved. PAtient intubated, still being treated for DKA, on pressure support today. Plan: Neuro: Intubated and sedated on precedex pressure support Will attempt to wean Thiamine CT head negative Cardio: Hemodynamically stable Maintain MAP >65 hold verapamil Pulm: Intubated Maintain O2 sat >90% CXR daily ABG daily GI: NPO OG tube Protonix Nephro: Maintain euvolemia 1/2 NS@100 K repleted Replenish electrolytes as needed Akhtar catheter Endo: Insulin drip IVF Accuchecks q1h Heme/ID: Afebrile, leukocytosis resolved Merrem, Vanco, acyclovir Cultures negative at this time ID following Lovenox <Vipin Fontanez - Last Filed: 06/09/17 13:08> CCU Objective - Vital Signs / Intake & Output Vital Signs (Last 4 hours): Vital Signs Pulse BP 06/09/17 12:55 65 06/09/17 10:00 66 06/09/17 09:18 59 L 166/95 H 06/09/17 09:17 59 L 166/75 H Intake and Output (Last 8hrs): Intake & Output 06/08/17 06/09/17 06/09/17 22:59 06:59 14:59 Intake Total 1070 3150 100 Output Total 650 1700 Balance 420 1450 100 Weight 250 lb 250 lb Intake: IV 120 2200 100 IVPB 2000 Tube Feeding 150 150 Other 800 800 Output: Urine 650 1700 Urethral (Akhtar) 650 1700 Stool 0 - Medications Active Medications: Active Medications Generic Name Dose Route Start Last Admin Trade Name Freq PRN Reason Stop Dose Admin Aspirin 81 mg 06/05/17 10:00 06/09/17 09:18 Ecotrin PO 81 mg DAILY ALEJANDRINA Administration Enoxaparin Sodium 40 mg 06/07/17 10:00 06/09/17 09:19 Lovenox SC 40 mg DAILY ALEJANDRINA Administration Protocol Propofol 1,000 mg in 100 mls @ 3.043 mls/hr 06/07/17 10:11 06/08/17 19:00 Diprivan IV Infused .Q24H PRN Titration TITRATE PER MD ORDER Protocol 5 MCG/KG/MIN Meropenem 50 mls @ 100 mls/hr 06/07/17 10:30 06/09/17 09:19 Merrem Iv 1 Gm Premix IVPB 06/14/17 10:31 100 mls/hr Q12 ALEJANDRINA Administration Protocol Acetaminophen 1,000 mg in 100 mls @ 400 mls/hr 06/07/17 15:36 06/08/17 05:11 Ofirmev IVPB 06/09/17 15:37 400 mls/hr Q6H PRN Administration Fever > 100.4 Dexmedetomidine HCl 400 mcg in 100 mls @ 5.071 mls/hr 06/08/17 10:17 09:21 Precedex 400mcg/100ml IV 1 mcg/kg/hr .[id number] PRN 25.356 mls/hr Agitation Administration Protocol 0.2 MCG/KG/HR Potassium Phosphate 20 mmole/ 1,006.6667 mls @ 100 mls/hr 06/08/17 10:38 09:19 Dextrose/Sodium Chloride IV 100 mls/hr .Q10H4M ALEJANDRINA Administration Acyclovir 800 mg/ Sodium 100 mls @ 100 mls/hr 06/09/17 14:00 Chloride IV Q12 ALEJANDRINA Protocol Sodium Chloride 1,000 mls @ 100 mls/hr 06/09/17 10:00 06/09/17 10:13 Sodium Chloride 0.45% IV 100 mls/hr .Q10H ALEJANDRINA Administration Insulin Detemir 20 unit 06/08/17 20:00 06/09/17 09:25 Levemir SC 20 unit Q12H ALEJANDRINA Administration Insulin Human Lispro 0 units 06/08/17 12:00 06/09/17 12:07 Humalog SC 4 units Q4H ALEJANDRINA Administration Metoprolol Tartrate 25 mg 06/09/17 10:00 06/09/17 09:18 Lopressor PO Not Given BID [facility] Morphine Sulfate 2 mg 06/07/17 10:11 06/07/17 17:29 Morphine IVP 2 mg Q3H PRN Administration Pain, severe (8-10) Pantoprazole Sodium 40 mg 06/08/17 10:00 06/09/17 09:22 Protonix Inj IVP 40 mg DAILY [facility] Administration Thiamine HCl 100 mg 06/08/17 10:00 06/09/17 09:22 Vitamin B1 Inj IV 100 mg DAILY [facility] Administration Verapamil HCl 2.5 mg 06/06/17 09:22 06/06/17 11:46 Verapamil Inj IVP 2.5 mg Q6H PRN Administration for heart rate >130 Verapamil HCl 80 mg 06/06/17 10:00 06/09/17 09:17 Calan Tab PO Not Given TID [facility] Vitamin A 1 ea 06/09/17 10:16 Vitamin A & D Oint Ud Foilpak TOP DAILY PRN Dry skin - Patient Studies Lab Studies: Microbiology Studies 06/05/17 10:35 Blood Culture - Preliminary Blood-Venous NO GROWTH AFTER 4 DAYS 06/05/17 10:10 Blood Culture - Preliminary Blood-Venous NO GROWTH AFTER 4 DAYS 06/07/17 16:11 Blood Culture - Preliminary Blood-Venous NO GROWTH AFTER 24 HOURS 06/07/17 16:11 Blood Culture - Preliminary Blood-Venous NO GROWTH AFTER 24 HOURS 06/05/17 15:53 Blood Culture - Preliminary Blood-Venous NO GROWTH AFTER 3 DAYS 06/05/17 15:53 Blood Culture - Preliminary Blood-Venous NO GROWTH AFTER 3 DAYS 06/07/17 11:15 Urine Culture - Final Urine,Akhtar No Growth (<1,000 CFU/ML) Lab Studies 06/09/17 06/09/17 06/09/17 Range/Units 11:32 09:18 09:15 WBC (4.5-11.0) 10^3/ul RBC (3.5-6.1) 10^6/uL Hgb (12.0-16.0) g/dL Hct (36.0-48.0) % MCV (80.0-105.0) fl MCH (25.0-35.0) pg MCHC (31.0-37.0) g/dl RDW (11.5-14.5) % Plt Count (120.0-450.0) 10^3/uL MPV (7.0-11.0) fl Gran % (50.0-68.0) % Lymph % (Auto) (22.0-35.0) % Lake % (Auto) (1.0-6.0) % Eos % (Auto) (1.5-5.0) % Baso % (Auto) (0.0-3.0) % Gran # (1.4-6.5) Lymph # (Auto) (1.2-3.4) Lake # (Auto) (0.1-0.6) Eos # (Auto) (0.0-0.7) Baso # (Auto) (0.0-2.0) K/mm3 pCO2 (35-45) mm/Hg pO2 (80-100) mm/Hg HCO3 (21-28) mmol/L ABG pH (7.35-7.45) ABG Total CO2 (22-28) mmol.L ABG O2 Saturation (95-98) % ABG O2 Content (15-23) ML/dl ABG Base Excess (-2.0-3.0) mmol/L ABG Hemoglobin (11.7-17.4) g/dL ABG Carboxyhemoglobin (0.5-1.5) % POC ABG HHb (Measured) (0-5) % ABG Methemoglobin (0.0-3.0) % ABG O2 Capacity (16-24) mL/dl Hgb O2 Saturation (95.0-98.0) % FiO2 % Sodium (132-148) mmol/L Potassium (3.6-5.0) mmol/L Chloride (98-107) mmol/L Carbon Dioxide (21-33) mmol/L Anion Gap (10-20) BUN (7-21) mg/dL Creatinine (0.7-1.2) mg/dl Est GFR ( Amer) Est GFR (Non-Af Amer) POC Glucose (mg/dL) 216 H (65-110) mg/dL Random Glucose (70-110) mg/dL Calcium (8.4-10.5) mg/dL Phosphorus (2.5-4.5) mg/dL Magnesium (1.7-2.2) mg/dL Total Bilirubin (0.2-1.3) mg/dL AST (14-36) U/L ALT (7-56) U/L Alkaline Phosphatase (38-126) U/L Total Protein (5.8-8.3) g/dL Albumin (3.0-4.8) g/dL Globulin gm/dL Albumin/Globulin Ratio (1.1-1.8) Procalcitonin (0.19-0.49) NG/ML Random Vancomycin 12.0 L (20.0-40.0) ug/mL Influenza Typ A,B (EIA) Negative for flu a/b (NEGATIVE) 06/09/17 06/09/17 06/09/17 Range/Units 07:57 06:48 06:48 WBC 6.5 D (4.5-11.0) 10^3/ul RBC 3.30 L (3.5-6.1) 10^6/uL Hgb 9.9 L (12.0-16.0) g/dL Hct 27.3 L (36.0-48.0) % MCV 82.7 (80.0-105.0) fl MCH 30.0 (25.0-35.0) pg MCHC 36.3 (31.0-37.0) g/dl RDW 15.0 H (11.5-14.5) % Plt Count 87 L (120.0-450.0) 10^3/uL MPV 10.6 (7.0-11.0) fl Gran % 59.7 (50.0-68.0) % Lymph % (Auto) 31.2 (22.0-35.0) % Lake % (Auto) 8.3 H (1.0-6.0) % Eos % (Auto) 0.6 L (1.5-5.0) % Baso % (Auto) 0.2 (0.0-3.0) % Gran # 3.89 (1.4-6.5) Lymph # (Auto) 2.0 (1.2-3.4) Lake # (Auto) 0.5 (0.1-0.6) Eos # (Auto) 0.0 (0.0-0.7) Baso # (Auto) 0.01 (0.0-2.0) K/mm3 pCO2 (35-45) mm/Hg pO2 (80-100) mm/Hg HCO3 (21-28) mmol/L ABG pH (7.35-7.45) ABG Total CO2 (22-28) mmol.L ABG O2 Saturation (95-98) % ABG O2 Content (15-23) ML/dl ABG Base Excess (-2.0-3.0) mmol/L ABG Hemoglobin (11.7-17.4) g/dL ABG Carboxyhemoglobin (0.5-1.5) % POC ABG HHb (Measured) (0-5) % ABG Methemoglobin (0.0-3.0) % ABG O2 Capacity (16-24) mL/dl Hgb O2 Saturation (95.0-98.0) % FiO2 % Sodium 158 H* (132-148) mmol/L Potassium 3.1 L (3.6-5.0) mmol/L Chloride 124 H (98-107) mmol/L Carbon Dioxide 23 (21-33) mmol/L Anion Gap 14 (10-20) BUN 30 H (7-21) mg/dL Creatinine 1.3 H (0.7-1.2) mg/dl Est GFR ( Amer) 52 Est GFR (Non-Af Amer) 43 POC Glucose (mg/dL) 211 H (65-110) mg/dL Random Glucose 224 H (70-110) mg/dL Calcium 8.9 (8.4-10.5) mg/dL Phosphorus 3.7 (2.5-4.5) mg/dL Magnesium 2.1 (1.7-2.2) mg/dL Total Bilirubin 0.5 (0.2-1.3) mg/dL AST 22 (14-36) U/L ALT 29 (7-56) U/L Alkaline Phosphatase 75 (38-126) U/L Total Protein 5.4 L (5.8-8.3) g/dL Albumin 2.9 L (3.0-4.8) g/dL Globulin 2.6 gm/dL Albumin/Globulin Ratio 1.1 (1.1-1.8) Procalcitonin (0.19-0.49) NG/ML Random Vancomycin (20.0-40.0) ug/mL Influenza Typ A,B (EIA) (NEGATIVE) 06/09/17 06/09/17 06/08/17 Range/Units 06:25 04:43 23:46 WBC (4.5-11.0) 10^3/ul RBC (3.5-6.1) 10^6/uL Hgb (12.0-16.0) g/dL Hct (36.0-48.0) % MCV (80.0-105.0) fl MCH (25.0-35.0) pg MCHC (31.0-37.0) g/dl RDW (11.5-14.5) % Plt Count (120.0-450.0) 10^3/uL MPV (7.0-11.0) fl Gran % (50.0-68.0) % Lymph % (Auto) (22.0-35.0) % Lake % (Auto) (1.0-6.0) % Eos % (Auto) (1.5-5.0) % Baso % (Auto) (0.0-3.0) % Gran # (1.4-6.5) Lymph # (Auto) (1.2-3.4) Lake # (Auto) (0.1-0.6) Eos # (Auto) (0.0-0.7) Baso # (Auto) (0.0-2.0) K/mm3 pCO2 32 L (35-45) mm/Hg pO2 163.0 H (80-100) mm/Hg HCO3 22.2 (21-28) mmol/L ABG pH 7.45 (7.35-7.45) ABG Total CO2 23.2 (22-28) mmol.L ABG O2 Saturation 99.3 H (95-98) % ABG O2 Content 16.9 (15-23) ML/dl ABG Base Excess -1.1 (-2.0-3.0) mmol/L ABG Hemoglobin 12.1 (11.7-17.4) g/dL ABG Carboxyhemoglobin 1.4 (0.5-1.5) % POC ABG HHb (Measured) 0.7 (0-5) % ABG Methemoglobin 0.7 (0.0-3.0) % ABG O2 Capacity 17.0 (16-24) mL/dl Hgb O2 Saturation 97.2 (95.0-98.0) % FiO2 40.0 % Sodium (132-148) mmol/L Potassium (3.6-5.0) mmol/L Chloride (98-107) mmol/L Carbon Dioxide (21-33) mmol/L Anion Gap (10-20) BUN (7-21) mg/dL Creatinine (0.7-1.2) mg/dl Est GFR ( Amer) Est GFR (Non-Af Amer) POC Glucose (mg/dL) 207 H 254 H (65-110) mg/dL Random Glucose (70-110) mg/dL Calcium (8.4-10.5) mg/dL Phosphorus (2.5-4.5) mg/dL Magnesium (1.7-2.2) mg/dL Total Bilirubin (0.2-1.3) mg/dL AST (14-36) U/L ALT (7-56) U/L Alkaline Phosphatase (38-126) U/L Total Protein (5.8-8.3) g/dL Albumin (3.0-4.8) g/dL Globulin gm/dL Albumin/Globulin Ratio (1.1-1.8) Procalcitonin (0.19-0.49) NG/ML Random Vancomycin (20.0-40.0) ug/mL Influenza Typ A,B (EIA) (NEGATIVE) 06/08/17 06/08/17 06/08/17 Range/Units 23:30 21:48 20:47 WBC (4.5-11.0) 10^3/ul RBC (3.5-6.1) 10^6/uL Hgb (12.0-16.0) g/dL Hct (36.0-48.0) % MCV (80.0-105.0) fl MCH (25.0-35.0) pg MCHC (31.0-37.0) g/dl RDW (11.5-14.5) % Plt Count (120.0-450.0) 10^3/uL MPV (7.0-11.0) fl Gran % (50.0-68.0) % Lymph % (Auto) (22.0-35.0) % Lake % (Auto) (1.0-6.0) % Eos % (Auto) (1.5-5.0) % Baso % (Auto) (0.0-3.0) % Gran # (1.4-6.5) Lymph # (Auto) (1.2-3.4) Lake # (Auto) (0.1-0.6) Eos # (Auto) (0.0-0.7) Baso # (Auto) (0.0-2.0) K/mm3 pCO2 (35-45) mm/Hg pO2 (80-100) mm/Hg HCO3 (21-28) mmol/L ABG pH (7.35-7.45) ABG Total CO2 (22-28) mmol.L ABG O2 Saturation (95-98) % ABG O2 Content (15-23) ML/dl ABG Base Excess (-2.0-3.0) mmol/L ABG Hemoglobin (11.7-17.4) g/dL ABG Carboxyhemoglobin (0.5-1.5) % POC ABG HHb (Measured) (0-5) % ABG Methemoglobin (0.0-3.0) % ABG O2 Capacity (16-24) mL/dl Hgb O2 Saturation (95.0-98.0) % FiO2 % Sodium 156 H* (132-148) mmol/L Potassium 3.1 L (3.6-5.0) mmol/L Chloride 125 H (98-107) mmol/L Carbon Dioxide 21 (21-33) mmol/L Anion Gap 14 (10-20) BUN 30 H (7-21) mg/dL Creatinine 1.4 H (0.7-1.2) mg/dl Est GFR ( Amer) 48 Est GFR (Non-Af Amer) 39 POC Glucose (mg/dL) 237 H 257 H (65-110) mg/dL Random Glucose 240 H (70-110) mg/dL Calcium 8.2 L (8.4-10.5) mg/dL Phosphorus (2.5-4.5) mg/dL Magnesium (1.7-2.2) mg/dL Total Bilirubin (0.2-1.3) mg/dL AST (14-36) U/L ALT (7-56) U/L Alkaline Phosphatase (38-126) U/L Total Protein (5.8-8.3) g/dL Albumin (3.0-4.8) g/dL Globulin gm/dL Albumin/Globulin Ratio (1.1-1.8) Procalcitonin (0.19-0.49) NG/ML Random Vancomycin (20.0-40.0) ug/mL Influenza Typ A,B (EIA) (NEGATIVE) 06/08/17 06/08/17 06/08/17 Range/Units 15:35 14:10 12:11 WBC (4.5-11.0) 10^3/ul RBC (3.5-6.1) 10^6/uL Hgb (12.0-16.0) g/dL Hct (36.0-48.0) % MCV (80.0-105.0) fl MCH (25.0-35.0) pg MCHC (31.0-37.0) g/dl RDW (11.5-14.5) % Plt Count (120.0-450.0) 10^3/uL MPV (7.0-11.0) fl Gran % (50.0-68.0) % Lymph % (Auto) (22.0-35.0) % Lake % (Auto) (1.0-6.0) % Eos % (Auto) (1.5-5.0) % Baso % (Auto) (0.0-3.0) % Gran # (1.4-6.5) Lymph # (Auto) (1.2-3.4) Lake # (Auto) (0.1-0.6) Eos # (Auto) (0.0-0.7) Baso # (Auto) (0.0-2.0) K/mm3 pCO2 (35-45) mm/Hg pO2 (80-100) mm/Hg HCO3 (21-28) mmol/L ABG pH (7.35-7.45) ABG Total CO2 (22-28) mmol.L ABG O2 Saturation (95-98) % ABG O2 Content (15-23) ML/dl ABG Base Excess (-2.0-3.0) mmol/L ABG Hemoglobin (11.7-17.4) g/dL ABG Carboxyhemoglobin (0.5-1.5) % POC ABG HHb (Measured) (0-5) % ABG Methemoglobin (0.0-3.0) % ABG O2 Capacity (16-24) mL/dl Hgb O2 Saturation (95.0-98.0) % FiO2 % Sodium 154 H (132-148) mmol/L Potassium 3.0 L (3.6-5.0) mmol/L Chloride 123 H (98-107) mmol/L Carbon Dioxide 16 L (21-33) mmol/L Anion Gap 18 (10-20) BUN 31 H (7-21) mg/dL Creatinine 1.5 H (0.7-1.2) mg/dl Est GFR ( Amer) 44 Est GFR (Non-Af Amer) 36 POC Glucose (mg/dL) 296 H 261 H (65-110) mg/dL Random Glucose 317 H* D (70-110) mg/dL Calcium 8.1 L (8.4-10.5) mg/dL Phosphorus 3.4 (2.5-4.5) mg/dL Magnesium 2.1 (1.7-2.2) mg/dL Total Bilirubin (0.2-1.3) mg/dL AST (14-36) U/L ALT (7-56) U/L Alkaline Phosphatase (38-126) U/L Total Protein (5.8-8.3) g/dL Albumin (3.0-4.8) g/dL Globulin gm/dL Albumin/Globulin Ratio (1.1-1.8) Procalcitonin (0.19-0.49) NG/ML Random Vancomycin (20.0-40.0) ug/mL Influenza Typ A,B (EIA) (NEGATIVE) 06/08/17 06/08/17 06/08/17 Range/Units 11:02 10:00 09:42 WBC (4.5-11.0) 10^3/ul RBC (3.5-6.1) 10^6/uL Hgb (12.0-16.0) g/dL Hct (36.0-48.0) % MCV (80.0-105.0) fl MCH (25.0-35.0) pg MCHC (31.0-37.0) g/dl RDW (11.5-14.5) % Plt Count (120.0-450.0) 10^3/uL MPV (7.0-11.0) fl Gran % (50.0-68.0) % Lymph % (Auto) (22.0-35.0) % Lake % (Auto) (1.0-6.0) % Eos % (Auto) (1.5-5.0) % Baso % (Auto) (0.0-3.0) % Gran # (1.4-6.5) Lymph # (Auto) (1.2-3.4) Lake # (Auto) (0.1-0.6) Eos # (Auto) (0.0-0.7) Baso # (Auto) (0.0-2.0) K/mm3 pCO2 (35-45) mm/Hg pO2 (80-100) mm/Hg HCO3 (21-28) mmol/L ABG pH (7.35-7.45) ABG Total CO2 (22-28) mmol.L ABG O2 Saturation (95-98) % ABG O2 Content (15-23) ML/dl ABG Base Excess (-2.0-3.0) mmol/L ABG Hemoglobin (11.7-17.4) g/dL ABG Carboxyhemoglobin (0.5-1.5) % POC ABG HHb (Measured) (0-5) % ABG Methemoglobin (0.0-3.0) % ABG O2 Capacity (16-24) mL/dl Hgb O2 Saturation (95.0-98.0) % FiO2 % Sodium (132-148) mmol/L Potassium (3.6-5.0) mmol/L Chloride (98-107) mmol/L Carbon Dioxide (21-33) mmol/L Anion Gap (10-20) BUN (7-21) mg/dL Creatinine (0.7-1.2) mg/dl Est GFR ( Amer) Est GFR (Non-Af Amer) POC Glucose (mg/dL) 249 H 251 H (65-110) mg/dL Random Glucose (70-110) mg/dL Calcium (8.4-10.5) mg/dL Phosphorus (2.5-4.5) mg/dL Magnesium (1.7-2.2) mg/dL Total Bilirubin (0.2-1.3) mg/dL AST (14-36) U/L ALT (7-56) U/L Alkaline Phosphatase (38-126) U/L Total Protein (5.8-8.3) g/dL Albumin (3.0-4.8) g/dL Globulin gm/dL Albumin/Globulin Ratio (1.1-1.8) Procalcitonin 0.37 (0.19-0.49) NG/ML Random Vancomycin (20.0-40.0) ug/mL Influenza Typ A,B (EIA) (NEGATIVE) 06/08/17 Range/Units 07:47 WBC (4.5-11.0) 10^3/ul RBC (3.5-6.1) 10^6/uL Hgb (12.0-16.0) g/dL Hct (36.0-48.0) % MCV (80.0-105.0) fl MCH (25.0-35.0) pg MCHC (31.0-37.0) g/dl RDW (11.5-14.5) % Plt Count (120.0-450.0) 10^3/uL MPV (7.0-11.0) fl Gran % (50.0-68.0) % Lymph % (Auto) (22.0-35.0) % Lake % (Auto) (1.0-6.0) % Eos % (Auto) (1.5-5.0) % Baso % (Auto) (0.0-3.0) % Gran # (1.4-6.5) Lymph # (Auto) (1.2-3.4) Lake # (Auto) (0.1-0.6) Eos # (Auto) (0.0-0.7) Baso # (Auto) (0.0-2.0) K/mm3 pCO2 (35-45) mm/Hg pO2 (80-100) mm/Hg HCO3 (21-28) mmol/L ABG pH (7.35-7.45) ABG Total CO2 (22-28) mmol.L ABG O2 Saturation (95-98) % ABG O2 Content (15-23) ML/dl ABG Base Excess (-2.0-3.0) mmol/L ABG Hemoglobin (11.7-17.4) g/dL ABG Carboxyhemoglobin (0.5-1.5) % POC ABG HHb (Measured) (0-5) % ABG Methemoglobin (0.0-3.0) % ABG O2 Capacity (16-24) mL/dl Hgb O2 Saturation (95.0-98.0) % FiO2 % Sodium (132-148) mmol/L Potassium (3.6-5.0) mmol/L Chloride (98-107) mmol/L Carbon Dioxide (21-33) mmol/L Anion Gap (10-20) BUN (7-21) mg/dL Creatinine (0.7-1.2) mg/dl Est GFR ( Amer) Est GFR (Non-Af Amer) POC Glucose (mg/dL) 238 H (65-110) mg/dL Random Glucose (70-110) mg/dL Calcium (8.4-10.5) mg/dL Phosphorus (2.5-4.5) mg/dL Magnesium (1.7-2.2) mg/dL Total Bilirubin (0.2-1.3) mg/dL AST (14-36) U/L ALT (7-56) U/L Alkaline Phosphatase (38-126) U/L Total Protein (5.8-8.3) g/dL Albumin (3.0-4.8) g/dL Globulin gm/dL Albumin/Globulin Ratio (1.1-1.8) Procalcitonin (0.19-0.49) NG/ML Random Vancomycin (20.0-40.0) ug/mL Influenza Typ A,B (EIA) (NEGATIVE) Laboratory Results - last 24 hr 06/08/17 06/08/17 06/08/17 07:47 09:42 10:00 WBC RBC Hgb Hct MCV MCH MCHC RDW Plt Count MPV Gran % Lymph % (Auto) Lake % (Auto) Eos % (Auto) Baso % (Auto) Gran # Lymph # (Auto) Lake # (Auto) Eos # (Auto) Baso # (Auto) pCO2 pO2 HCO3 ABG pH ABG Total CO2 ABG O2 Saturation ABG O2 Content ABG Base Excess ABG Hemoglobin ABG Carboxyhemoglobin POC ABG HHb (Measured) ABG Methemoglobin ABG O2 Capacity Hgb O2 Saturation FiO2 Sodium Potassium Chloride Carbon Dioxide Anion Gap BUN Creatinine Est GFR ( Amer) Est GFR (Non-Af Amer) POC Glucose (mg/dL) 238 H 251 H Random Glucose Calcium Phosphorus Magnesium Total Bilirubin AST ALT Alkaline Phosphatase Total Protein Albumin Globulin Albumin/Globulin Ratio Procalcitonin 0.37 Random Vancomycin Influenza Typ A,B (EIA) 06/08/17 06/08/17 06/08/17 11:02 12:11 14:10 WBC RBC Hgb Hct MCV MCH MCHC RDW Plt Count MPV Gran % Lymph % (Auto) Lake % (Auto) Eos % (Auto) Baso % (Auto) Gran # Lymph # (Auto) Lake # (Auto) Eos # (Auto) Baso # (Auto) pCO2 pO2 HCO3 ABG pH ABG Total CO2 ABG O2 Saturation ABG O2 Content ABG Base Excess ABG Hemoglobin ABG Carboxyhemoglobin POC ABG HHb (Measured) ABG Methemoglobin ABG O2 Capacity Hgb O2 Saturation FiO2 Sodium 154 H Potassium 3.0 L Chloride 123 H Carbon Dioxide 16 L Anion Gap 18 BUN 31 H Creatinine 1.5 H Est GFR ( Amer) 44 Est GFR (Non-Af Amer) 36 POC Glucose (mg/dL) 249 H 261 H Random Glucose 317 H* D Calcium 8.1 L Phosphorus 3.4 Magnesium 2.1 Total Bilirubin AST ALT Alkaline Phosphatase Total Protein Albumin Globulin Albumin/Globulin Ratio Procalcitonin Random Vancomycin Influenza Typ A,B (EIA) 06/08/17 06/08/17 06/08/17 15:35 20:47 21:48 WBC RBC Hgb Hct MCV MCH MCHC RDW Plt Count MPV Gran % Lymph % (Auto) Lake % (Auto) Eos % (Auto) Baso % (Auto) Gran # Lymph # (Auto) Lake # (Auto) Eos # (Auto) Baso # (Auto) pCO2 pO2 HCO3 ABG pH ABG Total CO2 ABG O2 Saturation ABG O2 Content ABG Base Excess ABG Hemoglobin ABG Carboxyhemoglobin POC ABG HHb (Measured) ABG Methemoglobin ABG O2 Capacity Hgb O2 Saturation FiO2 Sodium Potassium Chloride Carbon Dioxide Anion Gap BUN Creatinine Est GFR ( Amer) Est GFR (Non-Af Amer) POC Glucose (mg/dL) 296 H 257 H 237 H Random Glucose Calcium Phosphorus Magnesium Total Bilirubin AST ALT Alkaline Phosphatase Total Protein Albumin Globulin Albumin/Globulin Ratio Procalcitonin Random Vancomycin Influenza Typ A,B (EIA) 06/08/17 06/08/17 06/09/17 23:30 23:46 04:43 WBC RBC Hgb Hct MCV MCH MCHC RDW Plt Count MPV Gran % Lymph % (Auto) Lake % (Auto) Eos % (Auto) Baso % (Auto) Gran # Lymph # (Auto) Lake # (Auto) Eos # (Auto) Baso # (Auto) pCO2 pO2 HCO3 ABG pH ABG Total CO2 ABG O2 Saturation ABG O2 Content ABG Base Excess ABG Hemoglobin ABG Carboxyhemoglobin POC ABG HHb (Measured) ABG Methemoglobin ABG O2 Capacity Hgb O2 Saturation FiO2 Sodium 156 H* Potassium 3.1 L Chloride 125 H Carbon Dioxide 21 Anion Gap 14 BUN 30 H Creatinine 1.4 H Est GFR ( Amer) 48 Est GFR (Non-Af Amer) 39 POC Glucose (mg/dL) 254 H 207 H Random Glucose 240 H Calcium 8.2 L Phosphorus Magnesium Total Bilirubin AST ALT Alkaline Phosphatase Total Protein Albumin Globulin Albumin/Globulin Ratio Procalcitonin Random Vancomycin Influenza Typ A,B (EIA) 06/09/17 06/09/17 06/09/17 06:25 06:48 06:48 WBC 6.5 D RBC 3.30 L Hgb 9.9 L Hct 27.3 L MCV 82.7 MCH 30.0 MCHC 36.3 RDW 15.0 H Plt Count 87 L MPV 10.6 Gran % 59.7 Lymph % (Auto) 31.2 Lake % (Auto) 8.3 H Eos % (Auto) 0.6 L Baso % (Auto) 0.2 Gran # 3.89 Lymph # (Auto) 2.0 Lake # (Auto) 0.5 Eos # (Auto) 0.0 Baso # (Auto) 0.01 pCO2 32 L pO2 163.0 H HCO3 22.2 ABG pH 7.45 ABG Total CO2 23.2 ABG O2 Saturation 99.3 H ABG O2 Content 16.9 ABG Base Excess -1.1 ABG Hemoglobin 12.1 ABG Carboxyhemoglobin 1.4 POC ABG HHb (Measured) 0.7 ABG Methemoglobin 0.7 ABG O2 Capacity 17.0 Hgb O2 Saturation 97.2 FiO2 40.0 Sodium 158 H* Potassium 3.1 L Chloride 124 H Carbon Dioxide 23 Anion Gap 14 BUN 30 H Creatinine 1.3 H Est GFR ( Amer) 52 Est GFR (Non-Af Amer) 43 POC Glucose (mg/dL) Random Glucose 224 H Calcium 8.9 Phosphorus 3.7 Magnesium 2.1 Total Bilirubin 0.5 AST 22 ALT 29 Alkaline Phosphatase 75 Total Protein 5.4 L Albumin 2.9 L Globulin 2.6 Albumin/Globulin Ratio 1.1 Procalcitonin Random Vancomycin Influenza Typ A,B (EIA) 06/09/17 06/09/17 06/09/17 07:57 09:15 09:18 WBC RBC Hgb Hct MCV MCH MCHC RDW Plt Count MPV Gran % Lymph % (Auto) Lake % (Auto) Eos % (Auto) Baso % (Auto) Gran # Lymph # (Auto) Lake # (Auto) Eos # (Auto) Baso # (Auto) pCO2 pO2 HCO3 ABG pH ABG Total CO2 ABG O2 Saturation ABG O2 Content ABG Base Excess ABG Hemoglobin ABG Carboxyhemoglobin POC ABG HHb (Measured) ABG Methemoglobin ABG O2 Capacity Hgb O2 Saturation FiO2 Sodium Potassium Chloride Carbon Dioxide Anion Gap BUN Creatinine Est GFR ( Amer) Est GFR (Non-Af Amer) POC Glucose (mg/dL) 211 H Random Glucose Calcium Phosphorus Magnesium Total Bilirubin AST ALT Alkaline Phosphatase Total Protein Albumin Globulin Albumin/Globulin Ratio Procalcitonin Random Vancomycin 12.0 L Influenza Typ A,B (EIA) Negative for flu a/b 06/09/17 11:32 WBC RBC Hgb Hct MCV MCH MCHC RDW Plt Count MPV Gran % Lymph % (Auto) Lake % (Auto) Eos % (Auto) Baso % (Auto) Gran # Lymph # (Auto) Lake # (Auto) Eos # (Auto) Baso # (Auto) pCO2 pO2 HCO3 ABG pH ABG Total CO2 ABG O2 Saturation ABG O2 Content ABG Base Excess ABG Hemoglobin ABG Carboxyhemoglobin POC ABG HHb (Measured) ABG Methemoglobin ABG O2 Capacity Hgb O2 Saturation FiO2 Sodium Potassium Chloride Carbon Dioxide Anion Gap BUN Creatinine Est GFR ( Amer) Est GFR (Non-Af Amer) POC Glucose (mg/dL) 216 H Random Glucose Calcium Phosphorus Magnesium Total Bilirubin AST ALT Alkaline Phosphatase Total Protein Albumin Globulin Albumin/Globulin Ratio Procalcitonin Random Vancomycin Influenza Typ A,B (EIA) EKG/Cardiology Studies: Cardiology / EKG Studies 06/09/17 08:59 EKG [ELECTROCARDIOGRAM] Stat Comment: Reason For Exam: a fib Critical Care Progress Note - Nutrition Nutrition: Nutrition Category Date Time Status Heart Healthy Diet [DIET] Diets 06/04/17 Dinner Ordered Assessment/Plan - Assessment and Plan (Free Text) Plan: Patient seen and examined on rounds with resident, agree with note with following additions/exceptions: Patient is 51yo female with PMHx of IDDM, morbid obesity s/p gastric sleeve surgery, a/w Afib and DKA with coma Currently afebrile, HD stable, comfortable on Precedex drip, on pressure support , opens eyes but does not follow commands Labs with closed AG, cultures thus far negative. ID following, on broad spectrum antibiotics. Neurology following. AMS DKA with coma Dehydration Recommend: - cont with vent support, low tidal vol ventilation, ABG acceptable - Broad spectrum antibiotics as per ID - follow up cultures - follow up ID - BP control - IVF hydration - MRI brain - Thiamine - follow up neuro - FS control - GI ppx - DVT ppx - Monitor in MICU
--- NOTE | 2017-06-09 11:10 | PN ---
DATE: REASON FOR CONSULTATION AND FOLLOWUP: Atrial fibrillation, rapid rate, new onset; lethargy; weakness; sepsis, intubated; status post gastric bypass; converted to normal sinus. SUBJECTIVE: The patient being sedated; intubated, on vent. PHYSICAL EXAMINATION GENERAL: Not in apparent distress. VITAL SIGNS: Temperature afebrile, heart rate 68, blood pressure 157/65. HEENT: PERRLA, intact. NECK: Supple. No carotid bruits or thyromegaly. CHEST: Clear to auscultation. HEART: S1 and S2 regular. ABDOMEN: Soft. EXTREMITIES: Clubbing and cyanosis negative. LABORATORY DATA: Blood workup as follows: WBC 6.5, hemoglobin 9.9, hematocrit 27.3, platelet count 87,000. Chemistry shows sodium 158, potassium 3.1, chloride 124, carbon dioxide 23, anion gap of 14, BUN 30, creatinine 1.3. IMPRESSION: Acute kidney injury; intubated; respiratory failure; hypernatremia; hypokalemia; protein-calorie malnutrition, status post gastric bypass; sepsis, could be pyelonephritis; diabetic ketoacidosis; atrial fibrillation, most likely symptoms secondary to sepsis as well as diabetic ketoacidosis and that leads to atrial fibrillation. Now, the patient is converted to normal sinus. WBC came down. Respiratory failure, intubated. The patient had echocardiography done 06/08/2017 that showed an ejection fraction of 65% to 70%, trace MR, trace TR, RV systolic pressure of 48. Morbid obesity, status post gastric sleeve operation in March 2017. RECOMMENDATIONS: Continue broad-spectrum antibiotics. Continue vent management. Wean off vent as tolerated. Continue verapamil through the NG tube. Low platelets could be secondary to HIT, we will send heparin antibody. We will increase the metoprolol to 25 mg b.i.d. Rule out HIT, we will send heparin antibody, continue IV fluids. We will get EKG. Thank you Dr. Nicholson for providing us the opportunity in taking care of the patient, Nata Loco. Continue broad-spectrum antibiotics. Maynor Tran MD
[2017-06-09] MEDS ORDERED: Midazolam 2 MG/2 ML VIAL IVP ONE (14:18)
[2017-06-09] MEDS ORDERED: Midazolam 2 MG/2 ML VIAL ONE (14:19)
--- NOTE | 2017-06-09 14:28 | CP.PCM.PN ---
Subjective - Date & Time of Evaluation Date of Evaluation: 06/09/17 Time of Evaluation: 14:27 - Subjective Subjective: renal follow up note coverage for Dr Palafox no events overnight intubated vitals reviewed [id number] no resp distress vent dep abd soft skin normal ao times 0 no edema calero+ plan AURE.DKA/metabolic acidosis/hypernatremia/acute resp failure cr stable lytes reviewed,recommend increased hypotonic fluids to improve sodium hypokalemia can replace and recheck monitor I&Os acidosis improved dm per icu d/w bedside nurse Objective - Vital Signs/Intake and Output Vital Signs (last 24 hours): Temp Pulse Resp BP Pulse Ox 100 F H 65 16 166/95 H 98 06/08/17 06:37 06/09/17 12:55 06/07/17 12:04 06/09/17 09:18 06/09/17 05:20 Intake and Output: 06/09/17 06/09/17 06:59 18:59 Intake Total 3190 100 Output Total 1700 Balance 1490 100 - Medications Medications: Current Medications Aspirin (Ecotrin) 81 mg PO DAILY [facility] Last Admin: 06/09/17 09:18 Dose: 81 mg Enoxaparin Sodium (Lovenox) 40 mg SC DAILY [facility]LEJANDR[facility] PRN Reason: Protocol Last Admin: 06/09/17 09:19 Dose: 40 mg Propofol (Diprivan) 1,000 mg in 100 mls @ 3.043 mls/hr IV .Q24H PRN; Protocol; 5 MCG/KG/MIN PRN Reason: TITRATE PER MD ORDER Last Titration: 06/08/17 19:00 Dose: Infused Meropenem (Merrem Iv 1 Gm Premix) 50 mls @ 100 mls/hr IVPB Q12 ALEJANDRINA PRN Reason: Protocol Stop: 06/14/17 10:31 Last Admin: 06/09/17 09:19 Dose: 100 mls/hr Acetaminophen (Ofirmev) 1,000 mg in 100 mls @ 400 mls/hr IVPB Q6H PRN PRN Reason: Fever > 100.4 Stop: 06/09/17 15:37 Last Admin: 06/08/17 05:11 Dose: 400 mls/hr Dexmedetomidine HCl (Precedex 400mcg/100ml) 400 mcg in 100 mls @ 5.071 mls/hr IV .[id number] PRN; Protocol; 0.2 MCG/KG/HR PRN Reason: Agitation Last Admin: 06/09/17 09:21 Dose: 1 mcg/kg/hr, 25.356 mls/hr Potassium Phosphate 20 mmole/ (Dextrose/Sodium Chloride) 1,006.6667 mls @ 100 mls/hr IV .Q10H4M [facility] Last Admin: 06/09/17 09:19 Dose: 100 mls/hr Acyclovir 800 mg/ Sodium (Chloride) 100 mls @ 100 mls/hr IV Q12 [facility] PRN Reason: Protocol Sodium Chloride (Sodium Chloride 0.45%) 1,000 mls @ 100 mls/hr IV .Q10H [facility] Last Admin: 06/09/17 10:13 Dose: 100 mls/hr Insulin Detemir (Levemir) 20 unit SC Q12H [facility] Last Admin: 06/09/17 09:25 Dose: 20 unit Insulin Human Lispro (Humalog) 0 units SC Q4H [facility] Last Admin: 06/09/17 12:07 Dose: 4 units Metoprolol Tartrate (Lopressor) 25 mg PO BID [facility] Last Admin: 06/09/17 09:18 Dose: Not Given Morphine Sulfate (Morphine) 2 mg IVP Q3H PRN PRN Reason: Pain, severe (8-10) Last Admin: 06/07/17 17:29 Dose: 2 mg Pantoprazole Sodium (Protonix Inj) 40 mg IVP DAILY [facility] Last Admin: 06/09/17 09:22 Dose: 40 mg Thiamine HCl (Vitamin B1 Inj) 100 mg IV DAILY [facility] Last Admin: 06/09/17 09:22 Dose: 100 mg Verapamil HCl (Verapamil Inj) 2.5 mg IVP Q6H PRN PRN Reason: for heart rate >130 Last Admin: 06/06/17 11:46 Dose: 2.5 mg Verapamil HCl (Calan Tab) 80 mg PO TID [facility] Last Admin: 06/09/17 09:17 Dose: Not Given Vitamin A (Vitamin A & D Oint Ud Foilpak) 1 ea TOP DAILY PRN PRN Reason: Dry skin - Labs Labs: 06/09/17 06:48 06/09/17 06:48 PT 10.9 SECONDS (9.4-12.5) 06/04/17 17:25 INR 0.96 (0.93-1.08) 06/04/17 17:25 APTT 32.2 Seconds (25.1-36.5) 06/04/17 17:25
--- NOTE | 2017-06-09 15:30 | MRI ---
PROCEDURE: MRI BRAIN WITHOUT CONTRAST HISTORY: ams COMPARISON: None. TECHNIQUE: Multiplanar, multisequence MR images of the brain were obtained without intravenous contrast enhancement. FINDINGS: HEMORRHAGE: None DWI: No evidence of an acute or early subacute infarction. BRAIN PARENCHYMA: No mass effect or edema. No atrophy or chronic microvascular ischemic changes. VENTRICLES: Unremarkable. No hydrocephalus. CRANIUM: Unremarkable. ORBITS: Grossly unremarkable. PARANASAL SINUSES/MASTOIDS: There is fluid in the mastoid air cells bilaterally VASCULAR SYSTEM: Skull base flow voids intact. OTHER FINDINGS: None. IMPRESSION: No acute intracranial findings Fluid opacification of the mastoid air cells
--- NOTE | 2017-06-09 15:34 | CARD ---
APPROVED REPORT EKG Measurement Heart [id number] OK [id number] [id number] <Conclusion> Sinus bradycardia Poor R Progression V1-V3.
--- NOTE | 2017-06-09 16:25 | CP.PCM.PN ---
Subjective - Date & Time of Evaluation Date of Evaluation: 06/09/17 Time of Evaluation: 14:00 - Subjective Subjective: Subjective: DATE: 06/09/2017 NEUROLOGY FOLLOW UP. CHIEF COMPLAINT: F/U for Altered mental status. Subjective: She continues to be encephalopathic. Hypernatremia and hypergylcemic accelerations occurring. MRI brain showed no acute abnormality, PAST MEDICAL HISTORY: Hci-eygorrs-wlgfnaoel diabetes mellitus, hypertension, dyslipidemia, obesity, status post gastric sleeve with 60 to 70-pound weight loss. SOCIAL HISTORY: No illicit drug use, smoking, or EtOH abuse. FAMILY HISTORY: Noncontributory. REVIEW OF SYSTEMS: Unobtainable due to the patient is non-communicative. MEDICATIONS: Reviewed by nurse reconciliation sheet. PHYSICAL EXAMINATION: VITAL SIGNS: Reviewed. GENERAL: Patient is intubated, in no acute distress. HEENT: Head is atraumatic, normocephalic. PERRLA. Extraocular muscles intact. NECK: Supple. No JVD, no adenopathy noted. LUNGS: Decreased breath sounds bilaterally. HEART: S1, S2, normal rate and rhythm. No murmurs, rubs or gallops. ABDOMEN: Soft, nontender, nondistended. Bowel sounds are present. EXTREMITIES: No clubbing, no cyanosis. Peripheral pulses are 2+ felt bilaterally. NEUROLOGIC: Patient is very lethargic, intubated, but not on any sedation. Cranial nerves II to XII intact. Motor: Normal tone. Spontaneous movement of extremities are seen. Sensory: Light touch is intact and withdraws to localized noxious stimulus. DTRs are 1+ throughout and absent at the knees and ankles. Coordination and gait deferred for now. LABORATORY DATA: Hypernatremia/Hyperglycemia/Hypokalemia. ASSESSMENT AND PLAN: This is a 51-year-old woman with history of obesity, status post gastric sleeve with 60 to 70-pound weight loss, history of hypertension, dyslipidemia, fvx-rshujkw-ogcqstuzd diabetes mellitus, came in with altered mental status in the setting of severe anion gap metabolic acidosis, in the setting of diabetic ketoacidosis. In addition, has hypernatremia and CT head showed no acute intracranial abnormality, still has metabolic derangements, was called for altered mental status. MRI brain showed no acute abnormality, Her altered mental status is likely secondary to toxic metabolic encephalopathy , underlying diabetic ketoacidosis and metabolic derangement with underlying possible sepsis. RECOMMENDATIONS: At this time, we will recommend: 1. Monitor electrolytes and correct accordingly. 2. Follow with Endocrinology and keep the blood sugars between 140 to 180. 3. Adequate hydration. 4. Thiamine 100 mg IV q. daily for neuronal activation. 5. Continue with GI and DVT prophylaxis. 6. Reduce sedations. Thank you Luis Hoyos MD Objective - Vital Signs/Intake and Output Vital Signs (last 24 hours): Temp Pulse Resp BP Pulse Ox 100 F H 55 L 16 166/95 H 98 06/08/17 06:37 06/09/17 15:06 06/07/17 12:04 06/09/17 09:18 06/09/17 05:20 Intake and Output: 06/09/17 06/09/17 06:59 18:59 Intake Total 3190 200 Output Total 1700 Balance 1490 200 - Medications Medications: Current Medications Aspirin (Ecotrin) 81 mg PO DAILY ALEJANDRINA Last Admin: 06/09/17 09:18 Dose: 81 mg Enoxaparin Sodium (Lovenox) 40 mg SC DAILY ALEJANDRINA PRN Reason: Protocol Last Admin: 06/09/17 09:19 Dose: 40 mg Meropenem (Merrem Iv 1 Gm Premix) 50 mls @ 100 mls/hr IVPB Q12 ALEJANDRINA PRN Reason: Protocol Stop: 06/14/17 10:31 Last Admin: 06/09/17 09:19 Dose: 100 mls/hr Dexmedetomidine HCl (Precedex 400mcg/100ml) 400 mcg in 100 mls @ 5.071 mls/hr IV .[id number] PRN; Protocol; 0.2 MCG/KG/HR PRN Reason: Agitation Last Admin: 06/09/17 15:18 Dose: 1 mcg/kg/hr, 25.356 mls/hr Acyclovir 800 mg/ Sodium (Chloride) 100 mls @ 100 mls/hr IV Q12 ALEJANDRINA PRN Reason: Protocol Last Admin: 06/09/17 15:34 Dose: 100 mls/hr Sodium Chloride (Sodium Chloride 0.45%) 1,000 mls @ 100 mls/hr IV .Q10H [facility] Last Admin: 06/09/17 10:13 Dose: 100 mls/hr Insulin Detemir (Levemir) 20 unit SC Q12H [facility] Last Admin: 06/09/17 09:25 Dose: 20 unit Insulin Human Lispro (Humalog) 0 units SC Q4H [facility] Last Admin: 06/09/17 12:07 Dose: 4 units Metoprolol Tartrate (Lopressor) 25 mg PO BID [facility] Last Admin: 06/09/17 09:18 Dose: Not Given Morphine Sulfate (Morphine) 2 mg IVP Q3H PRN PRN Reason: Pain, severe (8-10) Last Admin: 06/07/17 17:29 Dose: 2 mg Pantoprazole Sodium (Protonix Inj) 40 mg IVP DAILY [facility] Last Admin: 06/09/17 09:22 Dose: 40 mg Thiamine HCl (Vitamin B1 Inj) 100 mg IV DAILY [facility] Last Admin: 06/09/17 09:22 Dose: 100 mg Verapamil HCl (Verapamil Inj) 2.5 mg IVP Q6H PRN PRN Reason: for heart rate >130 Last Admin: 06/06/17 11:46 Dose: 2.5 mg Verapamil HCl (Calan Tab) 80 mg PO TID [facility] Last Admin: 06/09/17 15:06 Dose: Not Given Vitamin A (Vitamin A & D Oint Ud Foilpak) 1 ea TOP DAILY PRN PRN Reason: Dry skin - Labs Labs: 06/09/17 06:48 06/09/17 06:48 PT 10.9 SECONDS (9.4-12.5) 06/04/17 17:25 INR 0.96 (0.93-1.08) 06/04/17 17:25 APTT 32.2 Seconds (25.1-36.5) 06/04/17 17:25
--- NOTE | 2017-06-09 18:49 | PN ---
DATE: ENDOCRINOLOGY FOLLOWUP NOTE LOCATION: ICU 128, room 5. SUBJECTIVE: This is a 51-year-old female with recent acute respiratory failure and currently intubated and sedated and is now being followed closely for metabolic management. Her glycemic levels are fluctuating, but improved and the latest glucose levels overnight have ranged from 207-211 and 216 mg/dL. Her latest chemistries showed a BUN of 30, sodium 158, potassium 3.1, chloride 124, CO2 is 23, glucose 224, and creatinine 1.3. So, at this time to allow for dose equilibration, we will continue to modify basal insulin started last night with Levemir to be given as 20 units every 12 hours at 8 a.m. and 8 p.m. daily as given. We will also continue the intensive glucose testing every 4 hours with Humalog coverage scale as given. We will obtain serial chemistries and supplement accordingly as needed. We will also continue the current IV hydration as ordered with serial chemistries to be obtained accordingly. We will follow. Kaleigh Jack MD
[2017-06-09 21:48] LABS: CALCIUM 9.3 mg/dL (8.4-10.5)
[2017-06-10] MEDS: Insulin Lispro 1 UNITS/0.01 ML SC SCH ×5 (01:00→17:25)
[2017-06-10] MEDS: Dexmedetomidine 400mcg/100mL 400 MCG/100 ML BOTTLE IV PRN ×3 (01:33→08:05)
--- NOTE | 2017-06-10 02:31 | PN ---
DATE: SUBJECTIVE: The patient is 51 years old, remain intubated and sedated. Family by the bedside. PHYSICAL EXAMINATION: GENERAL: She is afebrile, pulse 55, respirations 16, FiO2 is 40%, blood pressure 166/95. LUNGS: Bilateral fair airflow. No rhonchi or crackles. HEART: S1, S2, audible. ABDOMEN: Soft and nontender. No rebound. No guarding. NEUROLOGIC: She is sedated, on vent. LABORATORY DATA: WBC 6.5, hemoglobin 9.9, hematocrit 27.3, and platelet 87. Chemistry: Sodium 157, potassium 3.2, chloride 124, CO2 is 23, BUN 30, creatinine 1.2, and blood sugar of 179. Flu test is negative. ASSESSMENT: 1. Metabolic encephalopathy. 2. Status post diabetic ketoacidosis. 3. Status post metabolic acidosis. 4. Hypernatremia. 5. Hypokalemia. 6. Status post gastric bypass. Lost 60 to 70 pounds as per . Awaiting MRI review, the patient is not stable and now awaiting for MRI review that was done earlier, shows no acute intracranial abnormality. PLAN: We will continue the patient on vent support. Currently, she is on broad antibiotic coverage including meropenem, vancomycin, and acyclovir. We will monitor her blood sugar. Supplement electrolyte. Follow up the patient in a.m. Discussed with the family and , who is by the bedside. Alphonse Nicholson MD
[2017-06-10 06:05] LABS: BASO # 0.01 K/mm3 (0.0-2.0); BASO % 0.1 % (0.0-3.0); EOS # 0.1 (0.0-0.7); EOS % 1.9 % (1.5-5.0); GRAN # 3.86 (1.4-6.5); GRAN % 55.6 % (50.0-68.0); LYMPH # 2.4 (1.2-3.4); LYMPH % 33.8 % (22.0-35.0); MEAN CELL VOLUME 84.6 fl (80.0-105.0); MEAN CORPUSCULAR HEMOGLOBIN 29.6 pg (25.0-35.0); MEAN PLATELET VOLUME 10.8 fl (7.0-11.0); MONO # 0.6 (0.1-0.6); MONO % 8.6 % (1.0-6.0); RBC 3.38 10^6/uL (3.5-6.1)
[2017-06-10 06:41] LABS: CALCIUM 9.3 mg/dL (8.4-10.5)
[2017-06-10 06:41] LABS: ARTERIAL BLOOD GAS HCO3 20.9 mmol/L (21-28); ARTERIAL BLOOD GAS HEMOGLOBIN 10.2 g/dL (11.7-17.4); ARTERIAL BLOOD GAS O2 CAPACITY 14.3 mL/dl (16-24); ARTERIAL BLOOD GAS O2 CONTENT 14.2 ML/dl (15-23); ARTERIAL BLOOD GAS O2 SAT 99.2 % (95-98); ARTERIAL BLOOD GAS PCO2 28 mm/Hg (35-45); ARTERIAL BLOOD GAS PH 7.48 (7.35-7.45); ARTERIAL BLOOD GAS TCO2 21.8 mmol.L (22-28)
[2017-06-10] MEDS: Insulin Detemir 100 units/ml Vial (Levemir) SC SCH ×2 (08:06→22:42)
[2017-06-10] MEDS: Sodium Chloride 0.45% 1,000 ML IV SCH (08:08)
--- NOTE | 2017-06-10 08:27 | RAD ---
HISTORY: Intubated COMPARISON: Portable chest 06/09/2017 FINDINGS: Endotracheal and nasogastric tubes appear unchanged in position. Right PICC is also unchanged. The patient is severely rotated toward the right limiting the evaluation of the thoracic anatomy. LUNGS: No definitive infiltrate is appreciated bilaterally. Telemetry leads obscure the right apex. No pulmonary vascular derangement. Cardiac size stable. No gross pneumothorax. No pleural effusion identified. PLEURA: As above. CARDIOVASCULAR: As above. OSSEOUS STRUCTURES: No significant abnormalities. VISUALIZED UPPER ABDOMEN: Normal. OTHER FINDINGS: None. IMPRESSION: Limited exam due to marked rotation toward the right. No definitive infiltrate, pleural effusion or pneumothorax identified in the interval. Follow-up chest radiography is recommended with proper technique.
[2017-06-10] MEDS: Enoxaparin 40 mg Syringe SC SCH (09:08)
[2017-06-10] MEDS: Meropenem IV 1 gm in NS 50 ML IVPB SCH ×3 (09:10→22:44)
[2017-06-10] MEDS: Thiamine 100 mg/ml Inj IV SCH (09:24)
--- NOTE | 2017-06-10 09:38 | CP.CCUPN ---
<Raheem Wooten - Last Filed: 06/10/17 09:47> CCU Subjective - Physician Review Subjective (Free Text): Patient seen and evaluated bedside. Patient opening eyes and squeezing hands appropriately when asked. Still intubated. Unable to obtain full ROS. 06/10/17 09:35 CCU Objective - Vital Signs / Intake & Output Vital Signs (Last 4 hours): Vital Signs Temp Pulse BP Pulse Ox 06/10/17 06:25 99.7 F H 58 L 144/62 100 06/10/17 06:20 99.7 F H 52 L 100 06/10/17 06:00 99.7 F H 53 L 100 06/10/17 05:40 99.7 F H 57 L 100 Intake and Output (Last 8hrs): Intake & Output 06/09/17 06/10/17 06/10/17 22:59 06:59 14:59 Intake Total 2650 1960 104 Output Total 850 1600 Balance 1800 360 104 Intake: IV 1700 1960 104 IVF 1200 IVPB 1400 200 Left Wrist 100 precedex 360 Tube Feeding 150 Other 800 Output: Urine 850 1600 Urethral (Akhtar) 850 1600 Stool 0 - Physical Exam Head: Positive for: Atraumatic, Normocephalic Pupils: Positive for: PERRL Conjunctiva: Positive for: Normal Ears: Positive for: Normal Mouth: Positive for: Moist Mucous Membranes Nose (External): Positive for: Atraumatic Neck: Negative for: MIDLINE TENDERNESS Respiratory/Chest: Positive for: Clear to Auscultation, Good Air Exchange. Negative for: Respiratory Distress, Wheezes (Intubated), Rhonchi Cardiovascular: Positive for: Regular Rate and Rhythm, Normal S1, S2. Negative for: Murmurs Abdomen: Positive for: Normal Bowel Sounds. Negative for: Tenderness, Distention Upper Extremity: Negative for: Edema Lower Extremity: Positive for: Normal Inspection. Negative for: Edema, Erythema Neurological: Positive for: Other (Sedated, intubated) Skin: Positive for: Warm Psychiatric: Positive for: Other (Sedated). Negative for: Alert, Oriented x 3 - Medications Active Medications: Active Medications Generic Name Dose Route Start Last Admin Trade Name Freq PRN Reason Stop Dose Admin Acetaminophen 650 mg 06/10/17 07:23 Tylenol 325mg Tab PO Q6H PRN Fever >100.4 F Aspirin 81 mg 06/05/17 10:00 06/10/17 09:05 Ecotrin PO 81 mg DAILY ALEJANDRINA Administration Enoxaparin Sodium 40 mg 06/07/17 10:00 06/10/17 09:08 Lovenox SC 40 mg DAILY ALEJANDRINA Administration Protocol Meropenem 50 mls @ 100 mls/hr 06/07/17 10:30 06/10/17 09:10 Merrem Iv 1 Gm Premix IVPB 06/14/17 10:31 100 mls/hr Q12 ALEJANDRINA Administration Protocol Dexmedetomidine HCl 400 mcg in 100 mls @ 5.071 mls/hr 06/08/17 10:17 09:11 Precedex 400mcg/100ml IV 0.6 mcg/kg/hr .[id number] PRN 15.213 mls/hr Agitation Titration Protocol 0.2 MCG/KG/HR Acyclovir 800 mg/ Sodium 100 mls @ 100 mls/hr 06/09/17 14:00 06/09/17 21:04 Chloride IV 100 mls/hr Q12 ALEJANDRINA Administration Protocol Sodium Chloride 1,000 mls @ 100 mls/hr 06/09/17 10:00 06/10/17 08:08 Sodium Chloride 0.45% IV 100 mls/hr .Q10H ALEJANDRINA Administration Insulin Detemir 20 unit 06/08/17 20:00 06/10/17 08:06 Levemir SC 20 unit Q12H ALEJANDRINA Administration Insulin Human Lispro 0 units 06/08/17 12:00 06/10/17 07:57 Humalog SC Not Given Q4H ALEJANDRINA Metoprolol Tartrate 25 mg 06/09/17 10:00 06/10/17 09:09 Lopressor PO Not Given BID ALEJANDRINA Morphine Sulfate 2 mg 06/07/17 10:11 06/07/17 17:29 Morphine IVP 2 mg Q3H PRN Administration Pain, severe (8-10) Pantoprazole Sodium 40 mg 06/08/17 10:00 06/10/17 09:05 Protonix Inj IVP 40 mg DAILY ALEJANDRINA Administration Thiamine HCl 100 mg 06/08/17 10:00 06/10/17 09:24 Vitamin B1 Inj IV 100 mg DAILY ALEJANDRINA Administration Verapamil HCl 2.5 mg 06/06/17 09:22 06/06/17 11:46 Verapamil Inj IVP 2.5 mg Q6H PRN Administration for heart rate >130 Verapamil HCl 80 mg 06/06/17 10:00 06/10/17 09:09 Calan Tab PO Not Given TID ALEJANDRINA Vitamin A 1 ea 06/09/17 10:16 Vitamin A & D Oint Ud Foilpak TOP DAILY PRN Dry skin - Patient Studies Lab Studies: Microbiology Studies 06/07/17 16:11 Blood Culture - Preliminary Blood-Venous NO GROWTH AFTER 48 HOURS 06/07/17 16:11 Blood Culture - Preliminary Blood-Venous NO GROWTH AFTER 48 HOURS 06/05/17 15:53 Blood Culture - Preliminary Blood-Venous NO GROWTH AFTER 4 DAYS 06/05/17 15:53 Blood Culture - Preliminary Blood-Venous NO GROWTH AFTER 4 DAYS 06/08/17 10:30 Gram Stain - Final Sputum 06/05/17 10:35 Blood Culture - Preliminary Blood-Venous NO GROWTH AFTER 4 DAYS 06/05/17 10:10 Blood Culture - Preliminary Blood-Venous NO GROWTH AFTER 4 DAYS Lab Studies 06/10/17 06/10/17 06/10/17 Range/Units 06:35 05:50 05:50 WBC 7.0 (4.5-11.0) 10^3/ul RBC 3.38 L (3.5-6.1) 10^6/uL Hgb 10.0 L (12.0-16.0) g/dL Hct 28.6 L (36.0-48.0) % MCV 84.6 (80.0-105.0) fl MCH 29.6 (25.0-35.0) pg MCHC 35.0 (31.0-37.0) g/dl RDW 15.0 H (11.5-14.5) % Plt Count 99 L (120.0-450.0) 10^3/uL MPV 10.8 (7.0-11.0) fl Gran % 55.6 (50.0-68.0) % Lymph % (Auto) 33.8 (22.0-35.0) % Trego % (Auto) 8.6 H (1.0-6.0) % Eos % (Auto) 1.9 (1.5-5.0) % Baso % (Auto) 0.1 (0.0-3.0) % Gran # 3.86 (1.4-6.5) Lymph # (Auto) 2.4 (1.2-3.4) Treg[place] # (Auto) 0.6 (0.1-0.6) Eos # (Auto) 0.1 (0.0-0.7) Baso # (Auto) 0.01 (0.0-2.0) K/mm3 pCO2 28 L (35-45) mm/Hg pO2 164.0 H (80-100) mm/Hg HCO3 20.9 L (21-28) mmol/L ABG pH 7.48 H (7.35-7.45) ABG Total CO2 21.8 L (22-28) mmol.L ABG O2 Saturation 99.2 H (95-98) % ABG O2 Content 14.2 L (15-23) ML/dl ABG Base Excess -1.8 (-2.0-3.0) mmol/L ABG Hemoglobin 10.2 L (11.7-17.4) g/dL ABG Carboxyhemoglobin 1.3 (0.5-1.5) % POC ABG HHb (Measured) 0.8 (0-5) % ABG Methemoglobin 1.2 (0.0-3.0) % ABG O2 Capacity 14.3 L (16-24) mL/dl Hgb O2 Saturation 96.7 (95.0-98.0) % FiO2 35.0 % Sodium 158 H* (132-148) mmol/L Potassium 3.2 L (3.6-5.0) mmol/L Chloride 125 H (98-107) mmol/L Carbon Dioxide 25 (21-33) mmol/L Anion Gap 12 (10-20) BUN 31 H (7-21) mg/dL Creatinine 1.2 (0.7-1.2) mg/dl Est GFR ( Amer) 57 Est GFR (Non-Af Amer) 47 POC Glucose (mg/dL) (65-110) mg/dL Random Glucose 156 H (70-110) mg/dL Calcium 9.3 (8.4-10.5) mg/dL Phosphorus 2.6 (2.5-4.5) mg/dL Magnesium 2.0 (1.7-2.2) mg/dL Random Vancomycin (20.0-40.0) ug/mL Influenza Typ A,B (EIA) (NEGATIVE) 06/10/17 06/10/17 06/09/17 Range/Units 04:27 01:05 23:00 WBC (4.5-11.0) 10^3/ul RBC (3.5-6.1) 10^6/uL Hgb (12.0-16.0) g/dL Hct (36.0-48.0) % MCV (80.0-105.0) fl MCH (25.0-35.0) pg MCHC (31.0-37.0) g/dl RDW (11.5-14.5) % Plt Count (120.0-450.0) 10^3/uL MPV (7.0-11.0) fl Gran % (50.0-68.0) % Lymph % (Auto) (22.0-35.0) % Trego % (Auto) (1.0-6.0) % Eos % (Auto) (1.5-5.0) % Baso % (Auto) (0.0-3.0) % Gran # (1.4-6.5) Lymph # (Auto) (1.2-3.4) Trego # (Auto) (0.1-0.6) Eos # (Auto) (0.0-0.7) Baso # (Auto) (0.0-2.0) K/mm3 pCO2 (35-45) mm/Hg pO2 (80-100) mm/Hg HCO3 (21-28) mmol/L ABG pH (7.35-7.45) ABG Total CO2 (22-28) mmol.L ABG O2 Saturation (95-98) % ABG O2 Content (15-23) ML/dl ABG Base Excess (-2.0-3.0) mmol/L ABG Hemoglobin (11.7-17.4) g/dL ABG Carboxyhemoglobin (0.5-1.5) % POC ABG HHb (Measured) (0-5) % ABG Methemoglobin (0.0-3.0) % ABG O2 Capacity (16-24) mL/dl Hgb O2 Saturation (95.0-98.0) % FiO2 % Sodium (132-148) mmol/L Potassium (3.6-5.0) mmol/L Chloride (98-107) mmol/L Carbon Dioxide (21-33) mmol/L Anion Gap (10-20) BUN (7-21) mg/dL Creatinine (0.7-1.2) mg/dl Est GFR ( Amer) Est GFR (Non-Af Amer) POC Glucose (mg/dL) 150 H 161 H 169 H (65-110) mg/dL Random Glucose (70-110) mg/dL Calcium (8.4-10.5) mg/dL Phosphorus (2.5-4.5) mg/dL Magnesium (1.7-2.2) mg/dL Random Vancomycin (20.0-40.0) ug/mL Influenza Typ A,B (EIA) (NEGATIVE) 06/09/17 06/09/17 06/09/17 Range/Units 21:25 20:35 15:44 WBC (4.5-11.0) 10^3/ul RBC (3.5-6.1) 10^6/uL Hgb (12.0-16.0) g/dL Hct (36.0-48.0) % MCV (80.0-105.0) fl MCH (25.0-35.0) pg MCHC (31.0-37.0) g/dl RDW (11.5-14.5) % Plt Count (120.0-450.0) 10^3/uL MPV (7.0-11.0) fl Gran % (50.0-68.0) % Lymph % (Auto) (22.0-35.0) % Trego % (Auto) (1.0-6.0) % Eos % (Auto) (1.5-5.0) % Baso % (Auto) (0.0-3.0) % Gran # (1.4-6.5) Lymph # (Auto) (1.2-3.4) Trego # (Auto) (0.1-0.6) Eos # (Auto) (0.0-0.7) Baso # (Auto) (0.0-2.0) K/mm3 pCO2 (35-45) mm/Hg pO2 (80-100) mm/Hg HCO3 (21-28) mmol/L ABG pH (7.35-7.45) ABG Total CO2 (22-28) mmol.L ABG O2 Saturation (95-98) % ABG O2 Content (15-23) ML/dl ABG Base Excess (-2.0-3.0) mmol/L ABG Hemoglobin (11.7-17.4) g/dL ABG Carboxyhemoglobin (0.5-1.5) % POC ABG HHb (Measured) (0-5) % ABG Methemoglobin (0.0-3.0) % ABG O2 Capacity (16-24) mL/dl Hgb O2 Saturation (95.0-98.0) % FiO2 % Sodium 157 H* (132-148) mmol/L Potassium 3.2 L (3.6-5.0) mmol/L Chloride 124 H (98-107) mmol/L Carbon Dioxide 23 (21-33) mmol/L Anion Gap 13 (10-20) BUN 30 H (7-21) mg/dL Creatinine 1.2 (0.7-1.2) mg/dl Est GFR ( Amer) 57 Est GFR (Non-Af Amer) 47 POC Glucose (mg/dL) 166 H 189 H (65-110) mg/dL Random Glucose 179 H (70-110) mg/dL Calcium 9.3 (8.4-10.5) mg/dL Phosphorus 3.0 (2.5-4.5) mg/dL Magnesium 2.0 (1.7-2.2) mg/dL Random Vancomycin (20.0-40.0) ug/mL Influenza Typ A,B (EIA) (NEGATIVE) 06/09/17 06/09/17 06/09/17 Range/Units 11:32 09:18 09:15 WBC (4.5-11.0) 10^3/ul RBC (3.5-6.1) 10^6/uL Hgb (12.0-16.0) g/dL Hct (36.0-48.0) % MCV (80.0-105.0) fl MCH (25.0-35.0) pg MCHC (31.0-37.0) g/dl RDW (11.5-14.5) % Plt Count (120.0-450.0) 10^3/uL MPV (7.0-11.0) fl Gran % (50.0-68.0) % Lymph % (Auto) (22.0-35.0) % Trego % (Auto) (1.0-6.0) % Eos % (Auto) (1.5-5.0) % Baso % (Auto) (0.0-3.0) % Gran # (1.4-6.5) Lymph # (Auto) (1.2-3.4) Trego # (Auto) (0.1-0.6) Eos # (Auto) (0.0-0.7) Baso # (Auto) (0.0-2.0) K/mm3 pCO2 (35-45) mm/Hg pO2 (80-100) mm/Hg HCO3 (21-28) mmol/L ABG pH (7.35-7.45) ABG Total CO2 (22-28) mmol.L ABG O2 Saturation (95-98) % ABG O2 Content (15-23) ML/dl ABG Base Excess (-2.0-3.0) mmol/L ABG Hemoglobin (11.7-17.4) g/dL ABG Carboxyhemoglobin (0.5-1.5) % POC ABG HHb (Measured) (0-5) % ABG Methemoglobin (0.0-3.0) % ABG O2 Capacity (16-24) mL/dl Hgb O2 Saturation (95.0-98.0) % FiO2 % Sodium (132-148) mmol/L Potassium (3.6-5.0) mmol/L Chloride (98-107) mmol/L Carbon Dioxide (21-33) mmol/L Anion Gap (10-20) BUN (7-21) mg/dL Creatinine (0.7-1.2) mg/dl Est GFR ( Amer) Est GFR (Non-Af Amer) POC Glucose (mg/dL) 216 H (65-110) mg/dL Random Glucose (70-110) mg/dL Calcium (8.4-10.5) mg/dL Phosphorus (2.5-4.5) mg/dL Magnesium (1.7-2.2) mg/dL Random Vancomycin 12.0 L (20.0-40.0) ug/mL Influenza Typ A,B (EIA) Negative for flu a/b (NEGATIVE) Laboratory Results - last 24 hr 06/09/17 06/09/17 06/09/17 09:15 09:18 11:32 WBC RBC Hgb Hct MCV MCH MCHC RDW Plt Count MPV Gran % Lymph % (Auto) Treg[place] % (Auto) Eos % (Auto) Baso % (Auto) Gran # Lymph # (Auto) [place] # (Auto) Eos # (Auto) Baso # (Auto) pCO2 pO2 HCO3 ABG pH ABG Total CO2 ABG O2 Saturation ABG O2 Content ABG Base Excess ABG Hemoglobin ABG Carboxyhemoglobin POC ABG HHb (Measured) ABG Methemoglobin ABG O2 Capacity Hgb O2 Saturation FiO2 Sodium Potassium Chloride Carbon Dioxide Anion Gap BUN Creatinine Est GFR ( Amer) Est GFR (Non-Af Amer) POC Glucose (mg/dL) 216 H Random Glucose Calcium Phosphorus Magnesium Random Vancomycin 12.0 L Influenza Typ A,B (EIA) Negative for flu a/b 06/09/17 06/09/17 06/09/17 15:44 20:35 21:25 WBC RBC Hgb Hct MCV MCH MCHC RDW Plt Count MPV Gran % Lymph % (Auto) [place] % (Auto) Eos % (Auto) Baso % (Auto) Gran # Lymph # (Auto) [place] # (Auto) Eos # (Auto) Baso # (Auto) pCO2 pO2 HCO3 ABG pH ABG Total CO2 ABG O2 Saturation ABG O2 Content ABG Base Excess ABG Hemoglobin ABG Carboxyhemoglobin POC ABG HHb (Measured) ABG Methemoglobin ABG O2 Capacity Hgb O2 Saturation FiO2 Sodium 157 H* Potassium 3.2 L Chloride 124 H Carbon Dioxide 23 Anion Gap 13 BUN 30 H Creatinine 1.2 Est GFR ( Amer) 57 Est GFR (Non-Af Amer) 47 POC Glucose (mg/dL) 189 H 166 H Random Glucose 179 H Calcium 9.3 Phosphorus 3.0 Magnesium 2.0 Random Vancomycin Influenza Typ A,B (EIA) 06/09/17 06/10/17 06/10/17 23:00 01:05 04:27 WBC RBC Hgb Hct MCV MCH MCHC RDW Plt Count MPV Gran % Lymph % (Auto) [place] % (Auto) Eos % (Auto) Baso % (Auto) Gran # Lymph # (Auto) [place] # (Auto) Eos # (Auto) Baso # (Auto) pCO2 pO2 HCO3 ABG pH ABG Total CO2 ABG O2 Saturation ABG O2 Content ABG Base Excess ABG Hemoglobin ABG Carboxyhemoglobin POC ABG HHb (Measured) ABG Methemoglobin ABG O2 Capacity Hgb O2 Saturation FiO2 Sodium Potassium Chloride Carbon Dioxide Anion Gap BUN Creatinine Est GFR ( Amer) Est GFR (Non-Af Amer) POC Glucose (mg/dL) 169 H 161 H 150 H Random Glucose Calcium Phosphorus Magnesium Random Vancomycin Influenza Typ A,B (EIA) 06/10/17 06/10/17 06/10/17 05:50 05:50 06:35 WBC 7.0 RBC 3.38 L Hgb 10.0 L Hct 28.6 L MCV 84.6 MCH 29.6 MCHC 35.0 RDW 15.0 H Plt Count 99 L MPV 10.8 Gran % 55.6 Lymph % (Auto) 33.8 Trego % (Auto) 8.6 H Eos % (Auto) 1.9 Baso % (Auto) 0.1 Gran # 3.86 Lymph # (Auto) 2.4 [place] # (Auto) 0.6 Eos # (Auto) 0.1 Baso # (Auto) 0.01 pCO2 28 L pO2 164.0 H HCO3 20.9 L ABG pH 7.48 H ABG Total CO2 21.8 L ABG O2 Saturation 99.2 H ABG O2 Content 14.2 L ABG Base Excess -1.8 ABG Hemoglobin 10.2 L ABG Carboxyhemoglobin 1.3 POC ABG HHb (Measured) 0.8 ABG Methemoglobin 1.2 ABG O2 Capacity 14.3 L Hgb O2 Saturation 96.7 FiO2 35.0 Sodium 158 H* Potassium 3.2 L Chloride 125 H Carbon Dioxide 25 Anion Gap 12 BUN 31 H Creatinine 1.2 Est GFR ( Amer) 57 Est GFR (Non-Af Amer) 47 POC Glucose (mg/dL) Random Glucose 156 H Calcium 9.3 Phosphorus 2.6 Magnesium 2.0 Random Vancomycin Influenza Typ A,B (EIA) EKG/Cardiology Studies: Cardiology / EKG Studies 06/09/17 08:59 EKG [ELECTROCARDIOGRAM] Stat Comment: Reason For Exam: a fib Fingerstick Blood Sugar Results: 156 Review of Systems - Review of Systems Systems not reviewed;Unavailable: Intubated Review of Systems: unable to obtain full ROS Critical Care Progress Note - Nutrition Nutrition: Nutrition Category Date Time Status NPO Diet [DIET] Diets 06/09/17 Dinner Ordered Assessment/Plan - Assessment and Plan (Free Text) Assessment: 51 year old female with past medical history of DM, HTN, HLD presents with DKA and a-fib with rvr. A-fib resolved. Patient intubated, gap closed. On CPAP. Plan: Neuro: Intubated and sedated on precedex CPAP Will attempt to wean Thiamine CT head negative Cardio: Hemodynamically stable Maintain MAP >65 Pulm: Intubated Maintain O2 sat >90% CXR daily ABG daily GI: NPO OG tube Protonix Nephro: Maintain euvolemia 1/2 NS@100 K repleted Replenish electrolytes as needed Akhtar catheter Hypernatremia Free water 400ml Q6 Endo: maintain egulycemia ISS IVF Heme/ID: Tmax 100.4 leukocytosis resolved Merrem, Vanco, acyclovir Cultures negative at this time ID following Lovenox <Vipin Fontanez - Last Filed: 06/10/17 10:35> CCU Objective - Vital Signs / Intake & Output Intake and Output (Last 8hrs): Intake & Output 06/09/17 06/10/17 06/10/17 22:59 06:59 14:59 Intake Total 2650 1960 104 Output Total 850 1600 Balance 1800 360 104 Intake: IV 1700 1960 104 IVF 1200 IVPB 1400 200 Left Wrist 100 precedex 360 Tube Feeding 150 Other 800 Output: Urine 850 1600 Urethral (Akhtar) 850 1600 Stool 0 - Medications Active Medications: Active Medications Generic Name Dose Route Start Last Admin Trade Name Freq PRN Reason Stop Dose Admin Acetaminophen 650 mg 06/10/17 07:23 Tylenol 325mg Tab PO Q6H PRN Fever >100.4 F Aspirin 81 mg 06/05/17 10:00 06/10/17 09:05 Ecotrin PO 81 mg DAILY ALEJANDRINA Administration Enoxaparin Sodium 40 mg 06/07/17 10:00 06/10/17 09:08 Lovenox SC 40 mg DAILY ALEJANDRINA Administration Protocol Dexmedetomidine HCl 400 mcg in 100 mls @ 5.071 mls/hr 06/08/17 10:17 10:23 Precedex 400mcg/100ml IV 0 mcg/kg/hr .[id number] PRN 0 mls/hr Agitation Titration Protocol 0.2 MCG/KG/HR Acyclovir 800 mg/ Sodium 100 mls @ 100 mls/hr 06/09/17 14:00 06/10/17 09:36 Chloride IV 100 mls/hr Q12 ALEJANDRINA Administration Protocol Sodium Chloride 1,000 mls @ 100 mls/hr 06/09/17 10:00 06/10/17 08:08 Sodium Chloride 0.45% IV 100 mls/hr .Q10H ALEJANDRINA Administration Insulin Detemir 20 unit 06/08/17 20:00 06/10/17 08:06 Levemir SC 20 unit Q12H ALEJANDRINA Administration Insulin Human Lispro 0 units 06/08/17 12:00 06/10/17 07:57 Humalog SC Not Given Q4H ALEJANDRINA Metoprolol Tartrate 25 mg 06/09/17 10:00 06/10/17 09:09 Lopressor PO Not Given BID ALEJANDRINA Morphine Sulfate 2 mg 06/07/17 10:11 06/07/17 17:29 Morphine IVP 2 mg Q3H PRN Administration Pain, severe (8-10) Pantoprazole Sodium 40 mg 06/08/17 10:00 06/10/17 09:05 Protonix Inj IVP 40 mg DAILY ALEJANDRINA Administration Thiamine HCl 100 mg 06/08/17 10:00 06/10/17 09:24 Vitamin B1 Inj IV 100 mg DAILY ALEJANDRINA Administration Verapamil HCl 2.5 mg 06/06/17 09:22 06/06/17 11:46 Verapamil Inj IVP 2.5 mg Q6H PRN Administration for heart rate >130 Verapamil HCl 80 mg 06/06/17 10:00 06/10/17 09:09 Calan Tab PO Not Given TID ALEJANDRINA Vitamin A 1 ea 06/09/17 10:16 Vitamin A & D Oint Ud Foilpak TOP DAILY PRN Dry skin - Patient Studies Lab Studies: Microbiology Studies 06/07/17 16:11 Blood Culture - Preliminary Blood-Venous NO GROWTH AFTER 48 HOURS 06/07/17 16:11 Blood Culture - Preliminary Blood-Venous NO GROWTH AFTER 48 HOURS 06/05/17 15:53 Blood Culture - Preliminary Blood-Venous NO GROWTH AFTER 4 DAYS 06/05/17 15:53 Blood Culture - Preliminary Blood-Venous NO GROWTH AFTER 4 DAYS 06/08/17 10:30 Gram Stain - Final Sputum 06/05/17 10:35 Blood Culture - Preliminary Blood-Venous NO GROWTH AFTER 4 DAYS 06/05/17 10:10 Blood Culture - Preliminary Blood-Venous NO GROWTH AFTER 4 DAYS Lab Studies 06/10/17 06/10/17 06/10/17 Range/Units 06:35 05:50 05:50 WBC 7.0 (4.5-11.0) 10^3/ul RBC 3.38 L (3.5-6.1) 10^6/uL Hgb 10.0 L (12.0-16.0) g/dL Hct 28.6 L (36.0-48.0) % MCV 84.6 (80.0-105.0) fl MCH 29.6 (25.0-35.0) pg MCHC 35.0 (31.0-37.0) g/dl RDW 15.0 H (11.5-14.5) % Plt Count 99 L (120.0-450.0) 10^3/uL MPV 10.8 (7.0-11.0) fl Gran % 55.6 (50.0-68.0) % Lymph % (Auto) 33.8 (22.0-35.0) % [place] % (Auto) 8.6 H (1.0-6.0) % Eos % (Auto) 1.9 (1.5-5.0) % Baso % (Auto) 0.1 (0.0-3.0) % Gran # 3.86 (1.4-6.5) Lymph # (Auto) 2.4 (1.2-3.4) [place] # (Auto) 0.6 (0.1-0.6) Eos # (Auto) 0.1 (0.0-0.7) Baso # (Auto) 0.01 (0.0-2.0) K/mm3 pCO2 28 L (35-45) mm/Hg pO2 164.0 H (80-100) mm/Hg HCO3 20.9 L (21-28) mmol/L ABG pH 7.48 H (7.35-7.45) ABG Total CO2 21.8 L (22-28) mmol.L ABG O2 Saturation 99.2 H (95-98) % ABG O2 Content 14.2 L (15-23) ML/dl ABG Base Excess -1.8 (-2.0-3.0) mmol/L ABG Hemoglobin 10.2 L (11.7-17.4) g/dL ABG Carboxyhemoglobin 1.3 (0.5-1.5) % POC ABG HHb (Measured) 0.8 (0-5) % ABG Methemoglobin 1.2 (0.0-3.0) % ABG O2 Capacity 14.3 L (16-24) mL/dl Hgb O2 Saturation 96.7 (95.0-98.0) % FiO2 35.0 % Sodium 158 H* (132-148) mmol/L Potassium 3.2 L (3.6-5.0) mmol/L Chloride 125 H (98-107) mmol/L Carbon Dioxide 25 (21-33) mmol/L Anion Gap 12 (10-20) BUN 31 H (7-21) mg/dL Creatinine 1.2 (0.7-1.2) mg/dl Est GFR ( Amer) 57 Est GFR (Non-Af Amer) 47 POC Glucose (mg/dL) (65-110) mg/dL Random Glucose 156 H (70-110) mg/dL Calcium 9.3 (8.4-10.5) mg/dL Phosphorus 2.6 (2.5-4.5) mg/dL Magnesium 2.0 (1.7-2.2) mg/dL Random Vancomycin (20.0-40.0) ug/mL Influenza Typ A,B (EIA) (NEGATIVE) 06/10/17 06/10/17 06/09/17 Range/Units 04:27 01:05 23:00 WBC (4.5-11.0) 10^3/ul RBC (3.5-6.1) 10^6/uL Hgb (12.0-16.0) g/dL Hct (36.0-48.0) % MCV (80.0-105.0) fl MCH (25.0-35.0) pg MCHC (31.0-37.0) g/dl RDW (11.5-14.5) % Plt Count (120.0-450.0) 10^3/uL MPV (7.0-11.0) fl Gran % (50.0-68.0) % Lymph % (Auto) (22.0-35.0) % [place] % (Auto) (1.0-6.0) % Eos % (Auto) (1.5-5.0) % Baso % (Auto) (0.0-3.0) % Gran # (1.4-6.5) Lymph # (Auto) (1.2-3.4) [place] # (Auto) (0.1-0.6) Eos # (Auto) (0.0-0.7) Baso # (Auto) (0.0-2.0) K/mm3 pCO2 (35-45) mm/Hg pO2 (80-100) mm/Hg HCO3 (21-28) mmol/L ABG pH (7.35-7.45) ABG Total CO2 (22-28) mmol.L ABG O2 Saturation (95-98) % ABG O2 Content (15-23) ML/dl ABG Base Excess (-2.0-3.0) mmol/L ABG Hemoglobin (11.7-17.4) g/dL ABG Carboxyhemoglobin (0.5-1.5) % POC ABG HHb (Measured) (0-5) % ABG Methemoglobin (0.0-3.0) % ABG O2 Capacity (16-24) mL/dl Hgb O2 Saturation (95.0-98.0) % FiO2 % Sodium (132-148) mmol/L Potassium (3.6-5.0) mmol/L Chloride (98-107) mmol/L Carbon Dioxide (21-33) mmol/L Anion Gap (10-20) BUN (7-21) mg/dL Creatinine (0.7-1.2) mg/dl Est GFR ( Amer) Est GFR (Non-Af Amer) POC Glucose (mg/dL) 150 H 161 H 169 H (65-110) mg/dL Random Glucose (70-110) mg/dL Calcium (8.4-10.5) mg/dL Phosphorus (2.5-4.5) mg/dL Magnesium (1.7-2.2) mg/dL Random Vancomycin (20.0-40.0) ug/mL Influenza Typ A,B (EIA) (NEGATIVE) 06/09/17 06/09/17 06/09/17 Range/Units 21:25 20:35 15:44 WBC (4.5-11.0) 10^3/ul RBC (3.5-6.1) 10^6/uL Hgb (12.0-16.0) g/dL Hct (36.0-48.0) % MCV (80.0-105.0) fl MCH (25.0-35.0) pg MCHC (31.0-37.0) g/dl RDW (11.5-14.5) % Plt Count (120.0-450.0) 10^3/uL MPV (7.0-11.0) fl Gran % (50.0-68.0) % Lymph % (Auto) (22.0-35.0) % Treg[place] % (Auto) (1.0-6.0) % Eos % (Auto) (1.5-5.0) % Baso % (Auto) (0.0-3.0) % Gran # (1.4-6.5) Lymph # (Auto) (1.2-3.4) Treg[place] # (Auto) (0.1-0.6) Eos # (Auto) (0.0-0.7) Baso # (Auto) (0.0-2.0) K/mm3 pCO2 (35-45) mm/Hg pO2 (80-100) mm/Hg HCO3 (21-28) mmol/L ABG pH (7.35-7.45) ABG Total CO2 (22-28) mmol.L ABG O2 Saturation (95-98) % ABG O2 Content (15-23) ML/dl ABG Base Excess (-2.0-3.0) mmol/L ABG Hemoglobin (11.7-17.4) g/dL ABG Carboxyhemoglobin (0.5-1.5) % POC ABG HHb (Measured) (0-5) % ABG Methemoglobin (0.0-3.0) % ABG O2 Capacity (16-24) mL/dl Hgb O2 Saturation (95.0-98.0) % FiO2 % Sodium 157 H* (132-148) mmol/L Potassium 3.2 L (3.6-5.0) mmol/L Chloride 124 H (98-107) mmol/L Carbon Dioxide 23 (21-33) mmol/L Anion Gap 13 (10-20) BUN 30 H (7-21) mg/dL Creatinine 1.2 (0.7-1.2) mg/dl Est GFR ( Amer) 57 Est GFR (Non-Af Amer) 47 POC Glucose (mg/dL) 166 H 189 H (65-110) mg/dL Random Glucose 179 H (70-110) mg/dL Calcium 9.3 (8.4-10.5) mg/dL Phosphorus 3.0 (2.5-4.5) mg/dL Magnesium 2.0 (1.7-2.2) mg/dL Random Vancomycin (20.0-40.0) ug/mL Influenza Typ A,B (EIA) (NEGATIVE) 06/09/17 06/09/17 06/09/17 Range/Units 11:32 09:18 09:15 WBC (4.5-11.0) 10^3/ul RBC (3.5-6.1) 10^6/uL Hgb (12.0-16.0) g/dL Hct (36.0-48.0) % MCV (80.0-105.0) fl MCH (25.0-35.0) pg MCHC (31.0-37.0) g/dl RDW (11.5-14.5) % Plt Count (120.0-450.0) 10^3/uL MPV (7.0-11.0) fl Gran % (50.0-68.0) % Lymph % (Auto) (22.0-35.0) % [place] % (Auto) (1.0-6.0) % Eos % (Auto) (1.5-5.0) % Baso % (Auto) (0.0-3.0) % Gran # (1.4-6.5) Lymph # (Auto) (1.2-3.4) [place] # (Auto) (0.1-0.6) Eos # (Auto) (0.0-0.7) Baso # (Auto) (0.0-2.0) K/mm3 pCO2 (35-45) mm/Hg pO2 (80-100) mm/Hg HCO3 (21-28) mmol/L ABG pH (7.35-7.45) ABG Total CO2 (22-28) mmol.L ABG O2 Saturation (95-98) % ABG O2 Content (15-23) ML/dl ABG Base Excess (-2.0-3.0) mmol/L ABG Hemoglobin (11.7-17.4) g/dL ABG Carboxyhemoglobin (0.5-1.5) % POC ABG HHb (Measured) (0-5) % ABG Methemoglobin (0.0-3.0) % ABG O2 Capacity (16-24) mL/dl Hgb O2 Saturation (95.0-98.0) % FiO2 % Sodium (132-148) mmol/L Potassium (3.6-5.0) mmol/L Chloride (98-107) mmol/L Carbon Dioxide (21-33) mmol/L Anion Gap (10-20) BUN (7-21) mg/dL Creatinine (0.7-1.2) mg/dl Est GFR ( Amer) Est GFR (Non-Af Amer) POC Glucose (mg/dL) 216 H (65-110) mg/dL Random Glucose (70-110) mg/dL Calcium (8.4-10.5) mg/dL Phosphorus (2.5-4.5) mg/dL Magnesium (1.7-2.2) mg/dL Random Vancomycin 12.0 L (20.0-40.0) ug/mL Influenza Typ A,B (EIA) Negative for flu a/b (NEGATIVE) Laboratory Results - last 24 hr 06/09/17 06/09/17 06/09/17 09:15 09:18 11:32 WBC RBC Hgb Hct MCV MCH MCHC RDW Plt Count MPV Gran % Lymph % (Auto) [place] % (Auto) Eos % (Auto) Baso % (Auto) Gran # Lymph # (Auto) [place] # (Auto) Eos # (Auto) Baso # (Auto) pCO2 pO2 HCO3 ABG pH ABG Total CO2 ABG O2 Saturation ABG O2 Content ABG Base Excess ABG Hemoglobin ABG Carboxyhemoglobin POC ABG HHb (Measured) ABG Methemoglobin ABG O2 Capacity Hgb O2 Saturation FiO2 Sodium Potassium Chloride Carbon Dioxide Anion Gap BUN Creatinine Est GFR ( Amer) Est GFR (Non-Af Amer) POC Glucose (mg/dL) 216 H Random Glucose Calcium Phosphorus Magnesium Random Vancomycin 12.0 L Influenza Typ A,B (EIA) Negative for flu a/b 06/09/17 06/09/17 06/09/17 15:44 20:35 21:25 WBC RBC Hgb Hct MCV MCH MCHC RDW Plt Count MPV Gran % Lymph % (Auto) [place] % (Auto) Eos % (Auto) Baso % (Auto) Gran # Lymph # (Auto) [place] # (Auto) Eos # (Auto) Baso # (Auto) pCO2 pO2 HCO3 ABG pH ABG Total CO2 ABG O2 Saturation ABG O2 Content ABG Base Excess ABG Hemoglobin ABG Carboxyhemoglobin POC ABG HHb (Measured) ABG Methemoglobin ABG O2 Capacity Hgb O2 Saturation FiO2 Sodium 157 H* Potassium 3.2 L Chloride 124 H Carbon Dioxide 23 Anion Gap 13 BUN 30 H Creatinine 1.2 Est GFR ( Amer) 57 Est GFR (Non-Af Amer) 47 POC Glucose (mg/dL) 189 H 166 H Random Glucose 179 H Calcium 9.3 Phosphorus 3.0 Magnesium 2.0 Random Vancomycin Influenza Typ A,B (EIA) 06/09/17 06/10/17 06/10/17 23:00 01:05 04:27 WBC RBC Hgb Hct MCV MCH MCHC RDW Plt Count MPV Gran % Lymph % (Auto) [place] % (Auto) Eos % (Auto) Baso % (Auto) Gran # Lymph # (Auto) [place] # (Auto) Eos # (Auto) Baso # (Auto) pCO2 pO2 HCO3 ABG pH ABG Total CO2 ABG O2 Saturation ABG O2 Content ABG Base Excess ABG Hemoglobin ABG Carboxyhemoglobin POC ABG HHb (Measured) ABG Methemoglobin ABG O2 Capacity Hgb O2 Saturation FiO2 Sodium Potassium Chloride Carbon Dioxide Anion Gap BUN Creatinine Est GFR ( Amer) Est GFR (Non-Af Amer) POC Glucose (mg/dL) 169 H 161 H 150 H Random Glucose Calcium Phosphorus Magnesium Random Vancomycin Influenza Typ A,B (EIA) 06/10/17 06/10/1718 05:50 05:50 06:35 WBC 7.0 RBC 3.38 L Hgb 10.0 L Hct 28.6 L MCV 84.6 MCH 29.6 MCHC 35.0 RDW 15.0 H Plt Count 99 L MPV 10.8 Gran % 55.6 Lymph % (Auto) 33.8 [place] % (Auto) 8.6 H Eos % (Auto) 1.9 Baso % (Auto) 0.1 Gran # 3.86 Lymph # (Auto) 2.4 [place] # (Auto) 0.6 Eos # (Auto) 0.1 Baso # (Auto) 0.01 pCO2 28 L pO2 164.0 H HCO3 20.9 L ABG pH 7.48 H ABG Total CO2 21.8 L ABG O2 Saturation 99.2 H ABG O2 Content 14.2 L ABG Base Excess -1.8 ABG Hemoglobin 10.2 L ABG Carboxyhemoglobin 1.3 POC ABG HHb (Measured) 0.8 ABG Methemoglobin 1.2 ABG O2 Capacity 14.3 L Hgb O2 Saturation 96.7 FiO2 35.0 Sodium 158 H* Potassium 3.2 L Chloride 125 H Carbon Dioxide 25 Anion Gap 12 BUN 31 H Creatinine 1.2 Est GFR ( Amer) 57 Est GFR (Non-Af Amer) 47 POC Glucose (mg/dL) Random Glucose 156 H Calcium 9.3 Phosphorus 2.6 Magnesium 2.0 Random Vancomycin Influenza Typ A,B (EIA) Critical Care Progress Note - Nutrition Nutrition: Nutrition Category Date Time Status NPO Diet [DIET] Diets 06/09/17 Dinner Ordered Assessment/Plan - Assessment and Plan (Free Text) Plan: Patient seen and examined on rounds with resident, agree with note with following additions/exceptions: Patient is 51yo female with PMHx of IDDM, morbid obesity s/p gastric sleeve surgery, a/w Afib and DKA with coma Currently afebrile, HD stable, comfortable on Precedex drip, on pressure support for 2hours, doing well, awake, alert following commands, subsequently extubated to 2LNC, tolerated well. Labs with closed AG, cultures thus far negative. ID following, on broad spectrum antibiotics. Neurology following. MRI brain negative AMS DKA with coma Dehydration Recommend: - supp o2 as needed - Broad spectrum antibiotics as per ID - follow up cultures - follow up ID - BP control - IVF hydration - Thiamine - follow up neuro - FS control - GI ppx - DVT ppx - Monitor in MICU, stable
[2017-06-10] MEDS ORDERED: Potassium Chloride 40 mEq/30 ml LIQ UD NG ONE (09:59)
--- NOTE | 2017-06-10 10:03 | RAD ---
HISTORY: effusion COMPARISON: Portable chest 06/10/2017 4:36 a.m.. FINDINGS: LUNGS: Limited right infrahilar atelectasis or infiltrate is identified. None is seen the left. PLEURA: No significant pleural effusion identified, no pneumothorax apparent. CARDIOVASCULAR: Stable prominent cardiac silhouette. Right PICC catheter unchanged in position as well as endotracheal and nasogastric tubes. OSSEOUS STRUCTURES: No significant abnormalities. VISUALIZED UPPER ABDOMEN: Normal. OTHER FINDINGS: None. IMPRESSION: Limited patchy atelectasis or infiltrate in the right infrahilar space with remaining lung sanon clear. Cardiomegaly is stable. No pleural effusion identified bilaterally. Tubes and catheter as discussed above.
--- NOTE | 2017-06-10 12:49 | CP.PCM.PN ---
Subjective - Date & Time of Evaluation Date of Evaluation: 06/10/17 Time of Evaluation: 12:45 - Subjective Subjective: Nephrology Consultation Note Covering for Dr. Palafox Assessment: Critical Acute Kidney Injury (N17.9) Improving Diabetic ketoacidosis with coma Morbid obesity Acute respiratory failure Hypokalemia and hypernatremia Anemia and thrombocytopenia Plan No acute need for renal replacement therapy at this time. Renal function improved good urine output Hypertension control with meds as ordered. Patient not on ACEI/ARB due to recent AURE Monitor Input/Output, daily weights and renal function with basic metabolic panel Supplement potassium as ordered Continue with half normal saline If sodium keep rising or not doesn't improve with this current strategy, consider D5 water drip Though it could be challenging considering her uncontrolled diabetes mellitus Dose meds/antibiotics for Improved GFR. Avoid fleets enema/magnesium based laxatives. Avoid nephrotoxins/NSAIDs/ iodinated contrast (unless needed emergently) Glycemic control Further work up for as per primary team Thanks for allowing me to participate in care of your patient. Will follow patient with you. Please call if any Qs. Discussed with team and family bedside Dr Morgan Kyle Office: [phone] Subjective: Noted events overnight. Patients Feels thirsty. She was extubated Denies chest pain, palpitation, shortness of breath, leg swelling. Rest of the ROS was limited Physical Examination: General Appearance: Comfortable, in no acute respiratory distress, co-operative . Ill-appearing Vitals reviewed and noted as below Head; Atraumatic, normocephalic ENT: no ulcers no thrush. Tongue is midline. Oropharynx: no rash or ulcers. EYES: Pupils are equal, round and reactive to light accommodation. Eye muscles and extraocular movement intact. Sclera is anicteric. Neck; supple no lymphadenopathy, no thyromegaly or bruit Lungs: Normal respiratory rate/effort. Breath sounds bilateral equal and clear Heart: Normal rate. s1s2 normal. No rub or gallop. Extremities: no edema. No varicose veins Neurological: Patient is awake and oriented to person, place and time. No focal deficit. Strength bilateral appropriate and equal Skin: Warm and dry. Normal turgor. No rash. Palpitation: Normal elasticity for age Abdomen: Abdomen is soft. Bowel sounds +. There is no abdominal tenderness, no guarding/rigidity no organomegaly Psych: normal insight and normal affect/mood MSK: no joint tenderness or swelling. Digits and nails normal, no deformity : kidney or bladder not palpable Labs/imaging reviewed. Past medical history, past surgical history, family history, social history, allergy reviewed and noted as below Family hx: no hx of CKD. Rest non-contributory Workup LVEF of 65-70% IVC compressibility more than 50% imaging has shown perinephric stranding Objective - Vital Signs/Intake and Output Vital Signs (last 24 hours): Temp Pulse Resp BP Pulse Ox 100.0 F H 64 17 141/74 98 06/10/17 10:00 06/10/17 12:00 06/10/17 12:00 06/10/17 11:29 06/10/17 12:00 Intake and Output: 06/10/17 06/10/17 06:59 18:59 Intake Total 2060 104 Output Total 1600 Balance 460 104 - Medications Medications: Current Medications Acetaminophen (Tylenol 325mg Tab) 650 mg PO Q6H PRN PRN Reason: Fever >100.4 F Aspirin (Ecotrin) 81 mg PO DAILY [facility] Last Admin: 06/10/17 09:05 Dose: 81 mg Enoxaparin Sodium (Lovenox) 40 mg SC DAILY ALEJANDRINA PRN Reason: Protocol Last Admin: 06/10/17 09:08 Dose: 40 mg Dexmedetomidine HCl (Precedex 400mcg/100ml) 400 mcg in 100 mls @ 5.071 mls/hr IV .[id number] PRN; Protocol; 0.2 MCG/KG/HR PRN Reason: Agitation Last Titration: 06/10/17 10:23 Dose: 0 mcg/kg/hr, 0 mls/hr Acyclovir 800 mg/ Sodium (Chloride) 100 mls @ 100 mls/hr IV Q12 ALEJANDRINA PRN Reason: Protocol Last Admin: 06/10/17 09:36 Dose: 100 mls/hr Sodium Chloride (Sodium Chloride 0.45%) 1,000 mls @ 100 mls/hr IV .Q10H [facility] Last Admin: 06/10/17 08:08 Dose: 100 mls/hr Insulin Detemir (Levemir) 20 unit SC Q12H ALEJANDRINA Last Admin: 06/10/17 08:06 Dose: 20 unit Insulin Human Lispro (Humalog) 0 units SC Q4H [facility] Last Admin: 06/10/17 12:17 Dose: Not Given Metoprolol Tartrate (Lopressor) 25 mg PO BID [facility] Last Admin: 06/10/17 09:09 Dose: Not Given Morphine Sulfate (Morphine) 2 mg IVP Q3H PRN PRN Reason: Pain, severe (8-10) Last Admin: 06/07/17 17:29 Dose: 2 mg Pantoprazole Sodium (Protonix Inj) 40 mg IVP DAILY [facility] Last Admin: 06/10/17 09:05 Dose: 40 mg Thiamine HCl (Vitamin B1 Inj) 100 mg IV DAILY [facility] Last Admin: 06/10/17 09:24 Dose: 100 mg Verapamil HCl (Verapamil Inj) 2.5 mg IVP Q6H PRN PRN Reason: for heart rate >130 Last Admin: 06/06/17 11:46 Dose: 2.5 mg Verapamil HCl (Calan Tab) 80 mg PO TID [facility] Last Admin: 06/10/17 09:09 Dose: Not Given Vitamin A (Vitamin A & D Oint Ud Foilpak) 1 ea TOP DAILY PRN PRN Reason: Dry skin - Labs Labs: 06/10/17 05:50 06/10/17 05:50 PT 10.9 SECONDS (9.4-12.5) 06/04/17 17:25 INR 0.96 (0.93-1.08) 06/04/17 17:25 APTT 32.2 Seconds (25.1-36.5) 06/04/17 17:25
[2017-06-10] MEDS ORDERED: Vancomycin 1gm in NS 250ml 1 GM/250 ML BAG IVPB STA (13:53)
--- NOTE | 2017-06-10 15:50 | PN ---
DATE: ENDOCRINOLOGY FOLLOWUP LOCATION: In ICU 128, room 5. SUBJECTIVE: This is a 51-year-old female with recent uncontrolled type 2 insulin-requiring diabetes presenting here with diabetic ketoacidosis and marked hyperglycemic accelerations with severe acidemia and hypernatremia with ongoing vigorous IV hydration as given. She has since then been taken off the insulin drip infusion and currently on a every 4 hourly glucose testing with Humalog insulin coverage as given. Her glucose levels overnight have ranged from 150 to 161 mg/dL. The latest chemistry showed a BUN of 31, sodium 158, potassium 3.2, chloride 125, CO2 of 25, glucose 156 and creatinine 1.2. ASSESSMENT AND PLAN: So at this time, we will continue the same basal and bolus insulin regimen to allow for dose equilibration and keep her on the same Levemir given as 20 units subcu every 12 hours, 8:00 a.m. and 8:00 p.m. daily as given. She has also ongoing every 4 hourly glucose testing with Humalog coverage scale as ordered. She still remains currently endotracheally intubated at this time. We will also continue the current IV hydration as given with normal saline running at 100 mL/hour as ordered. We will obtain serial chemistries and supplement accordingly needed. We will follow . Kaleigh Jack MD
[2017-06-10] MEDS ORDERED: Alum-Mag Hydrox-Simethicone Susp (30 mL) PO ONE (17:24)
[2017-06-10 17:53] LABS: ALB/GLOB RATIO 1.1 (1.1-1.8); ALT/SGPT 30 U/L (7-56); AST/SGOT 31 U/L (14-36); BLOOD UREA NITROGEN 31 mg/dL (7-21); CALCIUM 9.4 mg/dL (8.4-10.5); GFR AFRICAN-AMERICAN > 60; GFR NON-AFRICAN AMERICAN 52
--- NOTE | 2017-06-10 18:18 | PN ---
DATE: 06/10/2017 SUBJECTIVE: Patient was seen earlier this morning in 128, bed 5. Patient remains in the ICU. PHYSICAL EXAMINATION: VITAL SIGNS: Temperature of 98, T-max is 100.2; blood pressure is 140/70; respiratory rate of 21; and a heart rate of 64. HEENT: Unremarkable. NECK: Supple. LUNGS: Decreased breath sounds.. HEART: Normal S1 and S2. ABDOMEN: Soft, nontender. LABORATORY DATA: Reveals a white count of 7, hemoglobin of 10, platelets of 99. Chemistries reveals a creatinine of 1.2. Urinalysis is noted. Toxicology is noted and microbiology reveals blood cultures no growth. Dr. Hernandez's note is appreciated. Dr. Fontanez's note is appreciated. Review of microbiology reveals cultures are negative with sputum cultures are pending. Review of orders reveals the patient to be on acyclovir. Patient was on meropenem, which was discontinued. ASSESSMENT AND PLAN: A 51-year-old female who was seen earlier this morning in 128, bed 5. She remains with respiratory failure, intubated on the ventilator with systemic inflammatory response syndrome, new onset of atrial fibrillation with a diabetic ketoacidosis and ventilatory-dependent respirator failure and acute encephalopathy, sepsis, healthcare associated pneumonia versus central nervous system infection. She is diabetic, dyslipidemia on intermittent vancomycin, meropenem on day #4 and also on acyclovir. Patient's creatinine is 1.2, which is improved from 1.9. We started the meropenem with the dose of vancomycin and continued acyclovir pending central nervous system workup. We will follow with you. We will make further recommendations. Review of the chest x-ray is noted. Patient also had an MRI of the brain without contrast, which showed no intracranial findings, the opacification of mastoid cells was found and we will follow with you. Teja Rice MD
[2017-06-10] MEDS ORDERED: Potassium Chloride 40 mEq/30 ml LIQ UD PO ONE (18:25)
[2017-06-10 21:38] LABS: CALCIUM 9.5 mg/dL (8.4-10.5)
[2017-06-10] MEDS ORDERED: Insulin Lispro 1 UNITS/0.01 ML SC SCH (22:00)
[2017-06-10] MEDS: Insulin Lispro (humaLOG) LOW Coverage SC SCH (22:39)
[2017-06-10] MEDS ORDERED: Potassium Chloride 20 mEq ER Tab PO STA (22:55)
--- NOTE | 2017-06-10 23:27 | PN ---
DATE: SUBJECTIVE: Patient is 51 years old, seen and examined, was extubated this morning, awake, alert, oriented, able to communicate. PHYSICAL EXAMINATION VITAL SIGNS: She is afebrile. Pulse 76, respirations 16, blood pressure 151/75. LUNGS: Bilateral good airflow. No rhonchi or crackles. HEART: S1 and S2 audible. ABDOMEN: Soft, obese, nontender. No rebound. No guarding. NEUROLOGIC: She is awake, alert, oriented, communicative. LABORATORY EXAMINATION: WBC 7.0, hemoglobin 10, hematocrit 28.6, and platelets of 99. Chemistry: Sodium 156, potassium 2.9, chloride 122, CO2 23, BUN 31, creatinine 1.1, blood sugar of 141. ASSESSMENT: 1. Status post respiratory failure, was extubated successfully this morning. 2. Status post diabetic ketoacidosis. 3. Severe hypernatremia. 4. Hypokalemia. 5. Status post encephalopathy, probably toxic metabolic syndrome. PLAN: We will start patient on clear liquid and advance as tolerated. Currently, she is on acyclovir. She is on Protonix. Potassium is being supplemented. She is on meropenem. She is on DVT prophylaxis and she is on Levemir 20 units every 12 and she is on coverage. Continue her IV fluids. As her oral intake improve, we will discontinue IV fluids. Alphonse Nicholson MD
[2017-06-10] MEDS: Morphine 2 mg/ml ISec IVP PRN (23:32)
[2017-06-11 06:01] LABS: BASO # 0.03 K/mm3 (0.0-2.0); BASO % 0.4 % (0.0-3.0); EOS # 0.1 (0.0-0.7); EOS % 1.2 % (1.5-5.0); GRAN # 4.54 (1.4-6.5); GRAN % 58.1 % (50.0-68.0); LYMPH # 2.3 (1.2-3.4); LYMPH % 29.8 % (22.0-35.0); MEAN CELL VOLUME 85.5 fl (80.0-105.0); MEAN CORPUSCULAR HEMOGLOBIN 29.7 pg (25.0-35.0); MEAN CORPUSCULAR HGB CONC 34.7 g/dl (31.0-37.0); MEAN PLATELET VOLUME 10.8 fl (7.0-11.0); MONO # 0.8 (0.1-0.6); MONO % 10.5 % (1.0-6.0); RBC 3.03 10^6/uL (3.5-6.1); RED CELL DISTRIBUTION WIDTH 14.9 % (11.5-14.5); WHITE BLOOD COUNT 7.8 10^3/ul (4.5-11.0)
[2017-06-11 06:42] LABS: BLOOD UREA NITROGEN 23 mg/dL (7-21); CALCIUM 8.2 mg/dL (8.4-10.5); GFR AFRICAN-AMERICAN > 60; GFR NON-AFRICAN AMERICAN > 60
[2017-06-11] MEDS: Insulin Lispro (humaLOG) LOW Coverage SC SCH ×4 (07:48→21:49)
[2017-06-11] MEDS ORDERED: Potassium Chloride 20 mEq ER Tab PO STA (08:25)
[2017-06-11] MEDS: Insulin Detemir 100 units/ml Vial (Levemir) SC SCH ×2 (08:47→21:50)
--- NOTE | 2017-06-11 08:49 | CP.CCUPN ---
<Raheem Wooten - Last Filed: 06/11/17 08:46> CCU Subjective - Physician Review Subjective (Free Text): Patient seen and evaluated bedside. Patient alert awake and oriented x3, understanding and responding appropriately to questions. No acute issues overnight. Patient denies chest pain, shortness of breath, or any other complaints at this time. 06/11/17 08:46 CCU Objective - Vital Signs / Intake & Output Vital Signs (Last 4 hours): Vital Signs Pulse Resp BP Pulse Ox 06/11/17 07:00 71 96 06/11/17 06:40 70 96 06/11/17 06:21 82 21 165/69 H 97 06/11/17 06:20 82 12 95 06/11/17 06:00 84 96 06/11/17 05:40 77 19 96 06/11/17 05:20 76 20 94 L 06/11/17 05:00 81 20 93 L Intake and Output (Last 8hrs): Intake & Output 06/10/17 06/11/17 06/11/17 22:59 06:59 14:59 Intake Total 2190 1400 Output Total 1700 2500 Balance 490 -1100 Intake: IV 1790 1400 IVF 1200 IVPB 200 Right Upper arm 1790 Oral 400 Output: Urine 1700 2500 Urethral (Akhtar) 1700 2500 - Physical Exam Head: Positive for: Atraumatic, Normocephalic Pupils: Positive for: PERRL Extroacular Muscles: Positive for: EOMI Conjunctiva: Positive for: Normal Ears: Positive for: Normal Mouth: Positive for: Moist Mucous Membranes Nose (External): Positive for: Atraumatic Nose (Internal): Positive for: Normal Inspection Respiratory/Chest: Positive for: Clear to Auscultation, Good Air Exchange. Negative for: Respiratory Distress, Wheezes (Intubated), Rhonchi Cardiovascular: Positive for: Regular Rate and Rhythm, Normal S1, S2. Negative for: Murmurs Abdomen: Positive for: Normal Bowel Sounds. Negative for: Tenderness, Distention Back: Positive for: CVA Tenderness Upper Extremity: Negative for: Edema Lower Extremity: Positive for: Normal Inspection. Negative for: Edema, Erythema Neurological: Positive for: GCS=15, Speech Normal, Memory Normal Skin: Positive for: Warm Psychiatric: Positive for: Alert, Oriented x 3 - Medications Active Medications: Active Medications Generic Name Dose Route Start Last Admin Trade Name Freq PRN Reason Stop Dose Admin Acetaminophen 650 mg 06/10/17 07:23 Tylenol 325mg Tab PO Q6H PRN Fever >100.4 F Aspirin 81 mg 06/05/17 10:00 06/10/17 09:05 Ecotrin PO 81 mg DAILY ALEJANDRINA Administration Enoxaparin Sodium 40 mg 06/07/17 10:00 06/10/17 09:08 Lovenox SC 40 mg DAILY ALEJANDRINA Administration Protocol Dexmedetomidine HCl 400 mcg in 100 mls @ 5.071 mls/hr 06/08/17 10:17 10:23 Precedex 400mcg/100ml IV 0 mcg/kg/hr .[id number] PRN 0 mls/hr Agitation Titration Protocol 0.2 MCG/KG/HR Acyclovir 800 mg/ Sodium 100 mls @ 100 mls/hr 06/09/17 14:00 06/10/17 22:42 Chloride IV 100 mls/hr Q12 ALEJANDRINA Administration Protocol Meropenem 50 mls @ 100 mls/hr 06/10/17 13:54 06/10/17 22:44 Merrem Iv 1 Gm Premix IVPB 06/19/17 13:55 100 mls/hr Q12 ALEJADNRINA Administration Protocol Potassium Chloride 20 meq in 100 mls @ 50 mls/hr 06/11/17 07:15 06/11/17 07: 50 Potassium Chloride 20 Meq/100 Ml IVPB 06/11/17 11:14 50 mls/hr Q2H ALEJANDRINA Administration Insulin Detemir 20 unit 06/08/17 20:00 06/10/17 22:42 Levemir SC 20 unit Q12H ALEJANDRINA Administration Insulin Human Lispro 0 units 06/10/17 22:00 06/11/17 07:48 Humalog Low SC Not Given ACHS ALEJANDRINA Metoprolol Tartrate 25 mg 06/09/17 10:00 06/10/17 17:32 Lopressor PO 25 mg BID ALEJANDRINA Administration Morphine Sulfate 2 mg 06/07/17 10:11 06/10/17 23:32 Morphine IVP 2 mg Q3H PRN Administration Pain, severe (8-10) Pantoprazole Sodium 40 mg 06/08/17 10:00 06/11/17 07:55 Protonix Inj IVP 40 mg DAILY ALEJANDRINA Administration Thiamine HCl 100 mg 06/08/17 10:00 06/10/17 09:24 Vitamin B1 Inj IV 100 mg DAILY ALEJANDRINA Administration Verapamil HCl 2.5 mg 06/06/17 09:22 06/06/17 11:46 Verapamil Inj IVP 2.5 mg Q6H PRN Administration for heart rate >130 Verapamil HCl 80 mg 06/06/17 10:00 06/10/17 17:39 Calan Tab PO Not Given TID ALEJANDRINA Vitamin A 1 ea 06/09/17 10:16 Vitamin A & D Oint Ud Foilpak TOP DAILY PRN Dry skin - Patient Studies Lab Studies: Microbiology Studies 06/07/17 16:11 Blood Culture - Preliminary Blood-Venous NO GROWTH AFTER 3 DAYS 06/07/17 16:11 Blood Culture - Preliminary Blood-Venous NO GROWTH AFTER 3 DAYS 06/05/17 15:53 Blood Culture - Final Blood-Venous NO GROWTH AFTER 5 DAYS Gram Stain - Final TEST NOT PERFORMED 06/05/17 15:53 Blood Culture - Final Blood-Venous NO GROWTH AFTER 5 DAYS Gram Stain - Final TEST NOT PERFORMED 06/05/17 10:35 Blood Culture - Final Blood-Venous NO GROWTH AFTER 5 DAYS Gram Stain - Final TEST NOT PERFORMED 06/05/17 10:10 Blood Culture - Final Blood-Venous NO GROWTH AFTER 5 DAYS Gram Stain - Final TEST NOT PERFORMED Lab Studies 06/11/17 06/11/17 06/10/17 Range/Units 05:50 05:50 21:14 WBC 7.8 (4.5-11.0) 10^3/ul RBC 3.03 L (3.5-6.1) 10^6/uL Hgb 9.0 L (12.0-16.0) g/dL Hct 25.9 L (36.0-48.0) % MCV 85.5 (80.0-105.0) fl MCH 29.7 (25.0-35.0) pg MCHC 34.7 (31.0-37.0) g/dl RDW 14.9 H (11.5-14.5) % Plt Count 111 L (120.0-450.0) 10^3/uL MPV 10.8 (7.0-11.0) fl Gran % 58.1 (50.0-68.0) % Lymph % (Auto) 29.8 (22.0-35.0) % [place] % (Auto) 10.5 H (1.0-6.0) % Eos % (Auto) 1.2 L (1.5-5.0) % Baso % (Auto) 0.4 (0.0-3.0) % Gran # 4.54 (1.4-6.5) Lymph # (Auto) 2.3 (1.2-3.4) [place] # (Auto) 0.8 H (0.1-0.6) Eos # (Auto) 0.1 (0.0-0.7) Baso # (Auto) 0.03 (0.0-2.0) K/mm3 Sodium 145 155 H (132-148) mmol/L Potassium 2.7 L* D 3.4 L (3.6-5.0) mmol/L Chloride 114 H 121 H (98-107) mmol/L Carbon Dioxide 22 23 (21-33) mmol/L Anion Gap 12 14 (10-20) BUN 23 H 29 H (7-21) mg/dL Creatinine 0.9 1.2 (0.7-1.2) mg/dl Est GFR ( Amer) > 60 57 Est GFR (Non-Af Amer) > 60 47 POC Glucose (mg/dL) (65-110) mg/dL Random Glucose 129 H 192 H (70-110) mg/dL Calcium 8.2 L 9.5 (8.4-10.5) mg/dL Phosphorus 1.9 L (2.5-4.5) mg/dL Magnesium 1.8 (1.7-2.2) mg/dL Total Bilirubin (0.2-1.3) mg/dL AST (14-36) U/L ALT (7-56) U/L Alkaline Phosphatase (38-126) U/L Total Protein (5.8-8.3) g/dL Albumin (3.0-4.8) g/dL Globulin gm/dL Albumin/Globulin Ratio (1.1-1.8) 06/10/17 06/10/17 06/10/17 Range/Units 16:40 16:01 11:59 WBC (4.5-11.0) 10^3/ul RBC (3.5-6.1) 10^6/uL Hgb (12.0-16.0) g/dL Hct (36.0-48.0) % MCV (80.0-105.0) fl MCH (25.0-35.0) pg MCHC (31.0-37.0) g/dl RDW (11.5-14.5) % Plt Count (120.0-450.0) 10^3/uL MPV (7.0-11.0) fl Gran % (50.0-68.0) % Lymph % (Auto) (22.0-35.0) % [place] % (Auto) (1.0-6.0) % Eos % (Auto) (1.5-5.0) % Baso % (Auto) (0.0-3.0) % Gran # (1.4-6.5) Lymph # (Auto) (1.2-3.4) [place] # (Auto) (0.1-0.6) Eos # (Auto) (0.0-0.7) Baso # (Auto) (0.0-2.0) K/mm3 Sodium 156 H* (132-148) mmol/L Potassium 2.9 L* (3.6-5.0) mmol/L Chloride 122 H (98-107) mmol/L Carbon Dioxide 23 (21-33) mmol/L Anion Gap 14 (10-20) BUN 31 H (7-21) mg/dL Creatinine 1.1 (0.7-1.2) mg/dl Est GFR ( Amer) > 60 Est GFR (Non-Af Amer) 52 POC Glucose (mg/dL) 143 H 128 H (65-110) mg/dL Random Glucose 141 H (70-110) mg/dL Calcium 9.4 (8.4-10.5) mg/dL Phosphorus (2.5-4.5) mg/dL Magnesium (1.7-2.2) mg/dL Total Bilirubin 0.6 (0.2-1.3) mg/dL AST 31 (14-36) U/L ALT 30 (7-56) U/L Alkaline Phosphatase 68 (38-126) U/L Total Protein 5.6 L (5.8-8.3) g/dL Albumin 3.0 (3.0-4.8) g/dL Globulin 2.6 gm/dL Albumin/Globulin Ratio 1.1 (1.1-1.8) Laboratory Results - last 24 hr 06/10/17 06/10/17 06/10/17 11:59 16:01 16:40 WBC RBC Hgb Hct MCV MCH MCHC RDW Plt Count MPV Gran % Lymph % (Auto) [place] % (Auto) Eos % (Auto) Baso % (Auto) Gran # Lymph # (Auto) [place] # (Auto) Eos # (Auto) Baso # (Auto) Sodium 156 H* Potassium 2.9 L* Chloride 122 H Carbon Dioxide 23 Anion Gap 14 BUN 31 H Creatinine 1.1 Est GFR ( Amer) > 60 Est GFR (Non-Af Amer) 52 POC Glucose (mg/dL) 128 H 143 H Random Glucose 141 H Calcium 9.4 Phosphorus Magnesium Total Bilirubin 0.6 AST 31 ALT 30 Alkaline Phosphatase 68 Total Protein 5.6 L Albumin 3.0 Globulin 2.6 Albumin/Globulin Ratio 1.1 06/10/17 06/11/17 06/11/17 21:14 05:50 05:50 WBC 7.8 RBC 3.03 L Hgb 9.0 L Hct 25.9 L MCV 85.5 MCH 29.7 MCHC 34.7 RDW 14.9 H Plt Count 111 L MPV 10.8 Gran % 58.1 Lymph % (Auto) 29.8 [place] % (Auto) 10.5 H Eos % (Auto) 1.2 L Baso % (Auto) 0.4 Gran # 4.54 Lymph # (Auto) 2.3 [place] # (Auto) 0.8 H Eos # (Auto) 0.1 Baso # (Auto) 0.03 Sodium 155 H 145 Potassium 3.4 L 2.7 L* D Chloride 121 H 114 H Carbon Dioxide 23 22 Anion Gap 14 12 BUN 29 H 23 H Creatinine 1.2 0.9 Est GFR ( Amer) 57 > 60 Est GFR (Non-Af Amer) 47 > 60 POC Glucose (mg/dL) Random Glucose 192 H 129 H Calcium 9.5 8.2 L Phosphorus 1.9 L Magnesium 1.8 Total Bilirubin AST ALT Alkaline Phosphatase Total Protein Albumin Globulin Albumin/Globulin Ratio Fingerstick Blood Sugar Results: 129 Review of Systems - Cardiovascular Cardiovascular: absent: Chest Pain, Dyspnea - Respiratory Respiratory: absent: Cough, Dyspnea, Wheezing - Gastrointestinal Gastrointestinal: absent: Abdominal Pain, Nausea, Vomiting - Neurological Neurological: absent: Dizziness, Numbness, Weakness Critical Care Progress Note - Nutrition Nutrition: Nutrition Category Date Time Status NPO Diet [DIET] Diets 06/11/17 Breakfast Ordered Assessment/Plan - Assessment and Plan (Free Text) Assessment: 51 year old female with past medical history of DM, HTN, HLD presents with DKA and a-fib with rvr. Patients DKA resolved. Patient was extubated yesterday and improving clinically. Patient will be transferred to telemetry for monitoring. Plan: Neuro: AAOx3 extubated yesterday Thiamine CT head negative Cardio: Hemodynamically stable Maintain MAP >65 Pulm: Maintain O2 sat >90% GI: dyspaghia diet Protonix ENT consultation Nephro: Maintain euvolemia K repleted Replenish electrolytes as needed Akhtar catheter Endo: maintain euglycemia ISS Heme/ID: no leukocytosis afebrile continue abx Cultures negative at this time ID following Disposition: transfer to telemetry floor <Vipin Fontanez - Last Filed: 06/11/17 12:45> CCU Objective - Vital Signs / Intake & Output Vital Signs (Last 4 hours): Vital Signs Pulse Resp BP Pulse Ox 06/11/17 11:00 79 17 06/11/17 10:40 89 06/11/17 10:20 97 H 06/11/17 10:00 84 06/11/17 09:40 112 H 11 L 06/11/17 09:28 105 H 170/76 H 06/11/17 09:20 92 H 6 L 06/11/17 09:00 80 9 L 97 Intake and Output (Last 8hrs): Intake & Output 06/10/17 06/11/17 06/11/17 22:59 06:59 14:59 Intake Total 2190 1400 Output Total 1700 2500 Balance 490 -1100 Intake: IV 1790 1400 IVF 1200 IVPB 200 Right Upper arm 1790 Oral 400 Output: Urine 1700 2500 Urethral (Akhtar) 1700 2500 - Medications Active Medications: Active Medications Generic Name Dose Route Start Last Admin Trade Name Freq PRN Reason Stop Dose Admin Acetaminophen 650 mg 06/10/17 07:23 Tylenol 325mg Tab PO Q6H PRN Fever >100.4 F Aspirin 81 mg 06/05/17 10:00 06/11/17 09:28 Ecotrin PO 81 mg DAILY ALEJANDRINA Administration Enoxaparin Sodium 40 mg 06/07/17 10:00 06/11/17 09:29 Lovenox SC 40 mg DAILY ALEJANDRINA Administration Protocol Acyclovir 800 mg/ Sodium 100 mls @ 100 mls/hr 06/09/17 14:00 06/11/17 09:27 Chloride IV 100 mls/hr Q12 ALEJANDRINA Administration Protocol Meropenem 50 mls @ 100 mls/hr 06/10/17 13:54 06/11/17 09:28 Merrem Iv 1 Gm Premix IVPB 06/19/17 13:55 100 mls/hr Q12 ALEJANDRINA Administration Protocol Insulin Detemir 20 unit 06/08/17 20:00 06/11/17 08:47 Levemir SC 20 unit Q12H ALEJANDRINA Administration Insulin Human Lispro 0 units 06/10/17 22:00 06/11/17 11:49 Humalog Low SC 3 units ACHS ALEJANDRINA Administration Metoprolol Tartrate 25 mg 06/09/17 10:00 06/11/17 09:28 Lopressor PO 25 mg BID ALEJANDRINA Administration Pantoprazole Sodium 40 mg 06/08/17 10:00 06/11/17 09:32 Protonix Inj IVP Not Given DAILY [facility] Thiamine HCl 100 mg 06/08/17 10:00 06/11/17 09:29 Vitamin B1 Inj IV 100 mg DAILY ALEJANDRINA Administration Verapamil HCl 2.5 mg 06/06/17 09:22 06/06/17 11:46 Verapamil Inj IVP 2.5 mg Q6H PRN Administration for heart rate >130 Vitamin A 1 ea 06/09/17 10:16 Vitamin A & D Oint Ud Foilpak TOP DAILY PRN Dry skin - Patient Studies Lab Studies: Microbiology Studies 06/08/17 10:30 Gram Stain - Final Sputum Sputum Culture - Final No growth. 06/07/17 16:11 Blood Culture - Preliminary Blood-Venous NO GROWTH AFTER 3 DAYS 06/07/17 16:11 Blood Culture - Preliminary Blood-Venous NO GROWTH AFTER 3 DAYS 06/05/17 15:53 Blood Culture - Final Blood-Venous NO GROWTH AFTER 5 DAYS Gram Stain - Final TEST NOT PERFORMED 06/05/17 15:53 Blood Culture - Final Blood-Venous NO GROWTH AFTER 5 DAYS Gram Stain - Final TEST NOT PERFORMED 06/05/17 10:35 Blood Culture - Final Blood-Venous NO GROWTH AFTER 5 DAYS Gram Stain - Final TEST NOT PERFORMED 06/05/17 10:10 Blood Culture - Final Blood-Venous NO GROWTH AFTER 5 DAYS Gram Stain - Final TEST NOT PERFORMED Lab Studies 06/11/17 06/11/17 06/11/17 Range/Units 11:39 05:50 05:50 WBC 7.8 (4.5-11.0) 10^3/ul RBC 3.03 L (3.5-6.1) 10^6/uL Hgb 9.0 L (12.0-16.0) g/dL Hct 25.9 L (36.0-48.0) % MCV 85.5 (80.0-105.0) fl MCH 29.7 (25.0-35.0) pg MCHC 34.7 (31.0-37.0) g/dl RDW 14.9 H (11.5-14.5) % Plt Count 111 L (120.0-450.0) 10^3/uL MPV 10.8 (7.0-11.0) fl Gran % 58.1 (50.0-68.0) % Lymph % (Auto) 29.8 (22.0-35.0) % [place] % (Auto) 10.5 H (1.0-6.0) % Eos % (Auto) 1.2 L (1.5-5.0) % Baso % (Auto) 0.4 (0.0-3.0) % Gran # 4.54 (1.4-6.5) Lymph # (Auto) 2.3 (1.2-3.4) [place] # (Auto) 0.8 H (0.1-0.6) Eos # (Auto) 0.1 (0.0-0.7) Baso # (Auto) 0.03 (0.0-2.0) K/mm3 Sodium 145 (132-148) mmol/L Potassium 2.7 L* D (3.6-5.0) mmol/L Chloride 114 H (98-107) mmol/L Carbon Dioxide 22 (21-33) mmol/L Anion Gap 12 (10-20) BUN 23 H (7-21) mg/dL Creatinine 0.9 (0.7-1.2) mg/dl Est GFR ( Amer) > 60 Est GFR (Non-Af Amer) > 60 POC Glucose (mg/dL) 256 H (65-110) mg/dL Random Glucose 129 H (70-110) mg/dL Calcium 8.2 L (8.4-10.5) mg/dL Phosphorus 1.9 L (2.5-4.5) mg/dL Magnesium 1.8 (1.7-2.2) mg/dL Total Bilirubin (0.2-1.3) mg/dL AST (14-36) U/L ALT (7-56) U/L Alkaline Phosphatase (38-126) U/L Total Protein (5.8-8.3) g/dL Albumin (3.0-4.8) g/dL Globulin gm/dL Albumin/Globulin Ratio (1.1-1.8) 06/10/17 06/10/17 06/10/17 Range/Units 22:39 21:14 20:04 WBC (4.5-11.0) 10^3/ul RBC (3.5-6.1) 10^6/uL Hgb (12.0-16.0) g/dL Hct (36.0-48.0) % MCV (80.0-105.0) fl MCH (25.0-35.0) pg MCHC (31.0-37.0) g/dl RDW (11.5-14.5) % Plt Count (120.0-450.0) 10^3/uL MPV (7.0-11.0) fl Gran % (50.0-68.0) % Lymph % (Auto) (22.0-35.0) % [place] % (Auto) (1.0-6.0) % Eos % (Auto) (1.5-5.0) % Baso % (Auto) (0.0-3.0) % Gran # (1.4-6.5) Lymph # (Auto) (1.2-3.4) [place] # (Auto) (0.1-0.6) Eos # (Auto) (0.0-0.7) Baso # (Auto) (0.0-2.0) K/mm3 Sodium 155 H (132-148) mmol/L Potassium 3.4 L (3.6-5.0) mmol/L Chloride 121 H (98-107) mmol/L Carbon Dioxide 23 (21-33) mmol/L Anion Gap 14 (10-20) BUN 29 H (7-21) mg/dL Creatinine 1.2 (0.7-1.2) mg/dl Est GFR ( Amer) 57 Est GFR (Non-Af Amer) 47 POC Glucose (mg/dL) 164 H 197 H (65-110) mg/dL Random Glucose 192 H (70-110) mg/dL Calcium 9.5 (8.4-10.5) mg/dL Phosphorus (2.5-4.5) mg/dL Magnesium (1.7-2.2) mg/dL Total Bilirubin (0.2-1.3) mg/dL AST (14-36) U/L ALT (7-56) U/L Alkaline Phosphatase (38-126) U/L Total Protein (5.8-8.3) g/dL Albumin (3.0-4.8) g/dL Globulin gm/dL Albumin/Globulin Ratio (1.1-1.8) 06/10/17 06/10/17 Range/Units 16:40 16:01 WBC (4.5-11.0) 10^3/ul RBC (3.5-6.1) 10^6/uL Hgb (12.0-16.0) g/dL Hct (36.0-48.0) % MCV (80.0-105.0) fl MCH (25.0-35.0) pg MCHC (31.0-37.0) g/dl RDW (11.5-14.5) % Plt Count (120.0-450.0) 10^3/uL MPV (7.0-11.0) fl Gran % (50.0-68.0) % Lymph % (Auto) (22.0-35.0) % [place] % (Auto) (1.0-6.0) % Eos % (Auto) (1.5-5.0) % Baso % (Auto) (0.0-3.0) % Gran # (1.4-6.5) Lymph # (Auto) (1.2-3.4) [place] # (Auto) (0.1-0.6) Eos # (Auto) (0.0-0.7) Baso # (Auto) (0.0-2.0) K/mm3 Sodium 156 H* (132-148) mmol/L Potassium 2.9 L* (3.6-5.0) mmol/L Chloride 122 H (98-107) mmol/L Carbon Dioxide 23 (21-33) mmol/L Anion Gap 14 (10-20) BUN 31 H (7-21) mg/dL Creatinine 1.1 (0.7-1.2) mg/dl Est GFR ( Amer) > 60 Est GFR (Non-Af Amer) 52 POC Glucose (mg/dL) 143 H (65-110) mg/dL Random Glucose 141 H (70-110) mg/dL Calcium 9.4 (8.4-10.5) mg/dL Phosphorus (2.5-4.5) mg/dL Magnesium (1.7-2.2) mg/dL Total Bilirubin 0.6 (0.2-1.3) mg/dL AST 31 (14-36) U/L ALT 30 (7-56) U/L Alkaline Phosphatase 68 (38-126) U/L Total Protein 5.6 L (5.8-8.3) g/dL Albumin 3.0 (3.0-4.8) g/dL Globulin 2.6 gm/dL Albumin/Globulin Ratio 1.1 (1.1-1.8) Laboratory Results - last 24 hr 06/10/17 06/10/17 06/10/17 16:01 16:40 20:04 WBC RBC Hgb Hct MCV MCH MCHC RDW Plt Count MPV Gran % Lymph % (Auto) [place] % (Auto) Eos % (Auto) Baso % (Auto) Gran # Lymph # (Auto) [place] # (Auto) Eos # (Auto) Baso # (Auto) Sodium 156 H* Potassium 2.9 L* Chloride 122 H Carbon Dioxide 23 Anion Gap 14 BUN 31 H Creatinine 1.1 Est GFR ( Amer) > 60 Est GFR (Non-Af Amer) 52 POC Glucose (mg/dL) 143 H 197 H Random Glucose 141 H Calcium 9.4 Phosphorus Magnesium Total Bilirubin 0.6 AST 31 ALT 30 Alkaline Phosphatase 68 Total Protein 5.6 L Albumin 3.0 Globulin 2.6 Albumin/Globulin Ratio 1.1 06/10/17 06/10/17 06/11/17 21:14 22:39 05:50 WBC RBC Hgb Hct MCV MCH MCHC RDW Plt Count MPV Gran % Lymph % (Auto) [place] % (Auto) Eos % (Auto) Baso % (Auto) Gran # Lymph # (Auto) [place] # (Auto) Eos # (Auto) Baso # (Auto) Sodium 155 H 145 Potassium 3.4 L 2.7 L* D Chloride 121 H 114 H Carbon Dioxide 23 22 Anion Gap 14 12 BUN 29 H 23 H Creatinine 1.2 0.9 Est GFR ( Amer) 57 > 60 Est GFR (Non-Af Amer) 47 > 60 POC Glucose (mg/dL) 164 H Random Glucose 192 H 129 H Calcium 9.5 8.2 L Phosphorus 1.9 L Magnesium 1.8 Total Bilirubin AST ALT Alkaline Phosphatase Total Protein Albumin Globulin Albumin/Globulin Ratio 06/11/17 06/11/17 05:50 11:39 WBC 7.8 RBC 3.03 L Hgb 9.0 L Hct 25.9 L MCV 85.5 MCH 29.7 MCHC 34.7 RDW 14.9 H Plt Count 111 L MPV 10.8 Gran % 58.1 Lymph % (Auto) 29.8 [place] % (Auto) 10.5 H Eos % (Auto) 1.2 L Baso % (Auto) 0.4 Gran # 4.54 Lymph # (Auto) 2.3 [place] # (Auto) 0.8 H Eos # (Auto) 0.1 Baso # (Auto) 0.03 Sodium Potassium Chloride Carbon Dioxide Anion Gap BUN Creatinine Est GFR ( Amer) Est GFR (Non-Af Amer) POC Glucose (mg/dL) 256 H Random Glucose Calcium Phosphorus Magnesium Total Bilirubin AST ALT Alkaline Phosphatase Total Protein Albumin Globulin Albumin/Globulin Ratio Critical Care Progress Note - Nutrition Nutrition: Nutrition Category Date Time Status Dysphagia/Modified Consistency Diet [DIET] Diets 06/11/17 Lunch Ordered Assessment/Plan - Assessment and Plan (Free Text) Plan: Patient seen and examined on rounds with resident, agree with note with following additions/exceptions: Patient is 51yo female with PMHx of IDDM, morbid obesity s/p gastric sleeve surgery, a/w Afib and DKA with coma Currently afebrile, HD stable, comfortableon 2LNC Labs with closed AG, cultures thus far negative. ID following, on broad spectrum antibiotics. Neurology following. MRI brain negative Na corrected, off IVF. Tolerating PO diet. AMS DKA with coma, resolved Dehydration Recommend: - supp o2 as needed - Broad spectrum antibiotics as per ID - follow up cultures - follow up ID - BP control - DC IVF - Thiamine - follow up neuro - FS control - GI ppx - DVT ppx - stable, transfer to telemetry
[2017-06-11] MEDS ORDERED: Lidocaine 2% Jelly (30 ml) TOP ONE (09:18)
[2017-06-11] MEDS: Meropenem IV 1 gm in NS 50 ML IVPB SCH ×2 (09:28→21:54)
[2017-06-11] MEDS: Enoxaparin 40 mg Syringe SC SCH (09:29)
[2017-06-11] MEDS: Thiamine 100 mg/ml Inj IV SCH (09:29)
--- NOTE | 2017-06-11 10:41 | CP.PCM.PN ---
Subjective - Date & Time of Evaluation Date of Evaluation: 06/11/17 Time of Evaluation: 10:40 - Subjective Subjective: Nephrology Consultation Note Covering for Dr. Palafox Assessment: stable Acute Kidney Injury (N17.9) Resolved Diabetic ketoacidosis with coma Morbid obesity Acute respiratory failure Hypokalemia and hypernatremia Anemia and thrombocytopenia Plan No acute need for renal replacement therapy at this time. Renal function improved good urine output Hypertension control with meds as ordered. Patient not on ACEI/ARB due to recent AURE Monitor Input/Output, daily weights and renal function with basic metabolic panel Supplement potassium as ordered off IVF as pt with better oral intake. planned for calero removal today Dose meds/antibiotics for normal GFR. Glycemic control Further work up for as per primary team Thanks for allowing me to participate in care of your patient. Please call if any Qs. Discussed with family bedside Dr Morgan Kyle Office: [phone] Subjective: Noted events overnight. Patients Feels better Denies chest pain, palpitation, shortness of breath, leg swelling. Rest of the ROS was negative Physical Examination: General Appearance: Comfortable, in no acute respiratory distress, co-operative . better appearing Vitals reviewed and noted as below Head; Atraumatic, normocephalic ENT: no ulcers no thrush. Tongue is midline. Oropharynx: no rash or ulcers. EYES: Pupils are equal, round and reactive to light accommodation. Eye muscles and extraocular movement intact. Sclera is anicteric. Neck; supple no lymphadenopathy, no thyromegaly or bruit Lungs: Normal respiratory rate/effort. Breath sounds bilateral equal and clear Heart: Normal rate. s1s2 normal. No rub or gallop. Extremities: no edema. No varicose veins Neurological: Patient is awake and oriented to person, place and time. No focal deficit. Strength bilateral appropriate and equal Skin: Warm and dry. Normal turgor. No rash. Palpitation: Normal elasticity for age Abdomen: Abdomen is soft. Bowel sounds +. There is no abdominal tenderness, no guarding/rigidity no organomegaly Psych: normal insight and normal affect/mood MSK: no joint tenderness or swelling. Digits and nails normal, no deformity : kidney or bladder not palpable Labs/imaging reviewed. Past medical history, past surgical history, family history, social history, allergy reviewed and noted as below Family hx: no hx of CKD. Rest non-contributory Workup LVEF of 65-70% IVC compressibility more than 50% imaging has shown perinephric stranding Objective - Vital Signs/Intake and Output Vital Signs (last 24 hours): Temp Pulse Resp BP Pulse Ox 99 F 105 H 21 170/76 H 96 06/11/17 04:00 06/11/17 09:28 06/11/17 06:21 06/11/17 09:28 06/11/17 07:00 Intake and Output: 06/11/17 06/11/17 06:59 18:59 Intake Total 1400 Output Total 2500 Balance -1100 - Medications Medications: Current Medications Acetaminophen (Tylenol 325mg Tab) 650 mg PO Q6H PRN PRN Reason: Fever >100.4 F Aspirin (Ecotrin) 81 mg PO DAILY [facility] Last Admin: 06/11/17 09:28 Dose: 81 mg Enoxaparin Sodium (Lovenox) 40 mg SC DAILY ALEJANDRINA PRN Reason: Protocol Last Admin: 06/11/17 09:29 Dose: 40 mg Dexmedetomidine HCl (Precedex 400mcg/100ml) 400 mcg in 100 mls @ 5.071 mls/hr IV .[id number] PRN; Protocol; 0.2 MCG/KG/HR PRN Reason: Agitation Last Titration: 06/10/17 10:23 Dose: 0 mcg/kg/hr, 0 mls/hr Acyclovir 800 mg/ Sodium (Chloride) 100 mls @ 100 mls/hr IV Q12 ALEJANDRINA PRN Reason: Protocol Last Admin: 06/11/17 09:27 Dose: 100 mls/hr Meropenem (Merrem Iv 1 Gm Premix) 50 mls @ 100 mls/hr IVPB Q12 ALEJANDRINA PRN Reason: Protocol Stop: 06/19/17 13:55 Last Admin: 06/11/17 09:28 Dose: 100 mls/hr Potassium Chloride (Potassium Chloride 20 Meq/100 Ml) 20 meq in 100 mls @ 50 mls/hr IVPB Q2H ALEJANDRINA Stop: 06/11/17 11:14 Last Admin: 06/11/17 07:50 Dose: 50 mls/hr Potassium Chloride (Potassium Chloride 20 Meq/100 Ml) 20 meq in 100 mls @ 50 mls/hr IVPB ONCE ONE Stop: 06/11/17 11:06 Insulin Detemir (Levemir) 20 unit SC Q12H [facility] Last Admin: 06/11/17 08:47 Dose: 20 unit Insulin Human Lispro (Humalog Low) 0 units SC ACHS [facility] Last Admin: 06/11/17 07:48 Dose: Not Given Metoprolol Tartrate (Lopressor) 25 mg PO BID [facility] Last Admin: 06/11/17 09:28 Dose: 25 mg Pantoprazole Sodium (Protonix Inj) 40 mg IVP DAILY [facility] Last Admin: 06/11/17 09:32 Dose: Not Given Thiamine HCl (Vitamin B1 Inj) 100 mg IV DAILY [facility] Last Admin: 06/11/17 09:29 Dose: 100 mg Verapamil HCl (Verapamil Inj) 2.5 mg IVP Q6H PRN PRN Reason: for heart rate >130 Last Admin: 06/06/17 11:46 Dose: 2.5 mg Vitamin A (Vitamin A & D Oint Ud Foilpak) 1 ea TOP DAILY PRN PRN Reason: Dry skin - Labs Labs: 06/11/17 05:50 06/11/17 05:50 PT 10.9 SECONDS (9.4-12.5) 06/04/17 17:25 INR 0.96 (0.93-1.08) 06/04/17 17:25 APTT 32.2 Seconds (25.1-36.5) 06/04/17 17:25
--- NOTE | 2017-06-11 10:47 | PN ---
DATE: 06/11/2017 SUBJECTIVE: The patient is in bed, in no acute distress, nontoxic. PHYSICAL EXAMINATION: VITAL SIGNS: Temperature is 99, blood pressure is 160/60, respiratory rate of 21, and heart rate of 111. HEENT: Unremarkable. NECK: Supple. LUNGS: Have decreased breath sounds. HEART: Normal S1, S2. ABDOMEN: Soft, nontender. LABORATORY DATA: Reveals a white count of 7.8, hemoglobin of 9, and platelets of 111. BUN of 23, creatinine of 0.9. Urinalysis is noted and serology is noted. Microbiology reveals the blood cultures are negative. ASSESSMENT AND PLAN: This is a 51-year-old female who was seen earlier this morning, is awake and alert and now the patient is extubated and appears to be comfortable, with a history of SULFA ALLERGY, with status post respiratory failure, intubated, on a ventilator, now comfortable, extubated with systemic inflammatory response syndrome, new-onset of atrial fibrillation with diabetic ketoacidosis, acute encephalopathy, severe sepsis, healthcare-associated pneumonia versus central nervous system infection. Started on intermittent vancomycin, meropenem, and acyclovir. MRI of the head without contrast is negative. Blood cultures are negative. Urine cultures are negative. Currently, on meropenem, intermittent vancomycin, and acyclovir. We will follow closely with you. Teja Rice MD
--- NOTE | 2017-06-11 20:22 | PN ---
DATE: SUBJECTIVE: The patient is 51 years old seen and examined, sitting in chair, seems to be comfortable, complain of generalized aches and pain and generalized weakness. PHYSICAL EXAMINATION: VITAL SIGNS: She is afebrile, pulse 87, respirations 19, blood pressure 163/75. LUNGS: Bilateral good airflow. No rhonchi or crackles. HEART: S1, S2 audible. ABDOMEN: Soft, nontender. No rebound, no guarding. NEUROLOGIC: She is awake, alert and oriented, able to communicate. Bilateral legs, no edema. Generalized weakness and difficulty walking. LABORATORY DATA: WBC 7.8, hemoglobin 9, hematocrit 25.9, platelets of 111. Sodium 145, potassium 2.7 chloride 114, CO2 of 22, BUN 23, creatinine 0.9, phosphorus is 1.9.. ASSESSMENT: 1. Status post diabetic ketoacidosis. 2. Hypertension. 3. Status post gastric bypass. 4. Insulin-dependent diabetes. 5. History of hypertension. 6. Deconditioning and difficulty walking. 7. Hypokalemia. PLAN: We will supplement potassium, continue on IV antibiotics including meropenem, we will give Protonix. She is on vanco and acyclovir. Patient will be transferred to Telemetry and we will encourage ambulation. We will follow up this patient in a.m. Alphonse Nicholson MD
--- NOTE | 2017-06-12 05:42 | CON ---
DATE: SOCIAL SECURITY: [id number] HISTORY OF PRESENT ILLNESS: This is a 51-year-old female who was seen in the ICU in bed #5 secondary to dysphagia, seen after multiple intubations and extubations secondary to new onset of atrial fibrillation, and patient has had a significant of reflux and has had bariatric surgery over the last year. REVIEW OF SYSTEMS: CARDIOVASCULAR: As per Cardiology in and out of atrial fibrillation. RESPIRATORY: Noted cough, sensitive gag. GASTROINTESTINAL: With normal bowel movements. No nausea and vomiting at this time. NEUROLOGIC: Denies any type of dizziness or numbness. PHYSICAL EXAMINATION: VITAL SIGNS: 71, 21, 165/69, pulse ox 97% through 96%. Intake and out-take 2190 on 06/10, output 1700, balance 490. HEENT: Atraumatic, normocephalic. Pupils are positive of PERRLA. Extraocular muscles intact. Ears are normal. Mouth, moist mucosal membranes. Positive gag. Midline tongue. Nose atraumatic. LUNGS: Normal inspection of the external respiratory as seen on chest x-ray with noted small amount of atelectasis, but clear to auscultate. MEDICATIONS: Acetaminophen and aspirin, and a long list of medications involving both diabetes insulin and pain regimen. LABORATORY DATA: No growth on blood culture from microbiology, on 06/07/2017. WBC count was 7.8, red blood cells 3.03, hemoglobin 9.0; 85.5 MCV, MCH 29.7. BUN and creatinine 23 and 29 respectively. ASSESSMENT: A 51-year-old female with past medical history of diabetes and hypertension, presents for diabetic ketoacidosis and atrial fibrillation. After patient was extubated, improving significantly clinically, but is complaining of throat discomfort and some dysphagia. Dietary note greatly appreciated and seen as a dietary challenge noted and diet established per speech therapy. Direct laryngoscopy was done at bedside, non-complicated, very sensitive gag. Patent nose, small amount of blood was noted and very dry mucosal membrane, but moist in the posterior aspect. Visualization of the oropharynx up to the level of the hypopharynx noted to be normal. Vocal cord mobility was noted. Noted signs of reflux. Limited exam of the pyriform sinuses secondary to this patient's noncompliance, but laryngoscopy of the actual vocal cords noted epiglottic closure, patent, with good vocal cord mobility. PLAN: Plan is to continue advancing diet and patient will follow up as discussed as an outpatient to follow with a possible second laryngoscopy to depend upon path and course. Ranjan Heredia DO
[2017-06-12 07:11] LABS: BASO # 0.04 K/mm3 (0.0-2.0); BASO % 0.4 % (0.0-3.0); EOS # 0.3 (0.0-0.7); EOS % 3.1 % (1.5-5.0); GRAN # 4.98 (1.4-6.5); GRAN % 53.3 % (50.0-68.0); HEMOGLOBIN 9.8 g/dL (12.0-16.0); LYMPH # 3.2 (1.2-3.4); LYMPH % 33.8 % (22.0-35.0); MEAN CELL VOLUME 86.8 fl (80.0-105.0); MEAN CORPUSCULAR HEMOGLOBIN 30.1 pg (25.0-35.0); MEAN CORPUSCULAR HGB CONC 34.6 g/dl (31.0-37.0); MEAN PLATELET VOLUME 11.3 fl (7.0-11.0); MONO # 0.9 (0.1-0.6); MONO % 9.4 % (1.0-6.0); RBC 3.26 10^6/uL (3.5-6.1); RED CELL DISTRIBUTION WIDTH 14.9 % (11.5-14.5); WHITE BLOOD COUNT 9.4 10^3/ul (4.5-11.0)
[2017-06-12 07:26] LABS: BLOOD UREA NITROGEN 26 mg/dL (7-21); CALCIUM 9.7 mg/dL (8.4-10.5); GFR AFRICAN-AMERICAN > 60; GFR NON-AFRICAN AMERICAN 58
[2017-06-12] MEDS: Insulin Lispro (humaLOG) LOW Coverage SC SCH ×3 (08:06→18:53)
[2017-06-12] MEDS: Insulin Detemir 100 units/ml Vial (Levemir) SC SCH (08:06)
--- NOTE | 2017-06-12 09:10 | PN ---
DATE: ENDOCRINOLOGY FOLLOWUP NOTE LOCATION: In ICU, . This is a 51-year-old female with recent uncontrolled type 2 insulin-requiring diabetes, presenting here with severe diabetic ketoacidosis and dehydration and hypernatremia and developed supervening acute respiratory failure, currently endotracheally intubated as noted thereof. She remains hemodynamically stable at this time. Her glucose levels overnight have improved and have ranged from 143-129 and 164 mg/dL. Her latest chemistries showed a BUN of 23, sodium 145, potassium 2.7, chloride 114, CO2 of 22, glucose 129 and creatinine of 0.9. Her hypernatremia has finally resolved as noted, but continues to have marked hypokalemia as noted thereof. Ongoing potassium supplementation is being given at this time. We will continue also the same basal insulin given as Levemir at 20 units every 12 hours at 10:00 a.m. and 10:00 p.m. daily as given. We will continue also the low-dose correction scale using Humalog insulin as given. We will titrate incrementally as indicated to optimize metabolic control. We will follow and advise accordingly. Kaleigh Jack MD
[2017-06-12] MEDS: Enoxaparin 40 mg Syringe SC SCH (09:15)
[2017-06-12] MEDS: Thiamine 100 mg/ml Inj IV SCH (09:16)
[2017-06-12] MEDS: Meropenem IV 1 gm in NS 50 ML IVPB SCH (09:18)
[2017-06-12] MEDS ORDERED: Potassium & Sodium Phosphate PO STA (12:33)
[2017-06-12] MEDS: Potassium & Sodium Phosphate PO SCH ×2 (14:21→18:52)
--- NOTE | 2017-06-12 15:12 | CON ---
DATE: 06/09/2017 CONSULTATION CHIEF COMPLAINT: Shortness of breath. HISTORY OF PRESENT ILLNESS: This is a 51-year-old female who is seen in the Intensive Care Unit at [facility]. The patient was admitted initially for worsening shortness of breath. She had one episode of nausea or vomiting. She had a recent gastric sleeve done about 2 months ago at [facility]. She has been losing weight and she has not been eating well recently given the surgery. The patient's hospital course deteriorated. She was found to have new onset atrial fibrillation and eventually developed respiratory failure. She was intubated and is now seen in the ICU where she remains intubated and poorly responsive. Initially a CT scan had been done, which showed some streakiness around her kidneys and a consultation was called for possible pyelonephritis. PAST MEDICAL HISTORY: Significant for type 2 diabetes, dyslipidemia, hypertension, recent gastric sleeve surgery. MEDICATIONS: Currently Include acyclovir, verapamil, Ecotrin, Humalog, Levemir, Lopressor, Lovenox, meropenem, morphine, Precedex, Protonix, and thiamine. ALLERGIES: INCLUDE SULFA ANTIBIOTICS. FAMILY HISTORY: Noncontributory to this admission. SOCIAL HISTORY: No smoking or EtOH. REVIEW OF SYSTEMS: As per the HPI. The patient is intubated and not responding, unable to answer questions. PHYSICAL EXAMINATION: GENERAL: The patient is intubated in the ICU, nonresponsive to questions. VITAL SIGNS: By nursing report, she has been afebrile. She had a blood pressure of 160/90, pulse of 60, respirations appear 20, intubated. NECK: No adenopathy or rigidity noted. CHEST: The patient is intubated. There are some rhonchi. Mechanical breath sounds noted. CARDIAC: An irregular rhythm. ABDOMEN: Obese, soft. There is no apparent rigidity. The patient is somewhat responsive to touch and appears to be in no tenderness or guarding. : There is a Akhtar catheter in place draining clear colored urine. LABORATORY EXAM: WBC count has come down to 6.5, high of 23 on 06/05/2017, creatinine 1.3 with a GFR of 43. GFR has been fluctuating. Blood culture showed no growth. Urine culture no growth from 06/05/2017. Urinalysis showed 15 to 20 rbc's, 0 to 2 wbc's, negative nitrates from 06/05/2017. On imaging, the patient had an abdominopelvic CT on 06/06/2017, which showed some perinephric stranding and fluid bilaterally. There was no evidence of hydronephrosis. Findings could suggest pyelonephritis. IMPRESSION AND PLAN: The patient is a critically ill 51-year-old female, intubated in the ICU. Urologically, the patient does not have pyelonephritis. Her urine cultures were negative. Pyelonephritis is not a radiographic diagnosis. Some streakiness around the kidneys, likely from recent gastric sleeve surgery. The patient is being seen by ID and receiving IV antibiotics. Her blood cultures and urine cultures were negative. Urologically, not much to add at this point. Continue supportive care regarding her respiratory failure and what appears to be acute kidney injury. The patient is being seen by Nephrology as well as Cardiology and other medical specialty services. I will sign off for now. Please reconsult as needed. Jarad Nobles MD
--- NOTE | 2017-06-12 20:29 | CP.PCM.PN ---
Subjective - Date & Time of Evaluation Date of Evaluation: 06/12/17 Time of Evaluation: 12:30 - Subjective Subjective: Comfortable in bed, more awake today, no fevers. Objective - Vital Signs/Intake and Output Vital Signs (last 24 hours): Temp Pulse Resp BP Pulse Ox 97.9 F 70 19 162/60 H 97 06/12/17 06:37 06/12/17 06:37 06/12/17 06:37 06/12/17 06:37 06/11/17 09:00 Intake and Output: 06/12/17 06/12/17 06:59 18:59 Intake Total 345 Output Total 1900 Balance -1555 - Medications Medications: Current Medications Acetaminophen (Tylenol 325mg Tab) 650 mg PO Q6H PRN PRN Reason: Fever >100.4 F Aspirin (Ecotrin) 81 mg PO DAILY [facility] Last Admin: 06/11/17 09:28 Dose: 81 mg Enoxaparin Sodium (Lovenox) 40 mg SC DAILY ALEJANDRINA PRN Reason: Protocol Last Admin: 06/11/17 09:29 Dose: 40 mg Acyclovir 800 mg/ Sodium (Chloride) 100 mls @ 100 mls/hr IV Q12 ALEJANDRINA PRN Reason: Protocol Last Admin: 06/11/17 21:04 Dose: 100 mls/hr Meropenem (Merrem Iv 1 Gm Premix) 50 mls @ 100 mls/hr IVPB Q12 ALEJANDRINA PRN Reason: Protocol Stop: 06/19/17 13:55 Last Admin: 06/11/17 21:54 Dose: 100 mls/hr Insulin Detemir (Levemir) 20 unit SC Q12H [facility] Last Admin: 06/12/17 08:06 Dose: 20 unit Insulin Human Lispro (Humalog Low) 0 units SC ACHS [facility] Last Admin: 06/12/17 08:06 Dose: 1 units Metoprolol Tartrate (Lopressor) 25 mg PO BID [facility] Last Admin: 06/11/17 17:58 Dose: 25 mg Pantoprazole Sodium (Protonix Inj) 40 mg IVP DAILY [facility] Last Admin: 06/11/17 09:32 Dose: Not Given Thiamine HCl (Vitamin B1 Inj) 100 mg IV DAILY [facility] Last Admin: 06/11/17 09:29 Dose: 100 mg Verapamil HCl (Verapamil Inj) 2.5 mg IVP Q6H PRN PRN Reason: for heart rate >130 Last Admin: 06/06/17 11:46 Dose: 2.5 mg Vitamin A (Vitamin A & D Oint Ud Foilpak) 1 ea TOP DAILY PRN PRN Reason: Dry skin - Labs Labs: 06/12/17 06:30 06/12/17 06:30 PT 10.9 SECONDS (9.4-12.5) 06/04/17 17:25 INR 0.96 (0.93-1.08) 06/04/17 17:25 APTT 32.2 Seconds (25.1-36.5) 06/04/17 17:25 - Constitutional Appears: Chronically Ill - Head Exam Head Exam: NORMAL INSPECTION - ENT Exam ENT Exam: Mucous Membranes Moist - Neck Exam Neck Exam: absent: Meningismus - Respiratory Exam Respiratory Exam: Decreased Breath Sounds - Cardiovascular Exam Cardiovascular Exam: +S1, +S2 - GI/Abdominal Exam GI & Abdominal Exam: Soft. absent: Tenderness Assessment and Plan - Assessment and Plan (Free Text) Plan: Assessment Systemic Inflammatory Response syndrome, consider acute stress reaction to new onset Atrial fibrillation, S/P DKA S/P VDRF S/P acute encephalopathy consider metabolic in etiology R/O sepsis from HCAP R/O FINGERNAIL SCULPTURER infection DM dyslipidemia HTN obesity with BMI 36 S/P gastric sleeve surgery Plan continue Merrem day 6; cultures have been negative but we are awaiting sputum cx ; PCT is 0.37; reviewed CT chest and repeat CXR ;also on IV acyclovir (day 5) - complete 7 days of therapy brain MRI without contrast is negative will continue to monitor clinically
--- NOTE | 2017-06-12 20:53 | PN ---
DATE: 06/12/2017 SUBJECTIVE: The patient is seen sitting in bed. She is awake. She is alert. She is comfortable. She denies any abdominal pain, nausea or vomiting. She denies any shortness of breath. PHYSICAL EXAMINATION: GENERAL: Middle-aged lady sitting in bed. VITAL SIGNS: Blood pressure 161/73, heart rate 82, respiratory rate 18, temperature 97.9. HEENT: Normocephalic, atraumatic. NECK: Supple, no JVD. LUNGS: Bilateral equal air entry, bilateral equal expansion. CARDIAC: S1, S2, regular rate and rhythm, no murmur, no rub. ABDOMEN: Obese, distended, soft, nontender, bowel sounds present. EXTREMITIES: No lower extremity edema. INTAKE AND OUTPUT: 1715/3800. LABORATORY DATA: WBC 9.4, hemoglobin 9.8, hematocrit 28, platelets 129. Sodium 152, potassium 3.2, chloride 117, CO2 of 29, BUN 26, creatinine 1.0, calcium 9.7, phosphorus 2.1, magnesium 2.1, glucose 153. Cultures no growth. CURRENT MEDICATIONS: Insulin, Lopressor 25 b.i.d., Merrem 1 gm every 12 hours, Neutra-Phos, Protonix, Tylenol, verapamil 2.5 IV every 6 hours p.r.n., thiamine, acyclovir 800 every 12 hours, aspirin, Lovenox,and potassium 10 mEq two bags given. ASSESSMENT: 1. Acute kidney injury, resolved. 2. Severe hypokalemia. 3. Hypophosphatemia. 4. Hypernatremia. 5. Anemia. 6. Thrombocytopenia. 7. Status post diabetic ketoacidosis with coma. 8. Uncontrolled hypertension. PLAN: 1. Replace potassium aggressively, two more riders 20 mEq x2. 2. Continue Neutra-Phos, 1 packet b.i.d. 3. Push p.o. free fluids. 4. Restart ARB, the patient was on Micardis 80 mg daily at home. 5. Okay to restart Glucophage if okay with Endocrinology. 6. ? Discontinue antibiotics. 7. Monitor electrolytes closely. Olivia Moreno MD [facility] # [id number]
--- NOTE | 2017-06-12 22:14 | PN ---
DATE: ENDOCRINOLOGY FOLLOWUP NOTE LOCATION: In room 570. SUBJECTIVE: This is a 51-year-old female presenting here with rapid atrial fibrillation and also recent onset of uncontrolled type 2 insulin-requiring diabetes with supervening diabetic ketoacidosis and developed acute respiratory failure and is now being followed closely for metabolic management. Her glycemic levels are fluctuating but improved, and the glucose values today have ranged from 169-172 and 205 mg/dL. Her latest chemistry showed a BUN of 26, sodium 152, potassium 3.2, chloride 117, CO2 of 29, glucose 153 and creatinine 1.0. So at this time, we will continue the basal insulin given as Levemir at 20 units subcu every 12 hours at 10:00 a.m. and 10:00 p.m. daily as given. We will continue also the low-dose correction scale using Humalog insulin as given. She has ongoing enteral tube feedings which will optimize her caloric and protein requirements as noted. We will obtain serial chemistries and supplement accordingly as needed. We will follow with you. Kaleigh Jack MD
--- NOTE | 2017-06-12 23:13 | CON ---
DATE: 06/12/2017 REASON FOR THE CONSULTATION AND FOLLOWUP: Atrial fibrillation converted to normal sinus, status post intubated, successfully extubated, sepsis, status post gastric bypass surgery. The patient has a normal sinus, extubated. Awaiting to go to the medical surgical floor. SUBJECTIVE: The patient denies any chest pain, shortness of breath, or any palpitations. OBJECTIVE: GENERAL: Not in apparent any distress, lying flat, wanted to go home and wanted to be transferred out to the medical surgical floor. Currently, is in ICU 128, bed 5. VITAL SIGNS: Temperature afebrile, heart rate 82, blood pressure 162/60. HEENT: PERRLA. Extraocular muscles are intact. NECK: Supple. No carotid bruits or thyromegaly. CHEST: Clear to auscultation. HEART: S1 and S2, regular. ABDOMEN: Soft. EXTREMITIES: Clubbing and cyanosis negative. DIAGNOSTIC DATA: Blood workup as follows; WBC 9.4, hemoglobin 9.8, hematocrit 28.3, platelet count 129. Chemistry shows sodium 152, potassium 3.2, chloride 116, carbon dioxide 29, anion gap of 10, BUN 26, creatinine 1. Calcium 9.7, magnesium 2.1, phosphorus 2.1. IMPRESSION: Hypernatremia, hypokalemia, hypophosphatemia, hypoalbuminemia, protein-calorie malnutrition - improved, status post respiratory failure - intubated, successfully extubated, sepsis - status post gastric sleeve surgery in March 2017, possibly pyelonephritis successively to the diabetic ketoacidosis, intubated and very unstable, now successively improved, hypertension, insulin dependent diabetes, history of hypertension, deconditioning of the body. RECOMMENDATION: Aggressively supplement potassium and phosphate. Okay to transfer to medical surgical floor. Further recommendation per the hospital course. We will follow with you. Aggressively control the blood pressure. Thank you Dr. Nicholson for providing us the opportunity in taking Beronica Nata. Maynor Tran MD
[2017-06-13] MEDS: Insulin Lispro (humaLOG) LOW Coverage SC SCH ×4 (03:53→16:16)
[2017-06-13 07:24] LABS: BASO # 0.02 K/mm3 (0.0-2.0); BASO % 0.2 % (0.0-3.0); EOS # 0.4 (0.0-0.7); EOS % 4.3 % (1.5-5.0); GRAN # 3.9 (1.4-6.5); GRAN % 47.1 % (50.0-68.0); HEMOGLOBIN 9.2 g/dL (12.0-16.0); LYMPH # 3.1 (1.2-3.4); LYMPH % 37.1 % (22.0-35.0); MEAN CELL VOLUME 88.6 fl (80.0-105.0); MEAN CORPUSCULAR HEMOGLOBIN 29.9 pg (25.0-35.0); MEAN CORPUSCULAR HGB CONC 33.7 g/dl (31.0-37.0); MEAN PLATELET VOLUME 11.2 fl (7.0-11.0); MONO # 0.9 (0.1-0.6); MONO % 11.3 % (1.0-6.0); RBC 3.08 10^6/uL (3.5-6.1); RED CELL DISTRIBUTION WIDTH 14.9 % (11.5-14.5); WHITE BLOOD COUNT 8.3 10^3/ul (4.5-11.0)
[2017-06-13] MEDS ORDERED: Pantoprazole 40 mg EC Tab PO SCH (07:30)
[2017-06-13 07:46] LABS: BLOOD UREA NITROGEN 24 mg/dL (7-21); CALCIUM 9.3 mg/dL (8.4-10.5); GFR AFRICAN-AMERICAN > 60; GFR NON-AFRICAN AMERICAN 58
[2017-06-13] MEDS: Insulin Detemir 100 units/ml Vial (Levemir) SC SCH (08:20)
[2017-06-13] MEDS: Meropenem IV 1 gm in NS 50 ML IVPB SCH (09:50)
[2017-06-13] MEDS: Thiamine 100 mg/ml Inj IV SCH (09:50)
[2017-06-13] MEDS: Potassium & Sodium Phosphate PO SCH ×2 (09:50→14:19)
[2017-06-13] MEDS ORDERED: Potassium Chloride 20 mEq ER Tab PO ONE (10:50)
--- NOTE | 2017-06-13 11:39 | DS ---
HISTORY OF PRESENT ILLNESS: The patient is a 61-year-old who seen and examined, sitting in chair, enjoying her lunch, desperately wants to go home. She states that she does not want to stay here anymore. She wants to take shower in her own bathroom and will rest at home. Denies any nausea or vomiting. PHYSICAL EXAMINATION: VITAL SIGNS: She is afebrile. Pulse 70, respirations 19, blood pressure 116/73. LUNGS: Bilateral fair airflow. No rhonchi or crackles. HEART: S1, S2 audible. ABDOMEN: Soft, nontender. No rebound, no guarding. NEUROLOGIC: The patient is awake, alert and oriented, communicative. LABORATORY DATA: WBC is 9.4, hemoglobin 9.8, hematocrit 28.3, platelets are 129. Chemistry, sodium 152, potassium 3.2, chloride 117, CO2 of 29, BUN of 26, creatinine 1, blood sugar of 169. Hepatitis profile is negative. Urine tox is negative. ASSESSMENT AND PLAN: 1. Diabetic ketoacidosis. 2. Respiratory failure. 3. Toxic metabolic encephalopathy. 4. Electrolyte imbalance. 5. Hypokalemia that will be supplemented. The patient is more ambulatory. We will discontinue Lovenox. Potassium has been supplemented. If it is okay with ID, the patient will discontinue IV antibiotics and make a discharge plan. I discussed with her who was sitting by the bedside. The patient must be seen by band leader this week, and in the meantime, she can use insulin as a sliding scale and will be followed with PMD. Alphonse Nicholson MD
--- NOTE | 2017-06-13 14:20 | PN ---
DATE: SUBJECTIVE: The patient is currently seen on 5R. She is sitting in a chair. She is conversing. She appears to be back to baseline. Her metabolic acidosis has completely cleared. Her renal parameters are back to normal. She still remains mildly hypokalemic and continues to receive potassium and phosphorus supplements. MEDICATIONS: Medication list reviewed. The patient is currently on acyclovir; losartan, insulin, short-acting and long-acting; Lopressor; meropenem; Neutra-Phos; Protonix; Tylenol p.r.n.; vitamin A and D vitamin foil pack and vitamin B1 injection therapy. OBJECTIVE: INTAKE/OUTPUT: Intake is 1715, output 3800. VITAL SIGNS: Blood pressure 137/63, temperature 98.3, respiratory rate 16 with a pulse of 81. HEENT: Normocephalic, atraumatic. Conjunctivae are pale. Sclerae are nonicteric. NECK: Supple. No neck vein distention. CHEST: Clear to auscultation and percussion. No rales, rhonchi or wheezing.\ CARDIOVASCULAR: Shows a regular rate and rhythm with a soft systolic murmur, left lower sternal border. No S3, no S4, no rub. MR/TR on echocardiogram. ABDOMEN: Mildly obese. Bowel sounds normal. No rebound, guarding or masses. EXTREMITIES: Show no cyanosis, no clubbing or edema of her lower extremity. NEUROLOGIC: Shows her to be alert, oriented and back to baseline. LABORATORY DATA AND IMAGING: CBC: White blood cell count is 8.3, hemoglobin 9.2 with a platelet count of 134,000. Chemistries showed BUN of 24 with a creatinine of 1.0 that is back to baseline. Sodium 148, potassium 3.4, chloride 111, CO2 of 29. Glucose 186. Calcium 9.3, phosphorus 2.5. Improving with a magnesium level of 2.0. Microbiology: All cultures were negative to date. Blood cultures negative. Urine cultures negative. ASSESSMENT: 1. Status post acute renal failure. The patient has no past history of chronic kidney disease. The patient's CT scan of the kidneys showed perinephric stranding, but no evidence clinically for pyelonephritis. Her urine cultures were negative and she had no significant pyuria. 2. Status post severe anion gap metabolic acidosis. Only identifiable cause was diabetic ketoacidosis. The patient was treated appropriately and her diabetic ketoacidosis has resolved and with bicarbonate supplements, her acidosis has resolved. 3. Hypokalemia, hypophosphatemia. The patient will continue potassium and phosphorus supplements. 4. History of dok-[id number]-[id number] diabetes mellitus, currently on insulin therapy. The patient will be followed in the hospital closely by Dr. Valera and when she gets into the outpatient setting, she will follow with Dr. Pérez, her health clinician. 5. History of hypertension. Blood pressure control is acceptable. The patient remains on losartan therapy. 6. Past history of atrial fibrillation. She appears to be in normal sinus rhythm at present. 7. History of hyperlipidemia. 8. History of obesity, status post 70-pound weight loss since 2018 status post gastric sleeve procedure. PLAN: 1. Continue to monitor labs on a regular basis. 2. At present, the patient will continue on insulin therapy, but I would have no objection to her going back on oral therapy in addition to insulin therapy. 3. When she gets into the outpatient setting, Micardis is a more longer acting angiotensin receptor luke than losartan and she could be switched back to her medication. 4. Continue potassium and phosphorus supplements. 5. Complete her course of acyclovir therapy and meropenem. All cultures were negative. The patient is improved from a renal standpoint and we will continue to monitor her electrolytes and chemistries during the hospital stay. Chay Palafox MD
[2017-06-13 15:19] VITALS: BP 141/70; PULSE 99; RESP 18; TEMP 97.8; O2SAT 99
--- NOTE | 2017-06-13 15:37 | PN ---
DATE: REASON FOR CONSULTATION AND FOLLOWUP: Atrial fibrillation converted to normal sinus. SUBJECTIVE: She is status post successfully extubated, sepsis with septic syndrome, SIRS, status post gastric bypass with sleeve, altered mental status now improved. Feeling that she wanted to go home. OBJECTIVE GENERAL: Not in apparent distress. VITAL SIGNS: Temperature afebrile, heart rate 81, and blood pressure 137/63. HEENT: PERRLA. Extraocular muscles are intact. NECK: Supple. No carotid bruits or thyromegaly. CHEST: Clear to auscultation. HEART: S1 and S2, regular. ABDOMEN: Soft. EXTREMITIES: Clubbing and cyanosis negative. LABORATORY DATA: Blood workup as follows: WBC 8.3, hemoglobin 9.8, hematocrit 27.3, and platelet count 134. Chemistry shows sodium 140, potassium 3.4, chloride 111, carbon dioxide 29, anion gap of 11. BUN 24 and creatinine 1. IMPRESSION: Hypokalemia, hypophosphatemia, hypoalbuminemia, and protein-calorie malnutrition improving. Status post respiratory failure, intubated and successfully extubated; sepsis syndrome; status post gastric bypass in 03/2017; possible pyelonephritis; and diabetic ketoacidosis possibly secondary to underlying sepsis. Now, the patient is improved, mentation improved, and waiting to be discharged. Interim, continue metoprolol 25 mg daily. Continue losartan 100 mg daily. Supplement electrolytes. We will give one dose of . The patient is cleared from a cardiac point of view to be discharged. The patient had an echocardiography done on 06/06/2017, during this admission that showed normal chamber size with ejection fraction 65% to 70%, trace mitral regurgitation, trace tricuspid regurgitation, and right ventricular systolic pressure 48. We will follow with you. Thank you, Dr. Nicholson for providing us the opportunity in taking care of the patient, Nata Loco. Maynor Tran MD
--- NOTE | 2017-06-13 15:58 | PN ---
DATE: ENDOCRINOLOGY FOLLOWUP NOTE LOCATION: Room 570. SUBJECTIVE: This is a 51-year-old female with recent uncontrolled type 2 insulin-requiring diabetes with supervening acute respiratory failure and currently remaining endotracheally intubated at this time and is now being followed closely for metabolic management. Her glycemic levels are fluctuating but improved and the glucose values have ranged from 169 to 242 mg/dL. Her latest chemistry showed a BUN of 24, sodium 148, potassium 3.4, chloride 111, CO2 of 29, glucose 186, and creatinine 1. So, at this time, we will continue the same basal insulin given as Levemir at 20 units subcu every 12 hours at 10:00 a.m. and 10:00 p.m. daily as given. We will titrate incrementally as indicated to optimize metabolic control. We will follow and advise accordingly. Kaleigh Jack MD
--- NOTE | 2017-06-13 20:22 | PN ---
DATE: 06/13/2017 SUBJECTIVE: Patient is in bed, in no acute distress, was seen early this morning in room 570, bed 2. OBJECTIVE: VITAL SIGNS: Temperature is 97, blood pressure is 140/70, respiratory rate of 18. HEENT: Unremarkable. NECK: Supple. LUNGS: Have decreased breath sounds. HEART: Normal S1, S2. ABDOMEN: Soft, nontender. LABORATORY EXAMINATION: Reveals a white count of 8.3, hemoglobin of 9.2, platelets of 134. Chemistries reveal a BUN of 24, creatinine of 1.0. Urinalysis is unremarkable and vanco random level is 12. Serology is negative. Microbiology reveals the cultures have been negative. ASSESSMENT AND PLAN: A 51-year-old female seen early this morning in 570, bed 2, with systemic inflammatory response syndrome, acute stress reaction, new onset of atrial fibrillation, status post diabetic ketoacidosis, status post vent dependent respiratory failure, acute encephalopathy with hypertension, diabetes, dyslipidemia, obesity, and the patient had completed 7 days of meropenem and acyclovir. All cultures on workup are negative. The patient is awake and alert and doing well. Teja Rice MD
--- NOTE | 2017-06-14 14:56 | DS ---
HISTORY OF PRESENT ILLNESS: The patient is a 51-year-old, the patient of Dr. Rodriguez, who came to Emergency Room because of altered mental status. According to her , she had not been feeling well for the last few days. Patient underwent gastric bypass in 03/24. Since then, she assumed since she is losing weight, she does not need to be on sugar medication. She was started on Invokana but she stopped taking it, but prior to getting sick, her blood sugar was running high, but she did not take her medication. There was no history of fever, chills. No nausea, vomiting or diarrhea; however, the patient came in with altered mental status and she was found to be in DKA. Upon admission, her sodium was 145, potassium was 6.3, bicarbonate was 18, BUN was 33, creatinine 1.6 and blood sugar of 661. Patient was admitted in ICU. She was started on IV drip, IV insulin. Her bicarbonate became less than 5. Patient was somnolent. To protect her airway, she was intubated. She has been on respirator. She was resuscitated with IV insulin, IV fluid. Her electrolytes was supplemented two days ago. Patient was successfully extubated and mental status improved and she was started on clear liquids that she tolerated and now because of being on respirator and has developed generalized weakness, being transferred to TCU for rehab. PHYSICAL EXAMINATION GENERAL: On examination today, she is awake, alert, oriented, communicative. VITAL SIGNS: She is afebrile, pulse 99, respirations 18, blood pressure 141/70. LUNGS: Bilateral good airflow. No rhonchi or crackle. HEART: S1, S2 audible. ABDOMEN: Soft, nontender. No rebound, no guarding. NEUROLOGIC: Patient is awake, alert, oriented, able to communicate. LABORATORY DATA: WBC is 8.3, hemoglobin 9.2, hematocrit 27.3, platelet of 134,000. Chemistry: Sodium 148, potassium 3.4, chloride 111, CO2 29, BUN 24, creatinine 1, blood sugar of 185. ASSESSMENT 1. Status post diabetic ketoacidosis. 2. Status post respiratory failure. 3. History of hypertension. 4. Insulin-dependent diabetes. PLAN: The patient is being transferred to TCU. We will follow up. Patient will monitor her blood sugars. Alphonse Nicholson MD [facility] # [id number]
== END 2017-06-13 16:31 | DRG 871 ==
LOC: ED 17:05 → ERH 18:12 → 3RSO 22:44 → ICU 06-06 11:16 → 5RSO 06-12 10:03
PROVIDERS: ADMIT Internal Medicine Nephrology; ATTEND Internal Medicine
PROC: 05HY33Z Insertion of Infusion Device into Upper Vein, Percutaneous Approach (ICD-10-PCS; 2017-06-06)
PROC: B54MZZA Ultrasonography of Right Upper Extremity Veins, Guidance (ICD-10-PCS; 2017-06-06)
PROC: 0BH17EZ Insertion of Endotracheal Airway into Trachea, Via Natural or Artificial Opening (ICD-10-PCS; principal; 2017-06-07)
PROC: 5A1945Z Respiratory Ventilation, 24-96 Consecutive Hours (ICD-10-PCS; 2017-06-07)
DX: A41.9 Sepsis, unspecified organism (principal); E11.11 Type 2 diabetes mellitus with ketoacidosis with coma; J96.00 Acute respiratory failure, unspecified whether with hypoxia or hypercapnia; G92 Toxic encephalopathy; N17.9 Acute kidney failure, unspecified; E46 Unspecified protein-calorie malnutrition; E87.0 Hyperosmolality and hypernatremia; E87.1 Hypo-osmolality and hyponatremia; D69.6 Thrombocytopenia, unspecified; R13.10 Dysphagia, unspecified; I48.91 Unspecified atrial fibrillation; N18.9 Chronic kidney disease, unspecified; I12.9 Hypertensive chronic kidney disease with stage 1 through stage 4 chronic kidney disease, or unspecified chronic kidney disease; D64.9 Anemia, unspecified; E66.01 Morbid (severe) obesity due to excess calories; E78.5 Hyperlipidemia, unspecified; E83.39 Other disorders of phosphorus metabolism; E86.0 Dehydration; E87.6 Hypokalemia; E88.81 Metabolic syndrome and other insulin resistance; F43.0 Acute stress reaction; K21.9 Gastro-esophageal reflux disease without esophagitis; Z68.36 Body mass index [BMI] 36.0-36.9, adult; Z79.4 Long term (current) use of insulin; Z79.899 Other long term (current) drug therapy; Z87.891 Personal history of nicotine dependence; Z88.2 Allergy status to sulfonamides; Z91.19 Patient's noncompliance with other medical treatment and regimen; Z98.84 Bariatric surgery status; R40.2412 Glasgow coma scale score 13-15, at arrival to emergency department; I44.0 Atrioventricular block, first degree

== ENCOUNTER 2017-06-13 16:31 | Inpatient (IN) | payer BC ==
[2017-06-13 18:00] VITALS: RESP 18
[2017-06-13 18:19] VITALS: BMI 36.6
[2017-06-13] MEDS ORDERED: Vitamins A & D Oint UD Foilpak TOP PRN (18:20)
[2017-06-13] MEDS ORDERED: Insulin Detemir 100 units/ml Vial (Levemir) SC SCH (18:30)
[2017-06-13] MEDS ORDERED: Insulin Lispro (humaLOG) LOW Coverage SC SCH (22:00)
[2017-06-14] MEDS: Pantoprazole 40 mg EC Tab PO SCH (06:32)
[2017-06-14] MEDS: Insulin Lispro 1 UNITS/0.01 ML SC SCH ×3 (06:32→17:20)
[2017-06-14] MEDS: Insulin Lispro (humaLOG) LOW Coverage SC SCH ×4 (06:33→21:49)
[2017-06-14] MEDS ORDERED: Pantoprazole 40 mg EC Tab PO SCH (07:30)
[2017-06-14 07:39] LABS: ALB/GLOB RATIO 1.3 (1.1-1.8); ALBUMIN 3.2 g/dL (3.0-4.8); ALT/SGPT 34 U/L (7-56); AST/SGOT 35 U/L (14-36); BLOOD UREA NITROGEN 22 mg/dL (7-21); CALCIUM 9.4 mg/dL (8.4-10.5); GFR AFRICAN-AMERICAN > 60; GFR NON-AFRICAN AMERICAN 58
--- NOTE | 2017-06-14 08:22 | PN ---
DATE: 06/13/2017 ENDOCRINOLOGY FOLLOWUP NOTE LOCATION: Room 319, U. SUBJECTIVE: This is a 51-year-old female with recent uncontrolled type 2 insulin-requiring diabetes, presenting with diabetic ketoacidosis and dehydration and supervening acute respiratory failure and was not followed very closely in the ICU for hemodynamic and metabolic management and has since then improved clinically and hemodynamically and has been successfully extubated at this time and transferred now to TCU for marked deconditioning and initiation of physical and occupational therapy as noted. She is being referred now for diabetic evaluation and management. Her glycemic levels are fluctuating, but improved and the latest glucose level tonight is 218 mg/dL. Her latest chemistry showed a BUN of 24, sodium 148, potassium 3.4, chloride 111, CO2 29, glucose 218 and creatinine 1.0. Her hemoglobin A1c was actually done in the ICU and it was reported as 8.3%. ASSESSMENT: This is a 51-year-old female with uncontrolled and decompensated type 2 insulin-requiring diabetes, started on basal insulin therapy while in the ICU and did very well metabolically on just the low dose basal insulin given as Levemir at 20 units every 12 hours as given and noted. At this time, she has been switched over to a diabetic moderate carb-consistency diet and also heart-healthy diet and so we will switch her over now to a more physiologic basal and bolus insulin regimen as indicated. She developed acute respiratory failure and was successfully extubated as noted thereof. She received intensive insulin therapy with an insulin drip infusion and also vigorous IV hydration in the ICU as noted and given. PLAN OF MANAGEMENT: We will modify her current insulin regimen to a more physiologic basal and bolus drug combination as ordered. We will start her on a low dose of Humalog given as 6 units subcu t.i.d. before meals as ordered. We will also modify her coverage scale to obviate hypoglycemia and detailed orders have been given. Basal insulin also be given at 24 units subcu at bedtime daily as ordered and we will discontinue the morning basal insulin as previously given in the ICU. She was actually never on insulin therapy prior to this admission and she was only on a combination of oral hypoglycemic therapy to include Invokana and metformin as given. We will be very careful to restart her back on Invokana as given on the outpatient by her medical doctors as this medication has been reported to cause diabetes ketoacidosis as noted. We will obtain serial chemistries and supplement accordingly needed. We will follow with you. Kaleigh Jack MD
[2017-06-14] MEDS: Potassium & Sodium Phosphate PO SCH ×3 (09:44→17:23)
[2017-06-14] MEDS ORDERED: Potassium Chloride 20 mEq/15 ml LIQ UD PO STA (11:48)
--- NOTE | 2017-06-14 18:52 | PN ---
DATE: ENDOCRINOLOGY FOLLOWUP NOTE LOCATION: Room 319, [facility]. SUBJECTIVE: This is a 51-year-old female with recent uncontrolled type 2 insulin-requiring diabetes, now being followed closely for metabolic management. She presented here with severe diabetic ketoacidosis and dehydration and received vigorous IV hydration and intensive insulin therapy as noted thereof. She also has supervening acute respiratory failure and was endotracheally intubated and has since then improved clinically and hemodynamically as noted thereof. Her glycemic levels are fluctuating because of the variability of her oral intake as noted and today's glucose levels have ranged from 161-294 mg/dL. Her latest chemistry showed a BUN of 22, sodium 148, potassium 3.5, chloride 109, CO2 of 29, glucose 182, and creatinine 1. So, at this time, we will modify once again her basal and bolus insulin regimen and increase the Humalog to 10 units subcu t.i.d. before meals to start at dinner time today as ordered. We will titrate incrementally as indicated to optimize metabolic control. We will also actually modify her basal insulin and increase the Levemir to 22 units subcu at bedtime daily to start tonight. We will continue the low-dose correction scale using Humalog insulin as given. We will obtain serial chemistries and supplement accordingly as needed. We will follow. Kaleigh Jack MD
[2017-06-14] MEDS ORDERED: Insulin Detemir 100 units/ml Vial (Levemir) SC SCH ×3 (22:00)
--- NOTE | 2017-06-15 05:35 | HP ---
HISTORY OF PRESENT ILLNESS: Patient is a 51-year-old, who came to emergency room after she was found to be confused, disoriented, not feeling well. According to , she has not been feeling well for 2 to 3 days prior to coming to the hospital. Upon inquiring further, it was found that she had gastric bypass surgery on 03/24 and her blood sugar was running low. So, she stopped using her insulin and Invokana and has not been checking her blood sugar either. Because of above reason and feeling lethargic, she came to emergency room. She was found to be in diabetic ketoacidosis and her pH was 6.8, and her blood sugar is more than 600. So, she was admitted in ICU and was started on insulin drip. Patient became increasingly somnolent. For airway protection, she was intubated. She was given aggressive IV fluid therapy along with insulin drip with significant improvement. She was also empirically covered for antiviral with Zovirax. She was on meropenem and doxycycline. With above mentioned treatment, she started to improve, but she was increasingly weak and tired and needed physical therapy, so transferred to TCU. PAST MEDICAL HISTORY: Significant for: 1. Insulin-dependent diabetes. 2. Hypertension. 3. Morbid obesity. 4. Recent gastric bypass. ALLERGIES: SHE IS ALLERGIC TO SULFA. MEDICATIONS AT HOME: She is on B12, Invokana, Xanax, Cozaar 100 mg daily, metoprolol 25 mg twice a day, metformin, insulin, telmisartan, verapamil, thiamine, pravastatin. SOCIAL HISTORY: She is , lives with her and her 12-year-old son. Denies smoking or drinking alcohol. PHYSICAL EXAMINATION: GENERAL: She is awake, alert, oriented and communicative. VITAL SIGNS: She is afebrile, pulse 70, respirations 18, blood pressure 121/65. LUNGS: Bilateral good airflow. No rhonchi or crackle. HEART: S1 and S2 audible. ABDOMEN: Soft, nontender, no rebound, no guarding. NEUROLOGIC: She is awake, alert, oriented, able to communicate. LABORATORY DATA: Chemistry: Sodium 148, potassium 3.5, chloride 109, CO2 29, BUN 22, creatinine 1.0, blood sugar of 229. ASSESSMENT: 1. Status post diabetic ketoacidosis. 2. Status post respiratory failure. 3. Insulin-dependent diabetes. 4. Status post gastric sleeve surgery. 5. Hypertension. 6. Hyperlipidemia. PLAN: Currently, patient is on losartan. She is getting 10 Humalog before each meal and she is on Levemir 20 units at bedtime. I will continue her on Neutra-Phos, continue on Protonix. We will follow up this patient with you. Alphonse Nicholson MD
[2017-06-15] MEDS: Pantoprazole 40 mg EC Tab PO SCH (06:03)
[2017-06-15] MEDS: Insulin Lispro 1 UNITS/0.01 ML SC SCH ×2 (07:16→12:33)
[2017-06-15] MEDS: Insulin Lispro (humaLOG) LOW Coverage SC SCH ×2 (07:17→12:34)
[2017-06-15] MEDS: Potassium & Sodium Phosphate PO SCH ×2 (09:53→14:03)
[2017-06-15 11:22] VITALS: BP 131/94; PULSE 63; TEMP 98.2; O2SAT 97
[2017-06-15] MEDS ORDERED: Insulin Lispro 1 UNITS/0.01 ML SC SCH (13:14)
[2017-06-15] MEDS ORDERED: Insulin Detemir 100 units/ml Vial (Levemir) SC SCH (13:15)
--- NOTE | 2017-06-15 18:59 | PN ---
DATE: ENDOCRINOLOGY FOLLOWUP NOTE LOCATION: Room 319. SUBJECTIVE: This is a 51-year-old female with recent uncontrolled type 2 insulin-requiring diabetes, presenting here with severe diabetic ketoacidosis and dehydration, and supervening acute respiratory failure and since then improved clinically and hemodynamically and has been extubated successfully and currently in the TCU for ongoing metabolic followup and management. Her glycemic levels are fluctuating, but improved and the latest glucose values have ranged from 223 to 264 and 273 mg/dL. Her latest chemistry showed a BUN of 22. Sodium 148, potassium 3.5, chloride 109, CO2 of 29. Glucose 182. Creatinine 1. So at this time, we will modify once again her basal and bolus insulin regimen to allow for dose equilibration and increase the Humalog to 12 units subcu t.i.d. before meals to start at dinner time today as ordered. We will also increase the basal insulin with Levemir to be given as 26 units subcu at bedtime daily to start tonight. We will titrate incrementally as indicated to optimize metabolic control. We will also continue the modified low-dose algorithm with Humalog insulin as given. A very length of discussion was undertaken with the patient regarding the need to follow up with her desk pens assembler in the outpatient setting, Dr. Pérez in [place] for closer metabolic followup. She apparently was taken off all insulin therapy following a gastric sleeve surgical procedure in 03/2017. However, she was placed on Invokana and metformin postoperatively as noted with supervening hyperglycemic accelerations and even severe diabetic ketoacidosis as noted thereof. Would hold off the resumption of Invokana at this time and we will discuss this very morbid inpatient stay with her desk pens assembler and we will go on from there, but for now she clearly needs insulin therapy to optimize metabolic control. The patient understands that she has to go back on insulin therapy as given today and as more weight loss happens over the next few months, then we can back off on the insulin therapy as her glycemic profile improves accordingly. We will follow this. Kaleigh Jack MD
--- NOTE | 2017-06-16 14:46 | DS ---
HOSPITAL COURSE: The patient is 51-year-old, who came to the emergency room because of not feeling well. She was found to have hyperglycemia and she became increasingly somnolent. Blood work showed pH of 6.8 with blood sugar of 660. Further workup showed she is in diabetic ketoacidosis. She was transferred to ICU and she was started on IV insulin and was resuscitated with excessive IV fluids and blood sugar was monitored. Because of her worsening respiratory status, she was intubated for airway protection and she converted to sinus rhythm and has been in sinus rhythm since then. After 3 days, patient was successfully extubated. Blood sugar was closely monitored. She was deconditioned, so transferred to TCU on 06/13/2017. Doing well, ambulating, participating in therapy. Being discharged today. PHYSICAL EXAMINATION: GENERAL: She is awake, alert, oriented, communicative. VITAL SIGNS: She is afebrile, pulse of 99, respirations 18, blood pressure 141/70. LUNGS: Bilateral good airflow. No rhonchi or crackle. HEART: S1, S2 audible. ABDOMEN: Soft, obese, nontender. No rebound. No guarding. NEUROLOGIC: Patient is awake, alert, oriented, able to communicate. LABORATORY EXAMINATION: Blood sugar is 273. ASSESSMENT: 1. Status post diabetic ketoacidosis. 2. History of hypertension. 3. Recent gastric bypass. 4. Hyperlipidemia. PLAN: The patient is being discharged today. As per consulting psychiatrist's recommendation, she will be taking Levemir 26 units at bedtime. She will be taking 12 units of Humalog before each meal and she will follow with her consulting psychiatrist as outpatient. She is also given prescription of metoprolol and losartan. She is being discharged in stable condition. Alphonse Nicholson MD
== END 2017-06-15 16:31 | disposition home or self-care (01) | DRG 945 ==
LOC: TRCU 16:31
PROVIDERS: ADMIT Internal Medicine; ATTEND Internal Medicine
PROC: F07Z9ZZ Gait Training/Functional Ambulation Treatment (ICD-10-PCS; principal; 2017-06-14)
PROC: F08Z4ZZ Home Management Treatment (ICD-10-PCS; 2017-06-14)
DX: R53.1 Weakness (principal); E11.10 Type 2 diabetes mellitus with ketoacidosis without coma; E66.01 Morbid (severe) obesity due to excess calories; I10 Essential (primary) hypertension; E78.5 Hyperlipidemia, unspecified; Z79.4 Long term (current) use of insulin; Z98.84 Bariatric surgery status